=== PATIENT | female | born 1940 | race Caucasian/White ===

== ENCOUNTER 2020-06-09 12:46 | Inpatient (IN) | payer MEDICARE ==
--- NOTE | 2020-06-09 13:35 | XR ---
EXAMINATION TYPE: XR chest 2V DATE OF EXAM: 06/09/2020 COMPARISON: NONE HISTORY: Difficulty breathing, Covid positive TECHNIQUE: Frontal and lateral views of the chest are obtained. FINDINGS: Patchy densities present bilaterally. The heart is enlarged. There is a central venous cat heter on the right coursing via the internal jugular approach, distal tip is overlying the superior v kendall cava, there is a port in the left pectoral region, catheter courses via the subclavian approach w ith distal tip overlying superior vena cava. There is no pneumothorax or pleural effusion. Prominent lung volumes may be indicative of underlying COPD. Metallic density is present over the left heart re gion. IMPRESSION: Correlate for pneumonia, edema. Additional findings above.
[2020-06-09 13:53] LABS: Anisocytosis Slight; Basophils % (A) 0 %; Eosinophils % (A) 0 %; HCT 32.6 % (34.0-46.0); HGB 10.5 gm/dL (11.4-16.0); Hypochromasia Slight; Lymphocytes # (A) 0.7 k/uL (1.0-4.8); Lymphocytes % (A) 9 %; MCH 27.9 pg (25.0-35.0); MCHC 32.4 g/dL (31.0-37.0); MCV 86.1 fL (80.0-100.0); Mean Platelet Volume 8.3; Microcytosis Slight; Monocytes # (A) 0.2 k/uL (0-1.0); Monocytes % (A) 3 %; Neutrophils # (A) 6.2 k/uL (1.3-7.7); Neutrophils % (A) 87 %; Platelet Count 359 k/uL (150-450); RBC 3.78 m/uL (3.80-5.40); RDW 19.5 % (11.5-15.5); WBC 7.2 k/uL (3.8-10.6)
[2020-06-09 14:14] LABS: INR 0.9 (<1.2); Partial Thromboplastin Time 26.1 sec (22.0-30.0); Prothrombin Time 9.6 sec (9.0-12.0)
[2020-06-09] MEDS ORDERED: ALBUTEROL HFA INHALER INHALATION STA (14:23)
[2020-06-09 14:28] LABS: ALT 64 U/L (4-34); AST 135 U/L (14-36); African American GFR (CKD) 62 (>60 ml/min/1.73 sqM); Albumin 2.5 g/dL (3.5-5.0); Alkaline Phosphatase 405 U/L (38-126); Anion Gap 4 mmol/L; Blood Urea Nitrogen 49 mg/dL (7-17); Calcium 8.4 mg/dL (8.4-10.2); Carbon Dioxide 31 mmol/L (22-30); Chloride 99 mmol/L (98-107); Creatine Kinase <20 U/L (30-135); Glucose 211 mg/dL (74-99); Non-African American GFR(CKD) 54 (>60 ml/min/1.73 sqM); Potassium 4.4 mmol/L (3.5-5.1); Sodium 134 mmol/L (137-145); Total Bilirubin 0.5 mg/dL (0.2-1.3); Total Protein 5.4 g/dL (6.3-8.2)
[2020-06-09 14:32] LABS: D-Dimer 0.76 mg/L FEU (<0.60)
[2020-06-09] MEDS ORDERED: FUROSEMIDE 10 MG/ML 4 ML VIAL IV STA (14:54)
--- NOTE | 2020-06-09 14:57 | ED ---
SOB HPI - General Chief Complaint: Shortness of Breath Stated Complaint: CORAZON/COVID+ Time Seen by Provider: 06/09/20 12:46 Source: patient, RN/MD, EMS, RN notes reviewed Mode of arrival: EMS Limitations: no limitations - History of Present Illness Initial Comments: Is a 79-year-old female was brought in by EMS with complaints of shortness of breath hypoxemia. She apparently was diagnosed with Covid 19 recently. She's had progressively worsening shortness breath or cough. No overt fevers chills or sweats reported the source of breath is been going on for last several days. She also complains of weakness. She was sent in by her family doctor MD Complaint: shortness of breath - Related Data Home Medications Medication Instructions Recorded Confirmed Acetaminophen Tab [Tylenol] 650 mg PO Q4H PRN 06/09/20 06/09/20 Cholecalciferol [Vitamin D3 (25 2,000 unit PO DAILY@0900 06/09/20 06/09/20 Mcg = 1000 Iu)] Dimethic/Zinc Ox/Vits A,D/Aloe 1 applic TOPICAL Q12H 06/09/20 06/09/20 [A+D Zinc Oxide Cream] FLUoxetine HCL [PROzac] 10 mg PO DAILY@0900 06/09/20 06/09/20 Ferrous Sulfate [Iron] 325 mg PO DAILY@0900 06/09/20 06/09/20 Furosemide [Lasix] 40 mg PO BID@0600,1400 06/09/20 06/09/20 HYDROcodone/APAP 5-325MG [[place] 1 tab PO Q4HR PRN 06/09/20 06/09/20 5-325] Isosorbide Mononitrate ER [Imdur] 60 mg PO DAILY@0900 06/09/20 06/09/20 Kaopectate 262mg/15ml 524 mg PO BID@0900,2100 06/09/20 06/09/20 Kaopectate 262mg/15ml 524 mg PO TID PRN 06/09/20 06/09/20 Levothyroxine Sodium 137 mcg PO HS@209906/09/20 06/09/20 Mag Hydrox/Al Hydrox/Simeth 30 ml PO Q4H PRN 06/09/20 06/09/20 [Maalox] Metoprolol Tartrate [Lopressor] 12.5 mg PO BID@0900,2100 06/09/20 06/09/20 Piperacillin-Tazobactam [Zosyn] 3.375 gm IVPB Q8H 06/09/20 06/09/20 Potassium Chloride ER [K-Dur 10] 20 meq PO DAILY@0900 06/09/20 06/09/20 Prostat Awc 30 ml PO BID@0900,1700 06/09/20 06/09/20 Simethicone 80 mg PO Q4H PRN 06/09/20 06/09/20 Sodium Bicarbonate Tab 650 mg PO BID@0900,2100 06/09/20 06/09/20 Allergies Allergy/AdvReac Type Severity Reaction Status Date / Time No Known Allergies Allergy Unverified 06/09/20 12:55 Review of Systems ROS Statement: Those systems with pertinent positive or pertinent negative responses have been documented in the HPI. ROS Other: All systems not noted in ROS Statement are negative. Past Medical History Past Medical History: Cancer, Diabetes Mellitus Additional Past Medical History / Comment(s): Colon/cervical CA History of Any Multi-Drug Resistant Organisms: None Reported Past Surgical History: No Surgical Hx Reported Past Psychological History: No Psychological Hx Reported Smoking Status: Never smoker Past Alcohol Use History: None Reported Past Drug Use History: None Reported General Exam - General Exam Comments Initial Comments: Is a well-developed well-nourished awake alert oriented 3 female Limitations: no limitations General appearance: alert, anxious, in distress Head exam: Present: atraumatic, normocephalic, normal inspection Eye exam: Present: normal appearance, PERRL, EOMI. Absent: scleral icterus, conjunctival injection, periorbital swelling ENT exam: Present: normal exam, mucous membranes moist Neck exam: Present: normal inspection, full ROM, other. Absent: tenderness, meningismus, lymphadenopathy Respiratory exam: Present: decreased breath sounds (No stridor JVD or bruits). Absent: respiratory distress, wheezes, rales, rhonchi, stridor Cardiovascular Exam: Present: regular rate, normal rhythm, normal heart sounds. Absent: systolic murmur, diastolic murmur, rubs, gallop, clicks GI/Abdominal exam: Present: soft, normal bowel sounds. Absent: distended, tenderness, guarding, rebound, rigid Extremities exam: Present: normal inspection, full ROM, normal capillary refill. Absent: tenderness, pedal edema, joint swelling, calf tenderness Back exam: Present: normal inspection Neurological exam: Present: alert, oriented X3, CN II-XII intact Psychiatric exam: Present: normal affect, normal mood Skin exam: Present: warm, dry, intact, normal color. Absent: rash Course Vital Signs 06/09/20 06/09/20 06/09/20 12:50 12:57 13:45 Temperature 97.5 F L Pulse Rate 66 67 Respiratory 18 30 H 24 Rate Blood Pressure 121/73 131/81 O2 Sat by Pulse 100 99 Oximetry Medical Decision Making - Medical Decision Making I had discussed the findings with the patient as well as with Dr. López previously. Patient be admitted with consultation by Dr. Pabon as well as Dr. Rangel - Lab Data Result diagrams: 06/09/20 13:41 06/09/20 13:41 Lab Results 06/09/20 06/09/20 06/09/20 Range/Units 13:41 13:41 13:41 WBC 7.2 (3.8-10.6) k/uL RBC 3.78 L (3.80-5.40) m/uL Hgb 10.5 L (11.4-16.0) gm/dL Hct 32.6 L (34.0-46.0) % MCV 86.1 (80.0-100.0) fL MCH 27.9 (25.0-35.0) pg MCHC 32.4 (31.0-37.0) g/dL RDW 19.5 H (11.5-15.5) % Plt Count 359 (150-450) k/uL MPV 8.3 Neutrophils % 87 % Lymphocytes % 9 % Monocytes % 3 % Eosinophils % 0 % Basophils % 0 % Neutrophils # 6.2 (1.3-7.7) k/uL Lymphocytes # 0.7 L (1.0-4.8) k/uL Monocytes # 0.2 (0-1.0) k/uL Eosinophils # 0.0 (0-0.7) k/uL Basophils # 0.0 (0-0.2) k/uL Hypochromasia Slight Anisocytosis Slight Microcytosis Slight PT 9.6 (9.0-12.0) sec INR 0.9 (<1.2) APTT 26.1 (22.0-30.0) sec D-Dimer 0.76 H (<0.60) mg/L FEU Sodium 134 L (137-145) mmol/L Potassium 4.4 (3.5-5.1) mmol/L Chloride 99 (98-107) mmol/L Carbon Dioxide 31 H (22-30) mmol/L Anion Gap 4 mmol/L BUN 49 H (7-17) mg/dL Creatinine 0.99 (0.52-1.04) mg/dL Est GFR (CKD-EPI)AfAm 62 (>60 ml/min/1.73 sqM) Est GFR (CKD-EPI)NonAf 54 (>60 ml/min/1.73 sqM) Glucose 211 H (74-99) mg/dL Plasma Lactic Acid [place] (0.7-2.0) mmol/L Calcium 8.4 (8.4-10.2) mg/dL Magnesium 2.0 (1.6-2.3) mg/dL Total Bilirubin 0.5 (0.2-1.3) mg/dL AST 135 H (14-36) U/L ALT 64 H (4-34) U/L Alkaline Phosphatase 405 H (38-126) U/L Creatine Kinase <20 L (30-135) U/L Troponin I (0.000-0.034) ng/mL NT-Pro-B Natriuret Pep pg/mL Total Protein 5.4 L (6.3-8.2) g/dL Albumin 2.5 L (3.5-5.0) g/dL 06/09/20 06/09/20 06/09/20 Range/Units 13:41 13:41 13:41 WBC (3.8-10.6) k/uL RBC (3.80-5.40) m/uL Hgb (11.4-16.0) gm/dL Hct (34.0-46.0) % MCV (80.0-100.0) fL MCH (25.0-35.0) pg MCHC (31.0-37.0) g/dL RDW (11.5-15.5) % Plt Count (150-450) k/uL MPV Neutrophils % % Lymphocytes % % Monocytes % % Eosinophils % % Basophils % % Neutrophils # (1.3-7.7) k/uL Lymphocytes # (1.0-4.8) k/uL Monocytes # (0-1.0) k/uL Eosinophils # (0-0.7) k/uL Basophils # (0-0.2) k/uL Hypochromasia Anisocytosis Microcytosis PT (9.0-12.0) sec INR (<1.2) APTT (22.0-30.0) sec D-Dimer (<0.60) mg/L FEU Sodium (137-145) mmol/L Potassium (3.5-5.1) mmol/L Chloride (98-107) mmol/L Carbon Dioxide (22-30) mmol/L Anion Gap mmol/L BUN (7-17) mg/dL Creatinine (0.52-1.04) mg/dL Est GFR (CKD-EPI)AfAm (>60 ml/min/1.73 sqM) Est GFR (CKD-EPI)NonAf (>60 ml/min/1.73 sqM) Glucose (74-99) mg/dL Plasma Lactic Acid [place] 1.5 (0.7-2.0) mmol/L Calcium (8.4-10.2) mg/dL Magnesium (1.6-2.3) mg/dL Total Bilirubin (0.2-1.3) mg/dL AST (14-36) U/L ALT (4-34) U/L Alkaline Phosphatase (38-126) U/L Creatine Kinase (30-135) U/L Troponin I 0.028 (0.000-0.034) ng/mL NT-Pro-B Natriuret Pep 65767 pg/mL Total Protein (6.3-8.2) g/dL Albumin (3.5-5.0) g/dL - EKG Data -: EKG Interpreted by Me EKG shows normal: sinus rhythm EKG Comments: EKG shows sinus rhythm a 63. Interval 196 QRS duration 166 QT since QTC 486/497) bundle-branch block with anterior fascicular block and minimal voltage criteria for LVH - Radiology Data Radiology results: report reviewed (Evidence of heart failure. Complete report), image reviewed Critical Care Time Critical Care Time: Yes Total Critical Care Time: 35 Critical Care Time: This includes initial presentation with history physical labs x-rays discussed with the paramedics brought the patient review of old charting multiple evaluations patient discussed with patient physician admission orders and documentation of the above Disposition Clinical Impression: Congestive heart failure, COVID-19, Failure to thrive Disposition: ADMITTED IP TO THIS [facility] Condition: Fair Referrals: Cristi López MD [Primary Care Provider] - 1-2 days
[2020-06-09] MEDS ORDERED: MAG HYDROX/AL HYDROX/SIMETH 30 ML CUP PO PRN (15:04)
[2020-06-09] MEDS ORDERED: BISMUTH SUBSALICYLATE PO PRN (15:04)
[2020-06-09] MEDS ORDERED: SIMETHICONE 80 MG CHEWABLE PO PRN (15:04)
[2020-06-09] MEDS ORDERED: ACETAMINOPHEN TAB 325 MG TAB PO PRN (15:04)
--- NOTE | 2020-06-09 15:06 | ED ---
Medical Decision Making - Lab Data Result diagrams: 06/09/20 13:41 06/09/20 13:41 Lab Results 06/09/20 06/09/20 06/09/20 Range/Units 13:41 13:41 13:41 WBC 7.2 (3.8-10.6) k/uL RBC 3.78 L (3.80-5.40) m/uL Hgb 10.5 L (11.4-16.0) gm/dL Hct 32.6 L (34.0-46.0) % MCV 86.1 (80.0-100.0) fL MCH 27.9 (25.0-35.0) pg MCHC 32.4 (31.0-37.0) g/dL RDW 19.5 H (11.5-15.5) % Plt Count 359 (150-450) k/uL MPV 8.3 Neutrophils % 87 % Lymphocytes % 9 % Monocytes % 3 % Eosinophils % 0 % Basophils % 0 % Neutrophils # 6.2 (1.3-7.7) k/uL Lymphocytes # 0.7 L (1.0-4.8) k/uL Monocytes # 0.2 (0-1.0) k/uL Eosinophils # 0.0 (0-0.7) k/uL Basophils # 0.0 (0-0.2) k/uL Hypochromasia Slight Anisocytosis Slight Microcytosis Slight PT 9.6 (9.0-12.0) sec INR 0.9 (<1.2) APTT 26.1 (22.0-30.0) sec D-Dimer 0.76 H (<0.60) mg/L FEU Sodium 134 L (137-145) mmol/L Potassium 4.4 (3.5-5.1) mmol/L Chloride 99 (98-107) mmol/L Carbon Dioxide 31 H (22-30) mmol/L Anion Gap 4 mmol/L BUN 49 H (7-17) mg/dL Creatinine 0.99 (0.52-1.04) mg/dL Est GFR (CKD-EPI)AfAm 62 (>60 ml/min/1.73 sqM) Est GFR (CKD-EPI)NonAf 54 (>60 ml/min/1.73 sqM) Glucose 211 H (74-99) mg/dL Plasma Lactic Acid [place] (0.7-2.0) mmol/L Calcium 8.4 (8.4-10.2) mg/dL Magnesium 2.0 (1.6-2.3) mg/dL Total Bilirubin 0.5 (0.2-1.3) mg/dL AST 135 H (14-36) U/L ALT 64 H (4-34) U/L Alkaline Phosphatase 405 H (38-126) U/L Creatine Kinase <20 L (30-135) U/L Troponin I (0.000-0.034) ng/mL NT-Pro-B Natriuret Pep pg/mL Total Protein 5.4 L (6.3-8.2) g/dL Albumin 2.5 L (3.5-5.0) g/dL 06/09/20 06/09/20 06/09/20 Range/Units 13:41 13:41 13:41 WBC (3.8-10.6) k/uL RBC (3.80-5.40) m/uL Hgb (11.4-16.0) gm/dL Hct (34.0-46.0) % MCV (80.0-100.0) fL MCH (25.0-35.0) pg MCHC (31.0-37.0) g/dL RDW (11.5-15.5) % Plt Count (150-450) k/uL MPV Neutrophils % % Lymphocytes % % Monocytes % % Eosinophils % % Basophils % % Neutrophils # (1.3-7.7) k/uL Lymphocytes # (1.0-4.8) k/uL Monocytes # (0-1.0) k/uL Eosinophils # (0-0.7) k/uL Basophils # (0-0.2) k/uL Hypochromasia Anisocytosis Microcytosis PT (9.0-12.0) sec INR (<1.2) APTT (22.0-30.0) sec D-Dimer (<0.60) mg/L FEU Sodium (137-145) mmol/L Potassium (3.5-5.1) mmol/L Chloride (98-107) mmol/L Carbon Dioxide (22-30) mmol/L Anion Gap mmol/L BUN (7-17) mg/dL Creatinine (0.52-1.04) mg/dL Est GFR (CKD-EPI)AfAm (>60 ml/min/1.73 sqM) Est GFR (CKD-EPI)NonAf (>60 ml/min/1.73 sqM) Glucose (74-99) mg/dL Plasma Lactic Acid [place] 1.5 (0.7-2.0) mmol/L Calcium (8.4-10.2) mg/dL Magnesium (1.6-2.3) mg/dL Total Bilirubin (0.2-1.3) mg/dL AST (14-36) U/L ALT (4-34) U/L Alkaline Phosphatase (38-126) U/L Creatine Kinase (30-135) U/L Troponin I 0.028 (0.000-0.034) ng/mL NT-Pro-B Natriuret Pep 61764 pg/mL Total Protein (6.3-8.2) g/dL Albumin (3.5-5.0) g/dL Disposition Clinical Impression: Congestive heart failure, COVID-19, Failure to thrive Disposition: ADMITTED IP TO THIS HOSP Condition: Fair Referrals: Cristi López MD [Primary Care Provider] - 1-2 days
[2020-06-09] MEDS ORDERED: HYDROcodone/APAP 5-325MG 1 EACH TAB PO STA (15:13)
[2020-06-09] MEDS ORDERED: FUROSEMIDE 10 MG/ML 4 ML VIAL IV SCH (15:15)
[2020-06-09] MEDS: ALBUTEROL HFA INHALER INHALATION SCH ×2 (16:36→20:23)
[2020-06-09] MEDS: ZINC SULFATE 220 MG CAP PO SCH (16:40)
[2020-06-09] MEDS: PIPERACILLIN-TAZOBACTAM 3.375 GM VIAL IVPB SCH (16:40)
[2020-06-09] MEDS ORDERED: NON FORMULARY DRUG (Prostat Awc 30 ML) PO SCH (17:00)
[2020-06-09] MEDS: METOPROLOL TARTRATE 12.5 MG TAB PO SCH (20:39)
[2020-06-09] MEDS: SODIUM BICARBONATE TAB 650 MG TAB PO SCH ×2 (20:45→20:49)
[2020-06-09] MEDS: HEPARIN SODIUM,PORCINE 5,000 UNIT/ML 1 ML VIAL SQ SCH (20:50)
[2020-06-09] MEDS: DEXAMETHASONE SOD PHOSPHATE 10 MG/ML 1 ML VIAL IV SCH (20:52)
[2020-06-09] MEDS: FUROSEMIDE 10 MG/ML 4 ML VIAL IV SCH (20:54)
[2020-06-09] MEDS: LEVOTHYROXINE 137 MCG TAB PO SCH (20:56)
[2020-06-09] MEDS: ZINC OXIDE 20% OINT 28.4 GM TUBE TOPICAL SCH (20:58)
[2020-06-10] MEDS: ALBUTEROL HFA INHALER INHALATION SCH ×5 (00:27→21:59)
[2020-06-10] MEDS: PIPERACILLIN-TAZOBACTAM 3.375 GM VIAL IVPB SCH ×4 (01:34→23:39)
[2020-06-10 04:26] LABS: C Reactive Protein 13.2 mg/dL (0.0-0.8)
[2020-06-10 06:03] LABS: Glucose,Whole Blood 302 mg/dL (75-99)
[2020-06-10] MEDS: INSULIN ASPART (NovoLOG) 100 UNIT/ML VIAL SQ SCH ×4 (06:28→20:36)
[2020-06-10] MEDS: FERROUS SULFATE 325 MG TAB PO SCH (09:05)
[2020-06-10] MEDS: ZINC SULFATE 220 MG CAP PO SCH (09:05)
[2020-06-10] MEDS: CHOLECALCIFEROL 1,000 UNIT TAB PO SCH (09:05)
[2020-06-10] MEDS: FUROSEMIDE 10 MG/ML 4 ML VIAL IV SCH ×2 (09:06→20:35)
[2020-06-10] MEDS: HEPARIN SODIUM,PORCINE 5,000 UNIT/ML 1 ML VIAL SQ SCH ×2 (09:06→20:35)
[2020-06-10] MEDS: FLUoxetine HCL 10 MG CAP PO SCH (09:06)
[2020-06-10] MEDS: DEXAMETHASONE SOD PHOSPHATE 10 MG/ML 1 ML VIAL IV SCH ×2 (09:06→20:35)
[2020-06-10] MEDS: POTASSIUM CHLORIDE ER 10 MEQ TAB.ER.PRT PO SCH (09:06)
[2020-06-10] MEDS: ZINC OXIDE 20% OINT 28.4 GM TUBE TOPICAL SCH ×2 (09:07→20:37)
[2020-06-10] MEDS: METOPROLOL TARTRATE 12.5 MG TAB PO SCH ×2 (09:14→20:36)
[2020-06-10] MEDS: ISOSORBIDE MONONITRATE ER 60 MG TAB.ER.24H PO SCH (09:14)
--- NOTE | 2020-06-10 11:22 | P.CNPUL ---
History of Present Illness Consult date: 06/10/20 Reason for consult: dyspnea, cough, hypoxemia, pneumonia Chief complaint: Covid 19 pneumonia History of present illness: Patient is a 79-year-old female came into the hospital with increasing cough shortness of breath she was noted to be hypoxic with x-ray showing bilateral interstitial infiltrate, patient was recently found to have covid 19 pneumonia, her past history is significant for diabetes mellitus, colon and cervical cancer, currently she is being treated with supplemental oxygen along with bronchodilators Decadron 6 mg IV every 12 hourly continuation of home medicine as well as IV furosemide and IV Zosyn, her oxygen saturation is 95-97% on 4 L, her BNP is 7-6600,*slightly elevated, AST and ALT are 135 and 64 alk phos 405, BUN/creatinine is 49 and 0.99 LDH is the 339, C-reactive protein is 13.2, Review of Systems All systems: negative Past Medical History Past Medical History: Cancer, Diabetes Mellitus Additional Past Medical History / Comment(s): Colon/cervical CA History of Any Multi-Drug Resistant Organisms: None Reported Past Surgical History: Bowel Resection Additional Past Surgical History / Comment(s): colostomy Past Psychological History: No Psychological Hx Reported Smoking Status: Never smoker Past Alcohol Use History: None Reported Past Drug Use History: None Reported Medications and Allergies Home Medications Medication Instructions Recorded Confirmed Type Acetaminophen Tab [Tylenol] 650 mg PO Q4H PRN 06/09/20 06/09/20 History Cholecalciferol [Vitamin D3 (25 2,000 unit PO DAILY@0900 06/09/20 06/09/20 History Mcg = 1000 Iu)] Dimethic/Zinc Ox/Vits A,D/Aloe 1 applic TOPICAL Q12H 06/09/20 06/09/20 History [A+D Zinc Oxide Cream] FLUoxetine HCL [PROzac] 10 mg PO DAILY@0900 06/09/20 06/09/20 History Ferrous Sulfate [Iron] 325 mg PO DAILY@0900 06/09/20 06/09/20 History Furosemide [Lasix] 40 mg PO BID@0600,1400 06/09/20 06/09/20 History HYDROcodone/APAP 5-325MG [[place] 1 tab PO Q4HR PRN 06/09/20 06/09/20 History 5-325] Isosorbide Mononitrate ER [Imdur] 60 mg PO DAILY@0900 06/09/20 06/09/20 History Kaopectate 262mg/15ml 524 mg PO BID@0900,209906/09/20 06/09/20 History Kaopectate 262mg/15ml 524 mg PO TID PRN 06/09/20 06/09/20 History Levothyroxine Sodium 137 mcg PO HS@209906/09/20 06/09/20 History Mag Hydrox/Al Hydrox/Simeth 30 ml PO Q4H PRN 06/09/20 06/09/20 History [Maalox] Metoprolol Tartrate [Lopressor] 12.5 mg PO BID@0900,209906/09/20 06/09/20 History Piperacillin-Tazobactam [Zosyn] 3.375 gm IVPB Q8H 06/09/20 06/09/20 History Potassium Chloride ER [K-Dur 10] 20 meq PO DAILY@0900 06/09/20 06/09/20 History Prostat Awc 30 ml PO BID@0900,1700 06/09/20 06/09/20 History Simethicone 80 mg PO Q4H PRN 06/09/20 06/09/20 History Sodium Bicarbonate Tab 650 mg PO BID@0900,209906/09/20 06/09/20 History Allergies Allergy/AdvReac Type Severity Reaction Status Date / Time No Known Allergies Allergy Unverified 06/09/20 12:55 Physical Exam Vitals: Vital Signs Temp Pulse Pulse Resp BP BP Pulse Ox 06/10/20 04:00 71 18 151/79 97 06/10/20 02:47 64 20 06/09/20 22:15 97.5 F L 64 20 134/60 98 06/09/20 20:39 52 L 16 122/49 98 06/09/20 20:30 64 20 06/09/20 17:50 97.6 F 62 18 132/69 98 06/09/20 16:52 60 18 127/62 98 06/09/20 15:29 97.6 F 56 L 25 H 118/58 98 06/09/20 15:19 60 18 135/78 98 06/09/20 13:45 67 24 131/81 99 06/09/20 12:57 30 H 06/09/20 12:50 97.5 F L 66 18 121/73 100 Intake and Output 06/09/20 06/10/20 06/10/20 22:59 06:59 14:59 Output Total 700 Balance -700 Output: Urine 700 Other: Voiding Method Indwelling Catheter Weight 77.111 kg 78 kg - Constitutional General appearance: average body habitus, cooperative, disheveled - EENT Eyes: PERRLA Ears: bilateral: normal - Neck Carotids: bilateral: upstroke normal Thyroid: bilateral: normal size - Respiratory Respiratory: bilateral: CTA - Cardiovascular Rhythm: regular Heart sounds: normal: S1, S2 - Gastrointestinal General gastrointestinal: normal bowel sounds - Neurologic Neurologic: CNII-XII intact - Musculoskeletal Musculoskeletal: gait normal, generalized weakness, strength equal bilaterally - Psychiatric Psychiatric: A&O x's 3, appropriate affect, intact judgment & insight Results - Laboratory Findings CBC and BMP: 06/09/20 13:41 06/09/20 13:41 PT/INR, D-dimer PT 9.6 sec (9.0-12.0) 06/09/20 13:41 INR 0.9 (<1.2) 06/09/20 13:41 D-Dimer 0.76 mg/L FEU (<0.60) H 06/09/20 13:41 Abnormal lab findings: Abnormal Labs 06/09/20 06/09/20 06/09/20 13:41 13:41 13:41 RBC 3.78 L Hgb 10.5 L Hct 32.6 L RDW 19.5 H Lymphocytes # 0.7 L D-Dimer 0.76 H Sodium 134 L Carbon Dioxide 31 H BUN 49 H Glucose 211 H POC Glucose (mg/dL) AST 135 H ALT 64 H Alkaline Phosphatase 405 H Lactate Dehydrogenase Creatine Kinase <20 L C-Reactive Protein Total Protein 5.4 L Albumin 2.5 L 06/09/20 06/10/20 16:33 06:01 RBC Hgb Hct RDW Lymphocytes # D-Dimer Sodium Carbon Dioxide BUN Glucose POC Glucose (mg/dL) 302 H AST ALT Alkaline Phosphatase Lactate Dehydrogenase 339 H Creatine Kinase C-Reactive Protein 13.2 H Total Protein Albumin - Diagnostic Findings Chest x-ray: report reviewed, image reviewed (Chest x-ray finding as reported above) Assessment and Plan Assessment: Acute hypoxic respiratory failure Acute on chronic diastolic heart failure Covert 19 pneumonia Elevated troponins Plan: Continue diuresis as planned Check d-dimer Continue dexamethasone Patient is not a candidate for REMdesivir due to elevated liver enzyme also acute decompensation appears to be related to heart failure Echocardiogram Time with Patient: Greater than 30
[2020-06-10 11:54] LABS: Glucose,Whole Blood 261 mg/dL (75-99)
--- NOTE | 2020-06-10 12:15 | P.CONS ---
History of Present Illness - Reason for Consult Consult date: 06/10/20 wound care - History of Present Illness this is an 79-year-old patient who sees Dr. Pabon at [facility] wound care center. Upon examination patient was unable to say what dressings utilize for her ulcerations. Patient states that the ulcerations have been there for many months. She lives in [place] alone and has home care coming in for dressing changes. upon examination it was found that the patient was utilizing a negative pressure wound VAC for the coccyx ulceration. Patient has a large coccyx ulceration with undermining from 11:00 until 3:00, patient has bone exposed with fascia. She has minimal slough with granulation seen throughout the wound bed. No eschar noted to the site. the ulceration to the left heel is healed. Review of Systems Review Of Systems: Constitutional: No fever, no chills, no night sweats. No weight change. No weakness, fatigue or lethargy. No daytime sleepiness. Integumentary:reports wounds, no lesions. No rash or pruritus. No unusual bruising. No change in hair or nails. Past Medical History Past Medical History: Cancer, Diabetes Mellitus Additional Past Medical History / Comment(s): Colon/cervical CA History of Any Multi-Drug Resistant Organisms: None Reported Past Surgical History: Bowel Resection Additional Past Surgical History / Comment(s): colostomy Past Psychological History: No Psychological Hx Reported Smoking Status: Never smoker Past Alcohol Use History: None Reported Past Drug Use History: None Reported Medications and Allergies Home Medications Medication Instructions Recorded Confirmed Type Acetaminophen Tab [Tylenol] 650 mg PO Q4H PRN 06/09/20 06/09/20 History Cholecalciferol [Vitamin D3 (25 2,000 unit PO DAILY@89906/09/20 06/09/20 History Mcg = 1000 Iu)] Dimethic/Zinc Ox/Vits A,D/Aloe 1 applic TOPICAL Q12H 06/09/20 06/09/20 History [A+D Zinc Oxide Cream] FLUoxetine HCL [PROzac] 10 mg PO DAILY@0900 06/09/20 06/09/20 History Ferrous Sulfate [Iron] 325 mg PO DAILY@0900 06/09/20 06/09/20 History Furosemide [Lasix] 40 mg PO BID@0600,1400 06/09/20 06/09/20 History HYDROcodone/APAP 5-325MG [[place] 1 tab PO Q4HR PRN 06/09/20 06/09/20 History 5-325] Isosorbide Mononitrate ER [Imdur] 60 mg PO DAILY@0900 06/09/20 06/09/20 History Kaopectate 262mg/15ml 524 mg PO BID@0900,2100 06/09/20 06/09/20 History Kaopectate 262mg/15ml 524 mg PO TID PRN 06/09/20 06/09/20 History Levothyroxine Sodium 137 mcg PO HS@209906/09/20 06/09/20 History Mag Hydrox/Al Hydrox/Simeth 30 ml PO Q4H PRN 06/09/20 06/09/20 History [Maalox] Metoprolol Tartrate [Lopressor] 12.5 mg PO BID@0900,2100 06/09/20 06/09/20 History Piperacillin-Tazobactam [Zosyn] 3.375 gm IVPB Q8H 06/09/20 06/09/20 History Potassium Chloride ER [K-Dur 10] 20 meq PO DAILY@0900 06/09/20 06/09/20 History Prostat Awc 30 ml PO BID@0900,1700 06/09/20 06/09/20 History Simethicone 80 mg PO Q4H PRN 06/09/20 06/09/20 History Sodium Bicarbonate Tab 650 mg PO BID@0900,2100 06/09/20 06/09/20 History Allergies Allergy/AdvReac Type Severity Reaction Status Date / Time No Known Allergies Allergy Unverified 06/09/20 12:55 Physical Exam Vitals: Vital Signs Temp Pulse Pulse Resp BP BP Pulse Ox 06/10/20 04:00 71 18 151/79 97 06/10/20 02:47 64 20 06/09/20 22:15 97.5 F L 64 20 134/60 98 06/09/20 20:39 52 L 16 122/49 98 06/09/20 20:30 64 20 06/09/20 17:50 97.6 F 62 18 132/69 98 06/09/20 16:52 60 18 127/62 98 06/09/20 15:29 97.6 F 56 L 25 H 118/58 98 06/09/20 15:19 60 18 135/78 98 06/09/20 13:45 67 24 131/81 99 06/09/20 12:57 30 H 06/09/20 12:50 97.5 F L 66 18 121/73 100 Intake and Output 06/09/20 06/10/20 06/10/20 22:59 06:59 14:59 Output Total 700 650 Balance -700 -650 Output: Urine 700 650 Other: Voiding Method Indwelling Catheter # Bowel Movements 1 Weight 77.111 kg 78 kg Physical exam: General Appearance: Alert, cooperative, no distress, appears stated age. Skin: See HPI all other Skin color, texture, tugor normal, no rashes or lesions. Neurologic: Alert oriented x3 Results CBC & Chem 7: 06/09/20 13:41 06/09/20 13:41 Labs: Abnormal Lab Results - Last 24 Hours (Table) 06/09/20 06/09/20 06/09/20 Range/Units 13:41 13:41 13:41 RBC 3.78 L (3.80-5.40) m/uL Hgb 10.5 L (11.4-16.0) gm/dL Hct 32.6 L (34.0-46.0) % RDW 19.5 H (11.5-15.5) % Lymphocytes # 0.7 L (1.0-4.8) k/uL D-Dimer 0.76 H (<0.60) mg/L FEU Sodium 134 L (137-145) mmol/L Carbon Dioxide 31 H (22-30) mmol/L BUN 49 H (7-17) mg/dL Glucose 211 H (74-99) mg/dL POC Glucose (mg/dL) (75-99) mg/dL AST 135 H (14-36) U/L ALT 64 H (4-34) U/L Alkaline Phosphatase 405 H (38-126) U/L Lactate Dehydrogenase (120-246) U/L Creatine Kinase <20 L (30-135) U/L C-Reactive Protein (0.0-0.8) mg/dL Total Protein 5.4 L (6.3-8.2) g/dL Albumin 2.5 L (3.5-5.0) g/dL 06/09/20 06/10/20 Range/Units 16:33 06:01 RBC (3.80-5.40) m/uL Hgb (11.4-16.0) gm/dL Hct (34.0-46.0) % RDW (11.5-15.5) % Lymphocytes # (1.0-4.8) k/uL D-Dimer (<0.60) mg/L FEU Sodium (137-145) mmol/L Carbon Dioxide (22-30) mmol/L BUN (7-17) mg/dL Glucose (74-99) mg/dL POC Glucose (mg/dL) 302 H (75-99) mg/dL AST (14-36) U/L ALT (4-34) U/L Alkaline Phosphatase (38-126) U/L Lactate Dehydrogenase 339 H (120-246) U/L Creatine Kinase (30-135) U/L C-Reactive Protein 13.2 H (0.0-0.8) mg/dL Total Protein (6.3-8.2) g/dL Albumin (3.5-5.0) g/dL Assessment and Plan (1) Pressure ulcer of sacral region, stage 4 Current Visit: Yes Status: Acute Code(s): L89.154 - PRESSURE ULCER OF SACRAL REGION, STAGE 4 SNOMED Code(s): 290331777 (2) Diabetes mellitus with skin ulcer Current Visit: Yes Status: Acute Code(s): E11.622 - TYPE 2 DIABETES MELLITUS WITH OTHER SKIN ULCER; L98.499 - NON-PRESSURE CHRONIC ULCER OF SKIN OF SITES W UNSP SEVERITY SNOMED Code(s): 68796501 Plan: utilize foam heel protector to the left heel. Apply negative pressure wound VAC to the coccyx ulceration utilizing a white foam to the undermining and black foam to the ulceration. Use a Vaseline impregnated gauze to cover the exposed bone prior to the black foam. Negative pressure wound VAC at 150 mmHg continuous suction. Change Sunday. Patient should continue with the wound VAC upon discharge. If patient is unable to tolerate lying flat to apply the wound VAC please call the wound care center for additional orders Thank you for the consultation any questions please contact the wound center DNP note has been reviewed and discussed with Dr. Cardenas and the impression and plan of care has been directed as dictated. Time with Patient: Greater than 30
[2020-06-10 14:43] LABS: Hemoglobin A1C 7.5 % (4.0-6.0)
[2020-06-10 17:00] LABS: Glucose,Whole Blood 314 mg/dL (75-99)
[2020-06-10 20:17] LABS: Glucose,Whole Blood 316 mg/dL (75-99)
[2020-06-10] MEDS: HYDROcodone/APAP 5-325MG 1 EACH TAB PO PRN (20:34)
[2020-06-10] MEDS: SODIUM BICARBONATE TAB 650 MG TAB PO SCH (20:36)
[2020-06-10] MEDS: LEVOTHYROXINE 137 MCG TAB PO SCH (20:36)
--- NOTE | 2020-06-10 22:07 | P.CONS ---
History of Present Illness - Reason for Consult Consult date: 06/10/20 Covid and sacral osteomyelitis Requesting physician: Cristi López - Chief Complaint shortness of breath x few days - History of Present Illness Patient is 79-year-old female who apparently was recently diagnosed with a COVID-19 however is not sure exactly when she was diagnosed patient has been sent to the ER at [facility] yesterday afternoon for evaluation of increasing shortness of breath and hypoxemia, patient denies having any chest pain very minimal cough no nausea no vomiting no abdominal pain or any diarrhea on arrival to the ER patient was afebrile patient was satting 100% as documented on 4 L nasal cannula patient did have a normal white count with lymphopenia D-dimer was mildly elevated LDH CRP elevated creatinine 0.99 patient also have a infected sacral pressure ulcer for the patient is currently getting Zosyn in the outpatient setting and local wound care has been a wound VAC, patient was also noticed to have elevated NT proBNP patient has been admitted to the hospital patient was started on dexamethasone Heparin subcu zinc sulfate continue Zosyn infectious was consulted for further management need for her remdesivir therapy. Review of Systems Positive point has been mentioned in HPI rest of the systems are negative Past Medical History Past Medical History: Cancer, Diabetes Mellitus Additional Past Medical History / Comment(s): Colon/cervical CA History of Any Multi-Drug Resistant Organisms: None Reported Past Surgical History: Bowel Resection Additional Past Surgical History / Comment(s): colostomy Past Psychological History: No Psychological Hx Reported Smoking Status: Never smoker Past Alcohol Use History: None Reported Past Drug Use History: None Reported Medications and Allergies Home Medications Medication Instructions Recorded Confirmed Type Acetaminophen Tab [Tylenol] 650 mg PO Q4H PRN 06/09/20 06/09/20 History Cholecalciferol [Vitamin D3 (25 2,000 unit PO DAILY@89906/09/20 06/09/20 History Mcg = 1000 Iu)] Dimethic/Zinc Ox/Vits A,D/Aloe 1 applic TOPICAL Q12H 06/09/20 06/09/20 History [A+D Zinc Oxide Cream] FLUoxetine HCL [PROzac] 10 mg PO DAILY@89906/09/20 06/09/20 History Ferrous Sulfate [Iron] 325 mg PO DAILY@89906/09/20 06/09/20 History Furosemide [Lasix] 40 mg PO BID@00,1400 06/09/20 06/09/20 History HYDROcodone/APAP 5-325MG [[place] 1 tab PO Q4HR PRN 06/09/20 06/09/20 History 5-325] Isosorbide Mononitrate ER [Imdur] 60 mg PO DAILY@0900 06/09/20 06/09/20 History Kaopectate 262mg/15ml 524 mg PO BID@0900,2100 06/09/20 06/09/20 History Kaopectate 262mg/15ml 524 mg PO TID PRN 06/09/20 06/09/20 History Levothyroxine Sodium 137 mcg PO HS@209906/09/20 06/09/20 History Mag Hydrox/Al Hydrox/Simeth 30 ml PO Q4H PRN 06/09/20 06/09/20 History [Maalox] Metoprolol Tartrate [Lopressor] 12.5 mg PO BID@0900,2100 06/09/20 06/09/20 History Piperacillin-Tazobactam [Zosyn] 3.375 gm IVPB Q8H 06/09/20 06/09/20 History Potassium Chloride ER [K-Dur 10] 20 meq PO DAILY@0900 06/09/20 06/09/20 History Prostat Awc 30 ml PO BID@0900,1700 06/09/20 06/09/20 History Simethicone 80 mg PO Q4H PRN 06/09/20 06/09/20 History Sodium Bicarbonate Tab 650 mg PO BID@0900,2100 06/09/20 06/09/20 History Allergies Allergy/AdvReac Type Severity Reaction Status Date / Time No Known Allergies Allergy Unverified 06/09/20 12:55 Physical Exam Vitals: Vital Signs Temp Pulse Pulse Resp BP BP Pulse Ox 06/10/20 08:00 97.8 F 60 24 135/55 98 06/10/20 04:00 71 18 151/79 97 06/10/20 02:47 64 20 06/09/20 22:15 97.5 F L 64 20 134/60 98 06/09/20 20:39 52 L 16 122/49 98 06/09/20 20:30 64 20 06/09/20 17:50 97.6 F 62 18 132/69 98 06/09/20 16:52 60 18 127/62 98 06/09/20 15:29 97.6 F 56 L 25 H 118/58 98 06/09/20 15:19 60 18 135/78 98 06/09/20 13:45 67 24 131/81 99 06/09/20 12:57 30 H 06/09/20 12:50 97.5 F L 66 18 121/73 100 Intake and Output 06/09/20 06/10/20 06/10/20 22:59 06:59 14:59 Output Total 700 650 Balance -700 -650 Output: Urine 700 650 Other: Voiding Method Indwelling Catheter Indwelling Catheter # Bowel Movements 1 Weight 77.111 kg 78 kg GENERAL DESCRIPTION: Elderly female lying in bed, no distress. No tachypnea or accessory muscle of respiration use. HEENT: Shows Pallor , no scleral icterus. Oral mucous membrane is dry. NECK: Trachea central, no thyromegaly. LUNGS: Unlabored breathing. Decreased breath sound at the base. No wheeze or crackle. HEART: S1, S2, regular rate and rhythm. ABDOMEN: Soft, no tenderness , guarding or rigidity EXTREMITIES: No edema of feet. SKIN: No rash, no masses palpable. Sacral wound with no slough tissue no surrounding redness or drainage NEUROLOGICAL: The patient is awake, alert, oriented x3, mood and affect normal Results CBC & Chem 7: 06/09/20 13:41 06/09/20 13:41 Labs: Abnormal Lab Results - Last 24 Hours (Table) 06/09/20 06/09/20 06/09/20 Range/Units 13:41 13:41 13:41 RBC 3.78 L (3.80-5.40) m/uL Hgb 10.5 L (11.4-16.0) gm/dL Hct 32.6 L (34.0-46.0) % RDW 19.5 H (11.5-15.5) % Lymphocytes # 0.7 L (1.0-4.8) k/uL D-Dimer 0.76 H (<0.60) mg/L FEU Sodium 134 L (137-145) mmol/L Carbon Dioxide 31 H (22-30) mmol/L BUN 49 H (7-17) mg/dL Glucose 211 H (74-99) mg/dL POC Glucose (mg/dL) (75-99) mg/dL AST 135 H (14-36) U/L ALT 64 H (4-34) U/L Alkaline Phosphatase 405 H (38-126) U/L Lactate Dehydrogenase (120-246) U/L Creatine Kinase <20 L (30-135) U/L C-Reactive Protein (0.0-0.8) mg/dL Total Protein 5.4 L (6.3-8.2) g/dL Albumin 2.5 L (3.5-5.0) g/dL 06/09/20 06/10/20 06/10/20 Range/Units 16:33 06:01 11:53 RBC (3.80-5.40) m/uL Hgb (11.4-16.0) gm/dL Hct (34.0-46.0) % RDW (11.5-15.5) % Lymphocytes # (1.0-4.8) k/uL D-Dimer (<0.60) mg/L FEU Sodium (137-145) mmol/L Carbon Dioxide (22-30) mmol/L BUN (7-17) mg/dL Glucose (74-99) mg/dL POC Glucose (mg/dL) 302 H 261 H (75-99) mg/dL AST (14-36) U/L ALT (4-34) U/L Alkaline Phosphatase (38-126) U/L Lactate Dehydrogenase 339 H (120-246) U/L Creatine Kinase (30-135) U/L C-Reactive Protein 13.2 H (0.0-0.8) mg/dL Total Protein (6.3-8.2) g/dL Albumin (3.5-5.0) g/dL Assessment and Plan Assessment: 1-patient presented to hospital with increasing shortness of breath and apparently diagnosed outpatient with COVID-19 patient did not have any fever no hypoxemia documented as the patient has been satting 129% on 4 L nasal cannula chest x-ray is mostly suspicious for COPD did not mention any groundglass opacities commonly seen with a COVID-19 pneumonia 2-patient with stage IV sacral pressure ulcer infected for the patient is currently on Zosyn in the outpatient setting local wound care with wound VAC (1) COVID-19 Current Visit: Yes Status: Acute Code(s): U07.1 - COVID-19 SNOMED Code(s): 796719626 (2) Pressure ulcer of sacral region, stage 4 Current Visit: Yes Status: Acute Code(s): L89.154 - PRESSURE ULCER OF SACRAL REGION, STAGE 4 SNOMED Code(s): 160180214 Plan: 1-patient to continue with the dexamethasone Heparin zinc for underlying COVID- 19 infection, clinically doubt any benefit with remdesivir at this point as the patient already showed improvement in the last 24 hours 2-continue with Zosyn 3.375 g acute of underlying osteomyelitis of the sacrum area 3-local wound care with a wound VAC change Sunday We will follow on clinical condition and cultures to further adjust medication if needed Thank you for this consultation we will follow the patient along with you Time with Patient: Greater than 30
[2020-06-11] MEDS: HYDROcodone/APAP 5-325MG 1 EACH TAB PO PRN (02:27)
[2020-06-11] MEDS: ALBUTEROL HFA INHALER INHALATION SCH ×5 (03:20→23:58)
[2020-06-11 05:57] LABS: Glucose,Whole Blood 191 mg/dL (75-99)
[2020-06-11] MEDS: INSULIN ASPART (NovoLOG) 100 UNIT/ML VIAL SQ SCH ×4 (06:37→21:14)
--- NOTE | 2020-06-11 09:24 | PN ---
PROGRESS NOTE An 88-year-old white female with COVID positive pneumonia. She is Decadron or zinc, dexamethasone. She was sent in for hypoxemic respiratory failure. Her pulse is 50s to 60s. She is 93% on 6 L oxygen, temperature 98.5, pulse 60, respiratory 18-20. LUNGS: Scattered rhonchi. CARDIOVASCULAR: S1, S2. ASSESSMENT: COVID Positive pneumonia, CHF, coronary artery disease, hypothyroidism. Cardiology consult as well as Dr. Rangel for COVID pneumonia possibly Remdesivir will not be needed. She is severely bad with her breathing. DATE OF SERVICE: 06/10/2020 MMODL / IJN: [id number] /
[2020-06-11] MEDS: HEPARIN SODIUM,PORCINE 5,000 UNIT/ML 1 ML VIAL SQ SCH ×2 (10:01→21:13)
[2020-06-11] MEDS: FERROUS SULFATE 325 MG TAB PO SCH (10:01)
[2020-06-11] MEDS: ZINC SULFATE 220 MG CAP PO SCH (10:01)
[2020-06-11] MEDS: SODIUM BICARBONATE TAB 650 MG TAB PO SCH ×2 (10:02→21:12)
[2020-06-11] MEDS: POTASSIUM CHLORIDE ER 10 MEQ TAB.ER.PRT PO SCH (10:02)
[2020-06-11] MEDS: CHOLECALCIFEROL 1,000 UNIT TAB PO SCH (10:02)
[2020-06-11] MEDS: PIPERACILLIN-TAZOBACTAM 3.375 GM VIAL IVPB SCH ×2 (10:02→17:25)
[2020-06-11] MEDS: FLUoxetine HCL 10 MG CAP PO SCH (10:02)
[2020-06-11] MEDS: FUROSEMIDE 10 MG/ML 4 ML VIAL IV SCH ×2 (10:02→21:13)
[2020-06-11] MEDS: DEXAMETHASONE SOD PHOSPHATE 10 MG/ML 1 ML VIAL IV SCH ×2 (10:02→21:13)
[2020-06-11] MEDS: ZINC OXIDE 20% OINT 28.4 GM TUBE TOPICAL SCH ×2 (10:03→21:14)
[2020-06-11] MEDS: METOPROLOL TARTRATE 12.5 MG TAB PO SCH ×2 (10:04→21:12)
[2020-06-11] MEDS: ISOSORBIDE MONONITRATE ER 60 MG TAB.ER.24H PO SCH (10:04)
[2020-06-11 11:56] LABS: Glucose,Whole Blood 294 mg/dL (75-99)
[2020-06-11] MEDS: LOSARTAN 25 MG TAB PO SCH (12:34)
--- NOTE | 2020-06-11 13:28 | ECHOF ---
Referral Reason:pulmnary hypertension MEASUREMENTS -------- HEIGHT: 160.0 cm WEIGHT: 77.6 kg BP: 136/70 RVIDd: 2.3 cm (< 3.3) IVSd: 1.2 cm (0.6 - 1.1) LVIDd: 5.2 cm (3.9 - 5.3) LVPWd: 1.5 cm (0.6 - 1.1) IVSs: 1.6 cm LVIDs: 4.4 cm LVPWs: 1.8 cm LAESV Index (A-L): 41.86 ml/m Ao Diam: 2.6 cm (2.0 - 3.7) AV Cusp: 1.5 cm (1.5 - 2.6) LA Diam: 4.1 cm (2.7 - 3.8) MV EXCURSION: 16.659 mm (> 18.000) MV EF SLOPE: 67 mm/s (70 - 150) EPSS: 0.9 cm MV E Andrea: 1.06 m/s MV DecT: 162 ms MV A Andrea: 0.65 m/s MV E/A Ratio: 1.63 AV maxP.69 mmHg AV meanP.79 mmHg AR PHT: 373 ms RAP: 5.00 mmHg RVSP: 57.34 mmHg FINDINGS -------- This was a technically difficult study with suboptimal views. The left ventricular size is normal. There is borderline concentric left ventricular hypertrophy. Increased LAP Grade 2 Diastolic Dysfunction. Left ventricular funciton is moderately reduced with EF 40% with global hypokinesis. The right ventricle is normal in size. LA is severely dilated >40 ml/m2 The right atrial size is normal. Lumason used Aortic valve is trileaflet and is mildly thickened. There is mild aortic valve sclerosis. There i s moderate aortic regurgitation. Peak/mean gradient across the Aortic Valve is 9.69mmHg / 4.79mmHg. The mitral valve is normal. The mitral valve leaflets are mildly thickened. Yzlsbluu-ei-yzocua mi tral regurgitation is present. The tricuspid valve appears structurally normal. Moderate tricuspid regurgitation present. There is moderate pulmonary hypertension. The right ventricular systolic pressure, as measured by Doppler , is 57.34mmHg. Trace/mild (physiologic) pulmonic regurgitation. The aortic root size is normal. IVC Not well visulized. There is no pericardial effusion. CONCLUSIONS -------- 1. The left ventricular size is normal. 2. There is borderline concentric left ventricular hypertrophy. 3. Increased LAP Grade 2 Diastolic Dysfunction. 4. Left ventricular funciton is moderately reduced with EF 40% with global hypokinesis. 5. LA is severely dilated >40 ml/m2 6. Aortic valve is trileaflet and is mildly thickened. 7. There is mild aortic valve sclerosis. 8. Peak/mean gradient across the Aortic Valve is 9.69mmHg / 4.79mmHg. 9. The mitral valve leaflets are mildly thickened. 10. Moderate tricuspid regurgitation present. 11. There is moderate pulmonary hypertension. 12. The right ventricular systolic pressure, as measured by Doppler, is 57.34mmHg. 13. Trace/mild (physiologic) pulmonic regurgitation. 14. There is no pericardial effusion. CLOTH FOLDER MACHINE: Allison Devi RDCS
--- NOTE | 2020-06-11 15:36 | P.PN ---
Subjective Progress Note Date: 06/11/20 Principal diagnosis: Acute hypoxic respiratory failure Acute on chronic diastolic heart failure Covert 19 pneumonia Elevated troponins 06/11/2020, patient seen eval examined labs reviewed medications reviewed is still short of breath remains on oxygen, care plan discussed with infectious disease services will do a trial of REMdesivir reviewed liver enzymes as well will closely monitor observe, Patient is a 79-year-old female came into the hospital with increasing cough s hortness of breath she was noted to be hypoxic with x-ray showing bilateral interstitial infiltrate, patient was recently found to have covid 19 pneumonia, her past history is significant for diabetes mellitus, colon and cervical cancer, currently she is being treated with supplemental oxygen along with bronchodilators Decadron 6 mg IV every 12 hourly continuation of home medicine as well as IV furosemide and IV Zosyn, her oxygen saturation is 95-97% on 4 L, her BNP is 7-6600,*slightly elevated, AST and ALT are 135 and 64 alk phos 405, BUN/creatinine is 49 and 0.99 LDH is the 339, C-reactive protein is 13.2, Objective - Vital Signs Vital signs: Vital Signs Temp 97.6 F 06/11/20 08:00 Pulse 60 06/11/20 08:00 Resp 20 06/11/20 08:00 BP 147/62 06/11/20 08:00 Pulse Ox 97 06/11/20 08:00 Intake & Output 06/10/20 06/11/20 06/11/20 18:59 06:59 18:59 Intake Total 340 180 Output Total 750 600 Balance -410 -600 180 Weight 78 kg 78 kg Intake: Oral 340 180 Output: Urine 750 600 Other: Voiding Method Indwelling Catheter Indwelling Catheter Indwelling Catheter # Bowel Movements 1 - Exam - Constitutional General appearance: average body habitus, cooperative, disheveled - EENT Eyes: PERRLA Ears: bilateral: normal - Neck Carotids: bilateral: upstroke normal Thyroid: bilateral: normal size - Respiratory Respiratory: bilateral: CTA - Cardiovascular Rhythm: regular Heart sounds: normal: S1, S2 - Gastrointestinal General gastrointestinal: normal bowel sounds - Neurologic Neurologic: CNII-XII intact - Musculoskeletal Musculoskeletal: gait normal, generalized weakness, strength equal bilaterally - Psychiatric Psychiatric: A&O x's 3, appropriate affect, intact judgment & insigh - Labs CBC & Chem 7: 06/09/20 13:41 12/09/20 13:41 Labs: Abnormal Lab Results - Last 24 Hours (Table) 06/10/20 06/10/20 06/11/20 Range/Units 16:57 20:15 05:55 POC Glucose (mg/dL) 314 H 316 H 191 H (75-99) mg/dL 06/11/20 Range/Units 11:50 POC Glucose (mg/dL) 294 H (75-99) mg/dL Microbiology - Last 24 Hours (Table) 06/09/20 16:33 Blood Culture - Preliminary Blood No Growth after 24 hours Assessment and Plan Assessment: Acute hypoxic respiratory failure Acute on chronic diastolic heart failure Covert 19 pneumonia Elevated troponins Plan: Continue diuresis as planned Check d-dimer Continue dexamethasone As per discussion with infectious disease services will initiate a trial of REMdesivir Echocardiogram Time with Patient: Greater than 30
[2020-06-11] MEDS ORDERED: REMDESIVIR 200 MG in SODIUM CHLORIDE 0.9% 250 ML IVPB ONE (16:00)
--- NOTE | 2020-06-11 16:15 | CONS ---
CONSULTATION Mrs. Olga Babin is an 79-year-old lady, a patient of Dr. Cristi López, who apparently had a positive COVID antigen test on May 28, and she has now been hospitalized with what seems to be a COVID pneumonia based on the chest x-ray from 48 hours ago. She came in to the hospital with increasing shortness of breath and has been hospitalized with supplemental oxygen and also some Decadron. I was asked to see her for her congestive heart failure. This lady was not actually seen by me. I evaluated the chart and I am recommending an echocardiogram and also to continue IV Lasix, and based on clinical course we will make further recommendations. She came into the hospital with increasing shortness of breath, hypoxemia, and at home she takes Prozac, Lasix, Imdur, metoprolol tartrate 12.5 mg b.i.d., and also takes Synthroid 137 mcg daily. She also seems to have elevated blood sugars here, which could be related to the steroid administration. On reviewing the chart, she is not on any anti-diabetic medications. I am recommending an echocardiogram and also to continue the current medical regimen that has already been outlined by Dr. Rangel and Dr. López. I am suggesting losartan 25 mg daily to continue, and also metoprolol tartrate 12.5 mg b.i.d. will be continued. Based on the findings on the echo and clinical course, I will make further recommendations. I will see the patient only if it is absolutely necessary, given the fact we do not want a lot of people exposed to a COVID-positive patient. The patient has already been seen by Dr. Rangel and Dr. López. I will review the echo and make further recommendations. MMODL / IJN: [id number] /
[2020-06-11 16:59] LABS: Glucose,Whole Blood 311 mg/dL (75-99)
[2020-06-11 20:30] LABS: Glucose,Whole Blood 312 mg/dL (75-99)
[2020-06-11] MEDS: LEVOTHYROXINE 137 MCG TAB PO SCH (21:12)
[2020-06-11] MEDS: INSULIN DETEMIR (LEVEMIR) 100 UNIT/ML SYR SQ SCH (21:13)
--- NOTE | 2020-06-11 23:11 | PN ---
PROGRESS NOTE DATE OF SERVICE: 06/11/2020 REASON FOR FOLLOWUP: COVID-19 infection. INTERVAL HISTORY: The patient is currently afebrile. She seems slightly sleepy and lethargic today and was unable to provide any history. No vomiting or diarrhea reported by the nursing staff. Requiring about 4 L nasal cannula. PHYSICAL EXAMINATION: Blood pressure is 142/59, pulse of 57, temperature 98.1. She is 98% on 4 L nasal cannula. General description is an elderly female lying in bed in no distress. RESPIRATORY SYSTEM: Unlabored breathing with decreased intensity of breath sounds. No wheeze. HEART: S1, S2. Regular rate and rhythm. ABDOMEN: Soft. No tenderness. LABS: No new labs have been obtained today. Blood culture has been negative. DIAGNOSTIC IMPRESSION AND PLAN: Patient admitted to hospital with shortness of breath which is multifactorial in this patient with possible fluid overload. Clinically not behaving as infection. Positive COVID test. Remdesivir has been added. She is also on antibiotic. Will check her and tomorrow. Continue with supportive care. MMODL / IJN: [id number] /
[2020-06-12] MEDS: PIPERACILLIN-TAZOBACTAM 3.375 GM VIAL IVPB SCH ×4 (00:35→23:20)
[2020-06-12 06:31] LABS: Glucose,Whole Blood 146 mg/dL (75-99)
[2020-06-12] MEDS: INSULIN ASPART (NovoLOG) 100 UNIT/ML VIAL SQ SCH ×4 (06:36→20:51)
[2020-06-12] MEDS: FUROSEMIDE 10 MG/ML 4 ML VIAL IV SCH ×2 (08:41→20:52)
[2020-06-12] MEDS: DEXAMETHASONE SOD PHOSPHATE 10 MG/ML 1 ML VIAL IV SCH ×2 (08:42→20:52)
[2020-06-12] MEDS: METOPROLOL TARTRATE 12.5 MG TAB PO SCH ×2 (08:42→20:52)
[2020-06-12] MEDS: POTASSIUM CHLORIDE ER 10 MEQ TAB.ER.PRT PO SCH (08:42)
[2020-06-12] MEDS: ISOSORBIDE MONONITRATE ER 60 MG TAB.ER.24H PO SCH (08:42)
[2020-06-12] MEDS: HEPARIN SODIUM,PORCINE 5,000 UNIT/ML 1 ML VIAL SQ SCH ×2 (08:43→20:52)
[2020-06-12] MEDS: FERROUS SULFATE 325 MG TAB PO SCH (08:43)
[2020-06-12] MEDS: SODIUM BICARBONATE TAB 650 MG TAB PO SCH ×2 (08:43→20:52)
[2020-06-12] MEDS: LOSARTAN 25 MG TAB PO SCH (08:43)
[2020-06-12] MEDS: ZINC SULFATE 220 MG CAP PO SCH (08:43)
--- NOTE | 2020-06-12 08:44 | XR ---
EXAMINATION TYPE: XR chest 1V portable DATE OF EXAM: 06/12/2020 COMPARISON: 06/09/2020 INDICATION: Pneumonia TECHNIQUE: Single frontal view of the chest is obtained. FINDINGS: The heart size is enlarged. The pulmonary vasculature is normal. There is mild scattered increased infiltrates present bilaterally. Findings appear to be worsening fr om comparison. Port is present on the right with the tip in the superior vena cava region. IMPRESSION: 1. Worsening bilateral lung infiltrates. Correlate for atypical pneumonia. 2. Cardiomegaly.
[2020-06-12] MEDS: FLUoxetine HCL 10 MG CAP PO SCH (08:45)
[2020-06-12] MEDS: ZINC OXIDE 20% OINT 28.4 GM TUBE TOPICAL SCH ×2 (08:48→20:51)
[2020-06-12] MEDS: ALBUTEROL HFA INHALER INHALATION SCH ×3 (09:20→19:39)
--- NOTE | 2020-06-12 11:00 | P.PN ---
Subjective Progress Note Date: 06/12/20 Principal diagnosis: Acute hypoxic respiratory failure Acute on chronic diastolic heart failure Covert 19 pneumonia Elevated troponins 06/12/2020, patient seen eval examined during the rounds labs reviewed medications reviewed care plan discussed, denies any chest pain, respiratory status remains stable, heart rate is a 51 saturation is 98% on 4 L, chest x-ray showed worsening bilateral infiltrate along with cardiomegaly, patient remains on Decadron Zosyn and IV REMDESIVIr, sugars stable 146 06/11/2020, patient seen eval examined labs reviewed medications reviewed is st ill short of breath remains on oxygen, care plan discussed with infectious disease services will do a trial of REMdesivir reviewed liver enzymes as well will closely monitor observe, Patient is a 79-year-old female came into the hospital with increasing cough shortness of breath she was noted to be hypoxic with x-ray showing bilateral interstitial infiltrate, patient was recently found to have covid 19 pneumonia, her past history is significant for diabetes mellitus, colon and cervical cancer, currently she is being treated with supplemental oxygen along with bronchodilators Decadron 6 mg IV every 12 hourly continuation of home medicine as well as IV furosemide and IV Zosyn, her oxygen saturation is 95-97% on 4 L, her BNP is 7-6600,*slightly elevated, AST and ALT are 135 and 64 alk phos 405, BUN/creatinine is 49 and 0.99 LDH is the 339, C-reactive protein is 13.2, Objective - Vital Signs Vital signs: Vital Signs Temp 98.2 F 06/12/20 04:00 Pulse 51 L 06/12/20 04:00 Resp 20 06/12/20 04:00 BP 118/67 06/12/20 04:00 Pulse Ox 98 06/12/20 04:00 Intake & Output 06/11/20 06/12/20 06/12/20 18:59 06:59 18:59 Intake Total 540 120 Output Total 700 700 Balance -160 -700 120 Weight 79.5 kg Intake: Oral 540 120 Output: Urine 700 700 Uretheral (Leslie) 600 Other: Voiding Method Indwelling Catheter Indwelling Catheter - Exam - Constitutional General appearance: average body habitus, cooperative, disheveled - EENT Eyes: PERRLA Ears: bilateral: normal - Neck Carotids: bilateral: upstroke normal Thyroid: bilateral: normal size - Respiratory Respiratory: bilateral: CTA - Cardiovascular Rhythm: regular Heart sounds: normal: S1, S2 - Gastrointestinal General gastrointestinal: normal bowel sounds - Neurologic Neurologic: CNII-XII intact - Musculoskeletal Musculoskeletal: gait normal, generalized weakness, strength equal bilaterally - Psychiatric Psychiatric: A&O x's 3, appropriate affect, intact judgment & insigh - Labs CBC & Chem 7: 06/09/20 13:41 06/09/20 13:41 Labs: Abnormal Lab Results - Last 24 Hours (Table) 06/11/20 06/11/20 06/11/20 Range/Units 11:50 16:57 20:28 POC Glucose (mg/dL) 294 H 311 H 312 H (75-99) mg/dL 06/12/20 Range/Units 06:26 POC Glucose (mg/dL) 146 H (75-99) mg/dL Microbiology - Last 24 Hours (Table) 06/09/20 16:33 Blood Culture - Preliminary Blood No Growth after 48 hours Assessment and Plan Assessment: Acute hypoxic respiratory failure Acute on chronic systolic and diastolic heart failure ejection fraction is 40% with global hypokinesia and dilated LV Covert 19 pneumonia Moderate pulmonary hypertension Elevated troponins Plan: Continue diuresis as planned Continue anticoagulation, continue IV REMdesivir for 5 days, labs pending from today Continue dexamethasone As per discussion with infectious disease services will initiate a trial of REMdesivir Echocardiogram findings reviewed Time with Patient: Greater than 30
[2020-06-12 11:30] LABS: Anisocytosis Slight; Basophils % (A) 0 %; Eosinophils % (A) 0 %; HGB 10.2 gm/dL (11.4-16.0); Hypochromasia Marked; Lymphocytes # (A) 0.6 k/uL (1.0-4.8); Lymphocytes % (A) 6 %; MCH 28.6 pg (25.0-35.0); MCHC 31.9 g/dL (31.0-37.0); MCV 89.8 fL (80.0-100.0); Mean Platelet Volume 7.8; Monocytes # (A) 0.3 k/uL (0-1.0); Monocytes % (A) 3 %; Neutrophils # (A) 8.3 k/uL (1.3-7.7); Neutrophils % (A) 90 %; Platelet Count 356 k/uL (150-450); RBC 3.56 m/uL (3.80-5.40); RDW 19.3 % (11.5-15.5); WBC 9.2 k/uL (3.8-10.6)
[2020-06-12 11:41] LABS: Albumin 2.6 g/dL (3.5-5.0); C Reactive Protein 50.1 mg/L (<10.0); Calcium 8.6 mg/dL (8.4-10.2); Potassium 5.1 mmol/L (3.5-5.1); Total Bilirubin 0.5 mg/dL (0.2-1.3); Total Protein 5.6 g/dL (6.3-8.2)
[2020-06-12 11:48] LABS: Glucose,Whole Blood 221 mg/dL (75-99)
[2020-06-12] MEDS: REMDESIVIR 100 MG in SODIUM CHLORIDE 0.9% 250 ML IVPB SCH (15:13)
--- NOTE | 2020-06-12 16:26 | PN ---
PROGRESS NOTE SUBJECTIVE: 79-year-old white female. Discussed the case with Dr. Hinton. We will start her on Remdesivir. She is saturating low 90s on 5 to 6 L of oxygen. She has acute Covid 19 pneumonia, acute hypoxemic respiratory failure, acute on chronic diastolic heart failure, sacral osteomyelitis with diverting ileostomy. As mentioned above, she is on IV Remdesivir, Decadron, Zosyn. Sugars are in the 100s went up to 400s last night. I put her on a higher scale for insulin. Heart rate 51. Right now 98 on 4 L. She remains on IV Lasix for congestive heart failure. Extreme weeping in her legs and arms. Temp 98.2 as mentioned, O2 98 on 4 L. Blood pressure 118/60s, respiratory 18-20, pulse is 50s to 55. Constitutional: Cooperative, disheveled. Pupils equal, round, reactive. Neck is supple. No mass. Respiratory: Scattered rhonchi and wheeze. Heart: S1, S2. GI: Normal bowel sounds. NEUROLOGIC: Cranial nerves are intact. MUSCULOSKELETAL: Gait normal. Generalized weakness. Strength equal bilaterally. PSYCH: Alert and oriented x3. LABS: White count 7.2, hemoglobin is 10.5, platelets 359. Sodium 134, potassium 4.4, BUN is 49, creatinine 0.99. ASSESSMENT: 1. Covid 19 pneumonia. 2. Acute hypoxemic respiratory failure. 3. Acute on chronic systolic diastolic heart failure with global hypokinesia 40%. 4. Moderate pulmonary hypertension. 5. Elevated troponin secondary to Covid 19. Continue dexamethasone, IV Remdesivir, day two today. Anticoagulation. IV diuresis. Echo was reviewed. Cardiology and Pulmonary consult reviewed. Infectious Disease. Prognosis guarded. MMODL / IJN: [id number] /
[2020-06-12 16:49] LABS: Glucose,Whole Blood 265 mg/dL (75-99)
[2020-06-12 20:44] LABS: Glucose,Whole Blood 245 mg/dL (75-99)
[2020-06-12] MEDS: INSULIN DETEMIR (LEVEMIR) 100 UNIT/ML SYR SQ SCH (20:51)
[2020-06-12] MEDS: LEVOTHYROXINE 137 MCG TAB PO SCH (20:52)
--- NOTE | 2020-06-12 23:00 | PN ---
PROGRESS NOTE DATE OF SERVICE: 06/12/2020 REASON FOR FOLLOWUP: 1. Acute COVID-19 pneumonia. 2. Sacral osteomyelitis. INTERVAL HISTORY: Patient is currently afebrile. The patient is breathing comfortably. She is more awake, alert. Denies having any chest pain or shortness of breath. Minimal cough. No nausea or vomiting. No abdominal pain, no diarrhea. PHYSICAL EXAMINATION: Blood pressure 132/65, pulse of 58, temperature 96.8. She is 98% on 4 L nasal cannula. General description is an elderly female lying in bed in no distress. Respiratory system: Unlabored breathing, decreased breath sounds, no wheeze. Heart S1, S2. Regular rate and rhythm. Abdomen soft, no tenderness. LABS: Hemoglobin is 10.8, white count 9.2, BUN of 54, creatinine 1.04, and LDH is 996, ( ) 0.33. DIAGNOSTIC IMPRESSION AND PLAN: 1. Patient admitted to the hospital with hypoxemia with concern for acute COVID-19 pneumonia. The patient is currently covered with dexamethasone, ( ) and Remdesivir to continue along with respiratory support. 2. Patient with sacral osteomyelitis, covered with Zosyn. Local wound care as ordered. Continue supportive care. MMODL / IJN: [id number] /
[2020-06-12] MEDS: HYDROcodone/APAP 5-325MG 1 EACH TAB PO PRN (23:39)
[2020-06-13] MEDS: ALBUTEROL HFA INHALER INHALATION SCH ×4 (00:39→19:39)
[2020-06-13] MEDS: INSULIN ASPART (NovoLOG) 100 UNIT/ML VIAL SQ SCH ×4 (06:34→22:10)
[2020-06-13 06:53] LABS: Glucose,Whole Blood 106 mg/dL (75-99)
[2020-06-13 08:29] LABS: Albumin 2.7 g/dL (3.5-5.0); Calcium 8.8 mg/dL (8.4-10.2); Potassium 4.4 mmol/L (3.5-5.1); Total Bilirubin 0.5 mg/dL (0.2-1.3); Total Protein 5.6 g/dL (6.3-8.2)
[2020-06-13 08:54] LABS: Anisocytosis Slight; Basophils % (A) 0 %; Eosinophils % (A) 0 %; HCT 32.7 % (34.0-46.0); HGB 10.2 gm/dL (11.4-16.0); Hypochromasia Slight; Lymphocytes # (A) 0.6 k/uL (1.0-4.8); Lymphocytes % (A) 7 %; MCH 27.3 pg (25.0-35.0); MCHC 31.2 g/dL (31.0-37.0); MCV 87.6 fL (80.0-100.0); Mean Platelet Volume 8.3; Monocytes # (A) 0.3 k/uL (0-1.0); Monocytes % (A) 3 %; Neutrophils # (A) 7.2 k/uL (1.3-7.7); Neutrophils % (A) 89 %; Platelet Count 325 k/uL (150-450); RBC 3.73 m/uL (3.80-5.40); RDW 19.8 % (11.5-15.5); WBC 8.2 k/uL (3.8-10.6)
[2020-06-13] MEDS: FUROSEMIDE 10 MG/ML 4 ML VIAL IV SCH ×2 (09:14→22:09)
[2020-06-13] MEDS: DEXAMETHASONE SOD PHOSPHATE 10 MG/ML 1 ML VIAL IV SCH ×2 (09:14→22:09)
[2020-06-13] MEDS: METOPROLOL TARTRATE 12.5 MG TAB PO SCH (09:15)
[2020-06-13] MEDS: CHOLECALCIFEROL 1,000 UNIT TAB PO SCH (09:15)
[2020-06-13] MEDS: ISOSORBIDE MONONITRATE ER 60 MG TAB.ER.24H PO SCH (09:15)
[2020-06-13] MEDS: SODIUM BICARBONATE TAB 650 MG TAB PO SCH ×2 (09:15→22:12)
[2020-06-13] MEDS: ZINC SULFATE 220 MG CAP PO SCH (09:15)
[2020-06-13] MEDS: FERROUS SULFATE 325 MG TAB PO SCH (09:15)
[2020-06-13] MEDS: PIPERACILLIN-TAZOBACTAM 3.375 GM VIAL IVPB SCH ×3 (09:15→23:25)
[2020-06-13] MEDS: HEPARIN SODIUM,PORCINE 5,000 UNIT/ML 1 ML VIAL SQ SCH ×2 (09:15→22:10)
[2020-06-13] MEDS: POTASSIUM CHLORIDE ER 10 MEQ TAB.ER.PRT PO SCH (09:15)
[2020-06-13] MEDS: LOSARTAN 25 MG TAB PO SCH (09:16)
[2020-06-13] MEDS: ZINC OXIDE 20% OINT 28.4 GM TUBE TOPICAL SCH ×2 (09:16→23:26)
[2020-06-13] MEDS: FLUoxetine HCL 10 MG CAP PO SCH (09:23)
--- NOTE | 2020-06-13 11:27 | P.PN ---
Subjective Progress Note Date: 06/13/20 Principal diagnosis: Acute hypoxic respiratory failure Acute on chronic diastolic heart failure Covert 19 pneumonia Elevated troponins 06/13/2020, patient seen eval examined during the rounds labs reviewed medications reviewed patient remains on 4 L oxygen, breathing comfortably denies any chest pain, saturation is 95-96%, hemodynamic status stable remained afebrile, LFTs high and but remains stable, asymptomatic in that relation 06/12/2020, patient seen eval examined during the rounds labs reviewed medications reviewed care plan discussed, denies any chest pain, respiratory status remains stable, heart rate is a 51 saturation is 98% on 4 L, chest x-ray showed worsening bilateral infiltrate along with cardiomegaly, patient remains on Decadron Zosyn and IV REMDESIVIr, sugars stable 146 06/11/2020, patient seen eval examined labs reviewed medications reviewed is st ill short of breath remains on oxygen, care plan discussed with infectious disease services will do a trial of REMdesivir reviewed liver enzymes as well will closely monitor observe, Patient is a 79-year-old female came into the hospital with increasing cough shortness of breath she was noted to be hypoxic with x-ray showing bilateral interstitial infiltrate, patient was recently found to have covid 19 pneumonia, her past history is significant for diabetes mellitus, colon and cervical cancer, currently she is being treated with supplemental oxygen along with bronchodilators Decadron 6 mg IV every 12 hourly continuation of home medicine as well as IV furosemide and IV Zosyn, her oxygen saturation is 95-97% on 4 L, her BNP is 7-6600,*slightly elevated, AST and ALT are 135 and 64 alk phos 405, BUN/creatinine is 49 and 0.99 LDH is the 339, C-reactive protein is 13.2, Objective - Vital Signs Vital signs: Vital Signs Temp 97.6 F 06/13/20 09:10 Pulse 60 06/13/20 09:10 Resp 18 06/13/20 09:10 BP 142/64 06/13/20 09:10 Pulse Ox 100 06/13/20 09:10 Intake & Output 06/12/20 06/13/20 06/13/20 18:59 06:59 18:59 Intake Total 366 250 Output Total 800 800 Balance -434 -800 250 Weight 79.5 kg Intake: IV 10 Invasive Line 1 10 Oral 366 240 Output: Urine 800 800 Uretheral (Leslie) 600 400 Other: Voiding Method Indwelling Catheter Indwelling Catheter Indwelling Catheter # Bowel Movements 1 - Exam - Constitutional General appearance: average body habitus, cooperative, disheveled - EENT Eyes: PERRLA Ears: bilateral: normal - Neck Carotids: bilateral: upstroke normal Thyroid: bilateral: normal size - Respiratory Respiratory: bilateral: CTA - Cardiovascular Rhythm: regular Heart sounds: normal: S1, S2 - Gastrointestinal General gastrointestinal: normal bowel sounds - Neurologic Neurologic: CNII-XII intact - Musculoskeletal Musculoskeletal: gait normal, generalized weakness, strength equal bilaterally - Psychiatric Psychiatric: A&O x's 3, appropriate affect, intact judgment & insigh - Labs CBC & Chem 7: 06/13/20 07:53 06/13/20 07:53 Labs: Abnormal Lab Results - Last 24 Hours (Table) 06/12/20 06/12/20 06/12/20 Range/Units 10:42 10:42 10:42 RBC 3.56 L (3.80-5.40) m/uL Hgb 10.2 L (11.4-16.0) gm/dL Hct 32.0 L (34.0-46.0) % RDW 19.3 H (11.5-15.5) % Neutrophils # 8.3 H (1.3-7.7) k/uL Lymphocytes # 0.6 L (1.0-4.8) k/uL D-Dimer (<0.60) mg/L FEU Sodium 133 L (137-145) mmol/L Chloride 97 L (98-107) mmol/L Carbon Dioxide (22-30) mmol/L BUN 54 H (7-17) mg/dL Creatinine (0.52-1.04) mg/dL Glucose 189 H (74-99) mg/dL POC Glucose (mg/dL) (75-99) mg/dL AST 61 H (14-36) U/L ALT 48 H (4-34) U/L Alkaline Phosphatase 321 H (38-126) U/L Lactate Dehydrogenase 1096 H (313-618) U/L C-Reactive Protein 50.1 H (<10.0) mg/L Total Protein 5.6 L (6.3-8.2) g/dL Albumin 2.6 L (3.5-5.0) g/dL Procalcitonin 0.33 H (0.02-0.09) ng/mL 06/12/20 06/12/20 06/12/20 Range/Units 10:42 11:47 16:48 RBC (3.80-5.40) m/uL Hgb (11.4-16.0) gm/dL Hct (34.0-46.0) % RDW (11.5-15.5) % Neutrophils # (1.3-7.7) k/uL Lymphocytes # (1.0-4.8) k/uL D-Dimer 0.71 H (<0.60) mg/L FEU Sodium (137-145) mmol/L Chloride (98-107) mmol/L Carbon Dioxide (22-30) mmol/L BUN (7-17) mg/dL Creatinine (0.52-1.04) mg/dL Glucose (74-99) mg/dL POC Glucose (mg/dL) 221 H 265 H (75-99) mg/dL AST (14-36) U/L ALT (4-34) U/L Alkaline Phosphatase (38-126) U/L Lactate Dehydrogenase (313-618) U/L C-Reactive Protein (<10.0) mg/L Total Protein (6.3-8.2) g/dL Albumin (3.5-5.0) g/dL Procalcitonin (0.02-0.09) ng/mL 06/12/20 06/13/20 06/13/20 Range/Units 20:43 06:34 07:53 RBC 3.73 L (3.80-5.40) m/uL Hgb 10.2 L (11.4-16.0) gm/dL Hct 32.7 L (34.0-46.0) % RDW 19.8 H (11.5-15.5) % Neutrophils # (1.3-7.7) k/uL Lymphocytes # 0.6 L (1.0-4.8) k/uL D-Dimer (<0.60) mg/L FEU Sodium (137-145) mmol/L Chloride (98-107) mmol/L Carbon Dioxide (22-30) mmol/L BUN (7-17) mg/dL Creatinine (0.52-1.04) mg/dL Glucose (74-99) mg/dL POC Glucose (mg/dL) 245 H 106 H (75-99) mg/dL AST (14-36) U/L ALT (4-34) U/L Alkaline Phosphatase (38-126) U/L Lactate Dehydrogenase (313-618) U/L C-Reactive Protein (<10.0) mg/L Total Protein (6.3-8.2) g/dL Albumin (3.5-5.0) g/dL Procalcitonin (0.02-0.09) ng/mL 06/13/20 Range/Units 07:53 RBC (3.80-5.40) m/uL Hgb (11.4-16.0) gm/dL Hct (34.0-46.0) % RDW (11.5-15.5) % Neutrophils # (1.3-7.7) k/uL Lymphocytes # (1.0-4.8) k/uL D-Dimer (<0.60) mg/L FEU Sodium 136 L (137-145) mmol/L Chloride 97 L (98-107) mmol/L Carbon Dioxide 34 H (22-30) mmol/L BUN 53 H (7-17) mg/dL Creatinine 1.06 H (0.52-1.04) mg/dL Glucose 136 H (74-99) mg/dL POC Glucose (mg/dL) (75-99) mg/dL AST 56 H (14-36) U/L ALT 50 H (4-34) U/L Alkaline Phosphatase 336 H (38-126) U/L Lactate Dehydrogenase (313-618) U/L C-Reactive Protein (<10.0) mg/L Total Protein 5.6 L (6.3-8.2) g/dL Albumin 2.7 L (3.5-5.0) g/dL Procalcitonin (0.02-0.09) ng/mL Microbiology - Last 24 Hours (Table) 06/09/20 16:33 Blood Culture - Preliminary Blood No Growth after 72 hours Assessment and Plan Assessment: Acute hypoxic respiratory failure Acute on chronic systolic and diastolic heart failure ejection fraction is 40% with global hypokinesia and dilated LV Covert 19 pneumonia Moderate pulmonary hypertension Elevated troponins Plan: Continue diuresis as planned Continue anticoagulation, continue IV REMdesivir for 5 days, labs pending from today Continue dexamethasone As per discussion with infectious disease services will continue trial of REMdesivir for 5 days and monitor liver functions closely Echocardiogram findings reviewed Time with Patient: Greater than 30
--- NOTE | 2020-06-13 11:50 | PN ---
PROGRESS NOTE 79-year-old white female on day two Remdesivir for Covid-Pneumonia, sacral osteomyelitis. She is breathing comfortably. She is getting better daily. Her cough is limiting. Blood pressure 130s over 60s. Pulse is 50s to 60s. Temp 96. She is 98% on 4 L oxygen. Heart S1, S2. Abdomen is soft, nontender. Labs show hemoglobin 10.8, white count 9.2, BUN is 54, creatinine 1.04, LDH 996. ASSESSMENT: 1. Covid-19 pneumonia. IV Remdesivir is continuing. 2. Sacroiliitis on Zosyn. 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 3. Chronic obstructive pulmonary disease. 4. Congestive heart failure is being managed with Lasix. 5. Acute on chronic anemia. Hemoglobin is 10.2, sodium 136, potassium 4.4, BUN is 53, creatinine 1.06 today. Sugars are in the mid 200s to 100s for diabetes mellitus. Continue current treatment. Follow up in the next 24 to 48 hours. Today she is saturating 96% on 4 L. MMODL / IJN: [id number] /
[2020-06-13 11:53] LABS: Glucose,Whole Blood 180 mg/dL (75-99)
[2020-06-13] MEDS ORDERED: METOPROLOL TARTRATE 12.5 MG TAB PO STA (12:32)
[2020-06-13] MEDS: REMDESIVIR 100 MG in SODIUM CHLORIDE 0.9% 250 ML IVPB SCH (14:54)
[2020-06-13 16:30] LABS: Glucose,Whole Blood 248 mg/dL (75-99)
[2020-06-13 21:40] LABS: Glucose,Whole Blood 354 mg/dL (75-99)
[2020-06-13] MEDS: INSULIN DETEMIR (LEVEMIR) 100 UNIT/ML SYR SQ SCH (22:10)
[2020-06-13] MEDS: METOPROLOL TARTRATE 25 MG TAB PO SCH (22:11)
[2020-06-13] MEDS: LEVOTHYROXINE 137 MCG TAB PO SCH (23:25)
[2020-06-14] MEDS: ALBUTEROL HFA INHALER INHALATION SCH ×4 (00:39→20:06)
--- NOTE | 2020-06-14 02:30 | PN ---
PROGRESS NOTE DATE OF SERVICE: 06/13/2020 REASON FOR FOLLOWUP: 1. COVID-19 infection. 2. Infected sacral wound. INTERVAL HISTORY: The patient is currently afebrile. The patient is breathing comfortably. Patient denies having any chest pain or shortness of breath. Minimal cough. No vomiting. No abdominal pain or diarrhea. PHYSICAL EXAMINATION: Blood pressure 135/68 with a pulse of 54, temperature 97.2. She is 98% on 4 L nasal cannula. General description is an elderly female lying in bed in no distress. RESPIRATORY SYSTEM: Unlabored breathing with decreased breath sounds at the bases, no wheeze. HEART: S1, S2. Regular rate and rhythm. ABDOMEN: Soft. No tenderness. LABS: Hemoglobin is 10.2, white count of 8.2, BUN of 53, creatinine 1.06. DIAGNOSTIC IMPRESSION AND PLAN: 1. Patient admitted to hospital with acute COVID-19 pneumonia. The patient is currently on remdesivir, dexamethasone, , zinc to continue. 2. Patient with sacral infected wound covered with Zosyn. Continue local wound care as ordered. Continue with supportive care. MMODL / IJN: [id number] /
[2020-06-14 06:42] LABS: Glucose,Whole Blood 123 mg/dL (75-99)
[2020-06-14] MEDS: INSULIN ASPART (NovoLOG) 100 UNIT/ML VIAL SQ SCH ×4 (07:30→21:49)
[2020-06-14 07:31] LABS: Albumin 2.7 g/dL (3.5-5.0); Calcium 8.6 mg/dL (8.4-10.2); Potassium 4.1 mmol/L (3.5-5.1); Total Bilirubin 0.5 mg/dL (0.2-1.3); Total Protein 5.6 g/dL (6.3-8.2)
[2020-06-14] MEDS: METOPROLOL TARTRATE 25 MG TAB PO SCH ×2 (08:09→21:49)
[2020-06-14] MEDS: CHOLECALCIFEROL 1,000 UNIT TAB PO SCH (08:09)
[2020-06-14] MEDS: FLUoxetine HCL 10 MG CAP PO SCH (08:09)
[2020-06-14] MEDS: SODIUM BICARBONATE TAB 650 MG TAB PO SCH ×2 (08:09→21:49)
[2020-06-14] MEDS: ISOSORBIDE MONONITRATE ER 60 MG TAB.ER.24H PO SCH (08:09)
[2020-06-14] MEDS: POTASSIUM CHLORIDE ER 10 MEQ TAB.ER.PRT PO SCH (08:09)
[2020-06-14] MEDS: PIPERACILLIN-TAZOBACTAM 3.375 GM VIAL IVPB SCH ×3 (08:09→23:36)
[2020-06-14] MEDS: FERROUS SULFATE 325 MG TAB PO SCH (08:09)
[2020-06-14] MEDS: HEPARIN SODIUM,PORCINE 5,000 UNIT/ML 1 ML VIAL SQ SCH ×2 (08:10→21:49)
[2020-06-14] MEDS: LOSARTAN 25 MG TAB PO SCH (08:10)
[2020-06-14] MEDS: FUROSEMIDE 10 MG/ML 4 ML VIAL IV SCH ×2 (08:10→21:47)
[2020-06-14] MEDS: DEXAMETHASONE SOD PHOSPHATE 10 MG/ML 1 ML VIAL IV SCH ×2 (08:10→21:48)
[2020-06-14] MEDS: ZINC SULFATE 220 MG CAP PO SCH (08:10)
[2020-06-14] MEDS: ZINC OXIDE 20% OINT 28.4 GM TUBE TOPICAL SCH ×2 (08:24→23:38)
[2020-06-14 11:38] LABS: Glucose,Whole Blood 255 mg/dL (75-99)
[2020-06-14 14:06] VITALS: BMI 30.8
[2020-06-14] MEDS: REMDESIVIR 100 MG in SODIUM CHLORIDE 0.9% 250 ML IVPB SCH (14:35)
[2020-06-14 16:43] LABS: Glucose,Whole Blood 229 mg/dL (75-99)
--- NOTE | 2020-06-14 16:59 | PN ---
PROGRESS NOTE This patient is a white female with positive COVID pneumonia, day 3 of remdesivir. She also has an infected sacral iliac wound. Blood pressure is 130s over 60s, pulse 50s, temperature 97, oxygenation 98% on 4 L. Lungs show unlabored breathing breath sounds. HEART: S1, S2. Abdomen soft. GI: Has a colostomy. White count is 8.2, BUN 53, creatinine 1.06. COVID-19 pneumonia. Remdesivir, dexamethasone, zinc. Continue Zosyn for sacral iliac wound. After 5 days of remdesivir will possibly discharge her back to the rehab center. Labs today show sodium 136, potassium 4.1, BUN 50, creatinine 1.12. Liver enzymes are still high at 48 and 51, alkaline phosphatase 318, total protein 2.7 for moderate protein-calorie malnutrition. Try to increase protein in her diet. MMODL / IJN: [id number] /
[2020-06-14 20:07] LABS: Glucose,Whole Blood 204 mg/dL (75-99)
[2020-06-14] MEDS: INSULIN DETEMIR (LEVEMIR) 100 UNIT/ML SYR SQ SCH (21:48)
[2020-06-14] MEDS: LEVOTHYROXINE 137 MCG TAB PO SCH (23:36)
--- NOTE | 2020-06-15 00:11 | PN ---
PROGRESS NOTE DATE OF SERVICE: 06/14/2020 REASON FOR FOLLOWUP: 1. COVID-19 infection. 2. Sacral osteomyelitis. INTERVAL HISTORY: The patient is currently afebrile. The patient is breathing comfortably, requiring supplemental oxygen. Denies having any chest pain. Minimal cough. No nausea, no vomiting. No abdominal pain or diarrhea. PHYSICAL EXAMINATION: Blood pressure 139/62 with a pulse of 63, temperature 97.2. She is 99% on 4 L nasal cannula. General description is an elderly female lying in bed in no distress. RESPIRATORY SYSTEM: Unlabored breathing with decreased intensity of breath sounds. No wheeze. HEART: S1, S2. Regular rate and rhythm. ABDOMEN: Soft, no tenderness. LABS: BUN of 50, creatinine 1.12. Blood culture negative. DIAGNOSTIC IMPRESSION AND PLAN: 1. Patient with acute COVID-19 infection currently on remdesivir, dexamethasone, zinc sulfate to continue along with respiratory support. 2. Patient with sacral osteomyelitis with stage IV sacral pressure ulcer. Continue with Zosyn. Local wound care with dressing as wound VAC could not be placed. Continue supportive care. MMODL / IJN: [id number] /
[2020-06-15] MEDS: ALBUTEROL HFA INHALER INHALATION SCH ×4 (01:00→19:06)
[2020-06-15 06:09] LABS: Glucose,Whole Blood 139 mg/dL (75-99)
[2020-06-15] MEDS: INSULIN ASPART (NovoLOG) 100 UNIT/ML VIAL SQ SCH ×4 (06:33→20:30)
[2020-06-15] MEDS: CHOLECALCIFEROL 1,000 UNIT TAB PO SCH (08:45)
[2020-06-15] MEDS: PIPERACILLIN-TAZOBACTAM 3.375 GM VIAL IVPB SCH ×3 (08:45→22:59)
[2020-06-15] MEDS: ISOSORBIDE MONONITRATE ER 60 MG TAB.ER.24H PO SCH (08:46)
[2020-06-15] MEDS: LOSARTAN 25 MG TAB PO SCH (08:46)
[2020-06-15] MEDS: HEPARIN SODIUM,PORCINE 5,000 UNIT/ML 1 ML VIAL SQ SCH ×2 (08:46→20:29)
[2020-06-15] MEDS: FUROSEMIDE 10 MG/ML 4 ML VIAL IV SCH ×2 (08:46→20:29)
[2020-06-15] MEDS: FLUoxetine HCL 10 MG CAP PO SCH (08:46)
[2020-06-15] MEDS: DEXAMETHASONE SOD PHOSPHATE 10 MG/ML 1 ML VIAL IV SCH ×2 (08:46→20:29)
[2020-06-15] MEDS: FERROUS SULFATE 325 MG TAB PO SCH (08:46)
[2020-06-15] MEDS: METOPROLOL TARTRATE 25 MG TAB PO SCH ×2 (08:47→20:30)
[2020-06-15] MEDS: ZINC SULFATE 220 MG CAP PO SCH (08:47)
[2020-06-15] MEDS: POTASSIUM CHLORIDE ER 10 MEQ TAB.ER.PRT PO SCH (08:47)
[2020-06-15] MEDS: SODIUM BICARBONATE TAB 650 MG TAB PO SCH ×2 (08:47→20:30)
[2020-06-15] MEDS: ZINC OXIDE 20% OINT 28.4 GM TUBE TOPICAL SCH ×2 (08:48→21:32)
[2020-06-15 11:52] LABS: Glucose,Whole Blood 173 mg/dL (75-99)
[2020-06-15 12:05] LABS: Albumin 2.8 g/dL (3.5-5.0); Calcium 8.8 mg/dL (8.4-10.2); Potassium 4.5 mmol/L (3.5-5.1); Total Bilirubin 0.6 mg/dL (0.2-1.3); Total Protein 5.7 g/dL (6.3-8.2)
--- NOTE | 2020-06-15 12:29 | P.PN ---
Subjective Progress Note Date: 06/14/20 Principal diagnosis: Acute hypoxic respiratory failure Acute on chronic diastolic heart failure Covert 19 pneumonia Elevated troponins 06/14/2020, patient seen eval examined during the rounds labs reviewed medications reviewed care plan discussed, respiratory status remains stable, oxygen requirement continue to go down, saturation is mid 90s, oxygen has been lowered to 2 L, saturation 96%, her cough congestion shortness of breath stable, patient uses oxygen at home as well, today's four-day of IV therapy 06/13/2020, patient seen eval examined during the rounds labs reviewed medications reviewed patient remains on 4 L oxygen, breathing comfortably denies any chest pain, saturation is 95-96%, hemodynamic status stable remained afebrile, LFTs high and but remains stable, asymptomatic in that relation 06/12/2020, patient seen eval examined during the rounds labs reviewed medications reviewed care plan discussed, denies any chest pain, respiratory status remains stable, heart rate is a 51 saturation is 98% on 4 L, chest x-ray showed worsening bilateral infiltrate along with cardiomegaly, patient remains on Decadron Zosyn and IV REMDESIVIr, sugars stable 146 06/11/2020, patient seen eval examined labs reviewed medications reviewed is still short of breath remains on oxygen, care plan discussed with infectious disease services will do a trial of REMdesivir reviewed liver enzymes as well will closely monitor observe, Patient is a 79-year-old female came into the hospital with increasing cough shortness of breath she was noted to be hypoxic with x-ray showing bilateral interstitial infiltrate, patient was recently found to have covid 19 pneumonia, her past history is significant for diabetes mellitus, colon and cervical cancer, currently she is being treated with supplemental oxygen along with bronchodilators Decadron 6 mg IV every 12 hourly continuation of home medicine as well as IV furosemide and IV Zosyn, her oxygen saturation is 95-97% on 4 L, her BNP is 7-6600,*slightly elevated, AST and ALT are 135 and 64 alk phos 405, BUN/creatinine is 49 and 0.99 LDH is the 339, C-reactive protein is 13.2, Objective - Vital Signs Vital signs: Vital Signs Temp 97.2 F L 06/14/20 15:36 Pulse 63 06/14/20 15:36 Resp 18 06/14/20 15:36 BP 139/62 06/14/20 15:36 Pulse Ox 99 06/14/20 15:36 Intake & Output 06/13/20 06/14/20 06/14/20 18:59 06:59 18:59 Intake Total 510 20 620 Output Total 1450 2100 800 Balance -940 -0 -180 Weight 79 kg 79 kg Intake: IV 270 20 280 Invasive Line 1 20 20 30 Remdesivir 100 mg In 250 250 Sodium Chloride 0.9% 250 ml @ 250 mls/hr IVPB DAILY@1600 [facility] Rx#: [id number] Oral 240 340 Output: Urine 1250 1500 700 Uretheral (Leslie) 400 700 Stool 200 600 100 Other: Voiding Method Indwelling Catheter Indwelling Catheter Indwelling Catheter - Exam - Constitutional General appearance: average body habitus, cooperative, disheveled - EENT Eyes: PERRLA Ears: bilateral: normal - Neck Carotids: bilateral: upstroke normal Thyroid: bilateral: normal size - Respiratory Respiratory: bilateral: CTA - Cardiovascular Rhythm: regular Heart sounds: normal: S1, S2 - Gastrointestinal General gastrointestinal: normal bowel sounds - Neurologic Neurologic: CNII-XII intact - Musculoskeletal Musculoskeletal: gait normal, generalized weakness, strength equal bilaterally - Psychiatric Psychiatric: A&O x's 3, appropriate affect, intact judgment & insigh - Labs CBC & Chem 7: 06/13/20 07:53 06/15/20 10:50 Labs: Abnormal Lab Results - Last 24 Hours (Table) 06/13/20 06/14/20 06/14/20 Range/Units 21:19 06:22 07:03 Sodium 136 L (137-145) mmol/L Chloride 97 L (98-107) mmol/L Carbon Dioxide 35 H (22-30) mmol/L BUN 50 H (7-17) mg/dL Creatinine 1.12 H (0.52-1.04) mg/dL Glucose 114 H (74-99) mg/dL POC Glucose (mg/dL) 354 H 123 H (75-99) mg/dL AST 48 H (14-36) U/L ALT 51 H (4-34) U/L Alkaline Phosphatase 318 H (38-126) U/L Total Protein 5.6 L (6.3-8.2) g/dL Albumin 2.7 L (3.5-5.0) g/dL 12/14/20 Range/Units 11:37 Sodium (137-145) mmol/L Chloride (98-107) mmol/L Carbon Dioxide (22-30) mmol/L BUN (7-17) mg/dL Creatinine (0.52-1.04) mg/dL Glucose (74-99) mg/dL POC Glucose (mg/dL) 255 H (75-99) mg/dL AST (14-36) U/L ALT (4-34) U/L Alkaline Phosphatase (38-126) U/L Total Protein (6.3-8.2) g/dL Albumin (3.5-5.0) g/dL Microbiology - Last 24 Hours (Table) 06/09/20 16:33 Blood Culture - Preliminary Blood No Growth after 96 hours Assessment and Plan Assessment: Acute on chronic hypoxic respiratory failure Acute on chronic systolic and diastolic heart failure ejection fraction is 40% with global hypokinesia and dilated LV Covert 19 pneumonia Moderate pulmonary hypertension Elevated troponins Plan: Continue diuresis as planned Continue anticoagulation, continue IV REMdesivir for 5 days, today is day #4 Continue dexamethasone As per discussion with infectious disease services will continue trial of REMdesivir for 5 days and monitor liver functions closely Echocardiogram findings reviewed Time with Patient: Greater than 30
--- NOTE | 2020-06-15 12:30 | P.PN ---
Subjective Progress Note Date: 06/15/20 Principal diagnosis: Acute hypoxic respiratory failure Acute on chronic diastolic heart failure Covert 19 pneumonia Elevated troponins 06/15/2020, patient seen eval examined during the rounds labs reviewed medications reviewed care plan discussed, remains on 2 L oxygen saturation is mid 90s today is the last day of IV therapy, if remains stable consider discharge planning for tomorrow on oral Decadron to complete 10 day therapy 06/14/2020, patient seen eval examined during the rounds labs reviewed medications reviewed care plan discussed, respiratory status remains stable, oxygen requirement continue to go down, saturation is mid 90s, oxygen has been lowered to 2 L, saturation 96%, her cough congestion shortness of breath stable, patient uses oxygen at home as well, today's four-day of IV therapy 06/13/2020, patient seen eval examined during the rounds labs reviewed medications reviewed patient remains on 4 L oxygen, breathing comfortably denies any chest pain, saturation is 95-96%, hemodynamic status stable remained afebrile, LFTs high and but remains stable, asymptomatic in that relation 06/12/2020, patient seen eval examined during the rounds labs reviewed medications reviewed care plan discussed, denies any chest pain, respiratory status remains stable, heart rate is a 51 saturation is 98% on 4 L, chest x-ray showed worsening bilateral infiltrate along with cardiomegaly, patient remains on Decadron Zosyn and IV REMDESIVIr, sugars stable 146 06/11/2020, patient seen eval examined labs reviewed medications reviewed is still short of breath remains on oxygen, care plan discussed with infectious disease services will do a trial of REMdesivir reviewed liver enzymes as well will closely monitor observe, Patient is a 79-year-old female came into the hospital with increasing cough shortness of breath she was noted to be hypoxic with x-ray showing bilateral interstitial infiltrate, patient was recently found to have covid 19 pneumonia, her past history is significant for diabetes mellitus, colon and cervical cancer, currently she is being treated with supplemental oxygen along with bronchodilators Decadron 6 mg IV every 12 hourly continuation of home medicine as well as IV furosemide and IV Zosyn, her oxygen saturation is 95-97% on 4 L, her BNP is 7-6600,*slightly elevated, AST and ALT are 135 and 64 alk phos 405, BUN/creatinine is 49 and 0.99 LDH is the 339, C-reactive protein is 13.2, Objective - Vital Signs Vital signs: Vital Signs Temp 97.9 F 06/15/20 11:39 Pulse 57 L 06/15/20 11:39 Resp 18 06/15/20 11:39 BP 135/87 06/15/20 11:39 Pulse Ox 94 L 06/15/20 11:39 Intake & Output 06/14/20 06/15/20 06/15/20 18:59 06:59 18:59 Intake Total 860 20 130 Output Total 800 2100 Balance 60 -2080 130 Weight 79 kg 78.2 kg Intake: IV 280 20 10 Invasive Line 1 30 20 10 Remdesivir 100 mg In 250 Sodium Chloride 0.9% 250 ml @ 250 mls/hr IVPB DAILY@1600 [facility] Rx#: [id number] Oral 580 120 Output: Urine 700 1900 Uretheral (Leslie) 700 Stool 100 200 Other: Voiding Method Indwelling Catheter Indwelling Catheter Indwelling Catheter - Exam - Constitutional General appearance: average body habitus, cooperative, disheveled - EENT Eyes: PERRLA Ears: bilateral: normal - Neck Carotids: bilateral: upstroke normal Thyroid: bilateral: normal size - Respiratory Respiratory: bilateral: CTA - Cardiovascular Rhythm: regular Heart sounds: normal: S1, S2 - Gastrointestinal General gastrointestinal: normal bowel sounds - Neurologic Neurologic: CNII-XII intact - Musculoskeletal Musculoskeletal: gait normal, generalized weakness, strength equal bilaterally - Psychiatric Psychiatric: A&O x's 3, appropriate affect, intact judgment & insigh - Labs CBC & Chem 7: 06/13/20 07:53 06/15/20 10:50 Labs: Abnormal Lab Results - Last 24 Hours (Table) 06/14/20 06/14/20 06/15/20 Range/Units 16:41 20:05 06:07 Sodium (137-145) mmol/L Chloride (98-107) mmol/L Carbon Dioxide (22-30) mmol/L BUN (7-17) mg/dL Creatinine (0.52-1.04) mg/dL Glucose (74-99) mg/dL POC Glucose (mg/dL) 229 H 204 H 139 H (75-99) mg/dL AST (14-36) U/L ALT (4-34) U/L Alkaline Phosphatase (38-126) U/L Total Protein (6.3-8.2) g/dL Albumin (3.5-5.0) g/dL 06/15/20 06/15/20 Range/Units 10:50 11:43 Sodium 135 L (137-145) mmol/L Chloride 94 L (98-107) mmol/L Carbon Dioxide 35 H (22-30) mmol/L BUN 51 H (7-17) mg/dL Creatinine 1.16 H (0.52-1.04) mg/dL Glucose 170 H (74-99) mg/dL POC Glucose (mg/dL) 173 H (75-99) mg/dL AST 52 H (14-36) U/L ALT 56 H (4-34) U/L Alkaline Phosphatase 373 H (38-126) U/L Total Protein 5.7 L (6.3-8.2) g/dL Albumin 2.8 L (3.5-5.0) g/dL Microbiology - Last 24 Hours (Table) 06/09/20 16:33 Blood Culture - Preliminary Blood No Growth after 120 hours Assessment and Plan Assessment: Acute on chronic hypoxic respiratory failure Acute on chronic systolic and diastolic heart failure ejection fraction is 40% with global hypokinesia and dilated LV Covert 19 pneumonia Moderate pulmonary hypertension Elevated troponins Plan: Continue diuresis as planned Continue anticoagulation, continue IV REMdesivir for 5 days, today is day #4 Continue dexamethasone As per discussion with infectious disease services will continue trial of REMdesivir for 5 days and monitor liver functions closely Echocardiogram findings reviewed Time with Patient: Greater than 30
[2020-06-15 12:40] LABS: Anisocytosis Slight; Basophils % (A) 0 %; Eosinophils % (A) 0 %; HCT 34.3 % (34.0-46.0); HGB 10.7 gm/dL (11.4-16.0); Hypochromasia Slight; Lymphocytes # (A) 0.7 k/uL (1.0-4.8); Lymphocytes % (A) 7 %; MCH 27.2 pg (25.0-35.0); MCHC 31.1 g/dL (31.0-37.0); MCV 87.4 fL (80.0-100.0); Mean Platelet Volume 9.6; Monocytes # (A) 0.3 k/uL (0-1.0); Monocytes % (A) 3 %; Neutrophils # (A) 9.5 k/uL (1.3-7.7); Neutrophils % (A) 90 %; Platelet Count 373 k/uL (150-450); RBC 3.92 m/uL (3.80-5.40); RDW 19.7 % (11.5-15.5); WBC 10.6 k/uL (3.8-10.6)
[2020-06-15] MEDS: REMDESIVIR 100 MG in SODIUM CHLORIDE 0.9% 250 ML IVPB SCH (15:35)
[2020-06-15 16:34] LABS: Glucose,Whole Blood 197 mg/dL (75-99)
--- NOTE | 2020-06-15 17:59 | PN ---
PROGRESS NOTE This is an 79-year-old white female, admitted with COVID pneumonia. She remains on 2 L oxygen. She has a midline. Mid 90s on oxygen. She is on her last day of remdesivir. Possible discharge home on Decadron to continue 10 days of therapy. Temperature 97.9, pulse 57, respiratory rate 16 to 18, blood pressure 130s over 80s, oxygenation 94%. LDH 399. C-reactive protein 13.2. AST and ALT of 135 and 64. BNP . Lungs are clear. CARDIOVASCULAR: S1, S2. HEMATOLOGY: Negative Homans. PSYCH: Fair mood and affect. ASSESSMENT: 1. Acute on chronic anemia. 2. Prerenal renal insufficiency. 3. Hyponatremia. 4. Dehydration. 5. COVID pneumonia. 6. Moderate pulmonary hypertension. 7. Elevated troponins. 8. Acute on chronic systolic and diastolic heart failure, 40% ejection fraction. Continue diuresis. Continue anticoagulation. IV remdesivir for 5 days. Today is day 4. Continue dexamethasone. Possible discharge home later in the week or back to the rehab center. Adjust cardiac medicines per Cardiology and Infectious Disease. MMODL / IJN: [id number] /
[2020-06-15 20:17] LABS: Glucose,Whole Blood 302 mg/dL (75-99)
[2020-06-15] MEDS: LEVOTHYROXINE 137 MCG TAB PO SCH (21:31)
[2020-06-15] MEDS: INSULIN DETEMIR (LEVEMIR) 100 UNIT/ML SYR SQ SCH (21:32)
--- NOTE | 2020-06-15 22:40 | PN ---
PROGRESS NOTE DATE OF SERVICE: 06/15/2020 REASON FOR FOLLOW UP: 1. COVID-19 pneumonia. 2. Sacral pressure ulcer. INTERVAL HISTORY: The patient is currently afebrile. The patient is breathing comfortably. The patient denies having any chest pain or shortness of breath. Minimal cough. No abdominal pain. No pain to the sacral wound area. PHYSICAL EXAMINATION: Blood pressure 141/56, pulse of 60, temperature 97.5. She is 93% on 2 L nasal cannula. General description is an elderly female lying in bed in no distress. RESPIRATORY SYSTEM: Unlabored breathing with decreased breath sounds at the base. No wheeze. HEART: S1, S2. Regular rate and rhythm. ABDOMEN: Soft. No tenderness. LABS: Hemoglobin is 10.7, white count 10.6, BUN of 51, creatinine 1.16. DIAGNOSTIC IMPRESSION AND PLAN: 1. Patient with acute COVID-19 infection. This patient completed her 5-day course of Remdesivir, currently on dexamethasone and zinc; to continue along with respiratory support. 2. Patient with infected sacral pressure ulcer, covered with Zosyn. Wound V.A.C. should be applied for local wound care. Continue supportive care. MMODL / IJN: [id number] /
[2020-06-15 23:21] LABS: Calcium 8.5 mg/dL (8.4-10.2); Magnesium 1.9 mg/dL (1.6-2.3); Potassium 3.9 mmol/L (3.5-5.1)
[2020-06-16] MEDS: ALBUTEROL HFA INHALER INHALATION SCH ×4 (01:47→17:15)
[2020-06-16 06:04] LABS: Glucose,Whole Blood 115 mg/dL (75-99)
[2020-06-16] MEDS: INSULIN ASPART (NovoLOG) 100 UNIT/ML VIAL SQ SCH ×4 (06:07→21:11)
[2020-06-16] MEDS: FLUoxetine HCL 10 MG CAP PO SCH (08:57)
[2020-06-16] MEDS: SODIUM BICARBONATE TAB 650 MG TAB PO SCH ×2 (08:57→21:10)
[2020-06-16] MEDS: POTASSIUM CHLORIDE ER 10 MEQ TAB.ER.PRT PO SCH (08:57)
[2020-06-16] MEDS: ISOSORBIDE MONONITRATE ER 60 MG TAB.ER.24H PO SCH (08:57)
[2020-06-16] MEDS: METOPROLOL TARTRATE 25 MG TAB PO SCH ×2 (08:57→21:10)
[2020-06-16] MEDS: LOSARTAN 25 MG TAB PO SCH (08:57)
[2020-06-16] MEDS: FERROUS SULFATE 325 MG TAB PO SCH (08:57)
[2020-06-16] MEDS: CHOLECALCIFEROL 1,000 UNIT TAB PO SCH (08:57)
[2020-06-16] MEDS: ZINC SULFATE 220 MG CAP PO SCH (08:57)
[2020-06-16] MEDS: FUROSEMIDE 10 MG/ML 4 ML VIAL IV SCH ×2 (08:58→21:10)
[2020-06-16] MEDS: PIPERACILLIN-TAZOBACTAM 3.375 GM VIAL IVPB SCH (08:58)
[2020-06-16] MEDS: HEPARIN SODIUM,PORCINE 5,000 UNIT/ML 1 ML VIAL SQ SCH ×2 (08:58→21:10)
[2020-06-16] MEDS: DEXAMETHASONE SOD PHOSPHATE 10 MG/ML 1 ML VIAL IV SCH ×2 (08:58→21:09)
[2020-06-16] MEDS: ZINC OXIDE 20% OINT 28.4 GM TUBE TOPICAL SCH (08:59)
--- NOTE | 2020-06-16 09:01 | P.PN ---
Subjective Progress Note Date: 06/16/20 Principal diagnosis: Acute hypoxic respiratory failure Acute on chronic diastolic heart failure Covert 19 pneumonia Elevated troponins 06/16/2020, patient seen eval examined during the rounds labs reviewed medications reviewed care plan discussed, respiratory status remains stable on 2 L oxygen cough shortness of breath improved now, patient uses home oxygen 2 L as well, status post REMdesivir therapy, agree with discharge planning at home 06/15/2020, patient seen eval examined during the rounds labs reviewed medications reviewed care plan discussed, remains on 2 L oxygen saturation is mid 90s today is the last day of IV therapy, if remains stable consider discharge planning for tomorrow on oral Decadron to complete 10 day therapy 06/14/2020, patient seen eval examined during the rounds labs reviewed medications reviewed care plan discussed, respiratory status remains stable, oxygen requirement continue to go down, saturation is mid 90s, oxygen has been lowered to 2 L, saturation 96%, her cough congestion shortness of breath stable, patient uses oxygen at home as well, today's four-day of IV therapy 06/13/2020, patient seen eval examined during the rounds labs reviewed medications reviewed patient remains on 4 L oxygen, breathing comfortably denies any chest pain, saturation is 95-96%, hemodynamic status stable remained afebrile, LFTs high and but remains stable, asymptomatic in that relation 06/12/2020, patient seen eval examined during the rounds labs reviewed medications reviewed care plan discussed, denies any chest pain, respiratory status remains stable, heart rate is a 51 saturation is 98% on 4 L, chest x-ray showed worsening bilateral infiltrate along with cardiomegaly, patient remains on Decadron Zosyn and IV REMDESIVIr, sugars stable 146 06/11/2020, patient seen eval examined labs reviewed medications reviewed is still short of breath remains on oxygen, care plan discussed with infectious disease services will do a trial of REMdesivir reviewed liver enzymes as well will closely monitor observe, Patient is a 79-year-old female came into the hospital with increasing cough shortness of breath she was noted to be hypoxic with x-ray showing bilateral interstitial infiltrate, patient was recently found to have covid 19 pneumonia, her past history is significant for diabetes mellitus, colon and cervical cancer, currently she is being treated with supplemental oxygen along with bronchodilators Decadron 6 mg IV every 12 hourly continuation of home medicine as well as IV furosemide and IV Zosyn, her oxygen saturation is 95-97% on 4 L, her BNP is 7-6600,*slightly elevated, AST and ALT are 135 and 64 alk phos 405, BUN/creatinine is 49 and 0.99 LDH is the 339, C-reactive protein is 13.2, Objective - Vital Signs Vital signs: Vital Signs Temp 97.6 F 06/16/20 03:40 Pulse 58 L 06/16/20 03:40 Resp 17 06/16/20 03:40 BP 159/75 06/16/20 03:40 Pulse Ox 99 06/16/20 03:40 Intake & Output 06/15/20 06/16/20 06/16/20 18:59 06:59 18:59 Intake Total 667 Output Total 1425 850 Balance -758 -850 Weight 78 kg Intake: IV 10 Invasive Line 1 10 Oral 657 Output: Urine 1425 850 Other: Voiding Method Indwelling Catheter Indwelling Catheter # Bowel Movements 1 - Exam - Constitutional General appearance: average body habitus, cooperative, disheveled - EENT Eyes: PERRLA Ears: bilateral: normal - Neck Carotids: bilateral: upstroke normal Thyroid: bilateral: normal size - Respiratory Respiratory: bilateral: CTA - Cardiovascular Rhythm: regular Heart sounds: normal: S1, S2 - Gastrointestinal General gastrointestinal: normal bowel sounds - Neurologic Neurologic: CNII-XII intact - Musculoskeletal Musculoskeletal: gait normal, generalized weakness, strength equal bilaterally - Psychiatric Psychiatric: A&O x's 3, appropriate affect, intact judgment & insigh - Labs CBC & Chem 7: 06/15/20 10:50 06/15/20 22:43 Labs: Abnormal Lab Results - Last 24 Hours (Table) 06/15/20 06/15/20 06/15/20 Range/Units 10:50 10:50 11:43 Hgb 10.7 L (11.4-16.0) gm/dL RDW 19.7 H (11.5-15.5) % Neutrophils # 9.5 H (1.3-7.7) k/uL Lymphocytes # 0.7 L (1.0-4.8) k/uL Sodium 135 L (137-145) mmol/L Chloride 94 L (98-107) mmol/L Carbon Dioxide 35 H (22-30) mmol/L BUN 51 H (7-17) mg/dL Creatinine 1.16 H (0.52-1.04) mg/dL Glucose 170 H (74-99) mg/dL POC Glucose (mg/dL) 173 H (75-99) mg/dL AST 52 H (14-36) U/L ALT 56 H (4-34) U/L Alkaline Phosphatase 373 H (38-126) U/L Total Protein 5.7 L (6.3-8.2) g/dL Albumin 2.8 L (3.5-5.0) g/dL 06/15/20 06/15/20 06/15/20 Range/Units 16:32 20:11 22:43 Hgb (11.4-16.0) gm/dL RDW (11.5-15.5) % Neutrophils # (1.3-7.7) k/uL Lymphocytes # (1.0-4.8) k/uL Sodium 133 L (137-145) mmol/L Chloride (98-107) mmol/L Carbon Dioxide (22-30) mmol/L BUN 56 H (7-17) mg/dL Creatinine 1.10 H (0.52-1.04) mg/dL Glucose 285 H (74-99) mg/dL POC Glucose (mg/dL) 197 H 302 H (75-99) mg/dL AST (14-36) U/L ALT (4-34) U/L Alkaline Phosphatase (38-126) U/L Total Protein (6.3-8.2) g/dL Albumin (3.5-5.0) g/dL 06/16/20 Range/Units 06:00 Hgb (11.4-16.0) gm/dL RDW (11.5-15.5) % Neutrophils # (1.3-7.7) k/uL Lymphocytes # (1.0-4.8) k/uL Sodium (137-145) mmol/L Chloride (98-107) mmol/L Carbon Dioxide (22-30) mmol/L BUN (7-17) mg/dL Creatinine (0.52-1.04) mg/dL Glucose (74-99) mg/dL POC Glucose (mg/dL) 115 H (75-99) mg/dL AST (14-36) U/L ALT (4-34) U/L Alkaline Phosphatase (38-126) U/L Total Protein (6.3-8.2) g/dL Albumin (3.5-5.0) g/dL Microbiology - Last 24 Hours (Table) 06/09/20 16:33 Blood Culture - Final Blood No Growth after 144 hours Assessment and Plan Assessment: Acute on chronic hypoxic respiratory failure Acute on chronic systolic and diastolic heart failure ejection fraction is 40% with global hypokinesia and dilated LV Covert 19 pneumonia Moderate pulmonary hypertension Elevated troponins Plan: Continue diuresis as planned Continue anticoagulation, status post IV REMdesivir for 5 days, Continue dexamethasone for total of 10 days Echocardiogram findings reviewed Time with Patient: Greater than 30
[2020-06-16 11:39] LABS: Glucose,Whole Blood 106 mg/dL (75-99)
[2020-06-16] MEDS: NYSTATIN 100,000 UNIT/ML SUSP 500,000 UNIT/5 ML CUP PO SCH ×2 (11:40→17:53)
--- NOTE | 2020-06-16 15:57 | PN ---
PROGRESS NOTE DATE OF SERVICE: 06/16/2020 REASON FOR FOLLOWUP: 1. COVID-19 infection. 2. Sacral pressure ulcer . INTERVAL HISTORY: The patient is currently afebrile. The patient is feeling better, breathing comfortably. Denies having any chest pain or shortness of breath. Minimal cough. No abdominal pain or any pain to the sacral wound area. PHYSICAL EXAMINATION: Blood pressure 137/66, pulse of 41, temperature 98.1. She is 97% on 2 L nasal cannula. General description is an elderly female lying in bed in no distress. RESPIRATORY SYSTEM: Unlabored breathing with decreased intensity of breath sounds. No wheeze. HEART: S1, S2. Regular rate and rhythm. ABDOMEN: Soft. No tenderness. LABS: BUN of 56, creatinine 1.10. DIAGNOSTIC IMPRESSION AND PLAN: 1. Patient with acute COVID-19 infection. Patient has completed her remdesivir therapy. Currently on dexamethasone and zinc. 2. Patient with sacral pressure ulcer, currently covered with Zosyn. Will benefit from the wound V.A.C. Continue supportive care. MMODL / IJN: [id number] /
[2020-06-16 17:33] LABS: Glucose,Whole Blood 160 mg/dL (75-99)
[2020-06-16 20:13] LABS: Glucose,Whole Blood 244 mg/dL (75-99)
[2020-06-16] MEDS: LEVOTHYROXINE 137 MCG TAB PO SCH (21:10)
[2020-06-16] MEDS: INSULIN DETEMIR (LEVEMIR) 100 UNIT/ML SYR SQ SCH (21:11)
[2020-06-17] MEDS: ZINC OXIDE 20% OINT 28.4 GM TUBE TOPICAL SCH ×2 (01:57→09:03)
[2020-06-17] MEDS: NYSTATIN 100,000 UNIT/ML SUSP 500,000 UNIT/5 ML CUP PO SCH ×5 (01:57→20:42)
[2020-06-17 05:57] LABS: Glucose,Whole Blood 150 mg/dL (75-99)
[2020-06-17] MEDS: INSULIN ASPART (NovoLOG) 100 UNIT/ML VIAL SQ SCH ×4 (06:21→20:42)
[2020-06-17] MEDS: CHOLECALCIFEROL 1,000 UNIT TAB PO SCH (08:55)
[2020-06-17] MEDS: SODIUM BICARBONATE TAB 650 MG TAB PO SCH ×2 (08:55→20:42)
[2020-06-17] MEDS: ZINC SULFATE 220 MG CAP PO SCH (08:56)
[2020-06-17] MEDS: DEXAMETHASONE SOD PHOSPHATE 10 MG/ML 1 ML VIAL IV SCH (08:56)
[2020-06-17] MEDS: POTASSIUM CHLORIDE ER 10 MEQ TAB.ER.PRT PO SCH (08:56)
[2020-06-17] MEDS: METOPROLOL TARTRATE 25 MG TAB PO SCH ×2 (08:56→20:42)
[2020-06-17] MEDS: FLUoxetine HCL 10 MG CAP PO SCH (08:56)
[2020-06-17] MEDS: HEPARIN SODIUM,PORCINE 5,000 UNIT/ML 1 ML VIAL SQ SCH ×2 (08:56→20:42)
[2020-06-17] MEDS: FERROUS SULFATE 325 MG TAB PO SCH (08:56)
[2020-06-17] MEDS: ISOSORBIDE MONONITRATE ER 60 MG TAB.ER.24H PO SCH (08:56)
[2020-06-17] MEDS: LOSARTAN 25 MG TAB PO SCH (08:56)
[2020-06-17] MEDS: FUROSEMIDE 10 MG/ML 4 ML VIAL IV SCH ×2 (08:58→20:41)
[2020-06-17] MEDS: ALBUTEROL HFA INHALER INHALATION SCH ×4 (09:33→19:26)
[2020-06-17 11:30] LABS: Glucose,Whole Blood 137 mg/dL (75-99)
--- NOTE | 2020-06-17 12:14 | P.PN ---
Subjective Progress Note Date: 06/17/20 Principal diagnosis: Acute hypoxic respiratory failure Acute on chronic diastolic heart failure Covert 19 pneumonia Elevated troponins 06/17/2020, patient seen eval examined during the rounds labs reviewed medications reviewed, generalized weakness has been noted, patient is being evaluated for port placement in rehab, eater oxygen saturation is mid 90s, hemodynamic status stable, 97% on 2 L, remains afebrile, Decadron can be lowered to 6 mg daily oral 06/16/2020, patient seen eval examined during the rounds labs reviewed medications reviewed care plan discussed, respiratory status remains stable on 2 L oxygen cough shortness of breath improved now, patient uses home oxygen 2 L as well, status post REMdesivir therapy, agree with discharge planning at home 06/15/2020, patient seen eval examined during the rounds labs reviewed medications reviewed care plan discussed, remains on 2 L oxygen saturation is mid 90s today is the last day of IV therapy, if remains stable consider discharge planning for tomorrow on oral Decadron to complete 10 day therapy 06/14/2020, patient seen eval examined during the rounds labs reviewed medications reviewed care plan discussed, respiratory status remains stable, oxygen requirement continue to go down, saturation is mid 90s, oxygen has been lowered to 2 L, saturation 96%, her cough congestion shortness of breath stable, patient uses oxygen at home as well, today's four-day of IV therapy 06/13/2020, patient seen eval examined during the rounds labs reviewed medications reviewed patient remains on 4 L oxygen, breathing comfortably denies any chest pain, saturation is 95-96%, hemodynamic status stable remained afebrile, LFTs high and but remains stable, asymptomatic in that relation 06/12/2020, patient seen eval examined during the rounds labs reviewed medications reviewed care plan discussed, denies any chest pain, respiratory status remains stable, heart rate is a 51 saturation is 98% on 4 L, chest x-ray showed worsening bilateral infiltrate along with cardiomegaly, patient remains on Decadron Zosyn and IV REMDESIVIr, sugars stable 146 06/11/2020, patient seen eval examined labs reviewed medications reviewed is still short of breath remains on oxygen, care plan discussed with infectious disease services will do a trial of REMdesivir reviewed liver enzymes as well will closely monitor observe, Patient is a 79-year-old female came into the hospital with increasing cough shortness of breath she was noted to be hypoxic with x-ray showing bilateral interstitial infiltrate, patient was recently found to have covid 19 pneumonia, her past history is significant for diabetes mellitus, colon and cervical cancer, currently she is being treated with supplemental oxygen along with bronchodilators Decadron 6 mg IV every 12 hourly continuation of home medicine as well as IV furosemide and IV Zosyn, her oxygen saturation is 95-97% on 4 L, her BNP is 7-6600,*slightly elevated, AST and ALT are 135 and 64 alk phos 405, BUN/creatinine is 49 and 0.99 LDH is the 339, C-reactive protein is 13.2, Objective - Vital Signs Vital signs: Vital Signs Temp 97.7 F 06/17/20 08:00 Pulse 57 L 06/17/20 08:00 Resp 19 06/17/20 08:00 BP 110/46 06/17/20 08:00 Pulse Ox 97 06/17/20 08:00 Intake & Output 06/16/20 06/17/20 06/17/20 18:59 06:59 18:59 Intake Total 867 360 Output Total 500 1600 Balance 367 -1600 360 Weight 74.5 kg Intake: Oral 867 360 Output: Urine 500 1600 Other: Voiding Method Indwelling Catheter Indwelling Catheter Indwelling Catheter # Bowel Movements 1 - Exam - Constitutional General appearance: average body habitus, cooperative, disheveled - EENT Eyes: PERRLA Ears: bilateral: normal - Neck Carotids: bilateral: upstroke normal Thyroid: bilateral: normal size - Respiratory Respiratory: bilateral: CTA - Cardiovascular Rhythm: regular Heart sounds: normal: S1, S2 - Gastrointestinal General gastrointestinal: normal bowel sounds - Neurologic Neurologic: CNII-XII intact - Musculoskeletal Musculoskeletal: gait normal, generalized weakness, strength equal bilaterally - Psychiatric Psychiatric: A&O x's 3, appropriate affect, intact judgment & insigh - Labs CBC & Chem 7: 06/15/20 10:50 06/15/20 22:43 Labs: Abnormal Lab Results - Last 24 Hours (Table) 06/16/20 06/16/20 06/17/20 Range/Units 17:31 20:12 05:56 ESR (0-20) mm/hr POC Glucose (mg/dL) 160 H 244 H 150 H (75-99) mg/dL C-Reactive Protein (<10.0) mg/L 06/17/20 06/17/20 06/17/20 Range/Units 08:07 08:07 11:28 ESR 33 H (0-20) mm/hr POC Glucose (mg/dL) 137 H (75-99) mg/dL C-Reactive Protein 26.2 H (<10.0) mg/L Assessment and Plan Assessment: Acute on chronic hypoxic respiratory failure Acute on chronic systolic and diastolic heart failure ejection fraction is 40% with global hypokinesia and dilated LV Covert 19 pneumonia Moderate pulmonary hypertension Elevated troponins Plan: Continue diuresis as planned Continue anticoagulation, status post IV REMdesivir for 5 days, Continue dexamethasone for total of 10 days, will change it to oral once daily Echocardiogram findings reviewed Time with Patient: Greater than 30
--- NOTE | 2020-06-17 14:07 | PN ---
PROGRESS NOTE DATE OF SERVICE: 06/16/2020 White female with positive COVID. She is finishing her fifth day of Remdesivir. She is going to need IV Zosyn after discussion with Dr. Pabon for 2 more weeks for osteomyelitis of the sacral pressure ulcer in her sacrum. She has had a diverting ostomy. She is 97% on 2 L. Pulse is 40-60, temperature 98, blood pressure 137/66. In general, she is alert, looks little bit better today. Respiratory is unlabored breathing. Heart S1, S2. Abdomen is soft. Ileostomy. ASSESSMENT: COVID-19 infection, sacral osteomyelitis. Continue with Zosyn for 2 more weeks. Wound VAC in her lower back: COVID treatments continue with zinc, dexamethasone antibiotics. She appears to be improving on current doses. She will possibly be discharged either home or to the skilled nursing for 2 more weeks of IV antibiotics. Awaiting on discharge planning. Date of this visit was 06/16/2020. MMODL / IJN: [id number] /
[2020-06-17 16:11] LABS: Glucose,Whole Blood 226 mg/dL (75-99)
[2020-06-17 20:32] LABS: Glucose,Whole Blood 276 mg/dL (75-99)
[2020-06-17] MEDS: INSULIN DETEMIR (LEVEMIR) 100 UNIT/ML SYR SQ SCH (20:42)
[2020-06-17] MEDS: LEVOTHYROXINE 137 MCG TAB PO SCH (21:34)
[2020-06-17 22:50] VITALS: RESP 16
--- NOTE | 2020-06-17 23:08 | PN ---
PROGRESS NOTE DATE OF SERVICE: 06/17/2020 REASON FOR FOLLOWUP: 1. Acute COVID-19 pneumonia. 2. Sacral pressure ulcer. INTERVAL HISTORY: The patient is currently afebrile. The patient is breathing comfortably. Denies having any chest pain or shortness of breath or cough. No nausea, vomiting, abdominal pain or pain to the sacral wound area. PHYSICAL EXAMINATION: Blood pressure 133/45, pulse of 57, temperature 97.8. She is 97% on 2 L nasal cannula. General description is an elderly female lying in bed in no distress. RESPIRATORY SYSTEM: Unlabored breathing. Clear to auscultation anteriorly. HEART: S1, S2. Regular rate and rhythm. ABDOMEN: Soft. No tenderness. LABS: Sedimentation rate of 33 with CRP of 26.2. DIAGNOSTIC IMPRESSION AND PLAN: 1. Patient admitted to hospital with shortness of breath in this patient diagnosed with acute COVID-19 pneumonia. Patient has completed remdesivir therapy, currently on dexamethasone, zinc and Lovenox. 2. Patient with sacral pressure ulcer with underlying osteomyelitis. Patient to continue with the Zosyn. Local care preferably with a wound V.A.C. Continue supportive care. MMODL / IJN: [id number] /
[2020-06-18] MEDS: PIPERACILLIN-TAZOBACTAM 3.375 GM in SODIUM CHLORIDE 0.9% 100 ML IVPB SCH ×3 (00:41→16:58)
[2020-06-18] MEDS: ZINC OXIDE 20% OINT 28.4 GM TUBE TOPICAL SCH ×2 (02:42→09:02)
[2020-06-18] MEDS: HYDROcodone/APAP 5-325MG 1 EACH TAB PO PRN (03:09)
[2020-06-18 07:27] LABS: Glucose,Whole Blood 93 mg/dL (75-99)
[2020-06-18] MEDS: ALBUTEROL HFA INHALER INHALATION SCH ×4 (08:30→20:10)
[2020-06-18] MEDS: INSULIN ASPART (NovoLOG) 100 UNIT/ML VIAL SQ SCH ×3 (08:57→17:38)
[2020-06-18] MEDS: CHOLECALCIFEROL 1,000 UNIT TAB PO SCH (09:00)
[2020-06-18] MEDS ORDERED: dexAMETHasone 2 MG TAB PO SCH (09:00)
[2020-06-18] MEDS: FUROSEMIDE 10 MG/ML 4 ML VIAL IV SCH (09:00)
[2020-06-18] MEDS: SODIUM BICARBONATE TAB 650 MG TAB PO SCH (09:01)
[2020-06-18] MEDS: LOSARTAN 25 MG TAB PO SCH (09:01)
[2020-06-18] MEDS: ISOSORBIDE MONONITRATE ER 60 MG TAB.ER.24H PO SCH (09:01)
[2020-06-18] MEDS: METOPROLOL TARTRATE 25 MG TAB PO SCH (09:01)
[2020-06-18] MEDS: HEPARIN SODIUM,PORCINE 5,000 UNIT/ML 1 ML VIAL SQ SCH (09:01)
[2020-06-18] MEDS: ZINC SULFATE 220 MG CAP PO SCH (09:01)
[2020-06-18] MEDS: FERROUS SULFATE 325 MG TAB PO SCH (09:01)
[2020-06-18] MEDS: POTASSIUM CHLORIDE ER 10 MEQ TAB.ER.PRT PO SCH (09:01)
[2020-06-18] MEDS: NYSTATIN 100,000 UNIT/ML SUSP 500,000 UNIT/5 ML CUP PO SCH ×3 (09:02→16:59)
[2020-06-18] MEDS: FLUoxetine HCL 10 MG CAP PO SCH (09:34)
--- NOTE | 2020-06-18 10:19 | P.PN ---
Subjective Progress Note Date: 06/18/20 Principal diagnosis: Acute hypoxic respiratory failure Acute on chronic diastolic heart failure Covert 19 pneumonia Elevated troponins 06/18/2020, patient seen eval examined during the rounds labs reviewed medications reviewed care plan discussed with the staff at length, remains very weak denies any cough or chest pain remains on 2 L oxygen, oxygen saturation is 94% hemodynamic status stable patient remains afebrile, awaiting placement to ECF, undergoing physical therapy and rehabilitation as well, 06/17/2020, patient seen eval examined during the rounds labs reviewed medications reviewed, generalized weakness has been noted, patient is being evaluated for port placement in rehab, eater oxygen saturation is mid 90s, hemodynamic status stable, 97% on 2 L, remains afebrile, Decadron can be lowered to 6 mg daily oral 06/16/2020, patient seen eval examined during the rounds labs reviewed medications reviewed care plan discussed, respiratory status remains stable on 2 L oxygen cough shortness of breath improved now, patient uses home oxygen 2 L as well, status post REMdesivir therapy, agree with discharge planning at home 06/15/2020, patient seen eval examined during the rounds labs reviewed medications reviewed care plan discussed, remains on 2 L oxygen saturation is mid 90s today is the last day of IV therapy, if remains stable consider discharge planning for tomorrow on oral Decadron to complete 10 day therapy 06/14/2020, patient seen eval examined during the rounds labs reviewed medications reviewed care plan discussed, respiratory status remains stable, oxygen requirement continue to go down, saturation is mid 90s, oxygen has been lowered to 2 L, saturation 96%, her cough congestion shortness of breath stable, patient uses oxygen at home as well, today's four-day of IV therapy 06/13/2020, patient seen eval examined during the rounds labs reviewed medications reviewed patient remains on 4 L oxygen, breathing comfortably denies any chest pain, saturation is 95-96%, hemodynamic status stable remained afebrile, LFTs high and but remains stable, asymptomatic in that relation 06/12/2020, patient seen eval examined during the rounds labs reviewed medications reviewed care plan discussed, denies any chest pain, respiratory status remains stable, heart rate is a 51 saturation is 98% on 4 L, chest x-ray showed worsening bilateral infiltrate along with cardiomegaly, patient remains on Decadron Zosyn and IV REMDESIVIr, sugars stable 146 06/11/2020, patient seen eval examined labs reviewed medications reviewed is still short of breath remains on oxygen, care plan discussed with infectious disease services will do a trial of REMdesivir reviewed liver enzymes as well will closely monitor observe, Patient is a 79-year-old female came into the hospital with increasing cough shortness of breath she was noted to be hypoxic with x-ray showing bilateral interstitial infiltrate, patient was recently found to have covid 19 pneumonia, her past history is significant for diabetes mellitus, colon and cervical cancer, currently she is being treated with supplemental oxygen along with bronchodilators Decadron 6 mg IV every 12 hourly continuation of home medicine as well as IV furosemide and IV Zosyn, her oxygen saturation is 95-97% on 4 L, her BNP is 7-6600,*slightly elevated, AST and ALT are 135 and 64 alk phos 405, BUN/creatinine is 49 and 0.99 LDH is the 339, C-reactive protein is 13.2, Objective - Vital Signs Vital signs: Vital Signs Temp 97.6 F 06/18/20 05:35 Pulse 76 06/18/20 09:05 Resp 16 06/18/20 05:35 BP 136/74 06/18/20 09:05 Pulse Ox 99 06/18/20 05:35 Intake & Output 06/17/20 06/18/20 06/18/20 18:59 06:59 18:59 Intake Total 600 375 Output Total 100 250 200 Balance 500 125 -200 Weight 73.5 kg Intake: Oral 600 375 Output: Urine 100 250 Stool 200 Other: Voiding Method Indwelling Catheter Indwelling Catheter - Exam - Constitutional General appearance: average body habitus, cooperative, disheveled - EENT Eyes: PERRLA Ears: bilateral: normal - Neck Carotids: bilateral: upstroke normal Thyroid: bilateral: normal size - Respiratory Respiratory: bilateral: CTA - Cardiovascular Rhythm: regular Heart sounds: normal: S1, S2 - Gastrointestinal General gastrointestinal: normal bowel sounds - Neurologic Neurologic: CNII-XII intact - Musculoskeletal Musculoskeletal: gait normal, generalized weakness, strength equal bilaterally - Psychiatric Psychiatric: A&O x's 3, appropriate affect, intact judgment & insigh - Labs CBC & Chem 7: 06/15/20 10:50 06/15/20 22:43 Labs: Abnormal Lab Results - Last 24 Hours (Table) 06/17/20 06/17/20 06/17/20 Range/Units 08:07 11:28 16:10 ESR 33 H (0-20) mm/hr POC Glucose (mg/dL) 137 H 226 H (75-99) mg/dL 06/17/20 Range/Units 20:31 ESR (0-20) mm/hr POC Glucose (mg/dL) 276 H (75-99) mg/dL Assessment and Plan Assessment: Acute on chronic hypoxic respiratory failure Acute on chronic systolic and diastolic heart failure ejection fraction is 40% with global hypokinesia and dilated LV Covert 19 pneumonia Moderate pulmonary hypertension Elevated troponins Plan: Continue diuresis as planned Continue anticoagulation, status post IV REMdesivir for 5 days, Continue dexamethasone for total of 10 days, will change it to oral once daily On broad-spectrum antibiotics as well for aspiration pneumonia ID service is following Echocardiogram findings reviewed Time with Patient: Greater than 30
[2020-06-18 11:26] LABS: Glucose,Whole Blood 166 mg/dL (75-99)
[2020-06-18 16:44] VITALS: BP 107/67; PULSE 54; TEMP 97.8
[2020-06-18] MEDS ORDERED: ENOXAPARIN 40 MG/0.4 ML SYRINGE SQ SCH (17:00)
[2020-06-18 17:25] LABS: Glucose,Whole Blood 262 mg/dL (75-99)
--- NOTE | 2020-06-18 19:20 | DS ---
DISCHARGE SUMMARY Admitted with Covid 19 pneumonia, congestive heart failure, diastolic, failure to thrive, diabetes mellitus, generalized weakness, hypoxemic respiratory failure, diabetes mellitus. NEW MEDICINES: Cozaar 25 mg daily, Hexadrol 6 mg daily for 2 weeks, Levemir 10 units subcu q.h.s., nystatin suspension 5 mL p.o. q.i.d., NovoLog a.c. q.h.s., oral zinc 220 mg daily, Ventolin HFA inhaler 2 puffs q.i.d., Lovenox 40 mg subcu daily for 2 weeks, simethicone 80 mg q.4 hours for bloating, Maalox 30 mL q.4 hours for indigestion, Kaopectate 262 mg 15 mL p.o. t.i.d. p.r.n. for diarrhea, [place] 5/325 every 4 hours p.r.n. for pain, acetaminophen 650 q.4 hours p.r.n. for fever, sodium bicarb 650 p.o. b.i.d., Zosyn 3.375 g IV piggyback q.8 hours for 14 days, ProStat 30 mL p.o. b.i.d., metoprolol tartrate 12.5 b.i.d., Lasix 40 b.i.d., potassium chloride 20 mEq daily, vitamin D3 2000 international units daily, levothyroxine 137 mcg p.o. daily q.a.m. and Imdur 60 mg daily, ferrous sulfate 325 daily, Prozac 10 mg p.o. daily, A&D diaper rash cream topically q.12 hours. PROGNOSIS: Guarded. ACTIVITY: Ambulate as tolerated. HOSPITAL COURSE OF EVENTS: White female came with Covid pneumonia, generalized weakness, dehydration, diastolic heart failure. The patient received Lasix through the IV, which took her weeping and third-spacing down. She is treated for Covid pneumonia with zinc, antibiotics, anticoagulation. The patient was stabilized over the next few days at which time patient was stable to go home back to the rehab center after having 5 days of Remdesivir. She is sating on 3 L 97%. Blood pressure 107/67, temp 97.8, pulse 54, respiratory 16 to 18. Please see further orders. Follow up with Dr. López in the [facility]. MMODL / IJN: [id number] /
[2020-06-18 20:24] LABS: Glucose,Whole Blood 276 mg/dL (75-99)
--- NOTE | 2020-06-19 00:42 | PN ---
PROGRESS NOTE DATE OF SERVICE: 06/18/2020 REASON FOR FOLLOWUP: 1. COVID-19 infection. 2. Sacral pressure ulcer and osteomyelitis. INTERVAL HISTORY: Patient is currently afebrile. The patient is breathing comfortably. Denies having any chest pain. No shortness of breath. Minimal cough. No abdominal pain. No diarrhea. PHYSICAL EXAMINATION: Blood pressure 107/67, pulse of 54. Temperature is 97.8. She is 97% on 3 L nasal cannula. General description is an elderly female lying in bed in no distress. Respiratory system: Unlabored breathing. Clear to auscultation anteriorly. Heart S1, S2. Regular rate and rhythm. Abdomen soft, no tenderness. LABS: No new labs have been obtained today. DIAGNOSTIC IMPRESSION AND PLAN: 1. Patient with acute COVID-19 pneumonia in this patient who has completed Remdesivir therapy. She is currently on dexamethasone and Lovenox and a short course of oral on discharge. 2. Sacral pressure ulcer with underlying osteomyelitis. Continue with Zosyn for 2 weeks. Local wound care with wound VAC and close outpatient followup. MMODL / IJN: [id number] /
== END 2020-06-18 20:15 | DRG 177 ==
LOC: EC 12:46 → 6NMEDSUR 15:10 → 3SCARD 19:42 → 6NMEDSUR 06-17 20:58
PROVIDERS: ADMIT Family Medicine; ATTEND Family Medicine
PROC: XW033E5 Introduction of Remdesivir Anti-infective into Peripheral Vein, Percutaneous Approach, New Technology Group 5 (ICD-10-PCS; principal; 2020-06-12)
DX: U07.1 COVID-19 (principal); L89.154 Pressure ulcer of sacral region, stage 4; J96.21 Acute and chronic respiratory failure with hypoxia; I50.43 Acute on chronic combined systolic (congestive) and diastolic (congestive) heart failure; J12.89 Other viral pneumonia; E44.0 Moderate protein-calorie malnutrition; E87.1 Hypo-osmolality and hyponatremia; J44.0 Chronic obstructive pulmonary disease with (acute) lower respiratory infection; M46.28 Osteomyelitis of vertebra, sacral and sacrococcygeal region; D64.9 Anemia, unspecified; E03.9 Hypothyroidism, unspecified; E11.622 Type 2 diabetes mellitus with other skin ulcer; E11.65 Type 2 diabetes mellitus with hyperglycemia; T38.0X5A Adverse effect of glucocorticoids and synthetic analogues, initial encounter; E86.0 Dehydration; I25.10 Atherosclerotic heart disease of native coronary artery without angina pectoris; I27.20 Pulmonary hypertension, unspecified; R79.89 Other specified abnormal findings of blood chemistry; M46.1 Sacroiliitis, not elsewhere classified; N28.9 Disorder of kidney and ureter, unspecified; R62.7 Adult failure to thrive; L98.499 Non-pressure chronic ulcer of skin of other sites with unspecified severity; Z79.890 Hormone replacement therapy; Z79.899 Other long term (current) drug therapy; Z85.41 Personal history of malignant neoplasm of cervix uteri; Z93.3 Colostomy status; Z85.038 Personal history of other malignant neoplasm of large intestine; Z90.49 Acquired absence of other specified parts of digestive tract; Z60.2 Problems related to living alone; Z68.28 Body mass index [BMI] 28.0-28.9, adult
CPT/HCPCS: 36415; 71045; 71046; 80048; 80053; 82550; 83036; 83605; 83615; 83735; 83880; 84145; 84484; 85025; 85379; 85610; 85652; 85730; 86140; 87040; 93005; 93306; 94640; 94760; 96365; 96366; 96372; 96375; 96376; 99291

== ENCOUNTER 2020-07-03 13:42 | Inpatient (IN) | payer MEDICARE ==
--- NOTE | 2020-07-03 14:22 | ED ---
General Adult HPI - General Chief complaint: Shortness of Breath Stated complaint: tachycardia Time Seen by Provider: 07/03/20 13:52 Source: patient, EMS Mode of arrival: EMS Limitations: no limitations - History of Present Illness Initial comments: Dictation was produced using [email or web address] dictation software. please excuse any grammatical, word or spelling errors. This patient was cared for during a federal and state declared state of emergency secondary to Covid 19 Chief Complaint: 79-year-old female presents from [facility] for shortness breath, hypoxia and feeling dry. History of Present Illness: Is an 79-year-old female she has past medical history of diabetes,: Cervical cancer. She presents today via EMS from [facility] on the legs for hypoxia, shortness of breath and feeling dry. Patient states her symptoms began today. She had coronavirus recently. She was admitted to the hospital middle of last month for covid pneumonia. Patient denies any pain complaints. She has no sore throat right nose. She denies any chest pain. She states she does feel short of breath. Patient wears 3 L of oxygen. Patient has a constitutional symptoms. No cough. Patient allegedly has a history of congestive heart failure. echo cardiogram performed on June 11 of last year showing 40% EF with global hypokinesis. The ROS documented in this emergency department record has been reviewed and confirmed by me. Those systems with pertinent positive or negative responses have been documented in the HPI. All other systems are other negative and/or noncontributory. PHYSICAL EXAM: General Impression: Alert and oriented x3, mildly dyspneic HEENT: Normocephalic atraumatic, extra-ocular movements intact, pupils equal and reactive to light bilaterally, dry mucous membranes Cardiovascular: Heart regular rate and rhythm Chest: Able to complete full sentences, no retractions, no tachypnea, diffuse lung crackles with auscultation Abdomen: abdomen soft, non-tender, non-distended, no organomegaly Musculoskeletal: Pulses present and equal in all extremities, 1+ pitting edema Motor: no focal deficits noted Neurological: CN II-XII grossly intact, no focal motor or sensory deficits noted Skin: Dry scaly skin to the bilateral lower extremities Psych: Normal affect and mood ED course: 79-year-old female presents emergency department for hypoxia and shortness of breath. Vital signs upon arrival shows 93% oxygen on 6 L nasal cannula. Rest of vital signs were acceptable limits. Laboratory evaluation obtained. CBC unremarkable. Coag panel is negative. Metabolic panel shows findings within acceptable limits. Except that she has a mild hyponatremia 1:30. LDH and CRP are elevated. Coronavirus is positive. Chest x-ray shows bilateral pulmonary infiltrates increase compared to old exam. Chart review was performed. Patient was admitted for coronavirus early last month. It is unclear if this is patient's second recurrence of Covid 19 or if his continuation from last month. Nonetheless patient is treated with Decadron. There is concern that perhaps her symptoms could also be from superimposed giuseppe terial infection. Patient covered with antibiotics. Case is discussed Dr. López who requests the patient be admitted with consultation to Infectious disease and pulmonology. EKG interpretation: Ventricular rate 93, sinus rhythm with sinus arrhythmia. No MD prolongation, no QTC prolongation, no ST or T-wave changes noted. EKG compared to 06/09/2020 showing no changes. Overall, this EKG is unremarkable - Related Data Home Medications Medication Instructions Recorded Confirmed Acetaminophen Tab [Tylenol] 650 mg PO Q4H PRN 06/09/20 07/03/20 Cholecalciferol [Vitamin D3 (25 2,000 unit PO DAILY@89906/09/20 07/03/20 Mcg = 1000 Iu)] Dimethic/Zinc Ox/Vits A,D/Aloe [A 1 applic TOPICAL Q12H 06/09/20 07/03/20 and D Diaper Rash Cream] FLUoxetine HCL [PROzac] 10 mg PO DAILY@0900 06/09/20 07/03/20 Ferrous Sulfate [Iron] 325 mg PO DAILY@0906/09/20 07/03/20 Furosemide [Lasix] 40 mg PO BID@0600,1400 06/09/20 07/03/20 HYDROcodone/APAP 5-325MG [[place] 1 tab PO BID@0900,2100 06/09/20 07/03/20 5-325] Isosorbide Mononitrate ER [Imdur] 60 mg PO DAILY@0900 06/09/20 07/03/20 Kaopectate 262mg/15ml 524 mg PO BID@0900,2100 06/09/20 07/03/20 Levothyroxine Sodium 137 mcg PO HS@209906/09/20 07/03/20 Mag Hydrox/Al Hydrox/Simeth 30 ml PO Q4H PRN 06/09/20 07/03/20 [Maalox] Metoprolol Tartrate [Lopressor] 12.5 mg PO BID@0900,2100 06/09/20 07/03/20 Piperacillin-Tazobactam [Zosyn] 3.375 gm IVPB TID@0600,1400,2200 06/09/20 07/03/20 Potassium Chloride ER [K-Dur 10] 20 meq PO DAILY@0900 06/09/20 07/03/20 Prostat Awc 30 ml PO BID@0900,1700 06/09/20 07/03/20 Simethicone 80 mg PO Q4H PRN 06/09/20 07/03/20 Sodium Bicarbonate Tab 650 mg PO BID@0900,2100 06/09/20 07/03/20 Collagenase [Santyl] 1 applic TOPICAL HS 07/03/20 07/03/20 Glucerna Shake 1 can PO BID@0900,1700 07/03/20 07/03/20 HYDROcodone/APAP 5-325MG [[place] 1 tab PO Q4H PRN 07/03/20 07/03/20 5-325] Hydrocortisone Cream 1 applic TOPICAL BID 07/03/20 07/03/20 [Hydrocortisone 2.5% Cream] Ipratropium-Albuterol Nebulize 3 ml INHALATION RT-Q4H PRN 07/03/20 07/03/20 [Duoneb 0.5 mg-3 mg/3 ml Soln] Kaopectate Suspension 262mg/15ml 524 mg PO TID PRN 07/03/20 07/03/20 Allergies Allergy/AdvReac Type Severity Reaction Status Date / Time No Known Allergies Allergy Verified 07/03/20 15:22 Review of Systems ROS Statement: Those systems with pertinent positive or pertinent negative responses have been documented in the HPI. ROS Other: All systems not noted in ROS Statement are negative. Past Medical History Past Medical History: Cancer, Diabetes Mellitus Additional Past Medical History / Comment(s): Colon/cervical CA History of Any Multi-Drug Resistant Organisms: None Reported Past Surgical History: Bowel Resection Additional Past Surgical History / Comment(s): colostomy Past Psychological History: No Psychological Hx Reported Smoking Status: Never smoker Past Alcohol Use History: None Reported Past Drug Use History: None Reported General Exam Limitations: no limitations Course Vital Signs 07/03/20 07/03/20 07/03/20 13:46 14:43 15:45 Temperature 98.6 F 98.5 F 98.6 F Pulse Rate 90 88 89 Respiratory 22 20 20 Rate Blood Pressure 104/68 145/55 129/72 O2 Sat by Pulse 93 L 93 L 94 L Oximetry Medical Decision Making - Lab Data Result diagrams: 07/03/20 14:10 07/03/20 14:10 Lab Results 07/03/20 07/03/20 07/03/20 Range/Units 14:10 14:10 14:10 WBC 9.7 (3.8-10.6) k/uL RBC 3.87 (3.80-5.40) m/uL Hgb 10.9 L (11.4-16.0) gm/dL Hct 33.8 L (34.0-46.0) % MCV 87.5 (80.0-100.0) fL MCH 28.3 (25.0-35.0) pg MCHC 32.3 (31.0-37.0) g/dL RDW 18.6 H (11.5-15.5) % Plt Count 321 (150-450) k/uL MPV 8.3 Neutrophils % 93 % Lymphocytes % 3 % Monocytes % 3 % Eosinophils % 0 % Basophils % 0 % Neutrophils # 8.9 H (1.3-7.7) k/uL Lymphocytes # 0.3 L (1.0-4.8) k/uL Monocytes # 0.3 (0-1.0) k/uL Eosinophils # 0.0 (0-0.7) k/uL Basophils # 0.0 (0-0.2) k/uL Hypochromasia Slight Anisocytosis Slight PT 9.5 (9.0-12.0) sec INR 0.9 (<1.2) APTT 23.6 (22.0-30.0) sec Sodium 130 L (137-145) mmol/L Potassium 4.3 (3.5-5.1) mmol/L Chloride 91 L (98-107) mmol/L Carbon Dioxide 34 H (22-30) mmol/L Anion Gap 5 mmol/L BUN 64 H (7-17) mg/dL Creatinine 1.15 H (0.52-1.04) mg/dL Est GFR (CKD-EPI)AfAm 52 (>60 ml/min/1.73 sqM) Est GFR (CKD-EPI)NonAf 45 (>60 ml/min/1.73 sqM) Glucose 264 H (74-99) mg/dL Plasma Lactic Acid [place] (0.7-2.0) mmol/L Calcium 8.6 (8.4-10.2) mg/dL Magnesium 2.0 (1.6-2.3) mg/dL Total Bilirubin 0.8 (0.2-1.3) mg/dL AST 29 (14-36) U/L ALT 24 (4-34) U/L Alkaline Phosphatase 507 H (38-126) U/L Lactate Dehydrogenase 656 H (313-618) U/L C-Reactive Protein 225.3 H (<10.0) mg/L Total Protein 5.2 L (6.3-8.2) g/dL Albumin 2.5 L (3.5-5.0) g/dL Coronavirus (PCR) (Not Detectd) 07/03/20 07/03/20 Range/Units 14:10 14:10 WBC (3.8-10.6) k/uL RBC (3.80-5.40) m/uL Hgb (11.4-16.0) gm/dL Hct (34.0-46.0) % MCV (80.0-100.0) fL MCH (25.0-35.0) pg MCHC (31.0-37.0) g/dL RDW (11.5-15.5) % Plt Count (150-450) k/uL MPV Neutrophils % % Lymphocytes % % Monocytes % % Eosinophils % % Basophils % % Neutrophils # (1.3-7.7) k/uL Lymphocytes # (1.0-4.8) k/uL Monocytes # (0-1.0) k/uL Eosinophils # (0-0.7) k/uL Basophils # (0-0.2) k/uL Hypochromasia Anisocytosis PT (9.0-12.0) sec INR (<1.2) APTT (22.0-30.0) sec Sodium (137-145) mmol/L Potassium (3.5-5.1) mmol/L Chloride (98-107) mmol/L Carbon Dioxide (22-30) mmol/L Anion Gap mmol/L BUN (7-17) mg/dL Creatinine (0.52-1.04) mg/dL Est GFR (CKD-EPI)AfAm (>60 ml/min/1.73 sqM) Est GFR (CKD-EPI)NonAf (>60 ml/min/1.73 sqM) Glucose (74-99) mg/dL Plasma Lactic Acid [place] 1.8 (0.7-2.0) mmol/L Calcium (8.4-10.2) mg/dL Magnesium (1.6-2.3) mg/dL Total Bilirubin (0.2-1.3) mg/dL AST (14-36) U/L ALT (4-34) U/L Alkaline Phosphatase (38-126) U/L Lactate Dehydrogenase (313-618) U/L C-Reactive Protein (<10.0) mg/L Total Protein (6.3-8.2) g/dL Albumin (3.5-5.0) g/dL Coronavirus (PCR) Detected A (Not Detectd) Disposition Clinical Impression: Acute respiratory failure with hypoxia, COVID-19 Disposition: ADMITTED IP TO THIS [facility] Condition: Fair Referrals: Cristi López MD [Primary Care Provider] - 1-2 days Decision Time: 16:21
[2020-07-03 14:35] LABS: Anisocytosis Slight; Basophils % (A) 0 %; Eosinophils % (A) 0 %; HCT 33.8 % (34.0-46.0); HGB 10.9 gm/dL (11.4-16.0); Hypochromasia Slight; Lymphocytes # (A) 0.3 k/uL (1.0-4.8); Lymphocytes % (A) 3 %; MCH 28.3 pg (25.0-35.0); MCHC 32.3 g/dL (31.0-37.0); MCV 87.5 fL (80.0-100.0); Mean Platelet Volume 8.3; Monocytes # (A) 0.3 k/uL (0-1.0); Monocytes % (A) 3 %; Neutrophils # (A) 8.9 k/uL (1.3-7.7); Neutrophils % (A) 93 %; Platelet Count 321 k/uL (150-450); RBC 3.87 m/uL (3.80-5.40); RDW 18.6 % (11.5-15.5); WBC 9.7 k/uL (3.8-10.6)
[2020-07-03 14:45] LABS: INR 0.9 (<1.2); Partial Thromboplastin Time 23.6 sec (22.0-30.0); Prothrombin Time 9.5 sec (9.0-12.0)
--- NOTE | 2020-07-03 14:48 | XR ---
EXAMINATION TYPE: XR chest 1V portable DATE OF EXAM: 07/03/2020 COMPARISON: 06/12/2020 HISTORY: Short of breath. Cough. TECHNIQUE: FINDINGS: Heart is moderately enlarged. There is patchy bilateral pulmonary interstitial and airspace infiltrates. Pulmonary vascularity is difficult to evaluate. There is no significant pleural fluid. There is left side central venous catheter with tip in the superior vena cava. There is right jugular catheter with tip in the superior vena cava. IMPRESSION: Bilateral pulmonary infiltrates slightly increased compared to old exam. 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 Moderate cardiomegaly. No significant pleural fluid seen to sugges t heart failure.
[2020-07-03 14:51] LABS: Potassium 4.3 mmol/L (3.5-5.1)
[2020-07-03 14:54] LABS: Albumin 2.5 g/dL (3.5-5.0); Calcium 8.6 mg/dL (8.4-10.2); Total Bilirubin 0.8 mg/dL (0.2-1.3); Total Protein 5.2 g/dL (6.3-8.2)
[2020-07-03 15:11] LABS: C Reactive Protein 225.3 mg/L (<10.0)
[2020-07-03] MEDS ORDERED: AZITHROMYCIN 500 MG in SODIUM CHLORIDE 0.9% 250 ML IVPB STA (16:08)
[2020-07-03] MEDS ORDERED: DEXAMETHASONE SOD PHOSPHATE 10 MG/ML 1 ML VIAL IV STA (16:08)
[2020-07-03] MEDS ORDERED: cefTRIAXone IN SWFI 1,000 MG/10 ML SYRINGE IVP STA (16:08)
[2020-07-03] MEDS ORDERED: NALOXONE 0.4 MG/ML 1 ML VIAL IV PRN (16:22)
[2020-07-03] MEDS ORDERED: IPRATROPIUM-ALBUTEROL 3 ML NEB INHALATION PRN (19:20)
[2020-07-03] MEDS ORDERED: MAG HYDROX/AL HYDROX/SIMETH 30 ML CUP PO PRN (19:20)
[2020-07-03] MEDS ORDERED: ACETAMINOPHEN TAB 325 MG TAB PO PRN (19:20)
[2020-07-03] MEDS ORDERED: BISMUTH SUBSALICYLATE 4,192 MG/240 ML BOTTLE PO PRN (19:20)
[2020-07-03] MEDS ORDERED: SIMETHICONE 80 MG CHEWABLE PO PRN (19:32)
[2020-07-03] MEDS: ZINC OXIDE 20% OINT 28.4 GM TUBE TOPICAL SCH (21:22)
[2020-07-03] MEDS: SODIUM BICARBONATE TAB 650 MG TAB PO SCH (21:22)
[2020-07-03] MEDS: LEVOTHYROXINE 137 MCG TAB PO SCH (21:22)
[2020-07-03] MEDS: METOPROLOL TARTRATE 12.5 MG TAB PO SCH (21:22)
[2020-07-03] MEDS: COLLAGENASE 250 UNIT/GM OINTMENT 30 GM TUBE TOPICAL SCH (21:22)
[2020-07-03] MEDS: TRIAMCINOLONE 0.1% CREAM 80 GM TUBE TOPICAL SCH (21:23)
[2020-07-03] MEDS: BISMUTH SUBSALICYLATE 4,192 MG/240 ML BOTTLE PO SCH (21:26)
[2020-07-03] MEDS: HYDROcodone/APAP 5-325MG 1 EACH TAB PO SCH (21:26)
[2020-07-03] MEDS ORDERED: PIPERACILLIN-TAZOBACTAM 3.375 GM VIAL IVPB SCH (22:00)
[2020-07-03] MEDS: PIPERACILLIN-TAZOBACTAM 3.375 GM in SODIUM CHLORIDE 0.9% 100 ML IVPB SCH (22:46)
[2020-07-03 23:12] LABS: Ferritin 815.9 ng/mL (10.0-291.0)
--- NOTE | 2020-07-03 23:50 | CONS ---
CONSULTATION DATE OF SERVICE: 07/03/2020 REASON FOR CONSULTATION: 1. COVID-19 pneumonia. 2. Patient with sacral pressure ulcer. 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 The patient is a resident of [facility] and unfortunately has not been followed up in the Wound Care Center as advised. The patient was also admitted to the hospital middle of June. This patient diagnosed with COVID- 19 pneumonia and was treated with Remdesivir and completed her treatment. Subsequently stabilized and was discharged back to the retirement. The patient has now been brought back to the hospital with concern for increasing shortness of breath. Apparently her symptoms have become worse in the last day or two and is mostly shortness of breath. The patient denies significant cough or sputum production. Denies any URI symptoms. No nausea, no vomiting. No abdominal pain. No diarrhea or any worsening pain to the sacral wound area. On presentation to the hospital, the patient has been afebrile. The patient was noticed to be hypoxic, 93% on room air. Subsequently currently 97% on 6 L cannula. The patient did have a normal white count with mild lymphopenia. Creatinine was 1.15. Liver enzymes are normal. The patient did have elevated LDH, CRP. Babcock PCR came back positive. She also had elevated proBNP. Chest x-ray was done with bilateral pulmonary infiltrates slightly increased compared to old exam. Moderate cardiomegaly. Patient has been admitted to the hospital. Infectious disease was consulted with concern with Covid test and the sacral wound. This patient was on Zosyn at the retirement. Not sure if the patient has completed her treatment or not. As mentioned previously, she has not followed up in the wound care center REVIEW OF SYSTEMS: Positive points have been mentioned in HPI. Rest of systems are negative. PAST MEDICAL HISTORY: Past medical history of diabetes mellitus and congestive heart failure and Covid 19 pneumonia. PAST SURGICAL HISTORY: Past surgical history with debridement of the sacral wound and abdominal resection as well as diverting colostomy. SOCIAL HISTORY: No history of smoking, drinking or drug use. FAMILY HISTORY: No pertinent findings noticed. ALLERGIES: No known drug allergies. MEDICATIONS: The patient is currently on Zosyn, Tylenol, [place], Maalox, Ventolin, vitamin D3, Santyl, iron sulfate, Prozac, Lasix, Imdur, Synthroid, Lopressor, zinc, Narcan. PHYSICAL EXAMINATION: Blood pressure 149/77, pulse of 88, temperature 98.1. She is 98% on 6 L nasal cannula. General description is an elderly female lying in bed in no distress. No tachypnea or accessory muscles of respiration use. HEENT: Shows pallor. No scleral icterus. Oral mucous membranes dry. No pharyngeal erythema or thrush. NECK: Trachea central. No thyromegaly. Lungs unlabored breathing. Crackles bilaterally. No wheeze. Heart S1, S2. Regular rate and rhythm. ABDOMEN: Soft, no tenderness. No guarding. No rigidity. Extremities: Some trace edema of the feet. Skin examination: No rash or mass palpable. Examination of sacral area did show stage IV pressure ulcer of significance slough tissue wound. No surrounding redness or any drainage. Neurological: Patient is awake, alert, oriented x2. Mood and affect normal. LAB: Hemoglobin is 10.8, white count 10.7, BUN of 61, creatinine 1.15. Electrolytes have been normal. Elevated NT proBNP as well as CRP. DIAGNOSTIC IMPRESSION AND PLAN: 1. Patient admitted to the hospital with increasing shortness of breath and upper extremity source likely fluid overload and congestive heart failure in this patient [place] [address] and did have low EF of 40%. Clinically not behaving as nosocomial pneumonia. The patient did have a positive Covid test, however, she was recently treated for Covid and is more left over from her last episode of Covid rather than reinfection. 2. Patient with stage IV sacral pressure with underlying osteomyelitis and wound for significant slough tissue and will benefit from further surgical debridement. PLAN: 1. We will consult Dr. Edouard who did her previous debridement who did the patient diverting colostomy for debridement of her wound. 2. Local wound care to continue with Santyl followed by moist dressing to keep the area off the pressure. 3. Continue with Zosyn 3.375 q.8 hours. 4. No specific treatment for the Covid, it is more likely representing left lower antigen from recent COVID-19 infection. 5. We will follow on clinical condition to further adjust medication if needed. Thank you for this consultation. Will follow this patient along with you. MMODL / IJN: [id number] / MAITE
[2020-07-04] MEDS: FUROSEMIDE 40 MG TAB PO SCH ×2 (05:37→15:23)
[2020-07-04] MEDS: PIPERACILLIN-TAZOBACTAM 3.375 GM in SODIUM CHLORIDE 0.9% 100 ML IVPB SCH ×3 (05:37→22:42)
[2020-07-04] MEDS: HYDROcodone/APAP 5-325MG 1 EACH TAB PO PRN ×3 (05:46→15:26)
[2020-07-04] MEDS: ALBUTEROL HFA INHALER INHALATION PRN ×2 (08:20→15:53)
[2020-07-04] MEDS: FLUoxetine HCL 10 MG CAP PO SCH (08:54)
[2020-07-04] MEDS: CHOLECALCIFEROL 1,000 UNIT TAB PO SCH (08:54)
[2020-07-04] MEDS: METOPROLOL TARTRATE 12.5 MG TAB PO SCH ×2 (08:54→21:07)
[2020-07-04] MEDS: ISOSORBIDE MONONITRATE ER 60 MG TAB.ER.24H PO SCH (08:54)
[2020-07-04] MEDS: FERROUS SULFATE 325 MG TAB PO SCH (08:54)
[2020-07-04] MEDS: POTASSIUM CHLORIDE ER 20 MEQ TAB.ER PO SCH (08:54)
[2020-07-04] MEDS: SODIUM BICARBONATE TAB 650 MG TAB PO SCH ×2 (08:54→21:07)
[2020-07-04] MEDS: HYDROcodone/APAP 5-325MG 1 EACH TAB PO SCH ×2 (08:55→21:07)
[2020-07-04] MEDS: BISMUTH SUBSALICYLATE 4,192 MG/240 ML BOTTLE PO SCH ×2 (08:55→21:10)
[2020-07-04] MEDS: ZINC OXIDE 20% OINT 28.4 GM TUBE TOPICAL SCH ×2 (08:56→21:08)
[2020-07-04] MEDS: TRIAMCINOLONE 0.1% CREAM 80 GM TUBE TOPICAL SCH ×2 (08:56→21:07)
[2020-07-04] MEDS ORDERED: NON FORMULARY DRUG (Glucerna Shake 1 CAN Liquid) PO SCH (09:00)
[2020-07-04] MEDS ORDERED: NON FORMULARY DRUG (Prostat Awc 30 ML) PO SCH (09:00)
--- NOTE | 2020-07-04 10:33 | P.GSCN ---
History of Present Illness Consult date: 07/04/20 History of present illness: The patient is a 79-year-old female well-known to me. She has had a chronic sacral decubitus ulcer which was debrided last hospitalization. She also finally agreed to colostomy formation to divert stool away from the wound. She is currently admitted with COVID-19 pneumonia Past Medical History Past Medical History: Blood Disorder, Cancer, Heart Failure, Diabetes Mellitus, Hyperlipidemia, Thyroid Disorder Additional Past Medical History / Comment(s): Colon/cervical CA, anemia, CKD stg 3, osteomyelitis, stage 4 pressure ulcer, UTI History of Any Multi-Drug Resistant Organisms: None Reported Past Surgical History: Bowel Resection Additional Past Surgical History / Comment(s): colostomy Past Anesthesia/Blood Transfusion Reactions: No Reported Reaction Past Psychological History: Anxiety Smoking Status: Former smoker Past Alcohol Use History: None Reported Past Drug Use History: None Reported - Past Family History Father Family Medical History: Unable to Obtain Medications and Allergies Home Medications Medication Instructions Recorded Confirmed Type Acetaminophen Tab [Tylenol] 650 mg PO Q4H PRN 06/09/20 07/03/20 History Cholecalciferol [Vitamin D3 (25 2,000 unit PO DAILY@89906/09/20 07/03/20 History Mcg = 1000 Iu)] Dimethic/Zinc Ox/Vits A,D/Aloe [A 1 applic TOPICAL Q12H 06/09/20 07/03/20 History and D Diaper Rash Cream] FLUoxetine HCL [PROzac] 10 mg PO DAILY@0900 06/09/20 07/03/20 History Ferrous Sulfate [Iron] 325 mg PO DAILY@89906/09/20 07/03/20 History Furosemide [Lasix] 40 mg PO BID@0600,1400 06/09/20 07/03/20 History HYDROcodone/APAP 5-325MG [[place] 1 tab PO BID@0900,2100 06/09/20 07/03/20 History 5-325] Isosorbide Mononitrate ER [Imdur] 60 mg PO DAILY@0900 06/09/20 07/03/20 History Kaopectate 262mg/15ml 524 mg PO BID@0900,2100 06/09/20 07/03/20 History Levothyroxine Sodium 137 mcg PO HS@209906/09/20 07/03/20 History Mag Hydrox/Al Hydrox/Simeth 30 ml PO Q4H PRN 06/09/20 07/03/20 History [Maalox] Metoprolol Tartrate [Lopressor] 12.5 mg PO BID@0900,2100 06/09/20 07/03/20 History Piperacillin-Tazobactam [Zosyn] 3.375 gm IVPB TID@0600,1400,2200 06/09/20 07/03/20 History Potassium Chloride ER [K-Dur 10] 20 meq PO DAILY@0900 06/09/20 07/03/20 History Prostat Awc 30 ml PO BID@0900,1700 06/09/20 07/03/20 History Simethicone 80 mg PO Q4H PRN 06/09/20 07/03/20 History Sodium Bicarbonate Tab 650 mg PO BID@0900,2100 06/09/20 07/03/20 History Collagenase [Santyl] 1 applic TOPICAL HS 07/03/20 07/03/20 History Glucerna Shake 1 can PO BID@0900,1700 07/03/20 07/03/20 History HYDROcodone/APAP 5-325MG [[place] 1 tab PO Q4H PRN 07/03/20 07/03/20 History 5-325] Hydrocortisone Cream 1 applic TOPICAL BID 07/03/20 07/03/20 History [Hydrocortisone 2.5% Cream] Ipratropium-Albuterol Nebulize 3 ml INHALATION RT-Q4H PRN 07/03/20 07/03/20 History [Duoneb 0.5 mg-3 mg/3 ml Soln] Kaopectate Suspension 262mg/15ml 524 mg PO TID PRN 07/03/20 07/03/20 History Allergies Allergy/AdvReac Type Severity Reaction Status Date / Time No Known Allergies Allergy Verified 07/03/20 15:22 Surgical - Exam Osteopathic Statement: *. No significant issues noted on an osteopathic structural exam other than those noted in the History and Physical/Consult. Vital Signs Temp Pulse Resp BP Pulse Ox 98.6 F 90 22 104/68 93 L 07/03/20 13:46 07/03/20 13:46 07/03/20 13:46 07/03/20 13:46 07/03/20 13:46 I spoke with the patient's nurse via phone. Patient was not examined today Results - Labs 07/03/20 14:10 07/03/20 14:10 Abnormal Lab Results - Last 24 Hours (Table) 07/03/20 07/03/20 07/03/20 Range/Units 14:10 14:10 14:10 Hgb 10.9 L (11.4-16.0) gm/dL Hct 33.8 L (34.0-46.0) % RDW 18.6 H (11.5-15.5) % Neutrophils # 8.9 H (1.3-7.7) k/uL Lymphocytes # 0.3 L (1.0-4.8) k/uL Sodium 130 L (137-145) mmol/L Chloride 91 L (98-107) mmol/L Carbon Dioxide 34 H (22-30) mmol/L BUN 64 H (7-17) mg/dL Creatinine 1.15 H (0.52-1.04) mg/dL Glucose 264 H (74-99) mg/dL Ferritin 815.9 H (10.0-291.0) ng/mL Alkaline Phosphatase 507 H (38-126) U/L Lactate Dehydrogenase 656 H (313-618) U/L C-Reactive Protein 225.3 H (<10.0) mg/L Total Protein 5.2 L (6.3-8.2) g/dL Albumin 2.5 L (3.5-5.0) g/dL Procalcitonin 1.66 H (0.02-0.09) ng/mL Coronavirus (PCR) (Not Detectd) 07/03/20 Range/Units 14:10 Hgb (11.4-16.0) gm/dL Hct (34.0-46.0) % RDW (11.5-15.5) % Neutrophils # (1.3-7.7) k/uL Lymphocytes # (1.0-4.8) k/uL Sodium (137-145) mmol/L Chloride (98-107) mmol/L Carbon Dioxide (22-30) mmol/L BUN (7-17) mg/dL Creatinine (0.52-1.04) mg/dL Glucose (74-99) mg/dL Ferritin (10.0-291.0) ng/mL Alkaline Phosphatase (38-126) U/L Lactate Dehydrogenase (313-618) U/L C-Reactive Protein (<10.0) mg/L Total Protein (6.3-8.2) g/dL Albumin (3.5-5.0) g/dL Procalcitonin (0.02-0.09) ng/mL Coronavirus (PCR) Detected A (Not Detectd) Diabetes panel 07/03/20 Range/Units 14:10 Sodium 130 L (137-145) mmol/L Potassium 4.3 (3.5-5.1) mmol/L Chloride 91 L (98-107) mmol/L Carbon Dioxide 34 H (22-30) mmol/L BUN 64 H (7-17) mg/dL Creatinine 1.15 H (0.52-1.04) mg/dL Glucose 264 H (74-99) mg/dL Calcium 8.6 (8.4-10.2) mg/dL AST 29 (14-36) U/L ALT 24 (4-34) U/L Alkaline Phosphatase 507 H (38-126) U/L Total Protein 5.2 L (6.3-8.2) g/dL Albumin 2.5 L (3.5-5.0) g/dL Calcium panel 07/03/20 Range/Units 14:10 Calcium 8.6 (8.4-10.2) mg/dL Albumin 2.5 L (3.5-5.0) g/dL Pituitary panel 07/03/20 Range/Units 14:10 Sodium 130 L (137-145) mmol/L Potassium 4.3 (3.5-5.1) mmol/L Chloride 91 L (98-107) mmol/L Carbon Dioxide 34 H (22-30) mmol/L BUN 64 H (7-17) mg/dL Creatinine 1.15 H (0.52-1.04) mg/dL Glucose 264 H (74-99) mg/dL Calcium 8.6 (8.4-10.2) mg/dL Adrenal panel 07/03/20 Range/Units 14:10 Sodium 130 L (137-145) mmol/L Potassium 4.3 (3.5-5.1) mmol/L Chloride 91 L (98-107) mmol/L Carbon Dioxide 34 H (22-30) mmol/L BUN 64 H (7-17) mg/dL Creatinine 1.15 H (0.52-1.04) mg/dL Glucose 264 H (74-99) mg/dL Calcium 8.6 (8.4-10.2) mg/dL Total Bilirubin 0.8 (0.2-1.3) mg/dL AST 29 (14-36) U/L ALT 24 (4-34) U/L Alkaline Phosphatase 507 H (38-126) U/L Total Protein 5.2 L (6.3-8.2) g/dL Albumin 2.5 L (3.5-5.0) g/dL Assessment and Plan (1) Acute respiratory failure with hypoxia Current Visit: Yes Status: Acute Code(s): J96.01 - ACUTE RESPIRATORY FAILURE WITH HYPOXIA SNOMED Code(s): 69245083 (2) COVID-19 Current Visit: Yes Status: Acute Code(s): U07.1 - COVID-19 SNOMED Code(s): 847915062 (3) Pressure ulcer of sacral region, stage 4 Current Visit: No Status: Acute Code(s): L89.154 - PRESSURE ULCER OF SACRAL REGION, STAGE 4 SNOMED Code(s): 395981147 Plan: Wound VAC orders are placed. No plans for wound debridement until the ends respiratory status verbalizes. Currently she would not be a good candidate for any sort of anesthesia. I will check on her Sunday or Sunday and keep in touch with her nurse.
--- NOTE | 2020-07-04 12:23 | HP ---
HISTORY AND PHYSICAL 79-year-old white female admitted with weakness and sacral pressure ulcer. Covid 19 pneumonia. She has chronic nonhealing wound to the sacral area. Underlying osteomyelitis was gram-negative with diverting colostomy to sacral wound. She came to the hospital due to low oxygen levels into the 70s and 80s. This is new down from 90. She is treated for Covid about a month ago. She is still positive for Covid though. She became worse in the last couple days with shortness of breath, cough, sputum production. No nausea, vomiting. No diarrhea. She is hypoxemic. Apparently she was 97 on 6 L. low 90s to 70s to 80s at the correction. She has mild lymphopenia. Creatinine 1.1. Liver enzymes are normal. Babcock PCR positive. Elevated BNP. Chest x-ray, bilateral infiltrates, cardiomegaly. 14-point review of systems otherwise as mentioned above is negative. PAST MEDICAL HISTORY: Diabetes mellitus, congestive heart failure, Covid 19 pneumonia, diverting ileostomy, sacral osteomyelitis. ALLERGIES: No known drug allergies. MEDICATIONS: Started on Zosyn. She is on [place], Tylenol, Maalox, Ventolin, vitamin D3, Santyl, iron sulfate, Prozac, Lasix, Imdur, Synthroid, Lopressor, zinc, Narcan. Blood pressure 140s over 70s, pulse is 80s, temp 98, O2 98 on 6 L. HEENT normocephalic, atraumatic. Pupils equal, round, reactive. Abdomen is soft, nontender. She has a stage IV pressure ulcer. Significant soft tissue. Neurologic: Cranial nerves are intact. Lungs show scattered rhonchi with rales at the bases. Cardiovascular irregular regular rhythm. ASSESSMENT: 1. Congestive heart failure fluid overload. BNP . Ejection fraction 40. 2. Positive for Covid. 3. Stage IV pressure ulcer. 4. Osteomyelitis. 5. Diabetes mellitus. 6. Hypertension. 7. Chronic obstructive pulmonary disease. A surgical consult is being done for previous debridement and diverting colostomy, debridement of her wounds. Continue with Santyl, Zosyn. Get cardiology for CHF due to large edema in her arms and legs with redness and swelling and weeping wounds in her arm. Please see further orders. MMODL / IJN: [id number] /
[2020-07-04 12:44] VITALS: BMI 24.7
--- NOTE | 2020-07-04 15:58 | P.CNPUL ---
History of Present Illness Consult date: 07/04/20 Reason for consult: dyspnea Chief complaint: Shortness of breath History of present illness: This is a 79-year-old female who was seen evaluated examined, patient is a resident of [facility] care facility, patient came into the hospital with progressive increased shortness of breath hypoxia, her significant history is fo r cervical cancer, diabetes, patient has recent coronavirus infection, symptoms however started 1 day prior to coming into the hospital, it appears that, the ago patient was admitted for cold with pneumonia, patient has significant cardiomyopathy with ejection fraction of 40% based on last echo performed June 2020, patient is on 3 L oxygen, chest x-ray continue show bilateral infiltrate, she'll also have chronic sacral decubitus ulcer status post the [place] in the past, patient is being considered for divergent colostomy and general surgery has been consulted, and he she is being treated with IV Zosyn along with continuation are more medications Review of Systems All systems: negative Past Medical History Past Medical History: Blood Disorder, Cancer, Heart Failure, Diabetes Mellitus, Hyperlipidemia, Thyroid Disorder Additional Past Medical History / Comment(s): Colon/cervical CA, anemia, CKD stg 3, osteomyelitis, stage 4 pressure ulcer, UTI History of Any Multi-Drug Resistant Organisms: None Reported Past Surgical History: Bowel Resection Additional Past Surgical History / Comment(s): colostomy Past Anesthesia/Blood Transfusion Reactions: No Reported Reaction Past Psychological History: Anxiety Smoking Status: Former smoker Past Alcohol Use History: None Reported Past Drug Use History: None Reported - Past Family History Father Family Medical History: Unable to Obtain Medications and Allergies Home Medications Medication Instructions Recorded Confirmed Type Acetaminophen Tab [Tylenol] 650 mg PO Q4H PRN 06/09/20 07/03/20 History Cholecalciferol [Vitamin D3 (25 2,000 unit PO DAILY@0906/09/20 07/03/20 History Mcg = 1000 Iu)] Dimethic/Zinc Ox/Vits A,D/Aloe [A 1 applic TOPICAL Q12H 06/09/20 07/03/20 History and D Diaper Rash Cream] FLUoxetine HCL [PROzac] 10 mg PO DAILY@0900 06/09/20 07/03/20 History Ferrous Sulfate [Iron] 325 mg PO DAILY@0900 06/09/20 07/03/20 History Furosemide [Lasix] 40 mg PO BID@0600,1400 06/09/20 07/03/20 History HYDROcodone/APAP 5-325MG [[place] 1 tab PO BID@0900,2100 06/09/20 07/03/20 History 5-325] Isosorbide Mononitrate ER [Imdur] 60 mg PO DAILY@0900 06/09/20 07/03/20 History Kaopectate 262mg/15ml 524 mg PO BID@0900,2100 06/09/20 07/03/20 History Levothyroxine Sodium 137 mcg PO HS@209906/09/20 07/03/20 History Mag Hydrox/Al Hydrox/Simeth 30 ml PO Q4H PRN 06/09/20 07/03/20 History [Maalox] Metoprolol Tartrate [Lopressor] 12.5 mg PO BID@0900,209906/09/20 07/03/20 History Piperacillin-Tazobactam [Zosyn] 3.375 gm IVPB TID@0600,1400,2200 06/09/20 07/03/20 History Potassium Chloride ER [K-Dur 10] 20 meq PO DAILY@0900 06/09/20 07/03/20 History Prostat Awc 30 ml PO BID@0900,1700 06/09/20 07/03/20 History Simethicone 80 mg PO Q4H PRN 06/09/20 07/03/20 History Sodium Bicarbonate Tab 650 mg PO BID@0900,2100 06/09/20 07/03/20 History Collagenase [Santyl] 1 applic TOPICAL HS 07/03/20 07/03/20 History Glucerna Shake 1 can PO BID@0900,1700 07/03/20 07/03/20 History HYDROcodone/APAP 5-325MG [[place] 1 tab PO Q4H PRN 07/03/20 07/03/20 History 5-325] Hydrocortisone Cream 1 applic TOPICAL BID 07/03/20 07/03/20 History [Hydrocortisone 2.5% Cream] Ipratropium-Albuterol Nebulize 3 ml INHALATION RT-Q4H PRN 07/03/20 07/03/20 History [Duoneb 0.5 mg-3 mg/3 ml Soln] Kaopectate Suspension 262mg/15ml 524 mg PO TID PRN 07/03/20 07/03/20 History Allergies Allergy/AdvReac Type Severity Reaction Status Date / Time No Known Allergies Allergy Verified 07/03/20 15:22 Physical Exam Vitals: Vital Signs Temp Pulse Pulse Resp BP BP Pulse Ox 07/04/20 10:05 97.4 F L 58 L 20 115/65 93 L 07/04/20 05:00 97.8 F 59 L 20 140/60 96 07/04/20 00:49 22 07/03/20 20:00 98.1 F 88 40 H 149/77 98 07/03/20 19:10 98.6 F 86 20 117/77 97 07/03/20 18:52 98.6 F 86 80 H 117/77 97 07/03/20 17:12 98.6 F 92 20 104/72 94 L 07/03/20 16:34 98.1 F 83 20 126/86 95 Intake and Output 07/04/20 07/04/20 07/04/20 06:59 14:59 22:59 Intake Total 100 Output Total 500 700 Balance -400 -700 Intake: Intake, IV Titration 100 Amount Piperacillin-Tazobactam 3 100 .375 gm In Sodium Chloride 0.9% 100 ml @ 25 mls/hr IVPB 0600,1400, 2200 [facility] Rx#:[id number] Output: Urine 300 500 Stool 200 200 Other: Weight 63.5 kg - Constitutional General appearance: average body habitus, disheveled - EENT Eyes: PERRLA Ears: bilateral: normal - Neck Carotids: bilateral: upstroke normal Thyroid: bilateral: normal size - Respiratory Respiratory: bilateral: diminished - Cardiovascular Rhythm: regular Heart sounds: normal: S1, S2 - Integumentary Integumentary: normal turgor - Neurologic Neurologic: CNII-XII intact - Musculoskeletal Musculoskeletal: gait normal, generalized weakness, strength equal bilaterally - Psychiatric Psychiatric: A&O x's 3, appropriate affect, intact judgment & insight Results - Laboratory Findings CBC and BMP: 07/03/20 14:10 07/03/20 14:10 PT/INR, D-dimer PT 9.5 sec (9.0-12.0) 07/03/20 14:10 INR 0.9 (<1.2) 07/03/20 14:10 Abnormal lab findings: Abnormal Labs 07/03/20 07/03/20 07/03/20 14:10 14:10 14:10 Hgb 10.9 L Hct 33.8 L RDW 18.6 H Neutrophils # 8.9 H Lymphocytes # 0.3 L Sodium 130 L Chloride 91 L Carbon Dioxide 34 H BUN 64 H Creatinine 1.15 H Glucose 264 H Ferritin 815.9 H Alkaline Phosphatase 507 H Lactate Dehydrogenase 656 H C-Reactive Protein 225.3 H Total Protein 5.2 L Albumin 2.5 L Procalcitonin 1.66 H Coronavirus (PCR) 07/03/20 14:10 Hgb Hct RDW Neutrophils # Lymphocytes # Sodium Chloride Carbon Dioxide BUN Creatinine Glucose Ferritin Alkaline Phosphatase Lactate Dehydrogenase C-Reactive Protein Total Protein Albumin Procalcitonin Coronavirus (PCR) Detected A - Diagnostic Findings Chest x-ray: report reviewed, image reviewed Assessment and Plan Assessment: Interstitial pneumonia due to cord 19 pneumonia however additional healthcare associated pneumonia cannot be excluded Acute on chronic hypoxic respiratory failure Cardiomyopathy with ejection fraction of 40% Large multiple sacral decubitus ulcer Plan: Continue supplemental oxygen Deep breathing exercise incentive spirometry Oral Decadron 6 mg daily DVT prophylaxis with Lovenox Continue zinc, vitamin C, vitamin D Time with Patient: Greater than 30
[2020-07-04] MEDS: LEVOTHYROXINE 137 MCG TAB PO SCH (21:07)
[2020-07-04] MEDS: COLLAGENASE 250 UNIT/GM OINTMENT 30 GM TUBE TOPICAL SCH (21:08)
--- NOTE | 2020-07-04 21:44 | PN ---
PROGRESS NOTE DATE OF SERVICE: 07/31/2020 REASON FOR FOLLOWUP: 1. Stage IV sacral pressure ulcer. 2. Question of pneumonia. INTERVAL HISTORY: Patient is currently afebrile. The patient is breathing more comfortably compared to yesterday. The patient denies having any chest pain. Occasional cough. No nausea. No vomiting. No abdominal pain. Pain to the sacral wound area. PHYSICAL EXAMINATION: Blood pressure 121/68 with a pulse of 71. Temperature is 97.6. She is 95% on 6 L nasal cannula. General description is an elderly female lying in bed in no distress. Respiratory system: Unlabored breathing, decreased breath sounds in the bases. No wheeze. Heart S1, S2. Regular rate and rhythm. Abdomen soft. No tenderness. LABS: Hemoglobin 7.1, white count 9.7. Procalcitonin 1.66. DIAGNOSTIC IMPRESSION AND PLAN: 1. Patient admitted in the hospital with increased shortness of breath, more likely related to congestive heart failure exacerbation. Clinically doubt pneumonia though not entirely excluded. Patient is covered with Zosyn and this is not a negative Covid 19 infection. Positive test is more likely related to recent COVID- 19 pneumonia. 2. Stage IV sacral pressure ulcer. Local care to continue with Santyl, possible surgical debridement once her respiratory status improves. Surgery is on the case. MMODL / IJN: [id number] /
[2020-07-05] MEDS: PIPERACILLIN-TAZOBACTAM 3.375 GM in SODIUM CHLORIDE 0.9% 100 ML IVPB SCH ×3 (05:36→23:44)
[2020-07-05] MEDS: FUROSEMIDE 40 MG TAB PO SCH (05:36)
[2020-07-05 06:00] LABS: Anisocytosis Slight; Basophils % (A) 0 %; Eosinophils # (A) 0.2 k/uL (0-0.7); Eosinophils % (A) 4 %; HCT 31.6 % (34.0-46.0); Hypochromasia Moderate; Lymphocytes # (A) 0.4 k/uL (1.0-4.8); Lymphocytes % (A) 7 %; MCH 28.4 pg (25.0-35.0); MCHC 31.5 g/dL (31.0-37.0); MCV 90.2 fL (80.0-100.0); Mean Platelet Volume 8.4; Monocytes # (A) 0.2 k/uL (0-1.0); Monocytes % (A) 3 %; Neutrophils # (A) 5.5 k/uL (1.3-7.7); Neutrophils % (A) 86 %; Platelet Count 343 k/uL (150-450); RBC 3.51 m/uL (3.80-5.40); RDW 18.3 % (11.5-15.5); WBC 6.4 k/uL (3.8-10.6)
[2020-07-05] MEDS: ALBUTEROL HFA INHALER INHALATION PRN ×3 (08:05→15:23)
[2020-07-05] MEDS: METOPROLOL TARTRATE 12.5 MG TAB PO SCH ×2 (08:11→21:15)
[2020-07-05] MEDS: FERROUS SULFATE 325 MG TAB PO SCH (08:11)
[2020-07-05] MEDS: dexAMETHasone 2 MG TAB PO SCH (08:11)
[2020-07-05] MEDS: SODIUM BICARBONATE TAB 650 MG TAB PO SCH ×2 (08:11→21:20)
[2020-07-05] MEDS: CHOLECALCIFEROL 1,000 UNIT TAB PO SCH (08:12)
[2020-07-05] MEDS: HYDROcodone/APAP 5-325MG 1 EACH TAB PO SCH ×2 (08:12→21:15)
[2020-07-05] MEDS: FLUoxetine HCL 10 MG CAP PO SCH (08:12)
[2020-07-05] MEDS: BISMUTH SUBSALICYLATE 4,192 MG/240 ML BOTTLE PO SCH ×2 (08:12→21:16)
[2020-07-05] MEDS: ISOSORBIDE MONONITRATE ER 60 MG TAB.ER.24H PO SCH (08:12)
[2020-07-05] MEDS: ENOXAPARIN 30 MG/0.3 ML SYRINGE SQ SCH (08:12)
[2020-07-05] MEDS: POTASSIUM CHLORIDE ER 20 MEQ TAB.ER PO SCH (08:12)
[2020-07-05] MEDS: TRIAMCINOLONE 0.1% CREAM 80 GM TUBE TOPICAL SCH ×2 (08:13→21:16)
[2020-07-05] MEDS: ZINC OXIDE 20% OINT 28.4 GM TUBE TOPICAL SCH ×2 (08:14→21:16)
[2020-07-05] MEDS ORDERED: FUROSEMIDE 10 MG/ML 4 ML VIAL IV STA (08:58)
[2020-07-05 10:07] LABS: African American GFR (CKD) 37.7 (60.0-200.0); Albumin 2.7 g/dL (3.80-4.90); Albumin/Globulin Ratio 1.35 (1.60-3.17); Anion Gap 7.7 mmol/L (4.00-12.00); BUN/Creat Ratio 48.67 Ratio (12.00-20.00); Calcium 8.6 mg/dL (8.7-10.3); Carbon Dioxide 34.3 mmol/L (21.6-31.8); Non-African American GFR(CKD) 32.6 (60.0-200.0); Potassium 4.2 mmol/L (3.5-5.5); Total Bilirubin 0.3 mg/dL (0.2-1.2); Total Protein 4.7 g/dL (6.2-8.2)
--- NOTE | 2020-07-05 10:08 | P.CRDCN ---
History of Present Illness Consult date: 07/05/20 History of present illness: CHIEF COMPLAINT: CHF HISTORY OF PRESENT ILLNESS: This is a 79-year-old female with a past medical history significant for diabetes mellitus, hyperlipidemia, hypothyroidism, chronic kidney disease, and colon cancer.We have been asked to see the patient in consultation for congestive heart failure. Patient is admitted to the hospital secondary to Covid 19 pneumonia. Spoke with nursing who states the patient is short of breath this morning along with crackles in her lungs. She is on 6L with oxygen saturations greater than 92%. Blood pressure 127/75. Heart rate in the 60s. Echocardiogram completed in June 2020 revealed ejection fraction of 40% with global hypokinesis, moderate tricuspid regurgitation, and moderate pulmonary hypertension. DIAGNOSTICS: EKG reveals sinus rhythm with right bundle branch block Chest xray bilateral pulmonary infiltrates. Underlying pulmonary fibrosis. Moderate cardiomegaly Laboratory data: WBC 6.4. Hemoglobin 10.0. Platelet count 343. Sodium 130. Potassium 4.3. BUN 64. Creatinine 1.15. BNP 84,900. Current home cardiac medications include Imdur 60 mg daily, metoprolol 12.5 mg twice a day, Lasix 40 mg BID REVIEW OF SYSTEMS: Thorough review of systems not completed secondary to limited evaluation/ examination and due to Covid19 PHYSICAL EXAM: Thorough physical exam not completed secondary to limited evaluation/examination and due to Covid19 ASSESSMENT: Covid 19 pneumonia Acute hypoxic respiratory failure Acute exacerbation of chronic systolic heart failure, EF 40% Cardiomyopathy, type unknown, EF 40%, BNP 61853 Hyperlipidemia Chronic kidney disease Hypothyroidism PLAN: Continue metoprolol and Imdur. Will hold off on beginning VERNON due to CKD Obtain chest xray this morning Begin IV lasix 40mg Q8 hours Daily weights Accurate I&O Monitor kidney function Further recommendations pending patient course Nurse practitioner note has been reviewed by physician. Signing provider agrees with the documented findings, assessment, and plan of care. Past Medical History Past Medical History: Blood Disorder, Cancer, Heart Failure, Diabetes Mellitus, Hyperlipidemia, Thyroid Disorder Additional Past Medical History / Comment(s): Colon/cervical CA, anemia, CKD stg 3, osteomyelitis, stage 4 pressure ulcer, UTI History of Any Multi-Drug Resistant Organisms: None Reported Past Surgical History: Bowel Resection Additional Past Surgical History / Comment(s): colostomy Past Anesthesia/Blood Transfusion Reactions: No Reported Reaction Past Psychological History: Anxiety Smoking Status: Former smoker Past Alcohol Use History: None Reported Past Drug Use History: None Reported - Past Family History Father Family Medical History: Unable to Obtain Medications and Allergies Home Medications Medication Instructions Recorded Confirmed Type Acetaminophen Tab [Tylenol] 650 mg PO Q4H PRN 06/09/20 07/03/20 History Cholecalciferol [Vitamin D3 (25 2,000 unit PO DAILY@0900 06/09/20 07/03/20 History Mcg = 1000 Iu)] Dimethic/Zinc Ox/Vits A,D/Aloe [A 1 applic TOPICAL Q12H 06/09/20 07/03/20 History and D Diaper Rash Cream] FLUoxetine HCL [PROzac] 10 mg PO DAILY@89906/09/20 07/03/20 History Ferrous Sulfate [Iron] 325 mg PO DAILY@0900 06/09/20 07/03/20 History Furosemide [Lasix] 40 mg PO BID@0600,1400 06/09/20 07/03/20 History HYDROcodone/APAP 5-325MG [[place] 1 tab PO BID@0900,209906/09/20 07/03/20 History 5-325] Isosorbide Mononitrate ER [Imdur] 60 mg PO DAILY@0906/09/20 07/03/20 History Kaopectate 262mg/15ml 524 mg PO BID@0900,2100 06/09/20 07/03/20 History Levothyroxine Sodium 137 mcg PO HS@209906/09/20 07/03/20 History Mag Hydrox/Al Hydrox/Simeth 30 ml PO Q4H PRN 06/09/20 07/03/20 History [Maalox] Metoprolol Tartrate [Lopressor] 12.5 mg PO BID@0900,2100 06/09/20 07/03/20 History Piperacillin-Tazobactam [Zosyn] 3.375 gm IVPB TID@0600,1400,2200 06/09/20 07/03/20 History Potassium Chloride ER [K-Dur 10] 20 meq PO DAILY@0900 06/09/20 07/03/20 History Prostat Awc 30 ml PO BID@0900,1700 06/09/20 07/03/20 History Simethicone 80 mg PO Q4H PRN 06/09/20 07/03/20 History Sodium Bicarbonate Tab 650 mg PO BID@0900,2100 06/09/20 07/03/20 History Collagenase [Santyl] 1 applic TOPICAL HS 07/03/20 07/03/20 History Glucerna Shake 1 can PO BID@0900,1700 07/03/20 07/03/20 History HYDROcodone/APAP 5-325MG [[place] 1 tab PO Q4H PRN 07/03/20 07/03/20 History 5-325] Hydrocortisone Cream 1 applic TOPICAL BID 07/03/20 07/03/20 History [Hydrocortisone 2.5% Cream] Ipratropium-Albuterol Nebulize 3 ml INHALATION RT-Q4H PRN 07/03/20 07/03/20 History [Duoneb 0.5 mg-3 mg/3 ml Soln] Kaopectate Suspension 262mg/15ml 524 mg PO TID PRN 07/03/20 07/03/20 History Allergies Allergy/AdvReac Type Severity Reaction Status Date / Time No Known Allergies Allergy Verified 07/03/20 15:22 Physical Exam Vitals: Vital Signs Temp Pulse Pulse Resp BP Pulse Ox 07/05/20 04:54 97.1 F L 63 24 127/75 99 07/04/20 22:23 97.6 F 66 20 126/65 96 07/04/20 16:04 97.6 F 71 18 121/68 95 07/04/20 10:05 97.4 F L 58 L 20 115/65 93 L Intake and Output 07/04/20 07/05/20 07/05/20 22:59 06:59 14:59 Intake Total 225 Output Total 550 Balance 225 -550 Intake: Intake, IV Titration 225 Amount Piperacillin-Tazobactam 3 225 .375 gm In Sodium Chloride 0.9% 100 ml @ 25 mls/hr IVPB 0600,1400, 2200 [facility]S [facility]CLUDE 234 BEDS AT THE [facility] Rx#:[id number] Output: Urine 550 Other: Voiding Method Indwelling Catheter Results 07/05/20 05:15 07/03/20 14:10 CBC 07/05/20 Range/Units 05:15 WBC 6.4 (3.8-10.6) k/uL RBC 3.51 L (3.80-5.40) m/uL Hgb 10.0 L (11.4-16.0) gm/dL Hct 31.6 L (34.0-46.0) % Plt Count 343 (150-450) k/uL Current Medications Generic Name Dose Route Start Last Admin Trade Name Freq PRN Reason Stop Dose Admin Acetaminophen 650 mg 07/03/20 19:20 Acetaminophen Tab 325 Mg Tab PO Q4H PRN Fever and/ or Mild Pain Hydrocodone Bitart/Acetaminophen 1 each 07/03/20 21:00 07/05/20 08:12 Hydrocodone/Apap 5-325mg 1 Each Tab PO 1 each BID@0900,2100 [facility] Administration Hydrocodone Bitart/Acetaminophen 1 each 07/03/20 19:20 07/04/20 15:26 Hydrocodone/Apap 5-325mg 1 Each Tab PO 1 each Q4H PRN Administration Pain Al Hydroxide/Mg Hydroxide 30 ml 07/03/20 19:20 Mag Hydrox/Al Hydrox/Simeth 30 Ml Cup PO Q4H PRN Indigestion Albuterol Sulfate 2 puff 07/03/20 21:13 07/05/20 08:05 Albuterol Hfa Inhaler INHALATION 2 puff RT-Q4H PRN Administration Shortness Of Breath Bismuth Subsalicylate 524 mg 07/03/20 21:00 07/05/20 08:12 Bismuth Subsalicylate 4,192 Mg/240 Ml Bottle PO 524 mg BID@0900,2100 [facility] Administration Bismuth Subsalicylate 524 mg 07/03/20 19:20 Bismuth Subsalicylate 4,192 Mg/240 Ml Bottle PO TID PRN Diarrhea Cholecalciferol 2,000 unit 07/04/20 09:00 07/05/20 08:12 Cholecalciferol 1,000 Unit Tab PO 2,000 unit DAILY@0900 [facility] Administration Collagenase 1 applic 07/03/20 21:00 07/04/20 21:08 Collagenase 250 Unit/Gm Ointment 30 Gm Tube TOPICAL 1 applic HS [facility] Administration Dexamethasone 6 mg 07/05/20 09:00 07/05/20 08:11 Dexamethasone 2 Mg Tab PO 6 mg DAILY [facility] Administration Enoxaparin Sodium 30 mg 07/05/20 09:00 07/05/20 08:12 Enoxaparin 30 Mg/0.3 Ml Syringe SQ 30 mg DAILY [facility] Administration Ferrous Sulfate 325 mg 07/04/20 09:00 07/05/20 08:11 Ferrous Sulfate 325 Mg Tab PO 325 mg DAILY@0900 COUNTS INCLUDE 234 BEDS AT THE [facility] Administration Fluoxetine HCl 10 mg 07/04/20 09:00 07/05/20 08:12 Fluoxetine Hcl 10 Mg Cap PO 10 mg DAILY@0900 [facility] Administration Furosemide 40 mg 07/05/20 16:00 Furosemide 10 Mg/Ml 4 Ml Vial IV Q8HR TAMICA Piperacillin Sod/Tazobactam 100 mls @ 25 mls/hr 07/03/20 22:00 07/05/20 05:36 Sod 3.375 gm/ Sodium Chloride IVPB 25 mls/hr 0600,1400,2200 COUNTS INCLUDE 234 BEDS AT THE [facility] Administration Isosorbide Mononitrate 60 mg 07/04/20 09:00 07/05/20 08:12 Isosorbide Mononitrate Er 60 Mg Tab.Er.24h PO 60 mg DAILY@0900 COUNTS INCLUDE 234 BEDS AT THE [facility] Administration Levothyroxine Sodium 137 mcg 07/03/20 21:00 07/04/20 21:07 Levothyroxine 137 Mcg Tab PO 137 mcg HS@2100 COUNTS INCLUDE 234 BEDS AT THE [facility] Administration Metoprolol Tartrate 12.5 mg 07/03/20 21:00 07/05/20 08:11 Metoprolol Tartrate 12.5 Mg Tab PO 12.5 mg BID@0900,2099 COUNTS INCLUDE 234 BEDS AT THE [facility] Administration Multi-Ingredient Ointment 1 applic 07/03/20 19:30 07/05/20 08:14 Zinc Oxide 20% Oint 28.4 Gm Tube TOPICAL 1 applic Q12H COUNTS INCLUDE 234 BEDS AT THE [facility] Administration Naloxone HCl 0.2 mg 07/03/20 16:22 Naloxone 0.4 Mg/Ml 1 Ml Vial IV Q2M PRN Opioid Reversal Potassium Chloride 20 meq 07/04/20 09:00 07/05/20 08:12 Potassium Chloride Er 20 Meq Tab.Er PO 20 meq DAILY@0900 COUNTS INCLUDE 234 BEDS AT THE [facility] Administration Simethicone 80 mg 07/03/20 19:32 Simethicone 80 Mg Chewable PO Q4H PRN GAS/BLOATING Sodium Bicarbonate 650 mg 07/03/20 21:00 07/05/20 08:11 Sodium Bicarbonate Tab 650 Mg Tab PO 650 mg BID@0900,2100 COUNTS INCLUDE 234 BEDS AT THE [facility] Administration Triamcinolone Acetonide 1 applic 07/03/20 21:00 07/05/20 08:13 Triamcinolone 0.1% Cream 80 Gm Tube TOPICAL 07/06/20 23:00 1 applic BID TAMICA Administration Intake and Output 07/04/20 07/05/20 07/05/20 22:59 06:59 14:59 Intake Total 225 Output Total 550 Balance 225 -550 Intake: Intake, IV Titration 225 Amount Piperacillin-Tazobactam 3 225 .375 gm In Sodium Chloride 0.9% 100 ml @ 25 mls/hr IVPB 0600,1400, 2200 COUNTS INCLUDE 234 BEDS AT THE [facility] Rx#:[id number] Output: Urine 550 Other: Voiding Method Indwelling Catheter 07/05/20 05:15 07/03/20 14:10
--- NOTE | 2020-07-05 13:18 | XR ---
EXAMINATION TYPE: XR chest 1V DATE OF EXAM: 07/05/2020 COMPARISON: 07/03/2020 HISTORY: 79-year-old female CHF, shortness of breath TECHNIQUE: Single frontal view of the chest is obtained. FINDINGS: Right-sided CVC tip probably at the lower right brachiocephalic vein. Left anterior chest wall inject ion port with subclavian access and tip probably in the upper SVC. Heart is enlarged. Diffuse interst itial and patchy bilateral airspace opacities. There is pleural effusions. IMPRESSION: Cardiomegaly and diffuse bilateral interstitial and airspace disease. Trace pleural effusions. Correl ate for pulmonary edema.
--- NOTE | 2020-07-05 15:19 | P.PN ---
Subjective Progress Note Date: 07/05/20 Principal diagnosis: Interstitial pneumonia due to cord 19 pneumonia however additional healthcare associated pneumonia cannot be excluded Acute on chronic hypoxic respiratory failure Acute on chronic systolic heart failure with fluid overload Cardiomyopathy with ejection fraction of 40% Large multiple sacral decubitus ulcer 07/05/2020, patient seen eval examined shortness of breath stable on 6 L oxygen, chest x-ray performed today revealed cardiomegaly diffuse interstitial and airspace disease, pulmonary edema and fluid overload, patient has been evaluated by surgical services no plans for wound debridement however wound VAC orders have been placed, due to covid and requirement for 6 L oxygen patient is not considered a candidate for anesthesia, and continue usual therapy for core 19 pneumonia and gentle diuresis This is a 79-year-old female who was seen evaluated examined, patient is a resident of [facility], patient came into the hospital with progressive increased shortness of breath hypoxia, her significant history is for cervical cancer, diabetes, patient has recent coronavirus infection, symptoms however started 1 day prior to coming into the hospital, it appears that, the ago patient was admitted for cold with pneumonia, patient has significant cardiomyopathy with ejection fraction of 40% based on last echo performed June 2020, patient is on 3 L oxygen, chest x-ray continue show bilateral infiltrate, she'll also have chronic sacral decubitus ulcer status post the [place] in the past, patient is being considered for divergent colostomy and general surgery has been consulted, and he she is being treated with IV Zosyn along with continuation are more medications Objective - Vital Signs Vital signs: Vital Signs Temp 97.7 F 07/05/20 11:00 Pulse 67 07/05/20 11:00 Resp 18 07/05/20 11:00 BP 117/65 07/05/20 11:00 Pulse Ox 97 07/05/20 11:00 Intake & Output 07/04/20 07/05/20 07/05/20 18:59 06:59 18:59 Intake Total 225 Output Total 700 550 Balance -475 -550 Weight 63.5 kg Intake: Intake, IV Titration 225 Amount Piperacillin-Tazobactam 3 225 .375 gm In Sodium Chloride 0.9% 100 ml @ 25 mls/hr IVPB 0600,1400, 2200 [facility] Rx#:[id number] Output: Urine 500 550 Stool 200 Other: Voiding Method Indwelling Catheter Indwelling Catheter - Exam - Constitutional General appearance: average body habitus, disheveled - EENT Eyes: PERRLA Ears: bilateral: normal - Neck Carotids: bilateral: upstroke normal Thyroid: bilateral: normal size - Respiratory Respiratory: bilateral: diminished - Cardiovascular Rhythm: regular Heart sounds: normal: S1, S2 - Integumentary Integumentary: normal turgor - Neurologic Neurologic: CNII-XII intact - Musculoskeletal Musculoskeletal: gait normal, generalized weakness, strength equal bilaterally - Psychiatric Psychiatric: A&O x's 3, appropriate affect, intact judgment & insight - Labs CBC & Chem 7: 07/05/20 05:15 07/05/20 05:15 Labs: Abnormal Lab Results - Last 24 Hours (Table) 07/05/20 07/05/20 Range/Units 05:15 05:15 RBC 3.51 L (3.80-5.40) m/uL Hgb 10.0 L (11.4-16.0) gm/dL Hct 31.6 L (34.0-46.0) % RDW 18.3 H (11.5-15.5) % Lymphocytes # 0.4 L (1.0-4.8) k/uL Chloride 95 L (96-109) mmol/L Carbon Dioxide 34.3 H (21.6-31.8) mmol/L BUN 73.0 H (9.0-27.0) mg/dL Est GFR (CKD-EPI)AfAm 37.7 L (60.0-200.0) Est GFR (CKD-EPI)NonAf 32.6 L (60.0-200.0) BUN/Creatinine Ratio 48.67 H (12.00-20.00) Ratio Glucose 325 H (70-110) mg/dL Calcium 8.6 L (8.7-10.3) mg/dL Alkaline Phosphatase 486 H (41-126) U/L Total Protein 4.7 L (6.2-8.2) g/dL Albumin 2.70 L (3.80-4.90) g/dL Albumin/Globulin Ratio 1.35 L (1.60-3.17) g/dL Microbiology - Last 24 Hours (Table) 07/03/20 14:40 Blood Culture - Preliminary Blood No Growth after 24 hours 07/03/20 14:25 Blood Culture - Preliminary Blood No Growth after 24 hours Assessment and Plan Assessment: Acute on chronic systolic heart failure with fluid overload Interstitial pneumonia due to cord 19 pneumonia Acute on chronic hypoxic respiratory failure Cardiomyopathy with ejection fraction of 40% Large multiple sacral decubitus ulcer Plan: Continue gentle diuresis Titrate oxygen down as tolerated Continue supplemental oxygen Deep breathing exercise incentive spirometry Oral Decadron 6 mg daily DVT prophylaxis with Lovenox Continue zinc, vitamin C, vitamin D Time with Patient: Greater than 30
[2020-07-05] MEDS: HYDROcodone/APAP 5-325MG 1 EACH TAB PO PRN (15:39)
[2020-07-05] MEDS: FUROSEMIDE 10 MG/ML 4 ML VIAL IV SCH ×2 (17:50→23:46)
[2020-07-05] MEDS: COLLAGENASE 250 UNIT/GM OINTMENT 30 GM TUBE TOPICAL SCH (20:21)
[2020-07-05] MEDS: LEVOTHYROXINE 137 MCG TAB PO SCH (21:16)
--- NOTE | 2020-07-05 22:19 | PN ---
PROGRESS NOTE 79-year-old white female, with interstitial pneumonia due to Covid 19 pneumonia, she had chronic respiratory failure, acute on chronic systolic heart failure, fluid overload, ejection fraction 40%. Multiple sacral decubitus ulcers for which a wound VAC has been placed. Cardiology has her on IV Lasix 40 q.8 hours. CARDIOVASCULAR: S1, S2. Lungs are diminished bilaterally. Integument normal skin turgor. Neurologic: Cranial nerves intact. Psych: Alert and oriented x3. White count 6.4, hemoglobin 10, BUN 73, creatinine 1.5, GFR is 37. ASSESSMENT: 1. Acute on chronic systolic heart failure/interstitial pneumonia secondary to Covid 19 pneumonia. 2. Acute on chronic hypoxemic respiratory failure. 3. Cardiomyopathy, ejection fraction 40%. 4. Large sacral decubitus ulcer. Titrate oxygen down. Diuresis per Cardiology. DVT prophylaxis of Lovenox. Continue zinc and vitamin C. Vitamin D. Oral Decadron. Prognosis extremely guarded. Wait for surgery. Wound VAC and Dr. Pabon's recommendations for antibiotics for reception interviewer. MMODL / IJN: [id number] /
--- NOTE | 2020-07-05 23:34 | PN ---
PROGRESS NOTE DATE OF SERVICE: 07/05/2020 REASON FOR FOLLOWUP: 1. Sacral pressure ulcer. 2. Question of pneumonia. INTERVAL HISTORY: Patient is currently afebrile. The patient is breathing more comfortably. Denies having any chest pain or shortness of breath. Occasional cough. No abdominal pain or any pain to the sacral wound area. PHYSICAL EXAMINATION: Blood pressure 134/78 with a pulse of 74, temperature 97.5. She is 92% on 6 L nasal cannula. General description is an elderly female lying in bed in no distress. Respiratory system: Unlabored breathing, decreased breath sounds at the base. No wheeze. HEART: S1, S2. Regular rate and rhythm. ABDOMEN: Soft, no tenderness. On examination of the sacral wound, base looks clean with no slough tissue. Some excoriation. No drainage. LABS: Hemoglobin is 10.3, white count 6.4. BUN of 73, creatinine is 1.5. DIAGNOSTIC IMPRESSION AND PLAN: 1. 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 2. Shortness of breath, more likely related to fluid overload. Clinically doubt pneumonia. 3. Continue supportive care. MMODL / IJN: [id number] / MAITE
[2020-07-06] MEDS: PIPERACILLIN-TAZOBACTAM 3.375 GM in SODIUM CHLORIDE 0.9% 100 ML IVPB SCH ×3 (05:29→23:34)
[2020-07-06] MEDS: HYDROcodone/APAP 5-325MG 1 EACH TAB PO SCH ×2 (07:52→19:56)
[2020-07-06] MEDS: FERROUS SULFATE 325 MG TAB PO SCH (07:52)
[2020-07-06] MEDS: POTASSIUM CHLORIDE ER 20 MEQ TAB.ER PO SCH (07:53)
[2020-07-06] MEDS: CHOLECALCIFEROL 1,000 UNIT TAB PO SCH (07:54)
[2020-07-06] MEDS: SODIUM BICARBONATE TAB 650 MG TAB PO SCH ×2 (07:54→19:45)
[2020-07-06] MEDS: METOPROLOL TARTRATE 12.5 MG TAB PO SCH ×2 (07:54→19:45)
[2020-07-06] MEDS: dexAMETHasone 2 MG TAB PO SCH (07:55)
[2020-07-06] MEDS: FLUoxetine HCL 10 MG CAP PO SCH (07:55)
[2020-07-06] MEDS: ISOSORBIDE MONONITRATE ER 60 MG TAB.ER.24H PO SCH (07:55)
[2020-07-06] MEDS: FUROSEMIDE 10 MG/ML 4 ML VIAL IV SCH (07:56)
[2020-07-06] MEDS: ENOXAPARIN 30 MG/0.3 ML SYRINGE SQ SCH (07:56)
[2020-07-06] MEDS: BISMUTH SUBSALICYLATE 4,192 MG/240 ML BOTTLE PO SCH ×2 (07:57→19:48)
[2020-07-06] MEDS: ZINC OXIDE 20% OINT 28.4 GM TUBE TOPICAL SCH ×2 (07:57→19:49)
[2020-07-06] MEDS: TRIAMCINOLONE 0.1% CREAM 80 GM TUBE TOPICAL SCH ×2 (07:58→19:48)
[2020-07-06] MEDS: ALBUTEROL HFA INHALER INHALATION PRN ×4 (08:05→19:39)
--- NOTE | 2020-07-06 12:14 | P.PN ---
Subjective Progress Note Date: 07/06/20 Principal diagnosis: Interstitial pneumonia due to cord 19 pneumonia however additional healthcare associated pneumonia cannot be excluded Acute on chronic hypoxic respiratory failure Acute on chronic systolic heart failure with fluid overload Cardiomyopathy with ejection fraction of 40% Large multiple sacral decubitus ulcer 07/06/2020, patient seen eval examined during the rounds labs reviewed medications reviewed care plan discussed, respiratory status remains stable, on 5 L oxygen denies any chest pain, oxygen is being tapered down gradually, patient now has a wound VAC considered not to be a candidate for wound debridement 07/05/2020, patient seen eval examined shortness of breath stable on 6 L oxygen, chest x-ray performed today revealed cardiomegaly diffuse interstitial and airspace disease, pulmonary edema and fluid overload, patient has been evaluated by surgical services no plans for wound debridement however wound VAC orders have been placed, due to covid and requirement for 6 L oxygen patient is not considered a candidate for anesthesia, and continue usual therapy for core 19 pneumonia and gentle diuresis This is a 79-year-old female who was seen evaluated examined, patient is a resident of [facility], patient came into the hospital with progressive increased shortness of breath hypoxia, her significant history is for cervical cancer, diabetes, patient has recent coronavirus infection, symptoms however started 1 day prior to coming into the hospital, it appears that, the ago patient was admitted for cold with pneumonia, patient has significant cardiomyopathy with ejection fraction of 40% based on last echo performed June 2020, patient is on 3 L oxygen, chest x-ray continue show bilateral infiltrate, she'll also have chronic sacral decubitus ulcer status post the [facility] in the past, patient is being considered for divergent colostomy and general surgery has been consulted, and he she is being treated with IV Zosyn along with continuation are more medications Objective - Vital Signs Vital signs: Vital Signs Temp 97.5 F L 07/06/20 05:00 Pulse 75 07/06/20 05:00 Resp 18 07/06/20 05:00 BP 140/62 07/06/20 05:00 Pulse Ox 95 07/06/20 05:00 Intake & Output 07/05/20 07/06/20 07/06/20 18:59 06:59 18:59 Output Total 700 Balance -700 Weight 63.5 kg Output: Urine 700 Uretheral (Leslie) 700 Other: Voiding Method Indwelling Catheter Indwelling Catheter - Exam - Constitutional General appearance: average body habitus, disheveled - EENT Eyes: PERRLA Ears: bilateral: normal - Neck Carotids: bilateral: upstroke normal Thyroid: bilateral: normal size - Respiratory Respiratory: bilateral: diminished - Cardiovascular Rhythm: regular Heart sounds: normal: S1, S2 - Integumentary Integumentary: normal turgor - Neurologic Neurologic: CNII-XII intact - Musculoskeletal Musculoskeletal: gait normal, generalized weakness, strength equal bilaterally - Psychiatric Psychiatric: A&O x's 3, appropriate affect, intact judgment & insight - Labs CBC & Chem 7: 07/05/20 05:15 07/05/20 05:15 Labs: Microbiology - Last 24 Hours (Table) 07/03/20 14:40 Blood Culture - Preliminary Blood No Growth after 48 hours 07/03/20 14:25 Blood Culture - Preliminary Blood No Growth after 48 hours Assessment and Plan Assessment: Acute on chronic systolic heart failure with fluid overload Interstitial pneumonia due to cord 19 pneumonia Acute on chronic hypoxic respiratory failure Cardiomyopathy with ejection fraction of 40% Large multiple sacral decubitus ulcer Plan: Continue gentle diuresis Titrate oxygen down as tolerated Continue supplemental oxygen Deep breathing exercise incentive spirometry Oral Decadron 6 mg daily DVT prophylaxis with Lovenox Continue zinc, vitamin C, vitamin D Time with Patient: Greater than 30
[2020-07-06 12:45] LABS: African American GFR (CKD) 44 (>60 ml/min/1.73 sqM); Anion Gap 5 mmol/L; Blood Urea Nitrogen 67 mg/dL (7-17); Carbon Dioxide 36 mmol/L (22-30); Chloride 92 mmol/L (98-107); Glucose 363 mg/dL (74-99); Non-African American GFR(CKD) 38 (>60 ml/min/1.73 sqM); Sodium 133 mmol/L (137-145)
--- NOTE | 2020-07-06 13:49 | P.PN ---
Progress Note - Text Progress Note Date: 07/06/20 The chart is reviewed. The patient is still on high flow nasal O2. Possible debridement later in hospitalization if she has significant improvement of her respiratory status
--- NOTE | 2020-07-06 13:59 | P.PN ---
Subjective Progress Note Date: 07/06/20 CHIEF COMPLAINT: CHF HISTORY OF PRESENT ILLNESS: 07/05/2020 This is a 79-year-old female with a past medical history significant for diabetes mellitus, hyperlipidemia, hypothyroidism, chronic kidney disease, and colon cancer.We have been asked to see the patient in consultation for congestive heart failure. Patient is admitted to the hospital secondary to Covid 19 pneumonia. Spoke with nursing who states the patient is short of breath this morning along with crackles in her lungs. She is on 6L with oxygen saturations greater than 92%. Blood pressure 127/75. Heart rate in the 60s. Echocardiogram completed in June 2020 revealed ejection fraction of 40% with global hypokinesis, moderate tricuspid regurgitation, and moderate pulmonary hypertension. 07/06/2020 Chest x-ray completed yesterday reveals cardiomegaly and diffuse bilateral interstitial and airspace disease. Trace pleural effusions. Correlate for pulmonary edema. Patient receiving IV lasix 40mg Q8 hours. Creatinine 1.32. BUN 67. She is on 5 L nasal cannula with oxygen saturations greater than 92% PHYSICAL EXAM: Thorough physical exam not completed secondary to limited evaluation/examination and due to Covid19 ASSESSMENT: Covid 19 pneumonia Acute hypoxic respiratory failure Acute exacerbation of chronic systolic heart failure, EF 40% Cardiomyopathy, type unknown, EF 40%, BNP 16385 Hyperlipidemia Chronic kidney disease Hypothyroidism PLAN: Continue metoprolol and Imdur. Will hold off on beginning VERNON due to CKD Dr. Duran reviewed chest xray and labs. Will hold lasix today and re-assess tomorrow. Monitor kidney function Further recommendations pending patient course Nurse practitioner note has been reviewed by physician. Signing provider agrees with the documented findings, assessment, and plan of care. Objective - Vital Signs Vital signs: Vital Signs Temp 97.4 F L 07/06/20 11:00 Pulse 66 07/06/20 11:00 Resp 18 07/06/20 11:00 BP 131/70 07/06/20 11:00 Pulse Ox 97 07/06/20 11:00 Intake & Output 07/05/20 07/06/20 07/06/20 18:59 06:59 18:59 Output Total 700 700 Balance -700 -700 Weight 63.5 kg Output: Urine 700 700 Uretheral (Leslie) 700 700 Other: Voiding Method Indwelling Catheter Indwelling Catheter Indwelling Catheter - Labs CBC & Chem 7: 07/05/20 05:15 07/06/20 12:13 Labs: Abnormal Lab Results - Last 24 Hours (Table) 07/06/20 Range/Units 12:13 Sodium 133 L (137-145) mmol/L Chloride 92 L (98-107) mmol/L Carbon Dioxide 36 H (22-30) mmol/L BUN 67 H (7-17) mg/dL Creatinine 1.32 H (0.52-1.04) mg/dL Glucose 363 H (74-99) mg/dL Microbiology - Last 24 Hours (Table) 07/03/20 14:40 Blood Culture - Preliminary Blood No Growth after 48 hours 07/03/20 14:25 Blood Culture - Preliminary Blood No Growth after 48 hours
--- NOTE | 2020-07-06 15:14 | P.PN ---
Subjective Progress Note Date: 07/06/20 HISTORY OF PRESENT ILLNESS This is an 79-year-old female admitted to the hospital and followed for sacral decubitus ulcer stage IV with wound VAC. Covid 19 testing was positive and she was are treated in mid June. Patient currently denies having any cough, no chest pain. No abdominal pain. PHYSICAL EXAMINATION Gen: This is an 79-year-old female. She continues to have significant weakness. HEENT: Head is atraumatic, normocephalic. Pupils equal, round. Sclerae is anicteric. NECK: Supple. No JVD. No lymphadenopathy. LUNGS: Clear to auscultation. No wheezes or rhonchi. No intercostal retractions. HEART: Regular rate and rhythm. No murmur. ABDOMEN: Soft. Bowel sounds are present. No masses. No tenderness. Left-sided colostomy. Leslie catheter in place. Wound VAC in place to sacral ulcer. EXTREMITIES: No pedal edema. No calf tenderness. NEUROLOGICAL: Patient is awake, alert and oriented x3. ASSESSMENT Stage IV sacral decubitus ulcer Possible pneumonia is doubtful and shortness of breath most likely due to fluid overload PLAN Continue IV Zosyn General surgery following for possible debridement Continue supportive care The above dictated assessment and findings were discussed with Dr. Pabon. The impression and plan of care have been directed as dictated. Felicita Valentine nurse practitioner acting as scribe for Dr. Pabon. Objective - Vital Signs Vital signs: Vital Signs Temp 97.4 F L 07/06/20 11:00 Pulse 66 07/06/20 11:00 Resp 18 07/06/20 11:00 BP 131/70 07/06/20 11:00 Pulse Ox 97 07/06/20 11:00 Intake & Output 07/05/20 07/06/20 07/06/20 18:59 06:59 18:59 Output Total 700 700 Balance -700 -700 Weight 63.5 kg Output: Urine 700 700 Uretheral (Leslie) 700 700 Other: Voiding Method Indwelling Catheter Indwelling Catheter Indwelling Catheter - Labs CBC & Chem 7: 07/05/20 05:15 07/06/20 12:13 Labs: Abnormal Lab Results - Last 24 Hours (Table) 07/06/20 Range/Units 12:13 Sodium 133 L (137-145) mmol/L Chloride 92 L (98-107) mmol/L Carbon Dioxide 36 H (22-30) mmol/L BUN 67 H (7-17) mg/dL Creatinine 1.32 H (0.52-1.04) mg/dL Glucose 363 H (74-99) mg/dL Microbiology - Last 24 Hours (Table) 07/03/20 14:40 Blood Culture - Preliminary Blood No Growth after 48 hours 07/03/20 14:25 Blood Culture - Preliminary Blood No Growth after 48 hours
[2020-07-06] MEDS: LEVOTHYROXINE 137 MCG TAB PO SCH (19:46)
--- NOTE | 2020-07-06 19:46 | PN ---
PROGRESS NOTE Surgery saw her, Dr. Edouard. She has a wound V.A.C. on her. High-flow nasal cannula. Debridement later if she has improvement of her respiratory status. To continue to treat for COVID pneumonia. Has stage IV sacral decubitus ulcer, possible pneumonia. Doubtful she has fluid overload. Congestive heart failure and COVID-19 pneumonia. Continue with IV Zosyn. Wait for Dr. Pabon's recommendations as well as Surgery. She remains on IV Lasix per Cardiology. She has a BUN of 67, creatinine 1.32. Five-liter nasal cannula. Saturations greater than 92%. ASSESSMENT: 1. Systolic heart failure. 2. Global hypokinesis. 3. Moderate tricuspid regurgitation. 4. COVID-19 pneumonia. 5. Acute hypoxemic respiratory failure. Monitor renal function. She remains on IV Lasix, which appears to be improving the patient. BNP is 84,900, ejection fraction 40%. Continue current treatment. Prognosis guarded. MMODL / IJN: [id number] /
[2020-07-06] MEDS: COLLAGENASE 250 UNIT/GM OINTMENT 30 GM TUBE TOPICAL SCH (19:49)
[2020-07-07] MEDS: HYDROcodone/APAP 5-325MG 1 EACH TAB PO PRN (01:36)
[2020-07-07] MEDS: PIPERACILLIN-TAZOBACTAM 3.375 GM in SODIUM CHLORIDE 0.9% 100 ML IVPB SCH ×3 (05:55→20:52)
[2020-07-07 06:50] LABS: Anisocytosis Slight; Basophils % (A) 0 %; Eosinophils # (A) 0.2 k/uL (0-0.7); Eosinophils % (A) 3 %; HCT 31.7 % (34.0-46.0); HGB 9.7 gm/dL (11.4-16.0); Hypochromasia Moderate; Lymphocytes # (A) 0.5 k/uL (1.0-4.8); Lymphocytes % (A) 8 %; MCH 27.4 pg (25.0-35.0); MCHC 30.5 g/dL (31.0-37.0); MCV 89.9 fL (80.0-100.0); Mean Platelet Volume 8.9; Monocytes # (A) 0.3 k/uL (0-1.0); Monocytes % (A) 4 %; Neutrophils # (A) 5.4 k/uL (1.3-7.7); Neutrophils % (A) 84 %; Platelet Count 407 k/uL (150-450); RBC 3.53 m/uL (3.80-5.40); RDW 18.4 % (11.5-15.5); WBC 6.5 k/uL (3.8-10.6)
[2020-07-07 07:03] LABS: Glucose,Whole Blood 415 mg/dL (75-99)
[2020-07-07] MEDS: ZINC OXIDE 20% OINT 28.4 GM TUBE TOPICAL SCH ×2 (08:13→21:06)
[2020-07-07] MEDS: dexAMETHasone 2 MG TAB PO SCH (08:14)
[2020-07-07] MEDS: BISMUTH SUBSALICYLATE 4,192 MG/240 ML BOTTLE PO SCH ×2 (08:14→21:06)
[2020-07-07] MEDS: CHOLECALCIFEROL 1,000 UNIT TAB PO SCH (08:14)
[2020-07-07] MEDS: FERROUS SULFATE 325 MG TAB PO SCH (08:15)
[2020-07-07] MEDS: ENOXAPARIN 30 MG/0.3 ML SYRINGE SQ SCH (08:15)
[2020-07-07] MEDS: ISOSORBIDE MONONITRATE ER 60 MG TAB.ER.24H PO SCH (08:16)
[2020-07-07] MEDS: FLUoxetine HCL 10 MG CAP PO SCH (08:16)
[2020-07-07] MEDS: METOPROLOL TARTRATE 12.5 MG TAB PO SCH ×2 (08:17→20:51)
[2020-07-07] MEDS: HYDROcodone/APAP 5-325MG 1 EACH TAB PO SCH ×4 (08:17→20:55)
[2020-07-07] MEDS: SODIUM BICARBONATE TAB 650 MG TAB PO SCH ×2 (08:17→20:50)
[2020-07-07] MEDS: POTASSIUM CHLORIDE ER 20 MEQ TAB.ER PO SCH (08:17)
[2020-07-07] MEDS: ALBUTEROL HFA INHALER INHALATION PRN ×3 (09:00→16:30)
[2020-07-07] MEDS: INSULIN ASPART (NovoLOG) 100 UNIT/ML VIAL SQ SCH ×5 (09:47→20:50)
--- NOTE | 2020-07-07 10:36 | P.PN ---
Subjective Progress Note Date: 07/07/20 Principal diagnosis: Interstitial pneumonia due to cord 19 pneumonia however additional healthcare associated pneumonia cannot be excluded Acute on chronic hypoxic respiratory failure Acute on chronic systolic heart failure with fluid overload Cardiomyopathy with ejection fraction of 40% Large multiple sacral decubitus ulcer 07/07/2020, patient seen eval examined during the rounds labs reviewed medications reviewed care plan discussed, remains on 5 L breathing comfortably sitting upright on the bed, no obvious distress present, would continue titrated oxygen down as tolerated 07/06/2020, patient seen eval examined during the rounds labs reviewed medications reviewed care plan discussed, respiratory status remains stable, on 5 L oxygen denies any chest pain, oxygen is being tapered down gradually, patient now has a wound VAC considered not to be a candidate for wound debridement 07/05/2020, patient seen eval examined shortness of breath stable on 6 L oxygen, chest x-ray performed today revealed cardiomegaly diffuse interstitial and airspace disease, pulmonary edema and fluid overload, patient has been evaluated by surgical services no plans for wound debridement however wound VAC orders have been placed, due to covid and requirement for 6 L oxygen patient is not considered a candidate for anesthesia, and continue usual therapy for core 19 pneumonia and gentle diuresis This is a 79-year-old female who was seen evaluated examined, patient is a re [facility]ident of [facility], patient came into the hospital with progressive increased shortness of breath hypoxia, her significant history is for cervical cancer, diabetes, patient has recent coronavirus infection, symptoms however started 1 day prior to coming into the hospital, it appears th at, the ago patient was admitted for cold with pneumonia, patient has significant cardiomyopathy with ejection fraction of 40% based on last echo performed June 2020, patient is on 3 L oxygen, chest x-ray continue show bilateral infiltrate, she'll also have chronic sacral decubitus ulcer status post the [facility] in the past, patient is being considered for divergent colostomy and general surgery has been consulted, and he she is being treated with IV Zosyn along with continuation are more medications Objective - Vital Signs Vital signs: Vital Signs Temp 97.4 F L 07/07/20 04:52 Pulse 70 07/07/20 04:52 Resp 20 07/07/20 04:52 BP 138/61 07/07/20 04:52 Pulse Ox 94 L 07/07/20 04:52 Intake & Output 07/06/20 07/07/20 07/07/20 18:59 06:59 18:59 Output Total 1600 300 Balance -1600 -300 Weight 63.5 kg Output: Urine 1600 300 Uretheral (Leslie) 700 300 Other: Voiding Method Indwelling Catheter Indwelling Catheter - Exam - Constitutional General appearance: average body habitus, disheveled - EENT Eyes: PERRLA Ears: bilateral: normal - Neck Carotids: bilateral: upstroke normal Thyroid: bilateral: normal size - Respiratory Respiratory: bilateral: diminished - Cardiovascular Rhythm: regular Heart sounds: normal: S1, S2 - Integumentary Integumentary: normal turgor - Neurologic Neurologic: CNII-XII intact - Musculoskeletal Musculoskeletal: gait normal, generalized weakness, strength equal bilaterally - Psychiatric Psychiatric: A&O x's 3, appropriate affect, intact judgment & insight - Labs CBC & Chem 7: 07/07/20 05:37 07/06/20 12:13 Labs: Abnormal Lab Results - Last 24 Hours (Table) 07/06/20 07/07/20 07/07/20 Range/Units 12:13 05:37 07:01 RBC 3.53 L (3.80-5.40) m/uL Hgb 9.7 L (11.4-16.0) gm/dL Hct 31.7 L (34.0-46.0) % MCHC 30.5 L (31.0-37.0) g/dL RDW 18.4 H (11.5-15.5) % Lymphocytes # 0.5 L (1.0-4.8) k/uL Sodium 133 L (137-145) mmol/L Chloride 92 L (98-107) mmol/L Carbon Dioxide 36 H (22-30) mmol/L BUN 67 H (7-17) mg/dL Creatinine 1.32 H (0.52-1.04) mg/dL Glucose 363 H (74-99) mg/dL POC Glucose (mg/dL) 415 H (75-99) mg/dL Microbiology - Last 24 Hours (Table) 07/03/20 14:40 Blood Culture - Preliminary Blood No Growth after 72 hours 07/03/20 14:25 Blood Culture - Preliminary Blood No Growth after 72 hours Assessment and Plan Assessment: Acute on chronic systolic heart failure with fluid overload Interstitial pneumonia due to cord 19 pneumonia Acute on chronic hypoxic respiratory failure Cardiomyopathy with ejection fraction of 40% Large multiple sacral decubitus ulcer Plan: Continue gentle diuresis Titrate oxygen down as tolerated Continue supplemental oxygen Deep breathing exercise incentive spirometry Oral Decadron 6 mg daily DVT prophylaxis with Lovenox Continue zinc, vitamin C, vitamin D Time with Patient: Greater than 30
[2020-07-07 11:10] LABS: Albumin 2.8 g/dL (3.80-4.90); Albumin/Globulin Ratio 1.4 (1.60-3.17); Anion Gap 8.5 mmol/L (4.00-12.00); Calcium 8.8 mg/dL (8.7-10.3); Carbon Dioxide 34.5 mmol/L (21.6-31.8); Potassium 4.5 mmol/L (3.5-5.5); Total Bilirubin 0.3 mg/dL (0.2-1.2); Total Protein 4.8 g/dL (6.2-8.2)
[2020-07-07 11:29] LABS: BUN/Creat Ratio 43.57 Ratio (12.00-20.00); Non-African American GFR(CKD) 35.4 (60.0-200.0)
[2020-07-07 11:31] LABS: Glucose,Whole Blood 375 mg/dL (75-99)
--- NOTE | 2020-07-07 12:09 | P.PN ---
Subjective Progress Note Date: 07/07/20 CHIEF COMPLAINT: CHF HISTORY OF PRESENT ILLNESS: This is a 79-year-old female with a past medical history significant for diabetes mellitus, hyperlipidemia, hypothyroidism, chronic kidney disease, and colon cancer.We have been asked to see the patient in consultation for congestive heart failure. Patient is admitted to the hospital secondary to Covid 19 pneumonia. Echocardiogram completed in June 2020 revealed ejection fraction of 40% with global hypokinesis, moderate tricuspid regurgitation, and moderate pulmonary hypertension. She remains on 5 L nasal cannula with oxygen saturations greater than 92%. Blood pressure 105/51. She is afebrile. BUN 61. Creatinine 1.4. PHYSICAL EXAM: Thorough physical exam not completed secondary to limited evaluation/examination and due to Covid19 ASSESSMENT: Covid 19 pneumonia Acute hypoxic respiratory failure Acute exacerbation of chronic systolic heart failure, EF 40% Cardiomyopathy, type unknown, EF 40%, BNP 00171 Hyperlipidemia Chronic kidney disease Hypothyroidism PLAN: Continue metoprolol and Imdur. Will hold off on beginning VERNON due to CKD Continue to hold Lasix Monitor kidney function Obtain chest x-ray Further recommendations pending patient course Nurse practitioner note has been reviewed by physician. Signing provider agrees with the documented findings, assessment, and plan of care. Objective - Vital Signs Vital signs: Vital Signs Temp 97.4 F L 07/07/20 11:00 Pulse 53 L 07/07/20 11:00 Resp 17 07/07/20 11:00 BP 105/51 07/07/20 11:00 Pulse Ox 97 07/07/20 11:00 Intake & Output 07/06/20 07/07/20 07/07/20 18:59 06:59 18:59 Output Total 1600 300 300 Balance -1600 -300 -300 Weight 63.5 kg Output: Urine 1600 300 300 Uretheral (Leslie) 700 300 300 Other: Voiding Method Indwelling Catheter Indwelling Catheter - Labs CBC & Chem 7: 07/07/20 05:37 07/07/20 05:37 Labs: Abnormal Lab Results - Last 24 Hours (Table) 07/06/20 07/07/20 07/07/20 Range/Units 12:13 05:37 05:37 RBC 3.53 L (3.80-5.40) m/uL Hgb 9.7 L (11.4-16.0) gm/dL Hct 31.7 L (34.0-46.0) % MCHC 30.5 L (31.0-37.0) g/dL RDW 18.4 H (11.5-15.5) % Lymphocytes # 0.5 L (1.0-4.8) k/uL Sodium 133 L (137-145) mmol/L Chloride 92 L 93 L (98-107) mmol/L Carbon Dioxide 36 H 34.5 H (22-30) mmol/L BUN 67 H 61.0 H (7-17) mg/dL Creatinine 1.32 H (0.52-1.04) mg/dL Est GFR (CKD-EPI)AfAm 41.0 L (60.0-200.0) Est GFR (CKD-EPI)NonAf 35.4 L (60.0-200.0) BUN/Creatinine Ratio 43.57 H (12.00-20.00) Ratio Glucose 363 H 394 H (74-99) mg/dL POC Glucose (mg/dL) (75-99) mg/dL ALT 46 H (8-44) U/L Alkaline Phosphatase 422 H (41-126) U/L Total Protein 4.8 L (6.2-8.2) g/dL Albumin 2.80 L (3.80-4.90) g/dL Albumin/Globulin Ratio 1.40 L (1.60-3.17) g/dL 07/07/20 07/07/20 Range/Units 07:01 11:28 RBC (3.80-5.40) m/uL Hgb (11.4-16.0) gm/dL Hct (34.0-46.0) % MCHC (31.0-37.0) g/dL RDW (11.5-15.5) % Lymphocytes # (1.0-4.8) k/uL Sodium (137-145) mmol/L Chloride (98-107) mmol/L Carbon Dioxide (22-30) mmol/L BUN (7-17) mg/dL Creatinine (0.52-1.04) mg/dL Est GFR (CKD-EPI)AfAm (60.0-200.0) Est GFR (CKD-EPI)NonAf (60.0-200.0) BUN/Creatinine Ratio (12.00-20.00) Ratio Glucose (74-99) mg/dL POC Glucose (mg/dL) 415 H 375 H (75-99) mg/dL ALT (8-44) U/L Alkaline Phosphatase (41-126) U/L Total Protein (6.2-8.2) g/dL Albumin (3.80-4.90) g/dL Albumin/Globulin Ratio (1.60-3.17) g/dL Microbiology - Last 24 Hours (Table) 07/03/20 14:40 Blood Culture - Preliminary Blood No Growth after 72 hours 07/03/20 14:25 Blood Culture - Preliminary Blood No Growth after 72 hours
--- NOTE | 2020-07-07 12:10 | XR ---
EXAMINATION TYPE: XR chest 1V portable DATE OF EXAM: 07/07/2020 CLINICAL HISTORY: Difficulty breathing and CHF progress study. TECHNIQUE: Single AP portable upright view of the chest is obtained. COMPARISON: Chest x-ray from 2 days earlier and older studies. FINDINGS: Stable right internal jugular central venous catheter and left subclavian Mediport cathete r. Persisting cardiomegaly with atherosclerotic thoracic aorta. Persistent chronic parenchymal change s with increased multifocal opacities bilaterally. Osseous structures remain demineralized. IMPRESSION: Cardiomegaly with bilateral multifocal acute infiltrates and/or edema remain present. No significant change from most recent x-ray.
[2020-07-07 16:59] LABS: Glucose,Whole Blood 230 mg/dL (75-99)
--- NOTE | 2020-07-07 17:56 | P.PN ---
Progress Note - Text Progress Note Date: 07/07/20 The patient still on high flow nasal cannula oxygen. Chest x-ray has not improved. No plans for immediate surgery. Continue local wound care with wound VAC
[2020-07-07 20:06] LABS: Glucose,Whole Blood 305 mg/dL (75-99)
--- NOTE | 2020-07-07 20:24 | PN ---
PROGRESS NOTE This is an 79-year-old white female with COVID-19 pneumonia, systolic CHF, decubitus wound with ulceration. She is on IV Zosyn for sacroiliitis. We await for Dr. Pabon's recommendations for long-term home antibiotics. Possible discharge either back to the rehab or home. PT/OT is involved. CARDIOVASCULAR: S1, S2. LUNGS: Clear. GI: Soft. HEMATOLOGY: Negative Homans. EXTREMITIES: Two plus edema. ASSESSMENT: 1. Systolic congestive heart failure. 2. COVID-19 pneumonia. 3. Ileostomy. 4. Wound V.A.C. on the sacral ulcer. Prognosis extremely guarded. PT/OT. Monitor for home antibiotics before we discharge her home or back to the rehab center. MMODL / IJN: [id number] /
[2020-07-07] MEDS: INSULIN DETEMIR (LEVEMIR) 100 UNIT/ML SYR SQ SCH (20:42)
[2020-07-07] MEDS: COLLAGENASE 250 UNIT/GM OINTMENT 30 GM TUBE TOPICAL SCH (20:57)
[2020-07-07] MEDS: LEVOTHYROXINE 137 MCG TAB PO SCH (21:12)
--- NOTE | 2020-07-07 23:11 | PN ---
PROGRESS NOTE DATE OF SERVICE: 07/07/2020 REASON FOR FOLLOWUP: 1. Stage IV sacral pressure ulcer with concern for worsening cellulitis. 2. Question of pneumonia. INTERVAL HISTORY: The patient is currently afebrile. The patient is breathing more comfortably. The patient denies having any chest pain or shortness of breath. Minimal cough. No abdominal pain. Denies pain to the sacral wound area. Currently with a wound V.A.C. PHYSICAL EXAMINATION: Her blood pressure is 127/63 with a pulse of 64, temperature 97.9. She is 99% on 5 L nasal cannula. General description is an elderly female lying in bed in no distress. RESPIRATORY SYSTEM: Unlabored breathing with decreased breath sounds at the base. No wheeze. HEART: S1, S2. Regular rate and rhythm. ABDOMEN: Soft. No tenderness. LABS: Hemoglobin is 9.7, white count 6.5. BUN of 61, creatinine 1.4. DIAGNOSTIC IMPRESSION AND PLAN: 1. Patient admitted to hospital with shortness of breath which is likely multifactorial and likely due to fluid overload. Clinically not behaving as COVID- 19 pneumonia. 2. Patient with stage IV sacral pressure ulcer. Local care to continue with wound V.A.C. and IV Zosyn. Repeat the inflammatory markers tomorrow to determine need for further antibiotic therapy. Continue with supportive care. MMODL / IJN: [id number] /
[2020-07-08] MEDS: PIPERACILLIN-TAZOBACTAM 3.375 GM in SODIUM CHLORIDE 0.9% 100 ML IVPB SCH ×3 (05:53→23:03)
[2020-07-08] MEDS: INSULIN ASPART (NovoLOG) 100 UNIT/ML VIAL SQ SCH ×7 (07:21→20:29)
[2020-07-08 07:24] LABS: Glucose,Whole Blood 60 mg/dL (75-99)
[2020-07-08] MEDS: ALBUTEROL HFA INHALER INHALATION PRN ×4 (07:51→20:42)
[2020-07-08 07:58] LABS: Glucose,Whole Blood 74 mg/dL (75-99)
[2020-07-08] MEDS: ZINC OXIDE 20% OINT 28.4 GM TUBE TOPICAL SCH ×2 (07:58→20:17)
[2020-07-08] MEDS: BISMUTH SUBSALICYLATE 4,192 MG/240 ML BOTTLE PO SCH ×2 (07:58→20:17)
[2020-07-08] MEDS: POTASSIUM CHLORIDE ER 20 MEQ TAB.ER PO SCH (08:02)
[2020-07-08] MEDS: FERROUS SULFATE 325 MG TAB PO SCH (08:02)
[2020-07-08] MEDS: FLUoxetine HCL 10 MG CAP PO SCH (08:02)
[2020-07-08] MEDS: HYDROcodone/APAP 5-325MG 1 EACH TAB PO SCH ×2 (08:02→23:01)
[2020-07-08] MEDS: dexAMETHasone 2 MG TAB PO SCH (08:02)
[2020-07-08] MEDS: ISOSORBIDE MONONITRATE ER 60 MG TAB.ER.24H PO SCH (08:02)
[2020-07-08] MEDS: CHOLECALCIFEROL 1,000 UNIT TAB PO SCH (08:02)
[2020-07-08] MEDS: SODIUM BICARBONATE TAB 650 MG TAB PO SCH ×2 (08:08→20:14)
[2020-07-08] MEDS: ENOXAPARIN 30 MG/0.3 ML SYRINGE SQ SCH (08:08)
--- NOTE | 2020-07-08 08:31 | XR ---
EXAMINATION TYPE: XR chest 1V confirm line [facility] DATE OF EXAM: 07/08/2020 COMPARISON: 07/07/2020 INDICATION: Broke off Midline TECHNIQUE: Single frontal view of the chest is obtained. FINDINGS: The heart size is enlarged. The pulmonary vasculature is prominent. Diffuse increased lung markings are present bilaterally. Left port is present with the tip in the region superior vena cava. Previous right central venous cat heter is absent. No radiopaque foreign bodies are identified. IMPRESSION: 1. Scattered bilateral lung infiltrates. Atypical pneumonia and pulmonary edema should be considered. 2. Cardiomegaly with prominent pulmonary vascular markings.
[2020-07-08] MEDS: METOPROLOL TARTRATE 12.5 MG TAB PO SCH ×2 (10:17→20:14)
[2020-07-08 11:14] LABS: Glucose,Whole Blood 125 mg/dL (75-99)
[2020-07-08 12:06] LABS: African American GFR (CKD) 71 (>60 ml/min/1.73 sqM); Anion Gap 5 mmol/L; Blood Urea Nitrogen 51 mg/dL (7-17); Calcium 9.1 mg/dL (8.4-10.2); Carbon Dioxide 32 mmol/L (22-30); Chloride 96 mmol/L (98-107); Glucose 104 mg/dL (74-99); Non-African American GFR(CKD) 61 (>60 ml/min/1.73 sqM); Potassium 5.3 mmol/L (3.5-5.1); Sodium 133 mmol/L (137-145)
--- NOTE | 2020-07-08 12:55 | P.PN ---
Subjective Progress Note Date: 07/08/20 HISTORY OF PRESENT ILLNESS This is an 79-year-old female admitted to the hospital and followed for sacral decubitus ulcer stage IV with wound VAC. Covid 19 testing was positive and she was already treated in mid June. Patient currently denies having any cough, no chest pain. No abdominal pain. Midline was placed today. Patient's Leslie catheter in place. Repeat chest x-ray reveals scattered bilateral lung infiltrates. Atypical pneumonia and pulmonary edema could be considered. Cardiomegaly with prominent pulmonary vascular markings. Patient has been afebrile, heart rate 69, blood pressure 145/73, pulse ox 100% on 5 L and high flow nasal cannula. Repeat blood work reveals sodium 133, potassium 5.3, chloride 96, CO2 32, BUN 51 and creatinine 0.89. PHYSICAL EXAMINATION Gen: This is an 79-year-old female. She continues to have significant weakness. HEENT: Head is atraumatic, normocephalic. Pupils equal, round. Sclerae is anicteric. NECK: Supple. No JVD. No lymphadenopathy. LUNGS: Clear to auscultation. No wheezes or rhonchi. No intercostal retractions. HEART: Regular rate and rhythm. No murmur. ABDOMEN: Soft. Bowel sounds are present. No masses. No tenderness. Left-sided colostomy. Leslie catheter in place. Wound VAC in place to sacral ulcer. EXTREMITIES: No pedal edema. No calf tenderness. NEUROLOGICAL: Patient is awake, alert and oriented x3. ASSESSMENT Stage IV sacral decubitus ulcer Possible pneumonia most likely due to fluid overload Clinically not behaving as Covid 19 pneumonia PLAN Continue IV Zosyn patient will be scheduled for 2 weeks of IV antibiotics at discharge Continue wound VAC Continue supportive care The above dictated assessment and findings were discussed with Dr. Pabon. The impression and plan of care have been directed as dictated. Felicita Valentine nurse practitioner acting as scribe for Dr. Pabon. Objective - Vital Signs Vital signs: Vital Signs Temp 98.6 F 07/08/20 05:00 Pulse 69 07/08/20 05:00 Resp 16 07/07/20 22:56 BP 132/74 07/08/20 05:00 Pulse Ox 100 07/08/20 05:00 Intake & Output 07/07/20 07/08/20 07/08/20 18:59 06:59 18:59 Output Total 900 650 300 Balance -900 -650 -300 Output: Urine 900 650 Uretheral (Leslie) 300 650 Stool 300 Other: Voiding Method Indwelling Catheter Indwelling Catheter - Labs CBC & Chem 7: 07/07/20 05:37 07/08/20 11:29 Labs: Abnormal Lab Results - Last 24 Hours (Table) 07/07/20 07/07/20 07/07/20 Range/Units 05:37 11:28 16:57 Chloride 93 L (96-109) mmol/L Carbon Dioxide 34.5 H (21.6-31.8) mmol/L BUN 61.0 H (9.0-27.0) mg/dL Est GFR (CKD-EPI)AfAm 41.0 L (60.0-200.0) Est GFR (CKD-EPI)NonAf 35.4 L (60.0-200.0) BUN/Creatinine Ratio 43.57 H (12.00-20.00) Ratio Glucose 394 H (70-110) mg/dL POC Glucose (mg/dL) 375 H 230 H (75-99) mg/dL ALT 46 H (8-44) U/L Alkaline Phosphatase 422 H (41-126) U/L C-Reactive Protein (<10.0) mg/L Total Protein 4.8 L (6.2-8.2) g/dL Albumin 2.80 L (3.80-4.90) g/dL Albumin/Globulin Ratio 1.40 L (1.60-3.17) g/dL 07/07/20 07/08/20 07/08/20 Range/Units 20:04 06:54 07:13 Chloride (96-109) mmol/L Carbon Dioxide (21.6-31.8) mmol/L BUN (9.0-27.0) mg/dL Est GFR (CKD-EPI)AfAm (60.0-200.0) Est GFR (CKD-EPI)NonAf (60.0-200.0) BUN/Creatinine Ratio (12.00-20.00) Ratio Glucose (70-110) mg/dL POC Glucose (mg/dL) 305 H 60 L (75-99) mg/dL ALT (8-44) U/L Alkaline Phosphatase (41-126) U/L C-Reactive Protein 51.0 H (<10.0) mg/L Total Protein (6.2-8.2) g/dL Albumin (3.80-4.90) g/dL Albumin/Globulin Ratio (1.60-3.17) g/dL 07/08/20 Range/Units 07:56 Chloride (96-109) mmol/L Carbon Dioxide (21.6-31.8) mmol/L BUN (9.0-27.0) mg/dL Est GFR (CKD-EPI)AfAm (60.0-200.0) Est GFR (CKD-EPI)NonAf (60.0-200.0) BUN/Creatinine Ratio (12.00-20.00) Ratio Glucose (70-110) mg/dL POC Glucose (mg/dL) 74 L (75-99) mg/dL ALT (8-44) U/L Alkaline Phosphatase (41-126) U/L C-Reactive Protein (<10.0) mg/L Total Protein (6.2-8.2) g/dL Albumin (3.80-4.90) g/dL Albumin/Globulin Ratio (1.60-3.17) g/dL Microbiology - Last 24 Hours (Table) 07/03/20 14:40 Blood Culture - Preliminary Blood No Growth after 96 hours 07/03/20 14:25 Blood Culture - Preliminary Blood No Growth after 96 hours
--- NOTE | 2020-07-08 13:26 | P.PN ---
Subjective Progress Note Date: 07/08/20 CHIEF COMPLAINT: CHF HISTORY OF PRESENT ILLNESS: This is a 79-year-old female with a past medical history significant for diabetes mellitus, hyperlipidemia, hypothyroidism, chronic kidney disease, and colon cancer.We have been asked to see the patient in consultation for congestive heart failure. Patient is admitted to the hospital secondary to Covid 19 pneumonia. Echocardiogram completed in June 2020 revealed ejection fraction of 40% with global hypokinesis, moderate tricuspid regurgitation, and moderate pulmonary hypertension. Patient remains on 5 L nasal cannula with oxygen saturations greater than 92%. Blood pressure 145/73. Heart rate in the 60s. She is afebrile. Potassium 5.3. Magnesium 2.2. BUN 51. Creatinine 0.89. Patient having runs of nonsustained v- tach per telemetry monitoring. PHYSICAL EXAM: Thorough physical exam not completed secondary to limited evaluation/examination and due to Covid19 ASSESSMENT: Covid 19 pneumonia Acute hypoxic respiratory failure Acute exacerbation of chronic systolic heart failure, EF 40%, BNP 66413 Cardiomyopathy, type unknown, EF 40% Hyperlipidemia Hypothyroidism Hyperkalemia Nonsustained ventricular tachycardia PLAN: Continue Imdur Continue metoprolol at current dose Monitor electrolytes Continue telemetry monitoring Will hold off on beginning VERNON due to acute kidney injury and hyperkalemia Resume oral lasix at lower dose of 40mg daily Monitor kidney function Further recommendations pending patient course Nurse practitioner note has been reviewed by physician. Signing provider agrees with the documented findings, assessment, and plan of care. Objective - Vital Signs Vital signs: Vital Signs Temp 97.2 F L 07/08/20 10:30 Pulse 69 07/08/20 10:30 Resp 18 07/08/20 10:30 BP 145/73 07/08/20 10:30 Pulse Ox 100 07/08/20 10:30 Intake & Output 07/07/20 07/08/20 07/08/20 18:59 06:59 18:59 Output Total 900 650 300 Balance -900 -650 -300 Weight 63.5 kg Output: Urine 900 650 Uretheral (Leslie) 300 650 Stool 300 Other: Voiding Method Indwelling Catheter Indwelling Catheter - Labs CBC & Chem 7: 07/07/20 05:37 07/08/20 11:29 Labs: Abnormal Lab Results - Last 24 Hours (Table) 07/07/20 07/07/20 07/08/20 Range/Units 16:57 20:04 06:54 Sodium (137-145) mmol/L Potassium (3.5-5.1) mmol/L Chloride (98-107) mmol/L Carbon Dioxide (22-30) mmol/L BUN (7-17) mg/dL Glucose (74-99) mg/dL POC Glucose (mg/dL) 230 H 305 H (75-99) mg/dL C-Reactive Protein 51.0 H (<10.0) mg/L 07/08/20 07/08/20 07/08/20 Range/Units 07:13 07:56 11:09 Sodium (137-145) mmol/L Potassium (3.5-5.1) mmol/L Chloride (98-107) mmol/L Carbon Dioxide (22-30) mmol/L BUN (7-17) mg/dL Glucose (74-99) mg/dL POC Glucose (mg/dL) 60 L 74 L 125 H (75-99) mg/dL C-Reactive Protein (<10.0) mg/L 07/08/20 Range/Units 11:29 Sodium 133 L (137-145) mmol/L Potassium 5.3 H (3.5-5.1) mmol/L Chloride 96 L (98-107) mmol/L Carbon Dioxide 32 H (22-30) mmol/L BUN 51 H (7-17) mg/dL Glucose 104 H (74-99) mg/dL POC Glucose (mg/dL) (75-99) mg/dL C-Reactive Protein (<10.0) mg/L Microbiology - Last 24 Hours (Table) 07/03/20 14:40 Blood Culture - Preliminary Blood No Growth after 96 hours 07/03/20 14:25 Blood Culture - Preliminary Blood No Growth after 96 hours
[2020-07-08] MEDS: HYDROcodone/APAP 5-325MG 1 EACH TAB PO PRN (15:43)
--- NOTE | 2020-07-08 16:43 | P.PN ---
Subjective Progress Note Date: 07/08/20 Principal diagnosis: Interstitial pneumonia due to cord 19 pneumonia however additional healthcare associated pneumonia cannot be excluded Acute on chronic hypoxic respiratory failure Acute on chronic systolic heart failure with fluid overload Cardiomyopathy with ejection fraction of 40% Large multiple sacral decubitus ulcer July 08 2020, patient seen eval examined overall denies any chest pain breathing comfortably, remains on 5 L oxygen, blood cultures 2 have been n egative, patient has a wound VAC, creatinine improved to .89, 07/07/2020, patient seen eval examined during the rounds labs reviewed medications reviewed care plan discussed, remains on 5 L breathing comfortably sitting upright on the bed, no obvious distress present, would continue titrated oxygen down as tolerated 07/06/2020, patient seen eval examined during the rounds labs reviewed medicatio ns reviewed care plan discussed, respiratory status remains stable, on 5 L oxygen denies any chest pain, oxygen is being tapered down gradually, patient now has a wound VAC considered not to be a candidate for wound debridement 07/05/2020, patient seen eval examined shortness of breath stable on 6 L oxygen, chest x-ray performed today revealed cardiomegaly diffuse interstitial and airspace disease, pulmonary edema and fluid overload, patient has been evaluated by surgical services no plans for wound debridement however wound VAC orders have been placed, due to covid 19th and requirement for 6 L oxygen patient is not considered a candidate for anesthesia, and continue usual therapy for core 19 pneumonia and gentle diuresis This is a 79-year-old female who was seen evaluated examined, patient is a resident of [facility], patient came into the hospital with progressive increased shortness of breath hypoxia, her significant history is for cervical cancer, diabetes, patient has recent coronavirus infection, symptoms however started 1 day prior to coming into the hospital, it appears that, the ago patient was admitted for cold with pneumonia, patient has significant cardiomyopathy with ejection fraction of 40% based on last echo performed June 2020, patient is on 3 L oxygen, chest x-ray continue show bilateral infiltrate, she'll also have chronic sacral decubitus ulcer status post the [facility] in the past, patient is being considered for divergent colostomy and general surgery has been consulted, and he she is being treated with IV Zosyn along with continuation are more medications Objective - Vital Signs Vital signs: Vital Signs Temp 97.6 F 07/08/20 15:59 Pulse 73 07/08/20 15:59 Resp 18 07/08/20 15:59 BP 155/82 07/08/20 15:59 Pulse Ox 100 07/08/20 15:59 Intake & Output 07/07/20 07/08/20 07/08/20 18:59 06:59 18:59 Output Total 900 650 300 Balance -900 -650 -300 Weight 63.5 kg Output: Urine 900 650 Uretheral (Leslie) 300 650 Stool 300 Other: Voiding Method Indwelling Catheter Indwelling Catheter - Exam - Constitutional General appearance: average body habitus, disheveled - EENT Eyes: PERRLA Ears: bilateral: normal - Neck Carotids: bilateral: upstroke normal Thyroid: bilateral: normal size - Respiratory Respiratory: bilateral: diminished - Cardiovascular Rhythm: regular Heart sounds: normal: S1, S2 - Integumentary Integumentary: normal turgor - Neurologic Neurologic: CNII-XII intact - Musculoskeletal Musculoskeletal: gait normal, generalized weakness, strength equal bilaterally - Psychiatric Psychiatric: A&O x's 3, appropriate affect, intact judgment & insight - Labs CBC & Chem 7: 07/07/20 05:37 07/08/20 11:29 Labs: Abnormal Lab Results - Last 24 Hours (Table) 07/07/20 07/07/20 07/08/20 Range/Units 16:57 20:04 06:54 Sodium (137-145) mmol/L Potassium (3.5-5.1) mmol/L Chloride (98-107) mmol/L Carbon Dioxide (22-30) mmol/L BUN (7-17) mg/dL Glucose (74-99) mg/dL POC Glucose (mg/dL) 230 H 305 H (75-99) mg/dL C-Reactive Protein 51.0 H (<10.0) mg/L 07/08/20 07/08/20 07/08/20 Range/Units 07:13 07:56 11:09 Sodium (137-145) mmol/L Potassium (3.5-5.1) mmol/L Chloride (98-107) mmol/L Carbon Dioxide (22-30) mmol/L BUN (7-17) mg/dL Glucose (74-99) mg/dL POC Glucose (mg/dL) 60 L 74 L 125 H (75-99) mg/dL C-Reactive Protein (<10.0) mg/L 07/08/20 Range/Units 11:29 Sodium 133 L (137-145) mmol/L Potassium 5.3 H (3.5-5.1) mmol/L Chloride 96 L (98-107) mmol/L Carbon Dioxide 32 H (22-30) mmol/L BUN 51 H (7-17) mg/dL Glucose 104 H (74-99) mg/dL POC Glucose (mg/dL) (75-99) mg/dL C-Reactive Protein (<10.0) mg/L Microbiology - Last 24 Hours (Table) 07/03/20 14:40 Blood Culture - Preliminary Blood No Growth after 96 hours 07/03/20 14:25 Blood Culture - Preliminary Blood No Growth after 96 hours Assessment and Plan Assessment: Acute on chronic systolic heart failure with fluid overload Interstitial pneumonia due to cord 19 pneumonia Acute on chronic hypoxic respiratory failure Cardiomyopathy with ejection fraction of 40% Large multiple sacral decubitus ulcer Plan: Continue gentle diuresis Titrate oxygen down as tolerated Continue supplemental oxygen Deep breathing exercise incentive spirometry Oral Decadron 6 mg daily DVT prophylaxis with Lovenox Continue zinc, vitamin C, vitamin D Time with Patient: Greater than 30
[2020-07-08 17:23] LABS: Glucose,Whole Blood 228 mg/dL (75-99)
[2020-07-08] MEDS ORDERED: GABAPENTIN 100 MG CAP PO PRN (17:23)
--- NOTE | 2020-07-08 17:39 | PN ---
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 Remains on 5 L oxygen. Blood cultures x2 have been negative. Wound VAC. Creatinine improved. Cardiovascular: S1, S2. Lungs are clear. GI soft. Hematology: Negative Homans. Vital signs were reviewed. Sodium 133, potassium 5.3, BUN is 51, creatinine 0.89, hemoglobin is 9.7. ASSESSMENT: 1. Acute on chronic systolic heart failure. 2. Fluid overload. 3. Interstitial pneumonia due to Covid 19 pneumonia. 4. Acute on chronic hypoxemic respiratory failure. 5. Cardiomyopathy, ejection fraction 40%. 6. Large multiple sacral decubitus ulcers. Gentle diuresis. Titrate oxygen down. Deep breathing exercise. Oral Decadron. DVT prophylaxis. Zinc, vitamin C, vitamin D. Wait for Dr. Pabon's recommendations about oral antibiotics long-term. MMODL / IJN: [id number] /
[2020-07-08 17:56] LABS: Appearance,Urine Turbid (Clear); Bacteria,Urine Many /hpf; Bilirubin,Urine Negative (Negative); Blood,Urine Moderate (Negative); Budding Yeast,Urine Many /hpf; Color,Urine Yellow; Glucose,Urine (UA) Negative (Negative); Ketones,Urine Negative (Negative); Leukocyte Esterase,Urine Large (Negative); Mucus,Urine Occasional /hpf; Nitrite,Urine Negative (Negative); PH, Urine 6.5 (5.0-8.0); Protein,Urine 1+ (Negative); RBC,Urine >182 /hpf (0-5); Specific Gravity,Urine 1.021 (1.001-1.035); Squamous Epithelial Cell,Urine 3 /hpf (0-4); Urobilinogen,Urine <2.0 mg/dL (<2.0); WBC,Urine >182 /hpf (0-5)
[2020-07-08] MEDS: LEVOTHYROXINE 137 MCG TAB PO SCH (20:14)
[2020-07-08] MEDS: COLLAGENASE 250 UNIT/GM OINTMENT 30 GM TUBE TOPICAL SCH (20:16)
[2020-07-08 20:26] LABS: Glucose,Whole Blood 283 mg/dL (75-99)
[2020-07-08] MEDS: INSULIN DETEMIR (LEVEMIR) 100 UNIT/ML SYR SQ SCH (20:29)
[2020-07-09] MEDS: PIPERACILLIN-TAZOBACTAM 3.375 GM in SODIUM CHLORIDE 0.9% 100 ML IVPB SCH ×3 (05:54→21:06)
[2020-07-09 07:00] LABS: Anisocytosis Slight; Basophils % (A) 0 %; Eosinophils # (A) 0.1 k/uL (0-0.7); Eosinophils % (A) 1 %; HGB 11.3 gm/dL (11.4-16.0); Hypochromasia Moderate; Lymphocytes # (A) 0.6 k/uL (1.0-4.8); Lymphocytes % (A) 6 %; MCH 27.9 pg (25.0-35.0); MCHC 31.4 g/dL (31.0-37.0); MCV 88.9 fL (80.0-100.0); Mean Platelet Volume 7.7; Monocytes # (A) 0.3 k/uL (0-1.0); Monocytes % (A) 2 %; Neutrophils # (A) 9.8 k/uL (1.3-7.7); Neutrophils % (A) 90 %; Platelet Count 417 k/uL (150-450); RBC 4.05 m/uL (3.80-5.40); RDW 18.1 % (11.5-15.5); WBC 10.9 k/uL (3.8-10.6)
[2020-07-09 07:08] LABS: Glucose,Whole Blood 56 mg/dL (75-99)
[2020-07-09 07:08] LABS: Glucose,Whole Blood 73 mg/dL (75-99)
[2020-07-09] MEDS: ALBUTEROL HFA INHALER INHALATION PRN ×4 (07:43→20:39)
[2020-07-09] MEDS: INSULIN ASPART (NovoLOG) 100 UNIT/ML VIAL SQ SCH ×7 (08:45→21:34)
[2020-07-09] MEDS: dexAMETHasone 2 MG TAB PO SCH (08:46)
[2020-07-09] MEDS: FLUoxetine HCL 10 MG CAP PO SCH (08:47)
[2020-07-09] MEDS: CHOLECALCIFEROL 1,000 UNIT TAB PO SCH (08:47)
[2020-07-09] MEDS: FUROSEMIDE 40 MG TAB PO SCH (08:47)
[2020-07-09] MEDS: HYDROcodone/APAP 5-325MG 1 EACH TAB PO SCH ×2 (08:47→20:52)
[2020-07-09] MEDS: FERROUS SULFATE 325 MG TAB PO SCH (08:47)
[2020-07-09] MEDS: METOPROLOL TARTRATE 12.5 MG TAB PO SCH (08:49)
[2020-07-09] MEDS: ISOSORBIDE MONONITRATE ER 60 MG TAB.ER.24H PO SCH (08:49)
[2020-07-09] MEDS: POTASSIUM CHLORIDE ER 20 MEQ TAB.ER PO SCH (08:49)
[2020-07-09] MEDS: SODIUM BICARBONATE TAB 650 MG TAB PO SCH ×2 (08:49→20:52)
[2020-07-09] MEDS: ENOXAPARIN 30 MG/0.3 ML SYRINGE SQ SCH (08:49)
[2020-07-09] MEDS: BISMUTH SUBSALICYLATE 4,192 MG/240 ML BOTTLE PO SCH ×2 (08:56→20:02)
[2020-07-09] MEDS: ZINC OXIDE 20% OINT 28.4 GM TUBE TOPICAL SCH ×2 (08:56→20:01)
[2020-07-09 09:37] LABS: Glucose,Whole Blood 55 mg/dL (75-99)
[2020-07-09 09:52] LABS: Glucose,Whole Blood 58 mg/dL (75-99)
[2020-07-09 10:10] LABS: Glucose,Whole Blood 69 mg/dL (75-99)
[2020-07-09 10:55] LABS: Glucose,Whole Blood 107 mg/dL (75-99)
--- NOTE | 2020-07-09 11:01 | P.PN ---
Subjective Progress Note Date: 07/09/20 CHIEF COMPLAINT: CHF HISTORY OF PRESENT ILLNESS: This is a 79-year-old female with a past medical history significant for diabetes mellitus, hyperlipidemia, hypothyroidism, chronic kidney disease, and colon cancer.We have been asked to see the patient in consultation for congestive heart failure. Patient is admitted to the hospital secondary to Covid 19 pneumonia. Echocardiogram completed in June 2020 revealed ejection fraction of 40% with global hypokinesis, moderate tricuspid regurgitation, and moderate pulmonary hypertension. Patient remains on 5 L nasal cannula with oxygen saturations greater than 92%. Blood pressure 138/63. Heart rate in the 60s. She is afebrile. Patient had a 13 run beat of vtach this morning. Morning labs are pending. PHYSICAL EXAM: Thorough physical exam not completed secondary to limited evaluation/examination and due to Covid19 ASSESSMENT: Covid 19 pneumonia Acute hypoxic respiratory failure Acute exacerbation of chronic systolic heart failure, EF 40%, BNP 28380 Cardiomyopathy, type unknown, EF 40% Hyperlipidemia Hypothyroidism Hyperkalemia Nonsustained ventricular tachycardia PLAN: Continue Imdur Increase metoprolol to 25mg BID Monitor electrolytes Continue telemetry monitoring Will hold off on beginning VERNON due to acute kidney injury and hyperkalemia Continue oral lasix Await results of BMP this morning Further recommendations pending patient course Nurse practitioner note has been reviewed by physician. Signing provider agrees with the documented findings, assessment, and plan of care. Objective - Vital Signs Vital signs: Vital Signs Temp 97.6 F 07/09/20 04:20 Pulse 67 07/09/20 04:20 Resp 18 07/09/20 04:20 BP 138/63 07/09/20 04:20 Pulse Ox 95 07/09/20 07:43 Intake & Output 07/08/20 07/09/20 07/09/20 18:59 06:59 18:59 Output Total 1900 400 Balance -1900 -400 Weight 63.5 kg 67 kg Output: Urine 1200 Uretheral (Leslie) 600 Stool 700 400 Other: Voiding Method Indwelling Catheter - Labs CBC & Chem 7: 07/09/20 06:30 07/08/20 11:29 Labs: Abnormal Lab Results - Last 24 Hours (Table) 07/08/20 07/08/20 07/08/20 Range/Units 06:54 11:09 11:29 WBC (3.8-10.6) k/uL Hgb (11.4-16.0) gm/dL RDW (11.5-15.5) % Neutrophils # (1.3-7.7) k/uL Lymphocytes # (1.0-4.8) k/uL ESR 43 H (0-30) mm/Hr Sodium 133 L (137-145) mmol/L Potassium 5.3 H (3.5-5.1) mmol/L Chloride 96 L (98-107) mmol/L Carbon Dioxide 32 H (22-30) mmol/L BUN 51 H (7-17) mg/dL Glucose 104 H (74-99) mg/dL POC Glucose (mg/dL) 125 H (75-99) mg/dL Urine Appearance (Clear) Urine Protein (Negative) Urine Blood (Negative) Ur Leukocyte Esterase (Negative) Urine RBC (0-5) /hpf Urine WBC (0-5) /hpf Urine WBC Clumps (None) /hpf Urine Bacteria (None) /hpf Urine Mucus (None) /hpf Urine Yeast (Budding) (None) /hpf 07/08/20 07/08/20 07/08/20 Range/Units 17:14 17:30 20:15 WBC (3.8-10.6) k/uL Hgb (11.4-16.0) gm/dL RDW (11.5-15.5) % Neutrophils # (1.3-7.7) k/uL Lymphocytes # (1.0-4.8) k/uL ESR (0-30) mm/Hr Sodium (137-145) mmol/L Potassium (3.5-5.1) mmol/L Chloride (98-107) mmol/L Carbon Dioxide (22-30) mmol/L BUN (7-17) mg/dL Glucose (74-99) mg/dL POC Glucose (mg/dL) 228 H 283 H (75-99) mg/dL Urine Appearance Turbid H (Clear) Urine Protein 1+ H (Negative) Urine Blood Moderate H (Negative) Ur Leukocyte Esterase Large H (Negative) Urine RBC >182 H (0-5) /hpf Urine WBC >182 H (0-5) /hpf Urine WBC Clumps Many H (None) /hpf Urine Bacteria Many H (None) /hpf Urine Mucus Occasional H (None) /hpf Urine Yeast (Budding) Many H (None) /hpf 07/09/20 07/09/20 07/09/20 Range/Units 06:30 07:05 07:06 WBC 10.9 H (3.8-10.6) k/uL Hgb 11.3 L (11.4-16.0) gm/dL RDW 18.1 H (11.5-15.5) % Neutrophils # 9.8 H (1.3-7.7) k/uL Lymphocytes # 0.6 L (1.0-4.8) k/uL ESR (0-30) mm/Hr Sodium (137-145) mmol/L Potassium (3.5-5.1) mmol/L Chloride (98-107) mmol/L Carbon Dioxide (22-30) mmol/L BUN (7-17) mg/dL Glucose (74-99) mg/dL POC Glucose (mg/dL) 56 L 73 L (75-99) mg/dL Urine Appearance (Clear) Urine Protein (Negative) Urine Blood (Negative) Ur Leukocyte Esterase (Negative) Urine RBC (0-5) /hpf Urine WBC (0-5) /hpf Urine WBC Clumps (None) /hpf Urine Bacteria (None) /hpf Urine Mucus (None) /hpf Urine Yeast (Budding) (None) /hpf 07/09/20 07/09/20 07/09/20 Range/Units 09:36 09:50 10:08 WBC (3.8-10.6) k/uL Hgb (11.4-16.0) gm/dL RDW (11.5-15.5) % Neutrophils # (1.3-7.7) k/uL Lymphocytes # (1.0-4.8) k/uL ESR (0-30) mm/Hr Sodium (137-145) mmol/L Potassium (3.5-5.1) mmol/L Chloride (98-107) mmol/L Carbon Dioxide (22-30) mmol/L BUN (7-17) mg/dL Glucose (74-99) mg/dL POC Glucose (mg/dL) 55 L 58 L 69 L (75-99) mg/dL Urine Appearance (Clear) Urine Protein (Negative) Urine Blood (Negative) Ur Leukocyte Esterase (Negative) Urine RBC (0-5) /hpf Urine WBC (0-5) /hpf Urine WBC Clumps (None) /hpf Urine Bacteria (None) /hpf Urine Mucus (None) /hpf Urine Yeast (Budding) (None) /hpf Microbiology - Last 24 Hours (Table) 07/08/20 17:30 Urine Culture - Preliminary Urine,Catheterized 07/03/20 14:40 Blood Culture - Preliminary Blood No Growth after 120 hours 07/03/20 14:25 Blood Culture - Preliminary Blood No Growth after 120 hours
--- NOTE | 2020-07-09 11:06 | P.PN ---
Subjective Progress Note Date: 07/09/20 Principal diagnosis: Interstitial pneumonia due to cord 19 pneumonia however additional healthcare associated pneumonia cannot be excluded Acute on chronic hypoxic respiratory failure Acute on chronic systolic heart failure with fluid overload Cardiomyopathy with ejection fraction of 40% Large multiple sacral decubitus ulcer 07/09/2020, patient seen eval examined on FiO2 has been decreased to 2 L now and sats are in mid 90s, patient sugar was low slow in making up, has been given back first, denies any chest pain, patient continued to have warned back on July 08 2020, patient seen eval examined overall denies any chest pain breathing comfortably, remains on 5 L oxygen, blood cultures 2 have been negative, patient has a wound VAC, creatinine improved to .89, 07/07/2020, patient seen eval examined during the rounds labs reviewed medications reviewed care plan discussed, remains on 5 L breathing comfortably sitting upright on the bed, no obvious distress present, would continue titrated oxygen down as tolerated 07/06/2020, patient seen eval examined during the rounds labs reviewed medications reviewed care plan discussed, respiratory status remains stable, on 5 L oxygen denies any chest pain, oxygen is being tapered down gradually, patient now has a wound VAC considered not to be a candidate for wound debridement 07/05/2020, patient seen eval examined shortness of breath stable on 6 L oxygen, chest x-ray performed today revealed cardiomegaly diffuse interstitial and airspace disease, pulmonary edema and fluid overload, patient has been evaluated by surgical services no plans for wound debridement however wound VAC orders have been placed, due to covid 19th and requirement for 6 L oxygen patient is not considered a candidate for anesthesia, and continue usual therapy for core 19 pneumonia and gentle diuresis This is a 79-year-old female who was seen evaluated examined, patient is a resident of [facility], patient came into the hospital with progressive increased shortness of breath hypoxia, her significant history is for cervical cancer, diabetes, patient has recent coronavirus infection, symptoms however started 1 day prior to coming into the hospital, it appears that, the ago patient was admitted for cold with pneumonia, patient has significant cardiomyopathy with ejection fraction of 40% based on last echo performed June 2020, patient is on 3 L oxygen, chest x-ray continue show bilateral infiltrate, she'll also have chronic sacral decubitus ulcer status post the [facility] in the past, patient is being considered for divergent colostomy and general surgery has been consulted, and he she is being treated wi th IV Zosyn along with continuation are more medications Objective - Vital Signs Vital signs: Vital Signs Temp 97.6 F 07/09/20 04:20 Pulse 67 07/09/20 04:20 Resp 18 07/09/20 04:20 BP 138/63 07/09/20 04:20 Pulse Ox 95 07/09/20 07:43 Intake & Output 07/08/20 07/09/20 07/09/20 18:59 06:59 18:59 Output Total 1900 400 Balance -1900 -400 Weight 63.5 kg 67 kg Output: Urine 1200 Uretheral (Leslie) 600 Stool 700 400 Other: Voiding Method Indwelling Catheter - Exam - Constitutional General appearance: average body habitus, disheveled - EENT Eyes: PERRLA Ears: bilateral: normal - Neck Carotids: bilateral: upstroke normal Thyroid: bilateral: normal size - Respiratory Respiratory: bilateral: diminished - Cardiovascular Rhythm: regular Heart sounds: normal: S1, S2 - Integumentary Integumentary: normal turgor - Neurologic Neurologic: CNII-XII intact - Musculoskeletal Musculoskeletal: gait normal, generalized weakness, strength equal bilaterally - Psychiatric Psychiatric: A&O x's 3, appropriate affect, intact judgment & insight - Labs CBC & Chem 7: 07/09/20 06:30 07/08/20 11:29 Labs: Abnormal Lab Results - Last 24 Hours (Table) 07/08/20 07/08/20 07/08/20 Range/Units 06:54 11:09 11:29 WBC (3.8-10.6) k/uL Hgb (11.4-16.0) gm/dL RDW (11.5-15.5) % Neutrophils # (1.3-7.7) k/uL Lymphocytes # (1.0-4.8) k/uL ESR 43 H (0-30) mm/Hr Sodium 133 L (137-145) mmol/L Potassium 5.3 H (3.5-5.1) mmol/L Chloride 96 L (98-107) mmol/L Carbon Dioxide 32 H (22-30) mmol/L BUN 51 H (7-17) mg/dL Glucose 104 H (74-99) mg/dL POC Glucose (mg/dL) 125 H (75-99) mg/dL Urine Appearance (Clear) Urine Protein (Negative) Urine Blood (Negative) Ur Leukocyte Esterase (Negative) Urine RBC (0-5) /hpf Urine WBC (0-5) /hpf Urine WBC Clumps (None) /hpf Urine Bacteria (None) /hpf Urine Mucus (None) /hpf Urine Yeast (Budding) (None) /hpf 07/08/20 07/08/20 07/08/20 Range/Units 17:14 17:30 20:15 WBC (3.8-10.6) k/uL Hgb (11.4-16.0) gm/dL RDW (11.5-15.5) % Neutrophils # (1.3-7.7) k/uL Lymphocytes # (1.0-4.8) k/uL ESR (0-30) mm/Hr Sodium (137-145) mmol/L Potassium (3.5-5.1) mmol/L Chloride (98-107) mmol/L Carbon Dioxide (22-30) mmol/L BUN (7-17) mg/dL Glucose (74-99) mg/dL POC Glucose (mg/dL) 228 H 283 H (75-99) mg/dL Urine Appearance Turbid H (Clear) Urine Protein 1+ H (Negative) Urine Blood Moderate H (Negative) Ur Leukocyte Esterase Large H (Negative) Urine RBC >182 H (0-5) /hpf Urine WBC >182 H (0-5) /hpf Urine WBC Clumps Many H (None) /hpf Urine Bacteria Many H (None) /hpf Urine Mucus Occasional H (None) /hpf Urine Yeast (Budding) Many H (None) /hpf 07/09/20 07/09/20 07/09/20 Range/Units 06:30 07:05 07:06 WBC 10.9 H (3.8-10.6) k/uL Hgb 11.3 L (11.4-16.0) gm/dL RDW 18.1 H (11.5-15.5) % Neutrophils # 9.8 H (1.3-7.7) k/uL Lymphocytes # 0.6 L (1.0-4.8) k/uL ESR (0-30) mm/Hr Sodium (137-145) mmol/L Potassium (3.5-5.1) mmol/L Chloride (98-107) mmol/L Carbon Dioxide (22-30) mmol/L BUN (7-17) mg/dL Glucose (74-99) mg/dL POC Glucose (mg/dL) 56 L 73 L (75-99) mg/dL Urine Appearance (Clear) Urine Protein (Negative) Urine Blood (Negative) Ur Leukocyte Esterase (Negative) Urine RBC (0-5) /hpf Urine WBC (0-5) /hpf Urine WBC Clumps (None) /hpf Urine Bacteria (None) /hpf Urine Mucus (None) /hpf Urine Yeast (Budding) (None) /hpf 07/09/20 07/09/20 07/09/20 Range/Units 09:36 09:50 10:08 WBC (3.8-10.6) k/uL Hgb (11.4-16.0) gm/dL RDW (11.5-15.5) % Neutrophils # (1.3-7.7) k/uL Lymphocytes # (1.0-4.8) k/uL ESR (0-30) mm/Hr Sodium (137-145) mmol/L Potassium (3.5-5.1) mmol/L Chloride (98-107) mmol/L Carbon Dioxide (22-30) mmol/L BUN (7-17) mg/dL Glucose (74-99) mg/dL POC Glucose (mg/dL) 55 L 58 L 69 L (75-99) mg/dL Urine Appearance (Clear) Urine Protein (Negative) Urine Blood (Negative) Ur Leukocyte Esterase (Negative) Urine RBC (0-5) /hpf Urine WBC (0-5) /hpf Urine WBC Clumps (None) /hpf Urine Bacteria (None) /hpf Urine Mucus (None) /hpf Urine Yeast (Budding) (None) /hpf 07/09/20 Range/Units 10:54 WBC (3.8-10.6) k/uL Hgb (11.4-16.0) gm/dL RDW (11.5-15.5) % Neutrophils # (1.3-7.7) k/uL Lymphocytes # (1.0-4.8) k/uL ESR (0-30) mm/Hr Sodium (137-145) mmol/L Potassium (3.5-5.1) mmol/L Chloride (98-107) mmol/L Carbon Dioxide (22-30) mmol/L BUN (7-17) mg/dL Glucose (74-99) mg/dL POC Glucose (mg/dL) 107 H (75-99) mg/dL Urine Appearance (Clear) Urine Protein (Negative) Urine Blood (Negative) Ur Leukocyte Esterase (Negative) Urine RBC (0-5) /hpf Urine WBC (0-5) /hpf Urine WBC Clumps (None) /hpf Urine Bacteria (None) /hpf Urine Mucus (None) /hpf Urine Yeast (Budding) (None) /hpf Microbiology - Last 24 Hours (Table) 07/08/20 17:30 Urine Culture - Preliminary Urine,Catheterized 07/03/20 14:40 Blood Culture - Preliminary Blood No Growth after 120 hours 07/03/20 14:25 Blood Culture - Preliminary Blood No Growth after 120 hours Assessment and Plan Assessment: Acute on chronic systolic heart failure with fluid overload Interstitial pneumonia due to cord 19 pneumonia Acute on chronic hypoxic respiratory failure Cardiomyopathy with ejection fraction of 40% Large multiple sacral decubitus ulcer Plan: Continue gentle diuresis Titrate oxygen down as tolerated Continue supplemental oxygen Deep breathing exercise incentive spirometry Oral Decadron 6 mg daily DVT prophylaxis with Lovenox Continue zinc, vitamin C, vitamin D Time with Patient: Greater than 30
[2020-07-09 12:04] LABS: Albumin 3.2 g/dL (3.80-4.90); Albumin/Globulin Ratio 1.45 (1.60-3.17); BUN/Creat Ratio 44.44 Ratio (12.00-20.00); Calcium 8.8 mg/dL (8.7-10.3); Globulin 2.2 g/dL (1.6-3.3); Non-African American GFR(CKD) 60.4 (60.0-200.0); Potassium 4.8 mmol/L (3.5-5.5); Total Bilirubin 0.3 mg/dL (0.2-1.2); Total Protein 5.4 g/dL (6.2-8.2)
--- NOTE | 2020-07-09 15:03 | P.PN ---
Subjective Progress Note Date: 07/09/20 HISTORY OF PRESENT ILLNESS This is an 79-year-old female admitted to the hospital and followed for sacral decubitus ulcer stage IV with wound VAC. Covid 19 testing was positive and she was already treated in mid June. Patient currently denies having any cough, no chest pain. No abdominal pain. Midline has been inserted during this hospitalization. Patient has a Leslie catheter in place. Patient has been afebrile, heart rate 72, blood pressure 151/71, pulse ox 92% on 5 L and high flow nasal cannula. PHYSICAL EXAMINATION Gen: This is an 79-year-old female. She continues to have significant weakness. HEENT: Head is atraumatic, normocephalic. Pupils equal, round. Sclerae is anicteric. NECK: Supple. No JVD. No lymphadenopathy. LUNGS: Clear to auscultation. No wheezes or rhonchi. No intercostal retractions. HEART: Regular rate and rhythm. No murmur. ABDOMEN: Soft. Bowel sounds are present. No masses. No tenderness. Left-sided colostomy. Leslie catheter in place. Wound VAC in place to sacral ulcer. EXTREMITIES: No pedal edema. No calf tenderness. NEUROLOGICAL: Patient is awake, alert and oriented x3. ASSESSMENT Stage IV sacral decubitus ulcer Possible pneumonia most likely due to fluid overload Clinically not behaving as Covid 19 pneumonia PLAN Continue IV Zosyn patient will be scheduled for 2 weeks of IV antibiotics at discharge Continue wound VAC Continue supportive care The above dictated assessment and findings were discussed with Dr. Pabon. The impression and plan of care have been directed as dictated. Felicita Valentine nurse practitioner acting as scribe for Dr. Pabon. Objective - Vital Signs Vital signs: Vital Signs Temp 97.9 F 07/09/20 11:00 Pulse 71 07/09/20 11:00 Resp 22 07/09/20 11:00 BP 151/71 07/09/20 11:00 Pulse Ox 92 L 07/09/20 11:00 Intake & Output 07/08/20 07/09/20 07/09/20 18:59 06:59 18:59 Output Total 1900 400 Balance -1900 -400 Weight 63.5 kg 67 kg Output: Urine 1200 Uretheral (Leslie) 600 Stool 700 400 Other: Voiding Method Indwelling Catheter - Labs CBC & Chem 7: 07/09/20 06:30 07/09/20 06:30 Labs: Abnormal Lab Results - Last 24 Hours (Table) 07/08/20 07/08/20 07/08/20 Range/Units 06:54 17:14 17:30 WBC (3.8-10.6) k/uL Hgb (11.4-16.0) gm/dL RDW (11.5-15.5) % Neutrophils # (1.3-7.7) k/uL Lymphocytes # (1.0-4.8) k/uL ESR 43 H (0-30) mm/Hr BUN (9.0-27.0) mg/dL BUN/Creatinine Ratio (12.00-20.00) Ratio Glucose (70-110) mg/dL POC Glucose (mg/dL) 228 H (75-99) mg/dL AST (13-35) U/L ALT (8-44) U/L Alkaline Phosphatase (41-126) U/L Total Protein (6.2-8.2) g/dL Albumin (3.80-4.90) g/dL Albumin/Globulin Ratio (1.60-3.17) g/dL Urine Appearance Turbid H (Clear) Urine Protein 1+ H (Negative) Urine Blood Moderate H (Negative) Ur Leukocyte Esterase Large H (Negative) Urine RBC >182 H (0-5) /hpf Urine WBC >182 H (0-5) /hpf Urine WBC Clumps Many H (None) /hpf Urine Bacteria Many H (None) /hpf Urine Mucus Occasional H (None) /hpf Urine Yeast (Budding) Many H (None) /hpf 07/08/20 07/09/20 07/09/20 Range/Units 20:15 06:30 06:30 WBC 10.9 H (3.8-10.6) k/uL Hgb 11.3 L (11.4-16.0) gm/dL RDW 18.1 H (11.5-15.5) % Neutrophils # 9.8 H (1.3-7.7) k/uL Lymphocytes # 0.6 L (1.0-4.8) k/uL ESR (0-30) mm/Hr BUN 40.0 H (9.0-27.0) mg/dL BUN/Creatinine Ratio 44.44 H (12.00-20.00) Ratio Glucose 46 L* (70-110) mg/dL POC Glucose (mg/dL) 283 H (75-99) mg/dL AST 51 H (13-35) U/L ALT 66 H (8-44) U/L Alkaline Phosphatase 443 H (41-126) U/L Total Protein 5.4 L (6.2-8.2) g/dL Albumin 3.20 L (3.80-4.90) g/dL Albumin/Globulin Ratio 1.45 L (1.60-3.17) g/dL Urine Appearance (Clear) Urine Protein (Negative) Urine Blood (Negative) Ur Leukocyte Esterase (Negative) Urine RBC (0-5) /hpf Urine WBC (0-5) /hpf Urine WBC Clumps (None) /hpf Urine Bacteria (None) /hpf Urine Mucus (None) /hpf Urine Yeast (Budding) (None) /hpf 07/09/20 07/09/20 07/09/20 Range/Units 07:05 07:06 09:36 WBC (3.8-10.6) k/uL Hgb (11.4-16.0) gm/dL RDW (11.5-15.5) % Neutrophils # (1.3-7.7) k/uL Lymphocytes # (1.0-4.8) k/uL ESR (0-30) mm/Hr BUN (9.0-27.0) mg/dL BUN/Creatinine Ratio (12.00-20.00) Ratio Glucose (70-110) mg/dL POC Glucose (mg/dL) 56 L 73 L 55 L (75-99) mg/dL AST (13-35) U/L ALT (8-44) U/L Alkaline Phosphatase (41-126) U/L Total Protein (6.2-8.2) g/dL Albumin (3.80-4.90) g/dL Albumin/Globulin Ratio (1.60-3.17) g/dL Urine Appearance (Clear) Urine Protein (Negative) Urine Blood (Negative) Ur Leukocyte Esterase (Negative) Urine RBC (0-5) /hpf Urine WBC (0-5) /hpf Urine WBC Clumps (None) /hpf Urine Bacteria (None) /hpf Urine Mucus (None) /hpf Urine Yeast (Budding) (None) /hpf 07/09/20 07/09/20 07/09/20 Range/Units 09:50 10:08 10:54 WBC (3.8-10.6) k/uL Hgb (11.4-16.0) gm/dL RDW (11.5-15.5) % Neutrophils # (1.3-7.7) k/uL Lymphocytes # (1.0-4.8) k/uL ESR (0-30) mm/Hr BUN (9.0-27.0) mg/dL BUN/Creatinine Ratio (12.00-20.00) Ratio Glucose (70-110) mg/dL POC Glucose (mg/dL) 58 L 69 L 107 H (75-99) mg/dL AST (13-35) U/L ALT (8-44) U/L Alkaline Phosphatase (41-126) U/L Total Protein (6.2-8.2) g/dL Albumin (3.80-4.90) g/dL Albumin/Globulin Ratio (1.60-3.17) g/dL Urine Appearance (Clear) Urine Protein (Negative) Urine Blood (Negative) Ur Leukocyte Esterase (Negative) Urine RBC (0-5) /hpf Urine WBC (0-5) /hpf Urine WBC Clumps (None) /hpf Urine Bacteria (None) /hpf Urine Mucus (None) /hpf Urine Yeast (Budding) (None) /hpf Microbiology - Last 24 Hours (Table) 07/08/20 17:30 Urine Culture - Preliminary Urine,Catheterized 07/03/20 14:40 Blood Culture - Preliminary Blood No Growth after 120 hours 07/03/20 14:25 Blood Culture - Preliminary Blood No Growth after 120 hours
[2020-07-09 17:20] LABS: Glucose,Whole Blood 304 mg/dL (75-99)
[2020-07-09] MEDS: COLLAGENASE 250 UNIT/GM OINTMENT 30 GM TUBE TOPICAL SCH ×2 (20:01→21:45)
[2020-07-09] MEDS: LEVOTHYROXINE 137 MCG TAB PO SCH (20:52)
[2020-07-09 21:04] LABS: Glucose,Whole Blood 291 mg/dL (75-99)
[2020-07-09] MEDS: METOPROLOL TARTRATE 25 MG TAB PO SCH (21:06)
[2020-07-09] MEDS: INSULIN DETEMIR (LEVEMIR) 100 UNIT/ML SYR SQ SCH (21:34)
[2020-07-10] MEDS: PIPERACILLIN-TAZOBACTAM 3.375 GM in SODIUM CHLORIDE 0.9% 100 ML IVPB SCH ×3 (05:21→21:18)
[2020-07-10 05:49] LABS: Glucose,Whole Blood 92 mg/dL (75-99)
[2020-07-10 07:19] LABS: Glucose,Whole Blood 118 mg/dL (75-99)
[2020-07-10] MEDS: ALBUTEROL HFA INHALER INHALATION PRN ×2 (08:05→12:43)
[2020-07-10] MEDS: HYDROcodone/APAP 5-325MG 1 EACH TAB PO SCH ×2 (08:52→21:17)
[2020-07-10 09:01] LABS: African American GFR (CKD) 83 (>60 ml/min/1.73 sqM); Anion Gap 4 mmol/L; Blood Urea Nitrogen 37 mg/dL (7-17); Calcium 8.4 mg/dL (8.4-10.2); Carbon Dioxide 33 mmol/L (22-30); Chloride 96 mmol/L (98-107); Glucose 103 mg/dL (74-99); Non-African American GFR(CKD) 72 (>60 ml/min/1.73 sqM); Sodium 133 mmol/L (137-145)
[2020-07-10] MEDS: INSULIN ASPART (NovoLOG) 100 UNIT/ML VIAL SQ SCH ×7 (09:24→21:17)
[2020-07-10] MEDS: CHOLECALCIFEROL 1,000 UNIT TAB PO SCH (09:26)
[2020-07-10] MEDS: ENOXAPARIN 30 MG/0.3 ML SYRINGE SQ SCH (09:26)
[2020-07-10] MEDS: SODIUM BICARBONATE TAB 650 MG TAB PO SCH ×2 (09:27→21:32)
[2020-07-10] MEDS: POTASSIUM CHLORIDE ER 20 MEQ TAB.ER PO SCH (09:27)
[2020-07-10] MEDS: METOPROLOL TARTRATE 25 MG TAB PO SCH ×4 (09:27→22:53)
[2020-07-10] MEDS: FERROUS SULFATE 325 MG TAB PO SCH (09:27)
[2020-07-10] MEDS: dexAMETHasone 2 MG TAB PO SCH (09:27)
[2020-07-10] MEDS: FUROSEMIDE 40 MG TAB PO SCH (09:28)
[2020-07-10] MEDS: ISOSORBIDE MONONITRATE ER 60 MG TAB.ER.24H PO SCH (09:28)
[2020-07-10] MEDS: ZINC OXIDE 20% OINT 28.4 GM TUBE TOPICAL SCH ×2 (09:38→19:11)
[2020-07-10] MEDS: FLUoxetine HCL 10 MG CAP PO SCH (10:16)
[2020-07-10 11:45] LABS: Glucose,Whole Blood 155 mg/dL (75-99)
[2020-07-10] MEDS: BISMUTH SUBSALICYLATE 4,192 MG/240 ML BOTTLE PO SCH ×2 (12:28→21:21)
--- NOTE | 2020-07-10 12:28 | PN ---
PROGRESS NOTE DATE OF SERVICE: 07/09/2020 79-year-old white female admitted with sacral decubitus ulcer, stage IV with wound VAC She tested positive for COVID. She is still on 4 L oxygen, normally she takes only 2 L oxygen, only at night. She came in with weakness, extreme fatigue, cough, shortness of breath. Leslie catheter in place. Blood pressure 150s over 70s, heart rate 70s, O2 is 92 on 5 L high nasal airflow. 79- year-old white female, continuous significant weakness. Head normocephalic, atraumatic. Neck is supple, no mass. Lungs are scattered rhonchi, but mostly clear. Heart regular rate and rhythm. Abdomen is soft, nontender. No mass. Leslie catheter in place. Extremities 2+ edema. Neurologic alert and oriented x3. Weeping in the arms are much decreased. ASSESSMENT: 1. Stage IV sacral decubitus ulcer. 2. Possible pneumonia due to fluid overload. 3. COVID-19 pneumonia. 4. Possibly secondary to infection. IV Zosyn was scheduled for two weeks of antibiotics on discharge for wound VAC infection sacral ileitis and possible COVID pneumonia. Current treatment for COVID pneumonia will be continued. MMODL / IJN: [id number] /
[2020-07-10 17:04] LABS: Glucose,Whole Blood 222 mg/dL (75-99)
--- NOTE | 2020-07-10 18:37 | PN ---
PROGRESS NOTE DATE OF SERVICE: 07/10/2020 REASON FOR FOLLOWUP: 1. Stage IV sacral pressure ulcer. 2. Possible pneumonia. INTERVAL HISTORY: The patient is currently afebrile. The patient is breathing comfortably. Denies having any chest pain or shortness of breath. No cough. No abdominal pain or any worsening pain to the sacral wound area. PHYSICAL EXAMINATION: Blood pressure 121/61 with a pulse of 76, temperature 97.8. She is 98% on 4 L nasal cannula. General description is an elderly female lying in bed in no distress. RESPIRATORY SYSTEM: Unlabored breathing. Clear to auscultation anteriorly. HEART: S1, S2. Regular rate and rhythm. ABDOMEN: Soft. No tenderness. LABS: BUN of 37, creatinine 0.78. DIAGNOSTIC IMPRESSION AND PLAN: 1. Patient admitted to hospital with shortness of breath which is more likely related to congestive heart failure, fluid overload. Clinically not behaving as pneumonia. Being managed by Cardiology. 2. Patient with sacral pressure ulcer, infected. Currently covered with Zosyn. Local care to continue with wound V.A.C. and monitor clinical course closely. MMODL / IJN: [id number] /
[2020-07-10] MEDS: HYDROcodone/APAP 5-325MG 1 EACH TAB PO PRN (19:07)
[2020-07-10] MEDS: COLLAGENASE 250 UNIT/GM OINTMENT 30 GM TUBE TOPICAL SCH (20:14)
[2020-07-10 20:33] LABS: Glucose,Whole Blood 269 mg/dL (75-99)
[2020-07-10] MEDS: INSULIN DETEMIR (LEVEMIR) 100 UNIT/ML SYR SQ SCH (21:18)
[2020-07-10] MEDS: LEVOTHYROXINE 137 MCG TAB PO SCH (21:50)
--- NOTE | 2020-07-10 23:18 | PN ---
PROGRESS NOTE [id number] white female with COVID pneumonia, congestive heart failure. IV Zosyn for sacroiliitis. Wound V.A.C. placement. Possible discharge to senior care for the next 2 weeks of IV. Planning and waiting for discharge planning. CARDIOVASCULAR: S1, S2. LUNGS: Scattered rhonchi. HEMATOLOGY: Negative Jassi's. PSYCHIATRY: Fair mood and affect. ASSESSMENT: 1. Stage IV sacral pressure ulcer. 2. Possible pneumonia, COVID-19. 3. Congestive heart failure. 4. Fluid overload. Wait for a discharge plan to send her to the senior care. Continue wound V.A.C. Prognosis guarded. MMODL / IJN: [id number] /
[2020-07-11 04:36] LABS: Glucose,Whole Blood 51 mg/dL (75-99)
[2020-07-11 05:05] LABS: Glucose,Whole Blood 86 mg/dL (75-99)
[2020-07-11 05:55] LABS: Glucose,Whole Blood 97 mg/dL (75-99)
[2020-07-11] MEDS ORDERED: FUROSEMIDE 10 MG/ML 4 ML VIAL IV STA (06:05)
[2020-07-11 06:13] LABS: Anisocytosis Slight; Basophils % (A) 0 %; Eosinophils # (A) 0.1 k/uL (0-0.7); Eosinophils % (A) 1 %; HCT 33.6 % (34.0-46.0); HGB 10.7 gm/dL (11.4-16.0); Hypochromasia Slight; Lymphocytes # (A) 0.9 k/uL (1.0-4.8); Lymphocytes % (A) 9 %; MCH 28.1 pg (25.0-35.0); MCHC 31.8 g/dL (31.0-37.0); MCV 88.4 fL (80.0-100.0); Mean Platelet Volume 8.2; Monocytes # (A) 0.3 k/uL (0-1.0); Monocytes % (A) 3 %; Neutrophils # (A) 8.5 k/uL (1.3-7.7); Neutrophils % (A) 86 %; Platelet Count 363 k/uL (150-450); RBC 3.81 m/uL (3.80-5.40); RDW 18.5 % (11.5-15.5)
[2020-07-11] MEDS: ALBUTEROL HFA INHALER INHALATION PRN ×4 (07:20→20:29)
[2020-07-11 07:35] LABS: Glucose,Whole Blood 71 mg/dL (75-99)
[2020-07-11 08:04] LABS: Glucose,Whole Blood 93 mg/dL (75-99)
[2020-07-11] MEDS: INSULIN ASPART (NovoLOG) 100 UNIT/ML VIAL SQ SCH ×5 (08:29→21:03)
[2020-07-11] MEDS: HYDROcodone/APAP 5-325MG 1 EACH TAB PO SCH ×2 (08:30→21:02)
[2020-07-11] MEDS: dexAMETHasone 2 MG TAB PO SCH (08:47)
[2020-07-11] MEDS: CHOLECALCIFEROL 1,000 UNIT TAB PO SCH (08:47)
[2020-07-11] MEDS: ENOXAPARIN 40 MG/0.4 ML SYRINGE SQ SCH (08:47)
[2020-07-11] MEDS: POTASSIUM CHLORIDE ER 20 MEQ TAB.ER PO SCH (08:48)
[2020-07-11] MEDS: ISOSORBIDE MONONITRATE ER 60 MG TAB.ER.24H PO SCH (08:48)
[2020-07-11] MEDS: FLUoxetine HCL 10 MG CAP PO SCH (08:48)
[2020-07-11] MEDS: FERROUS SULFATE 325 MG TAB PO SCH (08:48)
[2020-07-11] MEDS: SODIUM BICARBONATE TAB 650 MG TAB PO SCH ×2 (08:48→21:02)
[2020-07-11] MEDS: FUROSEMIDE 40 MG TAB PO SCH (08:48)
[2020-07-11] MEDS: METOPROLOL TARTRATE 25 MG TAB PO SCH ×2 (08:48→21:02)
--- NOTE | 2020-07-11 09:05 | P.PN ---
Subjective Progress Note Date: 07/11/20 Principal diagnosis: Interstitial pneumonia due to cord 19 pneumonia however additional healthcare associated pneumonia cannot be excluded Acute on chronic hypoxic respiratory failure Acute on chronic systolic heart failure with fluid overload Cardiomyopathy with ejection fraction of 40% Large multiple sacral decubitus ulcer 07/11/2020, patient seen eval examined during the rounds labs reviewed medications reviewed, respiratory status remains stable, and is on 3 L nasal cannula breathing comfortably, denies any chest pain, patient is being treated with broad-spectrum IV antibiotics with sacral decubitus ulcer, along with wound VAC 07/09/2020, patient seen eval examined on FiO2 has been decreased to 2 L now and sats are in mid 90s, patient sugar was low slow in making up, has been given back first, denies any chest pain, patient continued to have warned back on July 08 2020, patient seen eval examined overall denies any chest pain breathing comfortably, remains on 5 L oxygen, blood cultures 2 have been negative, patient has a wound VAC, creatinine improved to .89, 07/07/2020, patient seen eval examined during the rounds labs reviewed medications reviewed care plan discussed, remains on 5 L breathing comfortably sitting upright on the bed, no obvious distress present, would continue titrated oxygen down as tolerated 07/06/2020, patient seen eval examined during the rounds labs reviewed medications reviewed care plan discussed, respiratory status remains stable, on 5 L oxygen denies any chest pain, oxygen is being tapered down gradually, patient now has a wound VAC considered not to be a candidate for wound debridement 07/05/2020, patient seen eval examined shortness of breath stable on 6 L oxygen, chest x-ray performed today revealed cardiomegaly diffuse interstitial and airspace disease, pulmonary edema and fluid overload, patient has been evaluated by surgical services no plans for wound debridement however wound VAC orders have been placed, due to covid 19th and requirement for 6 L oxygen patient is not considered a candidate for anesthesia, and continue usual therapy for core 19 pneumonia and gentle diuresis This is a 79-year-old female who was seen evaluated examined, patient is a resident of [facility], patient came into the hospital with progressive increased shortness of breath hypoxia, her significant history is for cervical cancer, diabetes, patient has recent coronavirus infection, symptoms however started 1 day prior to coming into the hospital, it appears that, the ago patient was admitted for cold with pneumonia, patient has significant cardiomyopathy with ejection fraction of 40% based on last echo performed June 2020, patient is on 3 L oxygen, chest x-ray continue show bilateral infiltrate, she'll also have chronic sacral decubitus ulcer status post the [facility] in the past, patient is being considered for divergent colostomy and general surgery has been consulted, and he she is being treated with IV Zosyn along with continuation are more medications Objective - Vital Signs Vital signs: Vital Signs Temp 97.3 F L 07/11/20 04:30 Pulse 67 07/11/20 04:30 Resp 22 07/11/20 04:30 BP 143/78 07/11/20 04:30 Pulse Ox 97 07/11/20 04:30 Intake & Output 07/10/20 07/11/20 07/11/20 18:59 06:59 18:59 Output Total 2600 600 600 Balance -2600 -600 -600 Weight 72.5 kg Output: Urine 2200 600 600 Uretheral (Leslie) 600 600 Stool 400 Other: Voiding Method Indwelling Catheter Indwelling Catheter - Exam - Constitutional General appearance: average body habitus, disheveled - EENT Eyes: PERRLA Ears: bilateral: normal - Neck Carotids: bilateral: upstroke normal Thyroid: bilateral: normal size - Respiratory Respiratory: bilateral: diminished - Cardiovascular Rhythm: regular Heart sounds: normal: S1, S2 - Integumentary Integumentary: normal turgor - Neurologic Neurologic: CNII-XII intact - Musculoskeletal Musculoskeletal: gait normal, generalized weakness, strength equal bilaterally - Psychiatric Psychiatric: A&O x's 3, appropriate affect, intact judgment & insight - Labs CBC & Chem 7: 07/11/20 04:48 07/10/20 06:54 Labs: Abnormal Lab Results - Last 24 Hours (Table) 07/10/20 07/10/20 07/10/20 Range/Units 11:44 17:03 20:30 Hgb (11.4-16.0) gm/dL Hct (34.0-46.0) % RDW (11.5-15.5) % Neutrophils # (1.3-7.7) k/uL Lymphocytes # (1.0-4.8) k/uL POC Glucose (mg/dL) 155 H 222 H 269 H (75-99) mg/dL 07/11/20 07/11/20 07/11/20 Range/Units 04:25 04:48 07:33 Hgb 10.7 L (11.4-16.0) gm/dL Hct 33.6 L (34.0-46.0) % RDW 18.5 H (11.5-15.5) % Neutrophils # 8.5 H (1.3-7.7) k/uL Lymphocytes # 0.9 L (1.0-4.8) k/uL POC Glucose (mg/dL) 51 L 71 L (75-99) mg/dL Assessment and Plan Assessment: Acute on chronic systolic heart failure with fluid overload Interstitial pneumonia due to covid 19 pneumonia Acute on chronic hypoxic respiratory failure Cardiomyopathy with ejection fraction of 40% Large multiple sacral decubitus ulcer Plan: Continue gentle diuresis Titrate oxygen down as tolerated Continue supplemental oxygen Deep breathing exercise incentive spirometry Oral Decadron 6 mg daily DVT prophylaxis with Lovenox Continue zinc, vitamin C, vitamin D Time with Patient: Greater than 30
[2020-07-11] MEDS: ZINC OXIDE 20% OINT 28.4 GM TUBE TOPICAL SCH ×2 (09:48→16:53)
[2020-07-11] MEDS: BISMUTH SUBSALICYLATE 4,192 MG/240 ML BOTTLE PO SCH ×2 (09:48→21:05)
[2020-07-11 10:42] LABS: African American GFR (CKD) 61.6 (60.0-200.0); Albumin/Globulin Ratio 1.43 (1.60-3.17); Anion Gap 8.8 mmol/L (4.00-12.00); Calcium 8.4 mg/dL (8.7-10.3); Carbon Dioxide 30.2 mmol/L (21.6-31.8); Globulin 2.1 g/dL (1.6-3.3); Non-African American GFR(CKD) 53.2 (60.0-200.0); Potassium 4.5 mmol/L (3.5-5.5); Total Bilirubin 0.3 mg/dL (0.2-1.2); Total Protein 5.1 g/dL (6.2-8.2)
--- NOTE | 2020-07-11 10:53 | XR ---
EXAMINATION TYPE: XR chest 1V portable DATE OF EXAM: 07/11/2020 COMPARISON: 07/08/2020 HISTORY: Shortness of breath TECHNIQUE: Single frontal view of the chest is obtained. FINDINGS: Mediport seen there is diffuse bilateral interstitial and mixed alveolar infiltrate with p leural effusion. Heart enlarged. Diffuse osteopenia. Arthropathy of the shoulders. IMPRESSION: 1. Diffuse pleural-parenchymal disease correlate for diffuse pneumonia versus pulmonary edema. Findin gs stable.
[2020-07-11 11:40] LABS: Glucose,Whole Blood 113 mg/dL (75-99)
--- NOTE | 2020-07-11 12:22 | PN ---
PROGRESS NOTE I was called this morning on this patient for increased somnolence and some shortness of breath. I suspect this is due to low blood sugars as she has had low blood sugar. She says this causes from this. She has had this before. She says her breathing is a bit better than yesterday actually. Temperature is 97, pulse is 60s to 50s, respiratory rate 18-22. She is sating 97 on 3 L, which is good for her. Blood pressure 120s to 140s over 70s. Cardiovascular S1-S2. Lungs: Scattered rhonchi and wheeze. Minimal. Hematology: 2+ edema. GI soft. ASSESSMENT: 1. Recent Covid 19. 2. Hypoglycemia. 3. Sacroiliitis. 4. Chronic ileostomy. We will cut back on her Levemir from 20 down to 10 and give her urgent Accu-Chek protocol at this point. MMODL / IJN: [id number] /
[2020-07-11] MEDS ORDERED: FUROSEMIDE 10 MG/ML 2 ML VIAL IV STA (16:19)
[2020-07-11 17:04] LABS: Glucose,Whole Blood 278 mg/dL (75-99)
[2020-07-11] MEDS: COLLAGENASE 250 UNIT/GM OINTMENT 30 GM TUBE TOPICAL SCH (20:16)
[2020-07-11 20:44] LABS: Glucose,Whole Blood 305 mg/dL (75-99)
[2020-07-11] MEDS: LEVOTHYROXINE 137 MCG TAB PO SCH (21:55)
[2020-07-11] MEDS: PIPERACILLIN-TAZOBACTAM 3.375 GM in SODIUM CHLORIDE 0.9% 100 ML IVPB SCH (22:22)
--- NOTE | 2020-07-11 22:25 | PN ---
PROGRESS NOTE DATE OF SERVICE: 07/11/2020 REASON FOR FOLLOWUP: 1. Sacral pressure ulcer. 2. Question of pneumonia. INTERVAL HISTORY: The patient is currently afebrile. The patient is breathing comfortably. The patient denies having any chest pain or cough. No abdominal pain or pain to the sacral wound area. PHYSICAL EXAMINATION: Blood pressure 130/70 with a pulse of 65, temperature 98.3. She is 97% on 3 L nasal cannula. General description is an elderly female lying in bed in no distress. RESPIRATORY SYSTEM: Unlabored breathing with decreased breath sounds at the base. No wheeze. HEART: S1, S2. Regular rate and rhythm. ABDOMEN: Soft. No tenderness. LABS: No new labs have been obtained today. DIAGNOSTIC IMPRESSION AND PLAN: 1. Patient with a stage IV sacral pressure ulcer with concern for secondary cellulitis. Patient to continue local wound care with wound V.A.C. and continue Zosyn. 2. Shortness of breath, more likely related to her fluid overload. Clinically not behaving as pneumonia. Being managed by Cardiology. Continue supportive care. MMODL / IJN: [id number] /
[2020-07-12] MEDS: PIPERACILLIN-TAZOBACTAM 3.375 GM in SODIUM CHLORIDE 0.9% 100 ML IVPB SCH ×3 (05:34→22:46)
[2020-07-12 07:33] LABS: Glucose,Whole Blood 172 mg/dL (75-99)
[2020-07-12] MEDS ORDERED: FUROSEMIDE 40 MG TAB PO SCH (09:00)
--- NOTE | 2020-07-12 09:10 | P.PN ---
Subjective Progress Note Date: 07/12/20 Principal diagnosis: Shortness of breath This is a very pleasant 7-year-old female patient with a past medical history significant for cardiomyopathy with EF of around 40% based on echocardiogram in June as well as chronic kidney disease as well as multiple comorbid conditio ns was admitted to the hospital initially with shortness of breath which was increasing and she was diagnosed with with COVID-19. Subsequently the patient was seen and we signed off on her. She requested to see the patient again for shortness of breath. The patient was seen this morning. She stated that she still short of breath but the shortness of breath has improved slightly. No symptoms of chest pain or chest discomfort. Hemodynamically she is stable. Currently she is on Lasix by mouth. I did review the chest x-ray which showed what it seems to be bilateral pneumonia with a component of heart failure. I am going to DC the Lasix by mouth and start the patient on Lasix IV. I am going to continue monitor the kidney function and electrolytes and continue following up with the patient. Objective - Vital Signs Vital signs: Vital Signs Temp 98.2 F 07/12/20 04:15 Pulse 63 07/12/20 04:15 Resp 14 07/12/20 04:15 BP 132/50 07/12/20 04:15 Pulse Ox 96 07/12/20 04:15 Intake & Output 07/11/20 07/12/20 07/12/20 18:59 06:59 18:59 Intake Total 240 200 Output Total 3700 900 Balance -3460 -700 Weight 69.5 kg Intake: Intake, IV Titration 200 Amount Piperacillin-Tazobactam 3 200 .375 gm In Sodium Chloride 0.9% 100 ml @ 25 mls/hr IVPB Q8H [facility] Rx#: [id number] Oral 240 Output: Urine 3300 900 Uretheral (Leslie) 600 Stool 400 Other: Voiding Method Indwelling Catheter Indwelling Catheter # Bowel Movements 0 - Constitutional General appearance: Present: no acute distress - Respiratory Respiratory: bilateral: rales - Cardiovascular Rhythm: regular Heart sounds: normal: S1, S2 Abnormal Heart Sounds: Present: systolic murmur - Labs CBC & Chem 7: 07/11/20 04:48 07/11/20 04:48 Labs: Abnormal Lab Results - Last 24 Hours (Table) 07/11/20 07/11/20 07/11/20 Range/Units 04:48 11:38 17:02 BUN 34.0 H (9.0-27.0) mg/dL Est GFR (CKD-EPI)NonAf 53.2 L (60.0-200.0) BUN/Creatinine Ratio 34.00 H (12.00-20.00) Ratio Glucose 62 L (70-110) mg/dL POC Glucose (mg/dL) 113 H 278 H (75-99) mg/dL Calcium 8.4 L (8.7-10.3) mg/dL AST 53 H (13-35) U/L ALT 80 H (8-44) U/L Alkaline Phosphatase 425 H (41-126) U/L Total Protein 5.1 L (6.2-8.2) g/dL Albumin 3.00 L (3.80-4.90) g/dL Albumin/Globulin Ratio 1.43 L (1.60-3.17) g/dL 07/11/20 07/12/20 Range/Units 20:38 07:29 BUN (9.0-27.0) mg/dL Est GFR (CKD-EPI)NonAf (60.0-200.0) BUN/Creatinine Ratio (12.00-20.00) Ratio Glucose (70-110) mg/dL POC Glucose (mg/dL) 305 H 172 H (75-99) mg/dL Calcium (8.7-10.3) mg/dL AST (13-35) U/L ALT (8-44) U/L Alkaline Phosphatase (41-126) U/L Total Protein (6.2-8.2) g/dL Albumin (3.80-4.90) g/dL Albumin/Globulin Ratio (1.60-3.17) g/dL Microbiology - Last 24 Hours (Table) 07/11/20 13:00 Urine Culture - Preliminary Urine,Catheterized Assessment and Plan Assessment: Assessment #1 bilateral pneumonia #2 heart failure exacerbation secondary to systolic dysfunction #3 cardiomyopathy with EF around 40% #4 chronic kidney disease Plan DC Lasix by mouth and start the patient on Lasix IV Continue monitor the kidney function and electrolytes Follow-up with the patient
[2020-07-12] MEDS: ENOXAPARIN 40 MG/0.4 ML SYRINGE SQ SCH (09:23)
[2020-07-12] MEDS: INSULIN ASPART (NovoLOG) 100 UNIT/ML VIAL SQ SCH ×4 (09:23→21:32)
[2020-07-12] MEDS: SODIUM BICARBONATE TAB 650 MG TAB PO SCH ×2 (09:24→21:30)
[2020-07-12] MEDS: dexAMETHasone 2 MG TAB PO SCH (09:24)
[2020-07-12] MEDS: POTASSIUM CHLORIDE ER 20 MEQ TAB.ER PO SCH (09:25)
[2020-07-12] MEDS: ISOSORBIDE MONONITRATE ER 60 MG TAB.ER.24H PO SCH (09:25)
[2020-07-12] MEDS: CHOLECALCIFEROL 1,000 UNIT TAB PO SCH (09:25)
[2020-07-12] MEDS: FERROUS SULFATE 325 MG TAB PO SCH (09:25)
[2020-07-12] MEDS: FLUoxetine HCL 10 MG CAP PO SCH (09:25)
[2020-07-12] MEDS: METOPROLOL TARTRATE 25 MG TAB PO SCH ×2 (09:25→21:30)
[2020-07-12] MEDS: HYDROcodone/APAP 5-325MG 1 EACH TAB PO SCH ×2 (09:27→21:31)
[2020-07-12] MEDS: BISMUTH SUBSALICYLATE 4,192 MG/240 ML BOTTLE PO SCH ×2 (09:34→21:33)
[2020-07-12] MEDS: ZINC OXIDE 20% OINT 28.4 GM TUBE TOPICAL SCH ×2 (09:35→21:34)
--- NOTE | 2020-07-12 11:31 | P.PN ---
Subjective Progress Note Date: 07/12/20 Principal diagnosis: Interstitial pneumonia due to cord 19 pneumonia however additional healthcare associated pneumonia cannot be excluded Acute on chronic hypoxic respiratory failure Acute on chronic systolic heart failure with fluid overload Cardiomyopathy with ejection fraction of 40% Large multiple sacral decubitus ulcer 07/12/2020, patient remains on 3 L oxygen, breathing comfortably, continue to have wound VAC on broad-spectrum antibiotics ID service following, agree with plans to transfer to [facility] cleared, 07/11/2020, patient seen eval examined during the rounds labs reviewed medications reviewed, respiratory status remains stable, and is on 3 L nasal can nula breathing comfortably, denies any chest pain, patient is being treated with broad-spectrum IV antibiotics with sacral decubitus ulcer, along with wound VAC 07/09/2020, patient seen eval examined on FiO2 has been decreased to 2 L now and sats are in mid 90s, patient sugar was low slow in making up, has been given back first, denies any chest pain, patient continued to have warned back on July 08 2020, patient seen eval examined overall denies any chest pain breathing comfortably, remains on 5 L oxygen, blood cultures 2 have been negative, patient has a wound VAC, creatinine improved to .89, 07/07/2020, patient seen eval examined during the rounds labs reviewed medications reviewed care plan discussed, remains on 5 L breathing comfortably sitting upright on the bed, no obvious distress present, would continue titrated oxygen down as tolerated 07/06/2020, patient seen eval examined during the rounds labs reviewed medications reviewed care plan discussed, respiratory status remains stable, on 5 L oxygen denies any chest pain, oxygen is being tapered down gradually, patient now has a wound VAC considered not to be a candidate for wound debridement 07/05/2020, patient seen eval examined shortness of breath stable on 6 L oxygen, chest x-ray performed today revealed cardiomegaly diffuse interstitial and airspace disease, pulmonary edema and fluid overload, patient has been evaluated by surgical services no plans for wound debridement however wound VAC orders have been placed, due to covid and requirement for 6 L oxygen patient is not considered a candidate for anesthesia, and continue usual therapy for core 19 pneumonia and gentle diuresis This is a 79-year-old female who was seen evaluated examined, patient is a resident of [email or web address] patient came into the hospital with progressive increased shortness of breath hypoxia, her significant history is for cervical cancer, diabetes, patient has recent coronavirus infection, symptoms however started 1 day prior to coming into the hospital, it appears that, the ago patient was admitted for cold with pneumonia, patient has significant cardiomyopathy with ejection fraction of 40% based on last echo performed June 2020, patient is on 3 L oxygen, chest x-ray continue show bilateral infiltrate, she'll also have chronic sacral decubitus ulcer status post the Brightman in the past, patient is being considered for divergent colostomy and general surgery has been consulted, and he she is being treated with IV Zosyn along with continuation are more medications Objective - Vital Signs Vital signs: Vital Signs Temp 98.2 F 07/12/20 04:15 Pulse 63 07/12/20 04:15 Resp 14 07/12/20 04:15 BP 132/50 07/12/20 04:15 Pulse Ox 96 07/12/20 04:15 Intake & Output 07/11/20 07/12/20 07/12/20 18:59 06:59 18:59 Intake Total 240 200 Output Total 3700 900 300 Balance -3460 -700 -300 Weight 69.5 kg Intake: Intake, IV Titration 200 Amount Piperacillin-Tazobactam 3 200 .375 gm In Sodium Chloride 0.9% 100 ml @ 25 mls/hr IVPB Q8H [facility] Rx#: [id number] Oral 240 Output: Urine 3300 900 Uretheral (Leslie) 600 Stool 400 300 Other: Voiding Method Indwelling Catheter Indwelling Catheter Indwelling Catheter # Bowel Movements 0 - Exam - Constitutional General appearance: average body habitus, disheveled - EENT Eyes: PERRLA Ears: bilateral: normal - Neck Carotids: bilateral: upstroke normal Thyroid: bilateral: normal size - Respiratory Respiratory: bilateral: diminished - Cardiovascular Rhythm: regular Heart sounds: normal: S1, S2 - Integumentary Integumentary: normal turgor - Neurologic Neurologic: CNII-XII intact - Musculoskeletal Musculoskeletal: gait normal, generalized weakness, strength equal bilaterally - Psychiatric Psychiatric: A&O x's 3, appropriate affect, intact judgment & insight - Labs CBC & Chem 7: 07/11/20 04:48 07/11/20 04:48 Labs: Abnormal Lab Results - Last 24 Hours (Table) 07/11/20 07/11/20 07/11/20 Range/Units 11:38 17:02 20:38 POC Glucose (mg/dL) 113 H 278 H 305 H (75-99) mg/dL 07/12/20 Range/Units 07:29 POC Glucose (mg/dL) 172 H (75-99) mg/dL Microbiology - Last 24 Hours (Table) 07/11/20 13:00 Urine Culture - Preliminary Urine,Catheterized Assessment and Plan Assessment: Acute on chronic systolic heart failure with fluid overload Interstitial pneumonia due to covid 19 pneumonia Acute on chronic hypoxic respiratory failure Cardiomyopathy with ejection fraction of 40% Large multiple sacral decubitus ulcer Plan: Continue gentle diuresis Titrate oxygen down as tolerated Continue supplemental oxygen Deep breathing exercise incentive spirometry Oral Decadron 6 mg daily for 10 days DVT prophylaxis with Lovenox Continue zinc, vitamin C, vitamin D
[2020-07-12 11:32] LABS: Glucose,Whole Blood 212 mg/dL (75-99)
[2020-07-12] MEDS: ALBUTEROL HFA INHALER INHALATION PRN ×3 (11:38→20:55)
--- NOTE | 2020-07-12 13:53 | P.PN ---
Subjective Progress Note Date: 07/12/20 HISTORY OF PRESENT ILLNESS This is an 79-year-old female admitted to the hospital and followed for sacral decubitus ulcer stage IV with wound VAC and also possible pneumonia. Covid 19 testing was positive and she was already treated in mid June. Patient currently denies having any cough, no chest pain. No abdominal pain. She denies sacral wound pain. Midline has been inserted during this hospit alization. Patient has a Leslie catheter in place. Patient has been afebrile, heart rate 63, blood pressure 132/50, pulse ox 96 % on 4 L and high flow nasal cannula. PHYSICAL EXAMINATION Gen: This is an 79-year-old female. She continues to have significant weakness. HEENT: Head is atraumatic, normocephalic. Pupils equal, round. Sclerae is anicteric. NECK: Supple. No JVD. No lymphadenopathy. LUNGS: Clear to auscultation. No wheezes or rhonchi. No intercostal retractions. HEART: Regular rate and rhythm. No murmur. ABDOMEN: Soft. Bowel sounds are present. No masses. No tenderness. Left-sided colostomy. Leslie catheter in place. Wound VAC in place to sacral ulcer. EXTREMITIES: No pedal edema. No calf tenderness. NEUROLOGICAL: Patient is awake, alert and oriented x3. ASSESSMENT Stage IV sacral decubitus ulcer Possible pneumonia most likely due to fluid overload Clinically not behaving as Covid 19 pneumonia PLAN Continue IV Zosyn patient will be scheduled for 2 weeks of IV antibiotics at discharge Continue wound VAC Continue supportive care The above dictated assessment and findings were discussed with Dr. Pabon. The impression and plan of care have been directed as dictated. Felicita Valentine nurse practitioner acting as scribe for Dr. Pabon. Objective - Vital Signs Vital signs: Vital Signs Temp 98.2 F 07/12/20 04:15 Pulse 63 07/12/20 04:15 Resp 14 07/12/20 04:15 BP 132/50 07/12/20 04:15 Pulse Ox 96 07/12/20 04:15 Intake & Output 07/11/20 07/12/20 07/12/20 18:59 06:59 18:59 Intake Total 240 200 Output Total 3700 900 300 Balance -3460 -700 -300 Weight 69.5 kg Intake: Intake, IV Titration 200 Amount Piperacillin-Tazobactam 3 200 .375 gm In Sodium Chloride 0.9% 100 ml @ 25 mls/hr IVPB Q8H [facility] Rx#: [id number] Oral 240 Output: Urine 3300 900 Uretheral (Leslie) 600 Stool 400 300 Other: Voiding Method Indwelling Catheter Indwelling Catheter Indwelling Catheter # Bowel Movements 0 - Labs CBC & Chem 7: 07/11/20 04:48 07/11/20 04:48 Labs: Abnormal Lab Results - Last 24 Hours (Table) 07/11/20 07/11/20 07/12/20 Range/Units 17:02 20:38 07:29 POC Glucose (mg/dL) 278 H 305 H 172 H (75-99) mg/dL 07/12/20 Range/Units 11:30 POC Glucose (mg/dL) 212 H (75-99) mg/dL Microbiology - Last 24 Hours (Table) 07/11/20 13:00 Urine Culture - Preliminary Urine,Catheterized
[2020-07-12 17:26] LABS: Glucose,Whole Blood 367 mg/dL (75-99)
[2020-07-12] MEDS: AZITHROMYCIN 500 MG in SODIUM CHLORIDE 0.9% 250 ML IVPB SCH (18:13)
--- NOTE | 2020-07-12 18:50 | PN ---
PROGRESS NOTE This 79-year-old white female had become progressively dyspneic with increased edema and weight gain over the past few days. She was started on metolazone 2.5 mg yesterday and increased Lasix to 80 b.i.d. She has chronic kidney disease, COVID-19. Chest x-ray showed bilateral pneumonia with a component heart failure. She is going to be restarted on IV Lasix per Cardiology. Temperature 98.2, pulse 63, respiratory rate 14 to 16, blood pressure 132/50, oxygen 96. CONSTITUTIONAL: No acute distress. PSYCH: Sleepy, lethargic. LUNGS: Bilateral rales. HEART: S1, S2. Extremities show 2 to 3+ edema, weeping of the arms and legs. BNP is 47,500. White count 10, hemoglobin 10.7. Albumin is low at 3. ASSESSMENT: 1. Bilateral pneumonia. 2. Heart failure exacerbation with systolic dysfunction. Ejection fraction about 40%. 3. Cardiomyopathy. 4. Chronic kidney disease. Started on IV Lasix. Monitor renal status. Continue with metolazone as needed. Prognosis guarded. Daily weights. MMODL / IJN: [id number] /
[2020-07-12] MEDS: COLLAGENASE 250 UNIT/GM OINTMENT 30 GM TUBE TOPICAL SCH (21:26)
[2020-07-12] MEDS: LEVOTHYROXINE 137 MCG TAB PO SCH (21:31)
[2020-07-12] MEDS: FUROSEMIDE 10 MG/ML 2 ML VIAL IV SCH (21:32)
[2020-07-12 21:36] LABS: Glucose,Whole Blood 418 mg/dL (75-99)
[2020-07-13] MEDS: HYDROcodone/APAP 5-325MG 1 EACH TAB PO PRN (04:06)
[2020-07-13 05:55] LABS: Anisocytosis Slight; Basophils % (A) 0 %; Eosinophils # (A) 0.2 k/uL (0-0.7); Eosinophils % (A) 3 %; HCT 32.2 % (34.0-46.0); HGB 10.3 gm/dL (11.4-16.0); Hypochromasia Moderate; Lymphocytes # (A) 0.4 k/uL (1.0-4.8); Lymphocytes % (A) 5 %; MCH 28.2 pg (25.0-35.0); MCV 88.2 fL (80.0-100.0); Monocytes # (A) 0.2 k/uL (0-1.0); Monocytes % (A) 3 %; Neutrophils # (A) 6.1 k/uL (1.3-7.7); Neutrophils % (A) 89 %; Platelet Count 329 k/uL (150-450); RBC 3.65 m/uL (3.80-5.40); RDW 18.6 % (11.5-15.5); WBC 6.9 k/uL (3.8-10.6)
[2020-07-13] MEDS: PIPERACILLIN-TAZOBACTAM 3.375 GM in SODIUM CHLORIDE 0.9% 100 ML IVPB SCH ×3 (06:01→21:43)
[2020-07-13 06:58] LABS: Glucose,Whole Blood 168 mg/dL (75-99)
[2020-07-13] MEDS: ALBUTEROL HFA INHALER INHALATION PRN ×3 (08:12→20:01)
[2020-07-13] MEDS: INSULIN ASPART (NovoLOG) 100 UNIT/ML VIAL SQ SCH ×4 (08:27→21:41)
[2020-07-13] MEDS: ENOXAPARIN 40 MG/0.4 ML SYRINGE SQ SCH (08:28)
[2020-07-13] MEDS: METOPROLOL TARTRATE 25 MG TAB PO SCH ×2 (08:28→21:41)
[2020-07-13] MEDS: POTASSIUM CHLORIDE ER 20 MEQ TAB.ER PO SCH (08:28)
[2020-07-13] MEDS: FERROUS SULFATE 325 MG TAB PO SCH (08:28)
[2020-07-13] MEDS: dexAMETHasone 2 MG TAB PO SCH (08:28)
[2020-07-13] MEDS: CHOLECALCIFEROL 1,000 UNIT TAB PO SCH (08:28)
[2020-07-13] MEDS: HYDROcodone/APAP 5-325MG 1 EACH TAB PO SCH ×2 (08:29→21:41)
[2020-07-13] MEDS: FUROSEMIDE 10 MG/ML 2 ML VIAL IV SCH ×2 (08:29→21:41)
[2020-07-13] MEDS: SODIUM BICARBONATE TAB 650 MG TAB PO SCH ×2 (08:29→21:41)
[2020-07-13] MEDS: ISOSORBIDE MONONITRATE ER 60 MG TAB.ER.24H PO SCH (08:29)
[2020-07-13] MEDS: FLUoxetine HCL 10 MG CAP PO SCH (08:29)
[2020-07-13] MEDS: BISMUTH SUBSALICYLATE 4,192 MG/240 ML BOTTLE PO SCH ×2 (08:34→21:42)
[2020-07-13] MEDS: ZINC OXIDE 20% OINT 28.4 GM TUBE TOPICAL SCH ×2 (08:35→21:42)
--- NOTE | 2020-07-13 09:54 | P.PN ---
Subjective This is a pleasant 79-year-old female past medical history significant for cardiomyopathy with ejection fraction 40%, chronic kidney disease, diabetes mellitus, dyslipidemia and history of colon cancer. She is currently being treated for Covid 19. She was initiated on IV diuresis yesterday and is having significant urine output. She is seen sitting up in bed in no acute distress. She feels as though her breathing is stable with no worsening however no significant improvement either. She denies chest pain, dizziness or palpitati ons. Blood pressure 122/65 heart rate 65 afebrile maintaining oxygen saturation on high flow nasal cannula. Laboratory data reviewed, WBC 6.9, hemoglobin 10.3 and platelets 329, BMP pending. GENERAL: Well-appearing, well-nourished and in no acute distress. Thorough physical exam not completed secondary to limited evaluation/examination due to Covid 19 ASSESSMENT Acute Covid 19 pneumonia Acute on chronic systolic heart failure Chronic kidney disease Hypertension Dyslipidemia Nonsustained ventricular tachycardia PLAN Continue IV diuresiss as previously ordered. Follow up on today's renal function. Repeat BMP in the morning. Nurse Practitioner note has been reviewed, I agree with a documented findings and plan of care. Patient was seen and examined. Objective - Vital Signs Vital signs: Vital Signs Temp 97.4 F L 07/13/20 05:00 Pulse 65 07/13/20 05:00 Resp 16 07/13/20 05:00 BP 122/65 07/13/20 05:00 Pulse Ox 95 07/13/20 08:13 Intake & Output 07/12/20 07/13/20 07/13/20 18:59 06:59 18:59 Output Total 300 Balance -300 Weight 65 kg Output: Stool 300 Other: Voiding Method Indwelling Catheter Indwelling Catheter - Labs CBC & Chem 7: 07/13/20 05:11 07/11/20 04:48 Labs: Abnormal Lab Results - Last 24 Hours (Table) 07/12/20 07/12/20 07/12/20 Range/Units 11:30 17:14 21:24 RBC (3.80-5.40) m/uL Hgb (11.4-16.0) gm/dL Hct (34.0-46.0) % RDW (11.5-15.5) % Lymphocytes # (1.0-4.8) k/uL POC Glucose (mg/dL) 212 H 367 H 418 H (75-99) mg/dL 07/13/20 07/13/20 Range/Units 05:11 06:44 RBC 3.65 L (3.80-5.40) m/uL Hgb 10.3 L (11.4-16.0) gm/dL Hct 32.2 L (34.0-46.0) % RDW 18.6 H (11.5-15.5) % Lymphocytes # 0.4 L (1.0-4.8) k/uL POC Glucose (mg/dL) 168 H (75-99) mg/dL Microbiology - Last 24 Hours (Table) 07/11/20 13:00 Urine Culture - Final Urine,Catheterized Jocelyn albicans
[2020-07-13 10:24] LABS: African American GFR (CKD) 61.6 (60.0-200.0); Albumin/Globulin Ratio 1.67 (1.60-3.17); Anion Gap 6.1 mmol/L (4.00-12.00); Calcium 8.6 mg/dL (8.7-10.3); Carbon Dioxide 31.9 mmol/L (21.6-31.8); Globulin 1.8 g/dL (1.6-3.3); Non-African American GFR(CKD) 53.2 (60.0-200.0); Potassium 4.8 mmol/L (3.5-5.5); Total Bilirubin 0.3 mg/dL (0.3-1.2); Total Protein 4.8 g/dL (6.2-8.2)
--- NOTE | 2020-07-13 10:53 | P.PN ---
Subjective Progress Note Date: 07/13/20 Principal diagnosis: Interstitial pneumonia due to cord 19 pneumonia however additional healthcare associated pneumonia cannot be excluded Acute on chronic hypoxic respiratory failure Acute on chronic systolic heart failure with fluid overload Cardiomyopathy with ejection fraction of 40% Large multiple sacral decubitus ulcer 07/13/2020, patient seen and evaluated examined, remains on 3 L chest pain or shortness of breath is better continued to have wound VAC remains on broad- spectrum antibiotics 07/12/2020, patient remains on 3 L oxygen, breathing comfortably, continue to have wound VAC on broad-spectrum antibiotics ID service following, agree with plans to transfer to [facility] cleared, 07/11/2020, patient seen eval examined during the rounds labs reviewed medic ations reviewed, respiratory status remains stable, and is on 3 L nasal cannula breathing comfortably, denies any chest pain, patient is being treated with broad-spectrum IV antibiotics with sacral decubitus ulcer, along with wound VAC 07/09/2020, patient seen eval examined on FiO2 has been decreased to 2 L now and sats are in mid 90s, patient sugar was low slow in making up, has been given back first, denies any chest pain, patient continued to have warned back on July 08 2020, patient seen eval examined overall denies any chest pain breathing comfortably, remains on 5 L oxygen, blood cultures 2 have been negative, patient has a wound VAC, creatinine improved to .89, 07/07/2020, patient seen eval examined during the rounds labs reviewed medications reviewed care plan discussed, remains on 5 L breathing comfortably sitting upright on the bed, no obvious distress present, would continue titrated oxygen down as tolerated 07/06/2020, patient seen eval examined during the rounds labs reviewed medications reviewed care plan discussed, respiratory status remains stable, on 5 L oxygen denies any chest pain, oxygen is being tapered down gradually, patient now has a wound VAC considered not to be a candidate for wound debridement 07/05/2020, patient seen eval examined shortness of breath stable on 6 L oxygen, chest x-ray performed today revealed cardiomegaly diffuse interstitial and airspace disease, pulmonary edema and fluid overload, patient has been evaluated by surgical services no plans for wound debridement however wound VAC orders have been placed, due to covid 19th and requirement for 6 L oxygen patient is not considered a candidate for anesthesia, and continue usual therapy for core 19 pneumonia and gentle diuresis This is a 79-year-old female who was seen evaluated examined, patient is a resident of [facility], patient came into the hospital with progressive increased shortness of breath hypoxia, her significant history is for cervical cancer, diabetes, patient has recent coronavirus infection, symptoms however started 1 day prior to coming into the hospital, it appears that, the ago patient was admitted for cold with pneumonia, patient has significant cardiomyopathy with ejection fraction of 40% based on last echo performed June 2020, patient is on 3 L oxygen, chest x-ray continue show bilateral infiltrate, she'll also have chronic sacral decubitus ulcer status post the Brightman in the past, patient is being considered for divergent colostomy and general surgery has been consulted, and he she is being treated with IV Zosyn along with continuation are more medications Objective - Vital Signs Vital signs: Vital Signs Temp 98.6 F 07/13/20 10:10 Pulse 73 07/13/20 10:10 Resp 16 07/13/20 10:10 BP 132/72 07/13/20 10:10 Pulse Ox 93 L 07/13/20 10:10 Intake & Output 07/12/20 07/13/20 07/13/20 18:59 06:59 18:59 Output Total 300 550 Balance -300 -550 Weight 65 kg Output: Urine 550 Stool 300 Other: Voiding Method Indwelling Catheter Indwelling Catheter Indwelling Catheter - Exam - Constitutional General appearance: average body habitus, disheveled - EENT Eyes: PERRLA Ears: bilateral: normal - Neck Carotids: bilateral: upstroke normal Thyroid: bilateral: normal size - Respiratory Respiratory: bilateral: diminished - Cardiovascular Rhythm: regular Heart sounds: normal: S1, S2 - Integumentary Integumentary: normal turgor - Neurologic Neurologic: CNII-XII intact - Musculoskeletal Musculoskeletal: gait normal, generalized weakness, strength equal bilaterally - Psychiatric Psychiatric: A&O x's 3, appropriate affect, intact judgment & insight - Labs CBC & Chem 7: 07/13/20 05:11 07/13/20 05:11 Labs: Abnormal Lab Results - Last 24 Hours (Table) 07/12/20 07/12/20 07/12/20 Range/Units 11:30 17:14 21:24 RBC (3.80-5.40) m/uL Hgb (11.4-16.0) gm/dL Hct (34.0-46.0) % RDW (11.5-15.5) % Lymphocytes # (1.0-4.8) k/uL Sodium (135-145) mmol/L Carbon Dioxide (21.6-31.8) mmol/L BUN (9.0-27.0) mg/dL Est GFR (CKD-EPI)NonAf (60.0-200.0) BUN/Creatinine Ratio (12.00-20.00) Ratio Glucose (70-110) mg/dL POC Glucose (mg/dL) 212 H 367 H 418 H (75-99) mg/dL Calcium (8.7-10.3) mg/dL AST (13-35) U/L ALT (8-44) U/L Alkaline Phosphatase (41-126) U/L Total Protein (6.2-8.2) g/dL Albumin (3.80-4.90) g/dL 07/13/20 07/13/20 07/13/20 Range/Units 05:11 05:11 06:44 RBC 3.65 L (3.80-5.40) m/uL Hgb 10.3 L (11.4-16.0) gm/dL Hct 32.2 L (34.0-46.0) % RDW 18.6 H (11.5-15.5) % Lymphocytes # 0.4 L (1.0-4.8) k/uL Sodium 134 L (135-145) mmol/L Carbon Dioxide 31.9 H (21.6-31.8) mmol/L BUN 34.0 H (9.0-27.0) mg/dL Est GFR (CKD-EPI)NonAf 53.2 L (60.0-200.0) BUN/Creatinine Ratio 34.00 H (12.00-20.00) Ratio Glucose 182 H (70-110) mg/dL POC Glucose (mg/dL) 168 H (75-99) mg/dL Calcium 8.6 L (8.7-10.3) mg/dL AST 44 H (13-35) U/L ALT 73 H (8-44) U/L Alkaline Phosphatase 385 H (41-126) U/L Total Protein 4.8 L (6.2-8.2) g/dL Albumin 3.00 L (3.80-4.90) g/dL Microbiology - Last 24 Hours (Table) 07/11/20 13:00 Urine Culture - Final Urine,Catheterized Jocelyn albicans Assessment and Plan Assessment: Acute on chronic systolic heart failure with fluid overload Interstitial pneumonia due to covid 19 pneumonia Acute on chronic hypoxic respiratory failure Cardiomyopathy with ejection fraction of 40% Large multiple sacral decubitus ulcer Plan: Continue gentle diuresis Titrate oxygen down as tolerated Continue supplemental oxygen Deep breathing exercise incentive spirometry Oral Decadron 6 mg daily for 10 days DVT prophylaxis with Lovenox Continue zinc, vitamin C, vitamin D Time with Patient: Greater than 30
[2020-07-13 11:23] LABS: Glucose,Whole Blood 255 mg/dL (75-99)
[2020-07-13 17:09] LABS: Glucose,Whole Blood 309 mg/dL (75-99)
[2020-07-13] MEDS: AZITHROMYCIN 500 MG in SODIUM CHLORIDE 0.9% 250 ML IVPB SCH (17:54)
--- NOTE | 2020-07-13 18:00 | PN ---
PROGRESS NOTE This is an 79-year-old white female who was admitted with COVID pneumonia, sacroiliitis, ileostomy, significant weakness, congestive heart failure, systolic CHF, worsening over the last 24-48 hours, for which IV Lasix has been given. She still continues to have elevated liver enzymes, possibly secondary to cardiorenal syndrome versus COVID. Sugars have been back high into the high 100s to 400s after she went off her insulin, long-acting Lantus, which will be restarted at half the dose of 10 units. She wants to get back to her home as soon as possible. Temperature 97.8, blood pressure 160s over 60s, oxygenation 93% on 4 L, respiratory rate 16 to 18, pulse 74. Lungs are clear. CARDIOVASCULAR: S1, S2. GI is soft. Extremities show 2 to 3+ edema. PSYCH: She is alert and with it today. ASSESSMENT: 1. Acute hypoxemic respiratory failure secondary to systolic congestive heart failure. 2. COVID-19 pneumonia. 3. Acute on chronic hypoxemic respiratory failure. 4. Acute on chronic systolic heart failure. 5. Cardiomyopathy, ejection fraction 40%. 6. Sacral decubitus ulcer. Fluid overload has been treated with IV Lasix for the last few days. Interstitial pneumonia continues with COVID. Titrate her oxygen down if possible. So far she is still on 4 L. She normally wears 2-3 L at home. Continue on Decadron, DVT prophylaxis with Lovenox, zinc, vitamin C, vitamin D. Prognosis guarded. Possibly get back to the rehab center when cleared by Cardiology as long as her weight continues to decline. She went from 69.5 kg on July 12 to 65 kg today. That is about a 10-pound weight loss since yesterday. Continue current treatments. MMODL / IJN: [id number] /
[2020-07-13] MEDS ORDERED: INSULIN DETEMIR (LEVEMIR) 100 UNIT/ML SYR SQ SCH (21:00)
[2020-07-13 21:10] LABS: Glucose,Whole Blood 283 mg/dL (75-99)
[2020-07-13] MEDS: COLLAGENASE 250 UNIT/GM OINTMENT 30 GM TUBE TOPICAL SCH (21:33)
[2020-07-13] MEDS: LEVOTHYROXINE 137 MCG TAB PO SCH (21:43)
--- NOTE | 2020-07-13 22:38 | PN ---
PROGRESS NOTE DATE OF SERVICE: 07/13/2020 REASON FOR FOLLOWUP: Sacral pressure ulcer. INTERVAL HISTORY: The patient is currently afebrile. The patient has been breathing comfortably. The patient denies having any chest pain or shortness of breath. No nausea, no vomiting, no abdominal pain or diarrhea. PHYSICAL EXAMINATION: Her blood pressure 176/64 with a pulse of 74, temperature 97.8. She is 93% on 4 L nasal cannula. General description is an elderly female lying in bed in no distress. RESPIRATORY SYSTEM: Unlabored breathing with decreased intensity of breath sounds. No wheeze. HEART: S1, S2. Regular rate and rhythm. ABDOMEN: Soft. No tenderness. LABS: White count 6.9. Creatinine is 1.0. DIAGNOSTIC IMPRESSION AND PLAN: 1. Patient with stage IV sacral pressure ulcer with evidence of secondary osteomyelitis in this patient currently covered with Zosyn. 2. Patient with a positive urine culture with samir; possible colonization. Leslie should be changed. Continue supportive care. MMODL / IJN: [id number] /
[2020-07-14] MEDS: PIPERACILLIN-TAZOBACTAM 3.375 GM in SODIUM CHLORIDE 0.9% 100 ML IVPB SCH ×2 (05:26→12:29)
[2020-07-14 06:53] LABS: Anisocytosis Slight; Basophils % (A) 0 %; Eosinophils # (A) 0.2 k/uL (0-0.7); Eosinophils % (A) 3 %; HCT 33.1 % (34.0-46.0); HGB 10.7 gm/dL (11.4-16.0); Hypochromasia Slight; Lymphocytes # (A) 0.9 k/uL (1.0-4.8); Lymphocytes % (A) 11 %; MCH 28.2 pg (25.0-35.0); MCHC 32.2 g/dL (31.0-37.0); MCV 87.6 fL (80.0-100.0); Mean Platelet Volume 7.8; Monocytes # (A) 0.3 k/uL (0-1.0); Monocytes % (A) 4 %; Neutrophils # (A) 6.6 k/uL (1.3-7.7); Neutrophils % (A) 82 %; Platelet Count 328 k/uL (150-450); RBC 3.78 m/uL (3.80-5.40); RDW 18.8 % (11.5-15.5)
[2020-07-14] MEDS ORDERED: INSULIN DETEMIR (LEVEMIR) 100 UNIT/ML SYR SQ SCH (07:00)
[2020-07-14 07:23] LABS: Glucose,Whole Blood 67 mg/dL (75-99)
[2020-07-14] MEDS: INSULIN ASPART (NovoLOG) 100 UNIT/ML VIAL SQ SCH ×2 (07:32→12:28)
[2020-07-14 07:47] LABS: Glucose,Whole Blood 98 mg/dL (75-99)
[2020-07-14] MEDS: ALBUTEROL HFA INHALER INHALATION PRN (07:57)
[2020-07-14] MEDS: POTASSIUM CHLORIDE ER 20 MEQ TAB.ER PO SCH (09:33)
[2020-07-14] MEDS: dexAMETHasone 2 MG TAB PO SCH (09:33)
[2020-07-14] MEDS: CHOLECALCIFEROL 1,000 UNIT TAB PO SCH (09:33)
[2020-07-14] MEDS: ISOSORBIDE MONONITRATE ER 60 MG TAB.ER.24H PO SCH (09:33)
[2020-07-14] MEDS: FUROSEMIDE 10 MG/ML 2 ML VIAL IV SCH (09:33)
[2020-07-14] MEDS: FERROUS SULFATE 325 MG TAB PO SCH (09:33)
[2020-07-14] MEDS: HYDROcodone/APAP 5-325MG 1 EACH TAB PO SCH (09:33)
[2020-07-14] MEDS: METOPROLOL TARTRATE 25 MG TAB PO SCH (09:33)
[2020-07-14] MEDS: SODIUM BICARBONATE TAB 650 MG TAB PO SCH (09:34)
[2020-07-14] MEDS: ENOXAPARIN 40 MG/0.4 ML SYRINGE SQ SCH (09:34)
[2020-07-14] MEDS: FLUoxetine HCL 10 MG CAP PO SCH (09:34)
[2020-07-14] MEDS: BISMUTH SUBSALICYLATE 4,192 MG/240 ML BOTTLE PO SCH (09:38)
[2020-07-14] MEDS: ZINC OXIDE 20% OINT 28.4 GM TUBE TOPICAL SCH (09:38)
[2020-07-14 10:22] LABS: Albumin/Globulin Ratio 1.58 (1.60-3.17); Anion Gap 7.9 mmol/L (4.00-12.00); Calcium 8.5 mg/dL (8.7-10.3); Carbon Dioxide 34.1 mmol/L (21.6-31.8); Globulin 1.9 g/dL (1.6-3.3); Non-African American GFR(CKD) 60.4 (60.0-200.0); Potassium 4.8 mmol/L (3.5-5.5); Total Bilirubin 0.4 mg/dL (0.3-1.2); Total Protein 4.9 g/dL (6.2-8.2)
--- NOTE | 2020-07-14 10:32 | P.PN ---
Subjective Progress Note Date: 07/14/20 Principal diagnosis: Interstitial pneumonia due to cord 19 pneumonia however additional healthcare associated pneumonia cannot be excluded Acute on chronic hypoxic respiratory failure Acute on chronic systolic heart failure with fluid overload Cardiomyopathy with ejection fraction of 40% Large multiple sacral decubitus ulcer 07/14/2020, patient remains on the antibiotics and supplemental oxygen, no significant complaint is present, had wound VAC, oxygen saturation remains intermittent 90s 07/13/2020, patient seen and evaluated examined, remains on 3 L chest pain or sh ortness of breath is better continued to have wound VAC remains on broad- spectrum antibiotics 07/12/2020, patient remains on 3 L oxygen, breathing comfortably, continue to have wound VAC on broad-spectrum antibiotics ID service following, agree with plans to transfer to [facility] cleared, 07/11/2020, patient seen eval examined during the rounds labs reviewed medications reviewed, respiratory status remains stable, and is on 3 L nasal cannula breathing comfortably, denies any chest pain, patient is being treated with broad-spectrum IV antibiotics with sacral decubitus ulcer, along with wound VAC 07/09/2020, patient seen eval examined on FiO2 has been decreased to 2 L now and sats are in mid 90s, patient sugar was low slow in making up, has been given back first, denies any chest pain, patient continued to have warned back on July 08 2020, patient seen eval examined overall denies any chest pain breathing comfortably, remains on 5 L oxygen, blood cultures 2 have been negative, patient has a wound VAC, creatinine improved to .89, 07/07/2020, patient seen eval examined during the rounds labs reviewed medications reviewed care plan discussed, remains on 5 L breathing comfortably sitting upright on the bed, no obvious distress present, would continue titrated oxygen down as tolerated 07/06/2020, patient seen eval examined during the rounds labs reviewed medications reviewed care plan discussed, respiratory status remains stable, on 5 L oxygen denies any chest pain, oxygen is being tapered down gradually, patient now has a wound VAC considered not to be a candidate for wound debridement 07/05/2020, patient seen eval examined shortness of breath stable on 6 L oxygen, chest x-ray performed today revealed cardiomegaly diffuse interstitial and airspace disease, pulmonary edema and fluid overload, patient has been evaluated by surgical services no plans for wound debridement however wound VAC orders have been placed, due to covid 19th and requirement for 6 L oxygen patient is not considered a candidate for anesthesia, and continue usual therapy for core 19 pneumonia and gentle diuresis This is a 79-year-old female who was seen evaluated examined, patient is a res ident of [facility], patient came into the hospital with progressive increased shortness of breath hypoxia, her significant history is for cervical cancer, diabetes, patient has recent coronavirus infection, symptoms however started 1 day prior to coming into the hospital, it appears that, the ago patient was admitted for cold with pneumonia, patient has significant cardiomyopathy with ejection fraction of 40% based on last echo performed June 2020, patient is on 3 L oxygen, chest x-ray continue show bilateral infiltrate, she'll also have chronic sacral decubitus ulcer status post the [place] in the past, patient is being considered for divergent colostomy and general surgery has been consulted, and he she is being treated with IV Zosyn along with continuation are more medications Objective - Vital Signs Vital signs: Vital Signs Temp 97.7 F 07/14/20 04:33 Pulse 60 07/14/20 04:33 Resp 20 07/14/20 04:33 BP 119/68 07/14/20 04:33 Pulse Ox 98 07/14/20 04:33 Intake & Output 07/13/20 07/14/20 07/14/20 18:59 06:59 18:59 Output Total 1650 1000 Balance -1650 -1000 Weight 65.3 kg Output: Urine 950 1000 Stool 700 Other: Voiding Method Indwelling Catheter Indwelling Catheter - Exam - Constitutional General appearance: average body habitus, disheveled - EENT Eyes: PERRLA Ears: bilateral: normal - Neck Carotids: bilateral: upstroke normal Thyroid: bilateral: normal size - Respiratory Respiratory: bilateral: diminished - Cardiovascular Rhythm: regular Heart sounds: normal: S1, S2 - Integumentary Integumentary: normal turgor - Neurologic Neurologic: CNII-XII intact - Musculoskeletal Musculoskeletal: gait normal, generalized weakness, strength equal bilaterally - Psychiatric Psychiatric: A&O x's 3, appropriate affect, intact judgment & insight - Labs CBC & Chem 7: 07/14/20 06:12 07/14/20 06:12 Labs: Abnormal Lab Results - Last 24 Hours (Table) 01/06/2107/13/20 07/13/20 Range/Units 11:03 16:57 21:09 RBC (3.80-5.40) m/uL Hgb (11.4-16.0) gm/dL Hct (34.0-46.0) % RDW (11.5-15.5) % Lymphocytes # (1.0-4.8) k/uL Carbon Dioxide (21.6-31.8) mmol/L BUN (9.0-27.0) mg/dL BUN/Creatinine Ratio (12.00-20.00) Ratio Glucose (70-110) mg/dL POC Glucose (mg/dL) 255 H 309 H 283 H (75-99) mg/dL Calcium (8.7-10.3) mg/dL AST (13-35) U/L ALT (8-44) U/L Alkaline Phosphatase (41-126) U/L Total Protein (6.2-8.2) g/dL Albumin (3.80-4.90) g/dL Albumin/Globulin Ratio (1.60-3.17) g/dL 07/14/20 07/14/20 07/14/20 Range/Units 06:12 06:12 07:22 RBC 3.78 L (3.80-5.40) m/uL Hgb 10.7 L (11.4-16.0) gm/dL Hct 33.1 L (34.0-46.0) % RDW 18.8 H (11.5-15.5) % Lymphocytes # 0.9 L (1.0-4.8) k/uL Carbon Dioxide 34.1 H (21.6-31.8) mmol/L BUN 36.0 H (9.0-27.0) mg/dL BUN/Creatinine Ratio 40.00 H (12.00-20.00) Ratio Glucose 57 L (70-110) mg/dL POC Glucose (mg/dL) 67 L (75-99) mg/dL Calcium 8.5 L (8.7-10.3) mg/dL AST 42 H (13-35) U/L ALT 74 H (8-44) U/L Alkaline Phosphatase 407 H (41-126) U/L Total Protein 4.9 L (6.2-8.2) g/dL Albumin 3.00 L (3.80-4.90) g/dL Albumin/Globulin Ratio 1.58 L (1.60-3.17) g/dL Microbiology - Last 24 Hours (Table) 07/11/20 13:00 Urine Culture - Final Urine,Catheterized Jocelyn albicans Assessment and Plan Assessment: Acute on chronic systolic heart failure with fluid overload Interstitial pneumonia due to covid 19 pneumonia Acute on chronic hypoxic respiratory failure Cardiomyopathy with ejection fraction of 40% Large multiple sacral decubitus ulcer Plan: Continue gentle diuresis Titrate oxygen down as tolerated Continue supplemental oxygen Deep breathing exercise incentive spirometry Oral Decadron 6 mg daily for 10 days DVT prophylaxis with Lovenox Continue zinc, vitamin C, vitamin D Time with Patient: Greater than 30
--- NOTE | 2020-07-14 10:38 | P.PN ---
Subjective Progress Note Date: 07/14/20 HISTORY OF PRESENT ILLNESS This is an 79-year-old female admitted to the hospital and followed for sacral decubitus ulcer stage IV with wound VAC and also possible pneumonia. Covid 19 testing was positive and she was already treated in mid June. Patient currently denies having any cough, no chest pain. No abdominal pain. She denies sacral wound pain. Midline has been inserted during this hospit alization. Patient has a Leslie catheter in place. Patient has been afebrile, heart rate 60, blood pressure 119/68, pulse ox 98 % on 4 L high flow nasal cannula. PHYSICAL EXAMINATION Gen: This is an 79-year-old female. She continues to have significant weakness. HEENT: Head is atraumatic, normocephalic. Pupils equal, round. Sclerae is anicteric. NECK: Supple. No JVD. No lymphadenopathy. LUNGS: Clear to auscultation. No wheezes or rhonchi. No intercostal retractions. HEART: Regular rate and rhythm. No murmur. ABDOMEN: Soft. Bowel sounds are present. No masses. No tenderness. Left-sided colostomy. Leslie catheter in place. Wound VAC in place to sacral ulcer. EXTREMITIES: No pedal edema. No calf tenderness. NEUROLOGICAL: Patient is awake, alert and oriented x3. ASSESSMENT Stage IV sacral decubitus ulcer Possible pneumonia most likely due to fluid overload Clinically not behaving as Covid 19 pneumonia PLAN Continue IV Zosyn patient will be scheduled for 2 weeks of IV antibiotics at discharge Continue wound VAC Continue supportive care The above dictated assessment and findings were discussed with Dr. Pabon. The impression and plan of care have been directed as dictated. Felicita Valentine nurse practitioner acting as scribe for Dr. Pabon. Objective - Vital Signs Vital signs: Vital Signs Temp 97.7 F 07/14/20 04:33 Pulse 60 07/14/20 04:33 Resp 20 07/14/20 04:33 BP 119/68 07/14/20 04:33 Pulse Ox 98 07/14/20 04:33 Intake & Output 07/13/20 07/14/20 07/14/20 18:59 06:59 18:59 Output Total 1650 1000 Balance -1650 -1000 Weight 65.3 kg Output: Urine 950 1000 Stool 700 Other: Voiding Method Indwelling Catheter Indwelling Catheter - Labs CBC & Chem 7: 07/14/20 06:12 07/14/20 06:12 Labs: Abnormal Lab Results - Last 24 Hours (Table) 07/13/20 07/13/20 07/13/20 Range/Units 05:11 11:03 16:57 RBC (3.80-5.40) m/uL Hgb (11.4-16.0) gm/dL Hct (34.0-46.0) % RDW (11.5-15.5) % Lymphocytes # (1.0-4.8) k/uL Sodium 134 L (135-145) mmol/L Carbon Dioxide 31.9 H (21.6-31.8) mmol/L BUN 34.0 H (9.0-27.0) mg/dL Est GFR (CKD-EPI)NonAf 53.2 L (60.0-200.0) BUN/Creatinine Ratio 34.00 H (12.00-20.00) Ratio Glucose 182 H (70-110) mg/dL POC Glucose (mg/dL) 255 H 309 H (75-99) mg/dL Calcium 8.6 L (8.7-10.3) mg/dL AST 44 H (13-35) U/L ALT 73 H (8-44) U/L Alkaline Phosphatase 385 H (41-126) U/L Total Protein 4.8 L (6.2-8.2) g/dL Albumin 3.00 L (3.80-4.90) g/dL 07/13/20 07/14/20 07/14/20 Range/Units 21:09 06:12 07:22 RBC 3.78 L (3.80-5.40) m/uL Hgb 10.7 L (11.4-16.0) gm/dL Hct 33.1 L (34.0-46.0) % RDW 18.8 H (11.5-15.5) % Lymphocytes # 0.9 L (1.0-4.8) k/uL Sodium (135-145) mmol/L Carbon Dioxide (21.6-31.8) mmol/L BUN (9.0-27.0) mg/dL Est GFR (CKD-EPI)NonAf (60.0-200.0) BUN/Creatinine Ratio (12.00-20.00) Ratio Glucose (70-110) mg/dL POC Glucose (mg/dL) 283 H 67 L (75-99) mg/dL Calcium (8.7-10.3) mg/dL AST (13-35) U/L ALT (8-44) U/L Alkaline Phosphatase (41-126) U/L Total Protein (6.2-8.2) g/dL Albumin (3.80-4.90) g/dL Microbiology - Last 24 Hours (Table) 07/11/20 13:00 Urine Culture - Final Urine,Catheterized Jocelyn albicans
[2020-07-14 11:37] LABS: Glucose,Whole Blood 171 mg/dL (75-99)
[2020-07-14 11:43] VITALS: BP 117/63; PULSE 63; RESP 17; TEMP 97.9
--- NOTE | 2020-07-14 15:16 | DS ---
DISCHARGE SUMMARY This 79-year-old white female with COVID pneumonia, acute hypoxemic respiratory failure, acute systolic and diastolic heart failure, diabetes mellitus with skin ulceration, decubitus ulcer was admitted to hospital in dehydration. She was found to have a systolic heart failure, diastolic heart failure, treated with Lasix multiple days. Treated for COVID pneumonia with secondary infection for multiple days. She greatly improved over the next few days and then had another episode congestive heart failure, which we had to put her back on IV Lasix and then start IV Lasix for few days and switch back to oral. Her renal function improved as she came with acute tubular necrosis acute renal failure. Also, the patient was stabilized and will be seen with Dr. Rene muñoz at the rehab center. Her decubitus ulcer wound VAC is being placed back on there and ileostomy was intact. She needs 2 more weeks of Zosyn for sure and appointment with Dr. Pabon in about 2 weeks for sacroiliitis and sacral ulcer. The patient will continue to do well and will follow up as an outpatient. MEDICATIONS: Medications include: 1. Zosyn 3.375 mg IV piggyback t.i.d. 2. DuoNeb q.i.d. 3. Kaopectate suspension p.r.n. diarrhea. 4. Santyl topically daily. 5. Hydrocortisone cream topically b.i.d. to the groins and abdominal wound folds. 6. Diaper rash cream also topically q.12 hours. 7. Prozac 10 mg daily. 8. Ferrous sulfate 325 daily. 9. Imdur 60 mg daily. 10.Levothyroxine 137 mcg daily. 11.Vitamin D 2000 units daily. 12.K-Dur 20 mEq daily. 13.Lopressor 12.5 b.i.d. 14.Potassium chloride 20 mEq daily. 15.Pro-Stat 30 mL p.o. b.i.d.. 16.Sodium bicarbonate 650 b.i.d. 17.Tylenol 650 q.6 hours p.r.n. 18.Simethicone q.4 hours p.r.n. 19.Maalox 30 mL p.r.n. CONDITION: Stable. Follow up as an outpatient. NovoLog a.c. and at bedtime. Lantus to cut down to 10 units a day from 20 or Lantus/Levemir either one 10 units subcutaneously daily. Accu-Chek protocol. Lasix was switched to 40 b.i.d. Hexadrol 6 mg p.o. b.i.d. for another 10 days. Zinc sulfate 220 mg p.o. for 10 days. Lovenox 40 mg subcu daily. Shots until discharge. Continue current treatment. Follow up as an outpatient. I will follow her up at [facility] on the [place]. Diet will be regular. Ambulate as tolerated with PT, OT. Condition stable. Prognosis guarded. MMODL / IJN: [id number] /
[2020-07-14] MEDS ORDERED: FUROSEMIDE 40 MG TAB PO SCH (16:00)
== END 2020-07-14 16:17 | DRG 291 ==
LOC: EC 13:42 → 6NMEDSUR 16:22
PROVIDERS: ADMIT Family Medicine; ATTEND Family Medicine
PROC: 5A0955A Assistance with Respiratory Ventilation, Greater than 96 Consecutive Hours, High Flow/Velocity Cannula (ICD-10-PCS; principal; 2020-07-04)
PROC: 05HC33Z Insertion of Infusion Device into Left Basilic Vein, Percutaneous Approach (ICD-10-PCS; 2020-07-09 13:15)
DX: I13.0 Hypertensive heart and chronic kidney disease with heart failure and stage 1 through stage 4 chronic kidney disease, or unspecified chronic kidney disease (principal); U07.1 COVID-19; J12.82 Pneumonia due to coronavirus disease 2019; J96.21 Acute and chronic respiratory failure with hypoxia; N17.0 Acute kidney failure with tubular necrosis; L89.154 Pressure ulcer of sacral region, stage 4; I50.43 Acute on chronic combined systolic (congestive) and diastolic (congestive) heart failure; I47.2 Ventricular tachycardia; M46.28 Osteomyelitis of vertebra, sacral and sacrococcygeal region; J44.0 Chronic obstructive pulmonary disease with (acute) lower respiratory infection; E87.1 Hypo-osmolality and hyponatremia; L03.319 Cellulitis of trunk, unspecified; E11.649 Type 2 diabetes mellitus with hypoglycemia without coma; I27.20 Pulmonary hypertension, unspecified; E86.0 Dehydration; Z43.3 Encounter for attention to colostomy; I42.9 Cardiomyopathy, unspecified; E11.22 Type 2 diabetes mellitus with diabetic chronic kidney disease; E11.69 Type 2 diabetes mellitus with other specified complication; J84.10 Pulmonary fibrosis, unspecified; M46.1 Sacroiliitis, not elsewhere classified; N18.30 Chronic kidney disease, stage 3 unspecified; E87.5 Hyperkalemia; D64.9 Anemia, unspecified; I45.10 Unspecified right bundle-branch block; I07.1 Rheumatic tricuspid insufficiency; D72.810 Lymphocytopenia; E78.5 Hyperlipidemia, unspecified; E03.9 Hypothyroidism, unspecified; F41.9 Anxiety disorder, unspecified; Z79.2 Long term (current) use of antibiotics; Z79.890 Hormone replacement therapy; Z79.891 Long term (current) use of opiate analgesic; Z79.899 Other long term (current) drug therapy; Z87.891 Personal history of nicotine dependence; Z87.440 Personal history of urinary (tract) infections; Z85.41 Personal history of malignant neoplasm of cervix uteri; Z85.038 Personal history of other malignant neoplasm of large intestine; Z90.49 Acquired absence of other specified parts of digestive tract
CPT/HCPCS: 36410; 36415; 71045; 76937; 80048; 80053; 81001; 82728; 83605; 83615; 83735; 83880; 84145; 85025; 85610; 85652; 85730; 86140; 87040; 87086; 87635; 93005; 94640; 94760; 96365; 96375; 99285

== ENCOUNTER 2020-07-29 07:07 | Inpatient (IN) | payer MEDICARE ==
--- NOTE | 2020-07-29 07:38 | ED ---
General Adult HPI - General Chief complaint: Shortness of Breath Stated complaint: CORAZON Time Seen by Provider: 07/29/20 07:10 Source: patient, EMS, RN notes reviewed, old records reviewed Mode of arrival: EMS Limitations: no limitations - History of Present Illness Initial comments: This is an 79-year-old female who presents emergency department from the skilled nursing for difficulty breathing. Patient herself denies having any difficulty breathing. She doesn't have any chest pain. Patient has absolutely no complaints at this time. She is oxygenating at 92% on 2 L. Patient states she hasn't had a cough. Patient denies any chest pain or abdominal pain. Patient denies any nausea vomiting diarrhea. Patient denies lightheadedness or dizziness. Patient denies any nausea vomiting diarrhea. - Related Data Home Medications Medication Instructions Recorded Confirmed Acetaminophen Tab [Tylenol] 650 mg PO Q4H PRN 06/09/20 07/03/20 Cholecalciferol [Vitamin D3 (25 2,000 unit PO DAILY@89906/09/20 07/03/20 Mcg = 1000 Iu)] Dimethic/Zinc Ox/Vits A,D/Aloe [A 1 applic TOPICAL Q12H 06/09/20 07/03/20 and D Diaper Rash Cream] FLUoxetine HCL [PROzac] 10 mg PO DAILY@89906/09/20 07/03/20 Ferrous Sulfate [Iron] 325 mg PO DAILY@89906/09/20 07/03/20 HYDROcodone/APAP 5-325MG [[place] 1 tab PO BID@899,209906/09/20 07/03/20 5-325] Isosorbide Mononitrate ER [Imdur] 60 mg PO DAILY@89906/09/20 07/03/20 Kaopectate 262mg/15ml 524 mg PO BID@899,209906/09/20 07/03/20 Levothyroxine Sodium 137 mcg PO HS@209906/09/20 07/03/20 Mag Hydrox/Al Hydrox/Simeth 30 ml PO Q4H PRN 06/09/20 07/03/20 [Maalox] Metoprolol Tartrate [Lopressor] 12.5 mg PO BID@09,209906/09/20 07/03/20 Potassium Chloride ER [K-Dur 10] 20 meq PO DAILY@0900 06/09/20 07/03/20 Prostat Awc 30 ml PO BID@0900,1700 06/09/20 07/03/20 Simethicone 80 mg PO Q4H PRN 06/09/20 07/03/20 Sodium Bicarbonate Tab 650 mg PO BID@0900,2100 06/09/20 07/03/20 Collagenase [Santyl] 1 applic TOPICAL HS 07/03/20 07/03/20 Hydrocortisone Cream 1 applic TOPICAL BID 07/03/20 07/03/20 [Hydrocortisone 2.5% Cream] Ipratropium-Albuterol Nebulize 3 ml INHALATION RT-Q4H PRN 07/03/20 07/03/20 [Duoneb 0.5 mg-3 mg/3 ml Soln] Kaopectate Suspension 262mg/15ml 524 mg PO TID PRN 07/03/20 07/03/20 Previous Rx's Medication Instructions Recorded Piperacillin-Tazobactam [Zosyn] 3.375 gm IVPB TID@0600,1400,2200 07/08/20 #42 vial Enoxaparin [Lovenox] 40 mg SQ DAILY syringe 07/14/20 Furosemide [Lasix] 40 mg PO BID@0900,1600 tab 07/14/20 Gabapentin [Neurontin] 100 mg PO TID PRN 7 Days #21 cap 07/14/20 INSULIN ASPART (NovoLOG) [NovoLOG 0 unit SQ ACHS vial 07/14/20 (formulary)] Insulin Detemir (Levemir) [Levemir] 10 unit SQ HS syr 07/14/20 dexAMETHasone [Hexadrol] 6 mg PO DAILY tab 07/14/20 Allergies Allergy/AdvReac Type Severity Reaction Status Date / Time No Known Allergies Allergy Verified 07/29/20 08:21 Review of Systems ROS Statement: Those systems with pertinent positive or pertinent negative responses have been documented in the HPI. ROS Other: All systems not noted in ROS Statement are negative. Past Medical History Past Medical History: Blood Disorder, Cancer, Heart Failure, Diabetes Mellitus, Hyperlipidemia, Thyroid Disorder Additional Past Medical History / Comment(s): Colon/cervical CA, anemia, CKD stg 3, osteomyelitis, stage 4 pressure ulcer, UTI History of Any Multi-Drug Resistant Organisms: None Reported Past Surgical History: Bowel Resection Additional Past Surgical History / Comment(s): colostomy Past Anesthesia/Blood Transfusion Reactions: No Reported Reaction Past Psychological History: Anxiety Smoking Status: Former smoker Past Alcohol Use History: None Reported Past Drug Use History: None Reported - Past Family History Father Family Medical History: Unable to Obtain General Exam - General Exam Comments Initial Comments: GENERAL: Patient is well-developed and well-nourished. Patient is nontoxic and well- hydrated and is in mild distress. ENT: Neck is soft and supple. No significant lymphadenopathy is noted. Oropharynx i s clear. Moist mucous membranes. Neck has full range of motion without eliciting any pain. EYES: The sclera were anicteric and conjunctiva were pink and moist. Extraocular movements were intact and pupils were equal round and reactive to light. Eyelids were unremarkable. PULMONARY: Unlabored respirations. Crackles bilaterally CARDIOVASCULAR: There is a regular rate and rhythm without any murmurs gallops or rubs. ABDOMEN: Soft and nontender with normal bowel sounds. SKIN: Skin is clear with no lesions or rashes and otherwise unremarkable. NEUROLOGIC: Patient is alert and oriented x3. Cranial nerves II through XII are grossly intact. Motor and sensory are also intact. Normal speech, volume and content. Symmetrical smile. MUSCULOSKELETAL: Normal extremities with adequate strength and full range of motion. LYMPHATICS: No significant lymphadenopathy is noted PSYCHIATRIC: Normal psychiatric evaluation. Limitations: no limitations Course Vital Signs 07/29/20 07:09 Temperature 97.6 F Pulse Rate 87 Respiratory 16 Rate Blood Pressure 108/91 O2 Sat by Pulse 94 L Oximetry Medical Decision Making - Medical Decision Making EKG shows atrial fibrillation with occasional PVC at 87 bpm QRS is 164 QT interval is 452 QTC is 543. Patient is right bundle branch block. When I compared to an old EKG there are no acute changes noted Chest x-ray shows acute pulmonary edema. I gave the patient Lasix. Patient had elevated troponins I started her on heparin. Patient's creatinine was also mildly elevated. I spoke with Dr. López he agreed to admit the patient admitted the patient I consult cardiology I placed the patient on telemetry and continued heparin on the floor. - Lab Data Result diagrams: 07/29/20 07:36 07/29/20 07:36 Lab Results 07/29/20 07/29/20 07/29/20 Range/Units 07:36 07:36 07:36 WBC 8.8 (3.8-10.6) k/uL RBC 3.49 L (3.80-5.40) m/uL Hgb 10.0 L (11.4-16.0) gm/dL Hct 30.2 L (34.0-46.0) % MCV 86.7 (80.0-100.0) fL MCH 28.6 (25.0-35.0) pg MCHC 33.0 (31.0-37.0) g/dL RDW 17.4 H (11.5-15.5) % Plt Count 347 (150-450) k/uL MPV 8.0 Neutrophils % 86 % Lymphocytes % 9 % Monocytes % 3 % Eosinophils % 1 % Basophils % 0 % Neutrophils # 7.6 (1.3-7.7) k/uL Lymphocytes # 0.8 L (1.0-4.8) k/uL Monocytes # 0.3 (0-1.0) k/uL Eosinophils # 0.1 (0-0.7) k/uL Basophils # 0.0 (0-0.2) k/uL Hypochromasia Slight Anisocytosis Slight PT 9.6 (9.0-12.0) sec INR 0.9 (<1.2) APTT 27.7 (22.0-30.0) sec Sodium 129 L (137-145) mmol/L Potassium 4.9 (3.5-5.1) mmol/L Chloride 93 L (98-107) mmol/L Carbon Dioxide 25 (22-30) mmol/L Anion Gap 11 mmol/L BUN 79 H (7-17) mg/dL Creatinine 1.57 H (0.52-1.04) mg/dL Est GFR (CKD-EPI)AfAm 36 (>60 ml/min/1.73 sqM) Est GFR (CKD-EPI)NonAf 31 (>60 ml/min/1.73 sqM) Glucose 58 L (74-99) mg/dL Plasma Lactic Acid [place] (0.7-2.0) mmol/L Calcium 7.9 L (8.4-10.2) mg/dL Magnesium 2.3 (1.6-2.3) mg/dL Total Bilirubin 0.8 (0.2-1.3) mg/dL AST 52 H (14-36) U/L ALT 40 H (4-34) U/L Alkaline Phosphatase 407 H (38-126) U/L Troponin I (0.000-0.034) ng/mL NT-Pro-B Natriuret Pep pg/mL Total Protein 5.8 L (6.3-8.2) g/dL Albumin 2.5 L (3.5-5.0) g/dL 07/29/20 07/29/20 07/29/20 Range/Units 07:36 07:36 07:36 WBC (3.8-10.6) k/uL RBC (3.80-5.40) m/uL Hgb (11.4-16.0) gm/dL Hct (34.0-46.0) % MCV (80.0-100.0) fL MCH (25.0-35.0) pg MCHC (31.0-37.0) g/dL RDW (11.5-15.5) % Plt Count (150-450) k/uL MPV Neutrophils % % Lymphocytes % % Monocytes % % Eosinophils % % Basophils % % Neutrophils # (1.3-7.7) k/uL Lymphocytes # (1.0-4.8) k/uL Monocytes # (0-1.0) k/uL Eosinophils # (0-0.7) k/uL Basophils # (0-0.2) k/uL Hypochromasia Anisocytosis PT (9.0-12.0) sec INR (<1.2) APTT (22.0-30.0) sec Sodium (137-145) mmol/L Potassium (3.5-5.1) mmol/L Chloride (98-107) mmol/L Carbon Dioxide (22-30) mmol/L Anion Gap mmol/L BUN (7-17) mg/dL Creatinine (0.52-1.04) mg/dL Est GFR (CKD-EPI)AfAm (>60 ml/min/1.73 sqM) Est GFR (CKD-EPI)NonAf (>60 ml/min/1.73 sqM) Glucose (74-99) mg/dL Plasma Lactic Acid [place] 1.0 (0.7-2.0) mmol/L Calcium (8.4-10.2) mg/dL Magnesium (1.6-2.3) mg/dL Total Bilirubin (0.2-1.3) mg/dL AST (14-36) U/L ALT (4-34) U/L Alkaline Phosphatase (38-126) U/L Troponin I 0.529 H* (0.000-0.034) ng/mL NT-Pro-B Natriuret Pep 88190 pg/mL Total Protein (6.3-8.2) g/dL Albumin (3.5-5.0) g/dL Critical Care Time Critical Care Time: Yes Total Critical Care Time: 35 Disposition Clinical Impression: Acute pulmonary edema, Troponin level elevated, Renal insufficiency Disposition: ADMITTED IP TO THIS HOSP Referrals: Cristi López MD [Primary Care Provider] - 1-2 days Time of Disposition: 08:39
[2020-07-29 07:48] LABS: Anisocytosis Slight; Basophils % (A) 0 %; Eosinophils # (A) 0.1 k/uL (0-0.7); Eosinophils % (A) 1 %; HCT 30.2 % (34.0-46.0); Hypochromasia Slight; Lymphocytes # (A) 0.8 k/uL (1.0-4.8); Lymphocytes % (A) 9 %; MCH 28.6 pg (25.0-35.0); MCV 86.7 fL (80.0-100.0); Monocytes # (A) 0.3 k/uL (0-1.0); Monocytes % (A) 3 %; Neutrophils # (A) 7.6 k/uL (1.3-7.7); Neutrophils % (A) 86 %; Platelet Count 347 k/uL (150-450); RBC 3.49 m/uL (3.80-5.40); RDW 17.4 % (11.5-15.5); WBC 8.8 k/uL (3.8-10.6)
[2020-07-29 08:00] LABS: INR 0.9 (<1.2); Partial Thromboplastin Time 27.7 sec (22.0-30.0); Prothrombin Time 9.6 sec (9.0-12.0)
[2020-07-29 08:06] LABS: Albumin 2.5 g/dL (3.5-5.0); Calcium 7.9 mg/dL (8.4-10.2); Magnesium 2.3 mg/dL (1.6-2.3); Potassium 4.9 mmol/L (3.5-5.1); Total Bilirubin 0.8 mg/dL (0.2-1.3); Total Protein 5.8 g/dL (6.3-8.2)
--- NOTE | 2020-07-29 08:36 | XR ---
EXAMINATION TYPE: XR chest 2V DATE OF EXAM: 07/29/2020 COMPARISON: 07/11/2020 HISTORY: 79 year-old female shortness of breath TECHNIQUE: AP and lateral views FINDINGS: Left anterior chest wall injection port with subclavian access and catheter tip at the upper SVC leve l. Heart moderately enlarged. Diffuse interstitial and patchy bilateral airspace opacities. There may be minimal improvement from prior. Possible trace effusion on the left. Loss of the subacromial spac e on the right suggesting full-thickness rotator cuff tear. We note a ring projecting at the abdomen on the lateral view. Clinically correlate. IMPRESSION: Cardiomegaly, diffuse interstitial opacity, and patchy bilateral airspace opacity. Changes are relati vely similar, possibly minimally improved from 07/11/2020. Correlate for CHF with patchy pulmonary rohan ma. Underlying pneumonia should be excluded on a clinical basis.
[2020-07-29] MEDS ORDERED: FUROSEMIDE 10 MG/ML 2 ML VIAL IV STA (08:37)
[2020-07-29] MEDS ORDERED: ASPIRIN 325 MG TAB PO STA (08:40)
[2020-07-29] MEDS ORDERED: HEPARIN SODIUM,PORCINE 5,000 UNIT/ML 1 ML VIAL IV ONE (08:44)
[2020-07-29] MEDS: HEPARIN SOD,PORK IN 0.45% NACL 25,000 UNIT in 0.45% NACL 1 250ML.BAG IV SCH (09:05)
[2020-07-29] MEDS: NITROGLYCERIN OINT 1 INCH/GM PACKET TOPICAL SCH ×4 (11:10→22:26)
[2020-07-29 12:12] LABS: Glucose,Whole Blood 42 mg/dL (75-99)
[2020-07-29 12:17] LABS: Glucose,Whole Blood 37 mg/dL (75-99)
[2020-07-29] MEDS: DEXTROSE 50% SYRINGE 50 ML IVP ONE (12:20)
[2020-07-29 12:26] LABS: Glucose,Whole Blood 212 mg/dL (75-99)
[2020-07-29 12:48] LABS: Glucose,Whole Blood 132 mg/dL (75-99)
[2020-07-29 13:07] LABS: Glucose,Whole Blood 132 mg/dL (75-99)
[2020-07-29] MEDS ORDERED: BISMUTH SUBSALICYLATE 4,192 MG/240 ML BOTTLE PO PRN (13:17)
[2020-07-29] MEDS ORDERED: IPRATROPIUM-ALBUTEROL 3 ML NEB INHALATION PRN (13:17)
[2020-07-29] MEDS ORDERED: ACETAMINOPHEN TAB 325 MG TAB PO PRN (13:17)
[2020-07-29] MEDS ORDERED: MAG HYDROX/AL HYDROX/SIMETH 30 ML CUP PO PRN (13:17)
[2020-07-29] MEDS ORDERED: SIMETHICONE 80 MG CHEWABLE PO PRN (13:17)
[2020-07-29] MEDS ORDERED: PIPERACILLIN-TAZOBACTAM 3.375 GM VIAL IVPB SCH (14:00)
[2020-07-29 14:11] LABS: D-Dimer 0.78 mg/L FEU (<0.60); Partial Thromboplastin Time 49.5 sec (22.0-30.0)
[2020-07-29] MEDS: PIPERACILLIN-TAZOBACTAM 3.375 GM in SODIUM CHLORIDE 0.9% 100 ML IVPB SCH ×2 (16:21→22:26)
[2020-07-29] MEDS: GABAPENTIN 100 MG CAP PO SCH ×2 (16:39→22:25)
[2020-07-29 16:52] LABS: Glucose,Whole Blood 99 mg/dL (75-99)
[2020-07-29] MEDS ORDERED: NON FORMULARY DRUG (Prostat Awc 30 ML) PO SCH (17:00)
[2020-07-29] MEDS: HYDROcodone/APAP 5-325MG 1 EACH TAB PO PRN (19:02)
[2020-07-29 20:41] LABS: Glucose,Whole Blood 140 mg/dL (75-99)
[2020-07-29] MEDS: FUROSEMIDE 10 MG/ML 4 ML VIAL IV SCH (22:25)
[2020-07-29] MEDS: SODIUM BICARBONATE TAB 650 MG TAB PO SCH (22:25)
[2020-07-29] MEDS: METOPROLOL TARTRATE 12.5 MG TAB PO SCH (22:25)
[2020-07-29] MEDS: ZINC OXIDE 20% OINT 28.4 GM TUBE TOPICAL SCH (22:26)
[2020-07-29] MEDS: COLLAGENASE 250 UNIT/GM OINTMENT 30 GM TUBE TOPICAL SCH (22:27)
[2020-07-29] MEDS: INSULIN DETEMIR (LEVEMIR) 100 UNIT/ML SYR SQ SCH (22:27)
--- NOTE | 2020-07-29 22:37 | CONS ---
CONSULTATION DATE OF SERVICE: 07/29/2020 REASON FOR CONSULTATION: Sacral wound. 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 The patient also has a history of congestive heart failure with recent multiple admissions to the hospital for CHF exacerbation. The patient recently completed her antibiotic therapy at the retirement with IV Zosyn. Midline to the left arm is still intact and not removed. The patient was brought to [facility] ER early this morning for evaluation of increasing shortness of breath, though patient herself denies having any difficulty breathing and denies having any chest pain. The patient has no complaints at this time. The patient was saturating 92% on 2 L nasal cannula. No cough. No nausea, no vomiting, no abdominal pain or diarrhea. No worsening pain to the sacral wound area. With these symptoms, the patient was evaluated by the ER physician on arrival in the ER. The patient has been afebrile. The patient was saturating 94% oxygen saturation. She did have a normal white count, D-dimer of 0.78, creatinine 1.57. She had elevated troponin as well as NT proBNP of 58,000. The patient had a chest x-ray suggestive of cardiomegaly with diffuse interstitial opacity and patchy bilateral airspace opacity; correlate for CHF with patchy pulmonary edema. The patient has been admitted to the cardiac floor for management of her underlying CHF. Infectious Disease was consulted for management of her sacral wound and need for antibiotic therapy. REVIEW OF SYSTEMS: Positive points have been mentioned in the HPI. Rest of the systems are negative. 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 PAST SURGICAL HISTORY: Bowel resection, diverting colostomy, debridement of sacral wound. SOCIAL HISTORY: Remote history of smoking. No drinking or drug use. FAMILY HISTORY: No pertinent findings were noticed. ALLERGIES: NO KNOWN DRUG ALLERGIES. MEDICATIONS: The patient is currently on Tylenol, [place], Maalox, DuoNeb, aspirin, bismuth subsalicylate, vitamin D3, iron sulfate, Prozac, Lasix, heparin per weight-based protocol, Levemir, Imdur, Synthroid, Lopressor. PHYSICAL EXAMINATION: Her blood pressure is 121/68 with a pulse of 102, temperature 98.3. She is 96% on 3 L nasal cannula. General description is an elderly female lying in bed in no distress. No tachypnea or accessory muscle of respiration use. HEENT examination shows slight pallor. No scleral icterus. Oral mucous membrane is dry. NECK: Trachea is central. No thyromegaly. LUNGS: Unlabored breathing. Decreased breath sounds at bases. No wheeze. HEART: S1, S2. Regular rate and rhythm. ABDOMEN: Soft. No tenderness. EXTREMITIES: Some trace edema of the feet. Examination of sacral wound shows stage IV pressure ulcer with no significant slough tissue, some surrounding deep tissue injury. No surrounding redness or any foul- smelling drainage. Neurologically the patient is awake, alert, oriented x3. Mood and affect normal. LABS: Hemoglobin is 10, white count 8.8. D-dimer was 0.78. BUN of 79, creatinine 1.57. Liver enzymes are mildly elevated. Troponins are elevated. Chest x-ray report mentioned above. 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 Clinically no definite evidence of any cellulitis that was noticed today. Will recommend local wound care only. PLAN: 1. Local wound care to the sacral wound with a wound V.A.C. continuous pressure of 125 mmHg to . 2. Will hold on any systemic antibiotic therapy at this point. 3. Will follow clinical condition and further adjust medication if needed. Thank you for this consultation. Will follow this patient along with you. MMODL / IJN: [id number] /
[2020-07-30] MEDS: BISMUTH SUBSALICYLATE 4,192 MG/240 ML BOTTLE PO SCH ×3 (00:27→21:06)
[2020-07-30 06:12] LABS: Glucose,Whole Blood 47 mg/dL (75-99)
[2020-07-30] MEDS ORDERED: DEXTROSE 50% SYRINGE 50 ML IVP ONE (06:16)
[2020-07-30 06:17] LABS: Anisocytosis Slight; Basophils # (A) 0.1 k/uL (0-0.2); Basophils % (A) 1 %; Eosinophils # (A) 0.2 k/uL (0-0.7); Eosinophils % (A) 3 %; HCT 28.9 % (34.0-46.0); HGB 9.3 gm/dL (11.4-16.0); Lymphocytes # (A) 2.2 k/uL (1.0-4.8); Lymphocytes % (A) 26 %; MCH 27.7 pg (25.0-35.0); MCHC 32.2 g/dL (31.0-37.0); MCV 86.1 fL (80.0-100.0); Mean Platelet Volume 8.2; Monocytes # (A) 0.3 k/uL (0-1.0); Monocytes % (A) 3 %; Neutrophils # (A) 5.7 k/uL (1.3-7.7); Neutrophils % (A) 67 %; Platelet Count 399 k/uL (150-450); RBC 3.35 m/uL (3.80-5.40); RDW 17.9 % (11.5-15.5); WBC 8.5 k/uL (3.8-10.6)
[2020-07-30] MEDS: DEXTROSE 50% SYRINGE 50 ML IVP ONE (06:18)
[2020-07-30] MEDS: PIPERACILLIN-TAZOBACTAM 3.375 GM in SODIUM CHLORIDE 0.9% 100 ML IVPB SCH ×3 (06:33→17:01)
[2020-07-30] MEDS: LEVOTHYROXINE 137 MCG TAB PO SCH (06:33)
[2020-07-30 06:38] LABS: Glucose,Whole Blood 154 mg/dL (75-99)
[2020-07-30 06:39] LABS: Albumin 2.4 g/dL (3.5-5.0); Calcium 7.7 mg/dL (8.4-10.2); Potassium 4.6 mmol/L (3.5-5.1); Total Bilirubin 0.6 mg/dL (0.2-1.3); Total Protein 5.6 g/dL (6.3-8.2)
--- NOTE | 2020-07-30 08:59 | HP ---
HISTORY AND PHYSICAL This 79-year-old white female came in with shortness of breath, hypoxemia, history of sacral ulcer, diverting colostomy, and recent CHF exacerbation as well as COVID pneumonia. IV Zosyn has been given with a PICC line over at the residential. The patient apparently dropped into the 80s on 4 L. Currently, she is 92 on 3 L. She was evaluated by Dr. Pabon for sacral ulcer. White count is normal. D-dimer 0.78. Creatinine 1.57. BNP of 58,000. Chest x-ray, cardiomegaly, bilateral interstitial airspace disease correlate for CHF and pulmonary edema. 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 SURGICAL HISTORY: Bowel surgery, diverting colostomy, debridement of sacral wound. SOCIAL HISTORY: Remote history of smoking. No alcohol or drugs. ALLERGIES: No known drug allergies. MEDICINES: Medicines include: 1. Tylenol. 2. [place]. 3. Maalox. 4. DuoNeb. 5. Aspirin. 6. Vitamin D3. 7. Iron. 8. Prozac. 9. Lasix. 10.Levemir. 11.Imdur. 12.Synthroid. 13.Lopressor. PHYSICAL EXAMINATION: Blood pressure 121/68, pulse is 102, temperature 98.3, O2 of 96% on 3 L. Lying in bed. No tachypnea or accessory muscle use. HEENT: Normocephalic, atraumatic. NECK: Supple. No thyromegaly. LUNGS: Unlabored breathing. HEART: S1, S2. ABDOMEN: Soft, nontender. EXTREMITIES: Some trace edema of the feet. She has stage IV pressure ulcer of the sacrum. NEUROLOGIC: Alert and oriented x3. Hemoglobin is 10. White count 8.8. D-dimer 0.78. ASSESSMENT: 1. Chronic nonhealing sacral ulcer. 2. Systolic congestive heart failure. 3. COVID pneumonia. 4. Hypertension. Prognosis guarded. Condition stable. Follow up as an outpatient. Get Cardiology to see the patient. Continue on heparin due to elevated D-dimer. Follow up in next 24 to 48 hours. MMODL / IJN: [id number] /
[2020-07-30] MEDS: METOPROLOL TARTRATE 12.5 MG TAB PO SCH ×2 (09:03→21:06)
[2020-07-30] MEDS: NITROGLYCERIN OINT 1 INCH/GM PACKET TOPICAL SCH (09:03)
[2020-07-30] MEDS: ASPIRIN 325 MG TAB PO SCH ×2 (09:03→09:05)
[2020-07-30] MEDS: GABAPENTIN 100 MG CAP PO SCH ×3 (09:03→21:06)
[2020-07-30] MEDS: FUROSEMIDE 10 MG/ML 4 ML VIAL IV SCH (09:04)
[2020-07-30] MEDS: ISOSORBIDE MONONITRATE ER 30 MG TAB.ER.24H PO SCH (09:04)
[2020-07-30] MEDS: SODIUM BICARBONATE TAB 650 MG TAB PO SCH ×2 (09:04→21:07)
[2020-07-30] MEDS: FERROUS SULFATE 325 MG TAB PO SCH (09:04)
[2020-07-30] MEDS: CHOLECALCIFEROL 25 MCG (1000 IU) TABLET PO SCH (09:04)
[2020-07-30] MEDS: FLUoxetine HCL 10 MG CAP PO SCH (09:05)
[2020-07-30] MEDS: POTASSIUM CITRATE 10 MEQ TABLET.ER PO SCH (09:05)
[2020-07-30] MEDS: ZINC OXIDE 20% OINT 28.4 GM TUBE TOPICAL SCH ×2 (09:06→21:08)
--- NOTE | 2020-07-30 10:57 | ECHOF ---
Referral Reason:nstemi MEASUREMENTS -------- HEIGHT: 152.4 cm WEIGHT: 69.4 kg BP: RVIDd: 3.3 cm (< 3.3) IVSd: 1.6 cm (0.6 - 1.1) LVIDd: 4.2 cm (3.9 - 5.3) LVPWd: 1.5 cm (0.6 - 1.1) IVSs: 2.4 cm LVIDs: 3.0 cm LVPWs: 1.8 cm RAP: 5.00 mmHg RVSP: 44.82 mmHg FINDINGS -------- This was a technically difficult study with suboptimal views. Limited study for LV function. Overall left ventricular systolic function is mild-moderately impaired with, an EF between 40 - 45 %. Basal lateral LV wall motion is hypokinetic. Basal inferior LV wall motion is hypokinetic. B chrissy inferoseptal LV wall motion is hypokinetic. Lumason used Moderate tricuspid regurgitation present. There is no pericardial effusion. CONCLUSIONS -------- 1. This was a technically difficult study with suboptimal views. 2. Limited study for LV function. 3. Basal lateral LV wall motion is hypokinetic. 4. Basal inferior LV wall motion is hypokinetic. 5. Basal inferoseptal LV wall motion is hypokinetic. 6. Lumason used 7. Moderate tricuspid regurgitation present. 8. There is no pericardial effusion. SLUBBER OPERATOR: Allison Devi RDCS
[2020-07-30 12:05] LABS: Glucose,Whole Blood 115 mg/dL (75-99)
[2020-07-30] MEDS: APIXABAN 2.5 MG TABLET PO SCH ×2 (12:09→21:07)
--- NOTE | 2020-07-30 12:14 | P.CRDCN ---
History of Present Illness History of present illness: HISTORY OF PRESENTING ILLNESS This is a pleasant 79-year-old female past medical history significant for hypertension, dyslipidemia, diabetes mellitus, recent Covid 19 infection, c ardiomyopathy, systolic heart failure, chronic kidney disease and anemia. She denies prior history of coronary artery disease and does not follow in the office with a staff cytotechnologist We have been asked to see in consultation for elevated troponin. Seen and examined sitting up in the chair in no acute distress. She states that she was transferred from her [facility]CF because they told her she looked like she was in fluid overload. The patient denies symptoms of chest pain, shortness of breath, dizziness or palpitations. She feels no different than when she came in because she was asymptomatic at that time as well. She has been initiated on IV diuretics. EKG obtained on arrival revealed atrial fibrillation controlled ventricular rate heart rate of 87 with underlying right bundle branch block and left anterior fascicular block. The patient denies any prior history of atrial fibrillation. Chest x-ray reveals cardiomegaly with diffuse interstitial opacity and patchy bilateral airspace disease that are similar with mild improvement to previous study of July 11. Laboratory data reviewed, WBC 8.5, hemoglobin 9.3, platelets 399, d-dimer 0.78, sodium 130, potassium 4.6, creatinine 1.85, magnesium 2.3, troponin 0.529, 0.419, 0.370 and BNP 59,600. Current daily cardiac medications include Imdur 30 mg daily, Lasix 40 mg twice a day and Lopressor 12.5 mg twice a day. Echocardiogram obtained in June 2020 revealed impaired LV systolic function with ejection fraction 40%, global hypokinesia, grade 2 diastolic dysfunction, mild aortic stenosis with a mean gradient of 4 mmHg, moderate tricuspid regurgitation and moderate pulmonary hypertension with an RVSP of 57 mmHg. Repeat limited echo today revealed ejection fraction 40-45%, nasal lateral, basal inferior and basal inferior septal wall motion hypokinesia. REVIEW OF SYSTEMS At the time of my exam: CONSTITUTIONAL: Denies fever or chills. CARDIOVASCULAR: Denies chest pain, shortness of breath, orthopnea, PND or palpitations. RESPIRATORY: Denies cough. GASTROINTESTINAL: Denies abdominal pain, diarrhea, constipation, nausea or vomiting. MUSCULOSKELETAL: Denies myalgias. NEUROLOGIC: Denies numbness, tingling, headacbe or weakness. ENDOCRINE: Denies fatigue, weight change, polydipsia or polyurina. GENITOURINARY: Denies burning, hematuria or urgency with micturation. HEMATOLOGIC: Denies history of anemia or bleeding. PHYSICAL EXAMINATION Blood pressure 114/59 heart rate 81 afebrile and maintaining oxygen saturation on he still cannula. CONSTITUTIONAL: No apparent distress. Multiple areas of ecchymosis in different stages of healing. HEENT: Head is normocephalic. Pupils are equal, round. Sclerae anicteric. Mucous membranes of the mouth are moist. No JVD. No carotid bruit. CHEST EXAMINATION: Scattered rhonchi. No chest wall tenderness is noted on palpation or with deep breathing. Diminished bilaterally. HEART EXAMINATION: Irregular rate and rhythm. S1, S2 heard. Systolic ejection murmur at the base, no gallops or rub. ABDOMEN: Soft, nontender. Positive bowel sounds. EXTREMITIES: 2+ peripheral pulses, trace non-pitting lower extremity edema and no calf tenderness. NEUROLOGIC EXAMINATION: Patient is awake, alert and oriented x3. ASSESSMENT New paroxysmal atrial fibrillation, continues to be in A. fib with controlled rates Chronic systolic and diastolic heart failure, clinically euvolemic Elevated troponin of unclear etiology Recent Covid 19 infection Cardiomyopathy, unknown type suspect ischemic with segmental wall motion abnormalities noted Chronic kidney disease Hypertension Dyslipidemia Diabetes mellitus Valvular heart disease, aortic stenosis and tricuspid regurgitation Pulmonary hypertension PLAN Troponin elevation of unclear etiology, may be related to some A. fib with RVR not documented here at the hospital. The patient has no symptoms of chest pain or shortness of breath suggestive of myocardial infarction. Recommend maximum medical therapy. Initiate atorvastatin 20 mg at bedtime and continue Imdur as previously ordered. No VERNON or ARB secondary to renal function. In terms of the atrial fibrillation we will initiate Eliquis 2.5 mg twice a day for thromboembolic protection continue Lopressor as previously ordered. Transition to Lasix 40 mg by mouth twice a day. Thank you kindly for this consultation. Nurse Practitioner note has been reviewed, I agree with a documented findings and plan of care. Patient was seen and examined. Past Medical History Past Medical History: Blood Disorder, Coronary Artery Disease (CAD), Cancer, H eart Failure, Diabetes Mellitus, Hyperlipidemia, Myocardial Infarction ([place]), Osteoarthritis (OA), Pneumonia, Renal Disease, Respiratory Disorder, Skin Disorder, Thyroid Disorder Additional Past Medical History / Comment(s): 06/09/[address] [facility] and treated for covid 19-expert medical writer contacted [facility] to get date pt found + but they were unable to find it. 07/03/20 [address] to [facility] with covid pneumonia/hypoxic respiratory failure and chf. Other hx: 2007 rectal cancer with surgery (ileostomy), chemo/radiation, cervical cancer with hysterectomy, IDDM type II, CKD stage III, anemia, UTI, indwelling catheter, stage IV decubitus ulcer with wound vac (machine not with pt), pt wears oxygen ATC at 4L/NC, osteomylitis of vertebrae, moderate protein calorie malnutrition, hypothyroid. Last Myocardial Infarction Date:: 2007 History of Any Multi-Drug Resistant Organisms: None Reported Past Surgical History: Bowel Resection, Heart Catheterization, Hysterectomy, Tonsillectomy Additional Past Surgical History / Comment(s): 2007 cardiac cath-treated medically, bowel resection/ileostomy, colonoscopies, port a cath, wound vac, midline IV Past Anesthesia/Blood Transfusion Reactions: No Reported Reaction Smoking Status: Former smoker - Past Family History Father Family Medical History: Coronary Artery Disease (CAD) Mother Family Medical History: Coronary Artery Disease (CAD) Medications and Allergies Home Medications Medication Instructions Recorded Confirmed Type Acetaminophen Tab [Tylenol] 650 mg PO Q4H PRN 06/09/20 07/29/20 History Dimethic/Zinc Ox/Vits A,D/Aloe [A 1 applic TOPICAL Q12H 06/09/20 07/29/20 History and D Diaper Rash Cream] FLUoxetine HCL [PROzac] 10 mg PO DAILY@0900 06/09/20 07/29/20 History Ferrous Sulfate [Iron] 325 mg PO DAILY@0906/09/20 07/29/20 History HYDROcodone/APAP 5-325MG [Exira 1 tab PO Q8H PRN 06/09/20 07/29/20 History 5-325] Kaopectate 262mg/15ml 524 mg PO BID@899,209906/09/20 07/29/20 History Levothyroxine Sodium 137 mcg PO HS@209906/09/20 07/29/20 History Mag Hydrox/Al Hydrox/Simeth 30 ml PO Q4H PRN 06/09/20 07/29/20 History [Maalox] Metoprolol Tartrate [Lopressor] 12.5 mg PO BID@0900,2100 06/09/20 07/29/20 History Potassium Chloride ER [K-Dur 10] 20 meq PO DAILY@0900 06/09/20 07/29/20 History Prostat Awc 30 ml PO BID@0900,1700 06/09/20 07/29/20 History Simethicone 80 mg PO Q4H PRN 06/09/20 07/29/20 History Sodium Bicarbonate Tab 650 mg PO BID@0900,2100 06/09/20 07/29/20 History Collagenase [Santyl] 1 applic TOPICAL HS 07/03/20 07/29/20 History Ipratropium-Albuterol Nebulize 3 ml INHALATION RT-Q4H PRN 07/03/20 07/29/20 History [Duoneb 0.5 mg-3 mg/3 ml Soln] Kaopectate Suspension 262mg/15ml 524 mg PO TID PRN 07/03/20 07/29/20 History Piperacillin-Tazobactam [Zosyn] 3.375 gm IVPB TID@0600,1400,2200 07/08/20 07/29/20 Rx #[id number] vial Enoxaparin [Lovenox] 40 mg SQ DAILY syringe 07/14/20 07/29/20 Rx Insulin Detemir (Levemir) [Levemir] 10 unit SQ HS syr 07/14/20 07/29/20 Rx Cholecalciferol [Vitamin D3 (25 50 mcg PO DAILY 07/29/20 07/29/20 History Mcg = 1000 Iu)] Furosemide [Lasix] 40 mg PO BID@0600,1300 07/29/20 07/29/20 History Gabapentin [Neurontin] 100 mg PO TID 07/29/20 07/29/20 History Insulin Lispro [humaLOG Kwikpen] See Protocol SQ ACHS 07/29/20 07/29/20 History Isosorbide Mononitrate ER [Imdur] 30 mg PO DAILY 07/29/20 07/29/20 History Sodium Chloride Irrig Solution 10 ml IV TID 07/29/20 07/29/20 History [Saline 0.9% Irrigation] Allergies Allergy/AdvReac Type Severity Reaction Status Date / Time No Known Allergies Allergy Verified 07/29/20 08:21 Physical Exam Vitals: Vital Signs Temp Pulse Resp BP Pulse Ox 07/30/20 03:53 97.8 F 81 20 105/51 95 07/30/20 00:00 98.4 F 90 20 102/53 94 L 07/29/20 20:00 98.3 F 92 22 131/61 93 L 07/29/20 17:02 20 07/29/20 16:22 98.3 F 102 H 20 121/68 96 07/29/20 12:04 96.7 F L 84 20 116/56 100 07/29/20 10:10 96.8 F L 86 20 92/47 98 Intake and Output 07/29/20 07/30/20 07/30/20 22:59 06:59 14:59 Intake Total 420 189.618 Output Total 500 500 Balance -80 -500 189.618 Intake: Intake, IV Titration 189.618 Amount Heparin Sod,Pork in 0.45% 189.618 NaCl 25,000 unit In 0.45 % NaCl 1 250ml.bag @ 12 UNITS/KG/HR 8.58 mls/hr IV .Q24H [facility] Rx#: [id number] Oral 420 Output: Urine 350 500 Stool 150 Other: Voiding Method Indwelling Catheter Indwelling Catheter Weight 69.5 kg Results 07/30/20 05:57 07/30/20 05:57 Cardiac Enzymes 07/29/20 07/29/20 07/30/20 Range/Units 10:26 13:43 05:57 AST 35 (14-36) U/L Troponin I 0.419 H* 0.370 H* (0.000-0.034) ng/mL Coagulation 07/29/20 07/30/20 Range/Units 13:43 05:57 APTT 49.5 H 30.4 H (22.0-30.0) sec CBC 07/30/20 Range/Units 05:57 WBC 8.5 (3.8-10.6) k/uL RBC 3.35 L (3.80-5.40) m/uL Hgb 9.3 L (11.4-16.0) gm/dL Hct 28.9 L (34.0-46.0) % Plt Count 399 (150-450) k/uL Comprehensive Metabolic Panel 07/30/20 Range/Units 05:57 Sodium 130 L (137-145) mmol/L Potassium 4.6 (3.5-5.1) mmol/L Chloride 91 L (98-107) mmol/L Carbon Dioxide 28 (22-30) mmol/L BUN 77 H (7-17) mg/dL Creatinine 1.85 H (0.52-1.04) mg/dL Glucose 39 L* (74-99) mg/dL Calcium 7.7 L (8.4-10.2) mg/dL AST 35 (14-36) U/L ALT 34 (4-34) U/L Alkaline Phosphatase 368 H (38-126) U/L Total Protein 5.6 L (6.3-8.2) g/dL Albumin 2.4 L (3.5-5.0) g/dL Current Medications Generic Name Dose Route Start Last Admin Trade Name Freq PRN Reason Stop Dose Admin Acetaminophen 650 mg 07/29/20 13:17 Acetaminophen Tab 325 Mg Tab PO Q4H PRN Fever and/ or Pain Hydrocodone Bitart/Acetaminophen 1 each 07/29/20 13:17 07/29/20 19:02 Hydrocodone/Apap 5-325mg 1 Each Tab PO 1 each Q8H PRN Administration Pain Al Hydroxide/Mg Hydroxide 30 ml 07/29/20 13:17 Mag Hydrox/Al Hydrox/Simeth 30 Ml Cup PO Q4H PRN GERD Albuterol/Ipratropium 3 ml 07/29/20 13:17 Ipratropium-Albuterol 3 Ml Neb INHALATION RT-Q4H PRN Shortness Of Breath Or Wheezing Aspirin 325 mg 07/30/20 08:43 Aspirin 325 Mg Tab PO DAILY [facility] Bismuth Subsalicylate 524 mg 07/29/20 13:17 Bismuth Subsalicylate 4,192 Mg/240 Ml Bottle PO TID PRN Diarrhea Bismuth Subsalicylate 524 mg 07/29/20 21:00 07/30/20 08:58 Bismuth Subsalicylate 4,192 Mg/240 Ml Bottle PO Not Given BID@0900,2100 [facility] Cholecalciferol 50 mcg 07/30/20 09:00 Cholecalciferol 25 Mcg (1000 Iu) Tablet PO DAILY [facility] Ferrous Sulfate 325 mg 07/30/20 09:00 Ferrous Sulfate 325 Mg Tab PO DAILY@0900 [facility] Fluoxetine HCl 10 mg 07/30/20 09:00 Fluoxetine Hcl 10 Mg Cap PO DAILY@0900 [facility] Furosemide 40 mg 07/29/20 21:00 07/29/20 22:25 Furosemide 10 Mg/Ml 4 Ml Vial IV 40 mg Q12HR [facility] Administration Gabapentin 100 mg 07/29/20 16:00 07/29/20 22:25 Gabapentin 100 Mg Cap PO 100 mg TID [facility] Administration Heparin Sodium/Sodium Chloride 250 mls @ 8.58 mls/hr 07/29/20 08:45 07/30/20 07:11 25,000 unit/ Sodium Chloride IV 15 units/kg/hr .Q24H [facility]ICA 10.725 mls/hr Titration Protocol 12 UNITS/KG/HR Piperacillin Sod/Tazobactam 100 mls @ 25 mls/hr 07/29/20 14:00 07/30/20 06:33 Sod 3.375 gm/ Sodium Chloride IVPB 25 mls/hr Q8H [facility] Administration Insulin Detemir 10 unit 07/29/20 21:00 07/29/20 22:27 Insulin Detemir (Levemir) 100 Unit/Ml Syr SQ 10 unit HS [facility] Administration Isosorbide Mononitrate 30 mg 07/30/20 09:00 Isosorbide Mononitrate Er 30 Mg Tab.Er.24h PO DAILY [facility] Levothyroxine Sodium 137 mcg 07/30/20 06:30 07/30/20 06:33 Levothyroxine 137 Mcg Tab PO 137 mcg DAILY@0630 [facility] Administration Metoprolol Tartrate 12.5 mg 07/29/20 21:00 07/29/20 22:25 Metoprolol Tartrate 12.5 Mg Tab PO 12.5 mg BID@0900,2100 [facility] Administration Multi-Ingredient Ointment 1 applic 07/29/20 21:00 07/29/20 22:26 Zinc Oxide 20% Oint 28.4 Gm Tube TOPICAL 1 applic Q12HR [facility] Administration Nitroglycerin 1 inch 07/29/20 09:00 07/29/20 22:26 Nitroglycerin Oint 1 Inch/Gm Packet TOPICAL 1 inch QID [facility] Administration Collagenase 250 Unit 1 each 07/29/20 21:00 07/29/20 22:27 /Gm Ointment 30 Gm TOPICAL Not Given Tube [facility] Potassium Citrate 20 meq 07/30/20 09:00 Potassium Citrate 10 Meq Tablet.Er PO DAILY@0900 [facility] Simethicone 80 mg 07/29/20 13:17 Simethicone 80 Mg Chewable PO Q4H PRN GAS/BLOATING Sodium Bicarbonate 650 mg 07/29/20 21:00 07/29/20 22:25 Sodium Bicarbonate Tab 650 Mg Tab PO 650 mg BID@0900,2100 [facility] Administration Intake and Output 07/29/20 07/30/20 07/30/20 22:59 06:59 14:59 Intake Total 420 189.618 Output Total 500 500 Balance -80 -500 189.618 Intake: Intake, IV Titration 189.618 Amount Heparin Sod,Pork in 0.45% 189.618 NaCl 25,000 unit In 0.45 % NaCl 1 250ml.bag @ 12 UNITS/KG/HR 8.58 mls/hr IV .Q24H [facility] Rx#: [id number] Oral 420 Output: Urine 350 500 Stool 150 Other: Voiding Method Indwelling Catheter Indwelling Catheter Weight 69.5 kg 07/30/20 05:57 07/30/20 05:57
[2020-07-30] MEDS: HYDROcodone/APAP 5-325MG 1 EACH TAB PO PRN ×2 (14:28→22:00)
[2020-07-30] MEDS: FUROSEMIDE 40 MG TAB PO SCH (17:01)
[2020-07-30 17:17] LABS: Glucose,Whole Blood 155 mg/dL (75-99)
--- NOTE | 2020-07-30 20:00 | PN ---
PROGRESS NOTE DATE OF SERVICE: 07/30/2020 REASON FOR FOLLOWUP: Sacral pressure ulcer, stage IV. INTERVAL HISTORY: The patient is currently afebrile. The patient is breathing comfortably. Denies having any chest pain, shortness of breath. No significant cough. No abdominal pain or pain to the sacral wound area. PHYSICAL EXAMINATION: Blood pressure 109/56 with a pulse of 88, temperature 97.4. She is 94% on 3 L nasal cannula. General description is an elderly female lying in bed in no distress. RESPIRATORY SYSTEM: Unlabored breathing with decreased breath sounds at the base. No wheeze. HEART: S1, S2. Regular rate and rhythm. ABDOMEN: Soft. No tenderness. LABS: Hemoglobin 9.3, white count 8.5, BUN of 77, creatinine 1.85. DIAGNOSTIC IMPRESSION AND PLAN: Patient with stage IV sacral pressure ulcer in this patient admitted to hospital with shortness of breath, more likely secondary to condition. Clinically doubt pneumonia. Local care with wound V.A.C. No need for systemic antibiotic therapy. Will continue supportive care. MMODL / IJN: [id number] /
[2020-07-30] MEDS: HEPARIN SOD,PORK IN 0.45% NACL 25,000 UNIT in 0.45% NACL 1 250ML.BAG IV SCH (20:22)
[2020-07-30] MEDS: ATORVASTATIN 20 MG TAB PO SCH (21:06)
[2020-07-30] MEDS: INSULIN DETEMIR (LEVEMIR) 100 UNIT/ML SYR SQ SCH (21:07)
[2020-07-30 21:17] LABS: Glucose,Whole Blood 293 mg/dL (75-99)
[2020-07-30] MEDS: COLLAGENASE 250 UNIT/GM OINTMENT 30 GM TUBE TOPICAL SCH (21:21)
--- NOTE | 2020-07-30 22:48 | PN ---
PROGRESS NOTE Ejection fraction on echo was 40-45. Mildly impaired. Moderate tricuspid regurgitation on echo. Remains on a wound VAC. Cardiovascular S1-S2. Lungs transmitted upper airway sounds. Hematology: Negative Homans. She is 94 on 3 L. Temperature 97.4, pulse 88, blood pressure 109/56. Lungs are nonlabored breathing. Heart S1, S2. Abdomen is soft. Hemoglobin is 9.3, white count 8.5, BUN is 77, creatinine 1.85. IMPRESSION: 1. Stage IV sacral ulcer. 2. Shortness of breath. 3. Acute on chronic diastolic heart failure. Put on the wound VAC and possibly go home once cleared from current treatments. MMODL / IJN: [id number] /
[2020-07-31 06:18] LABS: Glucose,Whole Blood 150 mg/dL (75-99)
[2020-07-31] MEDS: LEVOTHYROXINE 137 MCG TAB PO SCH (06:35)
[2020-07-31] MEDS: PIPERACILLIN-TAZOBACTAM 3.375 GM in SODIUM CHLORIDE 0.9% 100 ML IVPB SCH ×2 (06:35→16:43)
[2020-07-31 07:46] LABS: Calcium 7.8 mg/dL (8.4-10.2); Potassium 4.6 mmol/L (3.5-5.1)
[2020-07-31] MEDS: FLUoxetine HCL 10 MG CAP PO SCH (08:35)
[2020-07-31] MEDS: FERROUS SULFATE 325 MG TAB PO SCH (08:35)
[2020-07-31] MEDS: POTASSIUM CITRATE 10 MEQ TABLET.ER PO SCH (08:35)
[2020-07-31] MEDS: APIXABAN 2.5 MG TABLET PO SCH ×2 (08:35→20:50)
[2020-07-31] MEDS: METOPROLOL TARTRATE 12.5 MG TAB PO SCH ×2 (08:35→20:50)
[2020-07-31] MEDS: ISOSORBIDE MONONITRATE ER 30 MG TAB.ER.24H PO SCH (08:35)
[2020-07-31] MEDS: SODIUM BICARBONATE TAB 650 MG TAB PO SCH ×2 (08:35→20:50)
[2020-07-31] MEDS: FUROSEMIDE 40 MG TAB PO SCH (08:35)
[2020-07-31] MEDS: GABAPENTIN 100 MG CAP PO SCH ×3 (08:35→20:50)
[2020-07-31] MEDS: CHOLECALCIFEROL 25 MCG (1000 IU) TABLET PO SCH (08:35)
[2020-07-31] MEDS: BISMUTH SUBSALICYLATE 4,192 MG/240 ML BOTTLE PO SCH ×2 (08:36→20:51)
[2020-07-31] MEDS: ZINC OXIDE 20% OINT 28.4 GM TUBE TOPICAL SCH ×2 (08:36→20:51)
[2020-07-31] MEDS ORDERED: FUROSEMIDE 40 MG TAB PO SCH (09:00)
[2020-07-31] MEDS: HYDROcodone/APAP 5-325MG 1 EACH TAB PO PRN (09:49)
--- NOTE | 2020-07-31 10:21 | P.PN ---
Subjective Progress Note Date: 07/31/20 This is a pleasant 79-year-old female past medical history significant for hypertension, dyslipidemia, diabetes mellitus, recent Covid 19 infection, cardiomyopathy, systolic heart failure, chronic kidney disease and anemia. She denies prior history of coronary artery disease and does not follow in the office with a search engine optimization specialist cardiology was initially requested to see the patient because of abnormality in troponin, not consistent with acute coronary syndrome. Echocardiogram with Doppler study was performed which revealed an ejection fraction of 40-45%. Patient was seen and examined this morning, denies any chest discomfort, breathing is stable, no dizziness or palpitations. Let pres sure 122/80 with a heart rate in the 70s, 98% on 3 L of oxygen. Sodium 1:30, potassium 4.6, BUN 73 and creatinine 1.9. Objective - Vital Signs Vital signs: Vital Signs Temp 98.1 F 07/31/20 08:24 Pulse 77 07/31/20 08:24 Resp 18 07/31/20 08:24 BP 123/84 07/31/20 08:24 Pulse Ox 98 07/31/20 08:25 Intake & Output 07/30/20 07/31/20 07/31/20 18:59 06:59 18:59 Intake Total 1109.618 Output Total 700 1000 Balance 409.618 -1000 Weight 67.5 kg Intake: Intake, IV Titration 389.618 Amount Heparin Sod,Pork in 0.45% 189.618 NaCl 25,000 unit In 0.45 % NaCl 1 250ml.bag @ 12 UNITS/KG/HR 8.58 mls/hr IV .Q24H [facility] Rx#: [id number] Piperacillin-Tazobactam 3 200 .375 gm In Sodium Chloride 0.9% 100 ml @ 25 mls/hr IVPB Q12H [facility] Rx# :[id number] Oral 720 Output: Urine 700 700 Stool 300 Other: Voiding Method Indwelling Catheter Indwelling Catheter # Bowel Movements 1 1 - Exam Physical examination CONSTITUTIONAL: No apparent distress. Multiple areas of ecchymosis in different stages of healing. HEENT: Head is normocephalic. Pupils are equal, round. Sclerae anicteric. Mucous membranes of the mouth are moist. No JVD. No carotid bruit. CHEST EXAMINATION: Scattered rhonchi. No chest wall tenderness is noted on palpation or with deep breathing. Diminished bilaterally. HEART EXAMINATION: Irregular rate and rhythm. S1, S2 heard. Systolic ejection murmur at the base, no gallops or rub. ABDOMEN: Soft, nontender. Positive bowel sounds. EXTREMITIES: 2+ peripheral pulses, trace non-pitting lower extremity edema and no calf tenderness. NEUROLOGIC EXAMINATION: Patient is awake, alert and oriented x3. - Labs CBC & Chem 7: 07/30/20 05:57 07/31/20 06:48 Labs: Abnormal Lab Results - Last 24 Hours (Table) 07/30/20 07/30/20 07/30/20 Range/Units 11:57 12:03 17:16 APTT 32.0 H (22.0-30.0) sec Sodium (137-145) mmol/L Chloride (98-107) mmol/L BUN (7-17) mg/dL Creatinine (0.52-1.04) mg/dL Glucose (74-99) mg/dL POC Glucose (mg/dL) 115 H 155 H (75-99) mg/dL Calcium (8.4-10.2) mg/dL 07/30/20 07/31/20 07/31/20 Range/Units 21:04 06:06 06:48 APTT (22.0-30.0) sec Sodium 130 L (137-145) mmol/L Chloride 92 L (98-107) mmol/L BUN 73 H (7-17) mg/dL Creatinine 1.91 H (0.52-1.04) mg/dL Glucose 120 H (74-99) mg/dL POC Glucose (mg/dL) 293 H 150 H (75-99) mg/dL Calcium 7.8 L (8.4-10.2) mg/dL Assessment and Plan Plan: ASSESSMENT and plan: #1 New paroxysmal atrial fibrillation, continues to be in A. fib with controlled rates #2 Chronic systolic and diastolic heart failure, clinically euvolemic #3 Elevated troponin , not consistent with acute coronary syndrome with us no significant rise and fall pattern #4 Recent Covid 19 infection #5 Cardiomyopathy, unknown type #6 Chronic kidney disease #7 Hypertension #8 Dyslipidemia #9 Diabetes mellitus #10 Valvular heart disease, aortic stenosis and tricuspid regurgitation #11 Pulmonary hypertension #12 sacral pressure ulcer, stage IV Plan Because of the worsening renal function, we'll decrease Lasix to 40 mg daily. Continue Eliquis 2-1/2 mg one tablet by mouth twice a day. Continue metoprolol 12-1/2 mg one tablet by mouth twice a day. DNP note has been reviewed, I agree with a documented findings and plan of care. Patient was seen and examined.
--- NOTE | 2020-07-31 14:52 | PN ---
PROGRESS NOTE She has a large sacral ulcer for which a wound VAC is in place. Dr. Pabon apparently says no more antibiotics, so she is going to probably be sent home with wound VAC and home nurse. She does not want to go back to the assisted. History of hypertension, dyslipidemia, diabetes, recent Covid 19 infection, cardiomyopathy, systolic heart failure, chronic renal disease and anemia. Prior history of coronary artery disease. Her ejection fraction on heart is 40-45 percent. Breathing is better. She is not dizzy. No palpitations. Blood pressure 122/80, heart rate is 70s, she is 98% on 3 L. is 13, potassium 4.6, BUN is 73, creatinine 1.9. Temperature 98, pulse 70s, respiratory 16-20, blood pressure 123/84, O2 98. Lungs scattered rhonchi, diminished breathing. Heart S1, S2. Abdomen is soft. Extremities 2+ edema. She has a wound VAC on her large sacral ulcer, which I saw yesterday, had no significant exudate or drainage from it. White count is 8.5, hemoglobin is 9.3. BUN 73, creatinine 1.91, sodium 130. IMPRESSION: 1. She has new paroxysmal atrial fibrillation. 2. She has atrial fibrillation with controlled rate. 3. Chronic systolic diastolic heart failure. 4. Recent COVID-19 pneumonia. 5. Elevated troponin, not consistent with coronary syndrome. 6. Cardiomyopathy. 7. Chronic kidney disease. 8. Hypertension. 9. Dyslipidemia. 10.Diabetes mellitus. 11.Valvular heart disease. 12.Aortic stenosis. 13.Tricuspid regurgitation. Her renal function is worsening. We are going to cut her Lasix down to 40 once a day. Continue Eliquis 2.5 mg b.i.d. Continue metoprolol 12.[address] Pabon about the wound VAC and possibly discharge home in next few days. MMODL / IJN: [id number] /
[2020-07-31 16:40] LABS: Glucose,Whole Blood 202 mg/dL (75-99)
--- NOTE | 2020-07-31 18:07 | PN ---
PROGRESS NOTE DATE OF SERVICE: 07/31/2020 REASON FOR FOLLOWUP: Sacral pressure ulcer, stage IV. INTERVAL HISTORY: The patient is currently afebrile. The patient is breathing comfortably. The patient denies having any chest pain or cough. No abdominal pain or any worsening pain to the sacral wound area. PHYSICAL EXAMINATION: Blood pressure 118/70 with a pulse of 76, temperature 98.1. She is 98% on 3 L nasal cannula. General description is an elderly female lying in bed in no distress. Respiratory system: Unlabored breathing, clear to auscultation anteriorly. Heart S1, S2. Regular rate and rhythm. Abdomen soft, no tenderness. LABS: BUN of 73, creatinine is 1.91. DIAGNOSTIC IMPRESSION AND PLAN: Patient with stage IV sacral pressure ulcer. This patient has received more than 12 weeks of IV antibiotic therapy. Recommend no antibiotic on discharge. Local care to continue with wound VAC and close [facility]up [facility]. Discussed with the admitting physician. SAHRA / CHLEON: [id number] /
[2020-07-31] MEDS: COLLAGENASE 250 UNIT/GM OINTMENT 30 GM TUBE TOPICAL SCH (20:50)
[2020-07-31] MEDS: ATORVASTATIN 20 MG TAB PO SCH (20:50)
[2020-08-01 06:35] LABS: Glucose,Whole Blood 226 mg/dL (75-99)
[2020-08-01] MEDS: PIPERACILLIN-TAZOBACTAM 3.375 GM in SODIUM CHLORIDE 0.9% 100 ML IVPB SCH ×2 (06:39→17:43)
[2020-08-01] MEDS: LEVOTHYROXINE 137 MCG TAB PO SCH (06:39)
[2020-08-01] MEDS: GABAPENTIN 100 MG CAP PO SCH ×3 (08:32→21:00)
[2020-08-01] MEDS: CHOLECALCIFEROL 25 MCG (1000 IU) TABLET PO SCH (08:32)
[2020-08-01] MEDS: APIXABAN 2.5 MG TABLET PO SCH ×2 (08:32→21:00)
[2020-08-01] MEDS: POTASSIUM CITRATE 10 MEQ TABLET.ER PO SCH ×2 (08:32→10:54)
[2020-08-01] MEDS: FLUoxetine HCL 10 MG CAP PO SCH (08:32)
[2020-08-01] MEDS: METOPROLOL TARTRATE 12.5 MG TAB PO SCH ×2 (08:32→21:00)
[2020-08-01] MEDS: SODIUM BICARBONATE TAB 650 MG TAB PO SCH ×2 (08:32→21:00)
[2020-08-01] MEDS: ISOSORBIDE MONONITRATE ER 30 MG TAB.ER.24H PO SCH (08:33)
[2020-08-01] MEDS: FERROUS SULFATE 325 MG TAB PO SCH (08:33)
[2020-08-01] MEDS: BISMUTH SUBSALICYLATE 4,192 MG/240 ML BOTTLE PO SCH ×2 (08:34→21:01)
[2020-08-01] MEDS: ZINC OXIDE 20% OINT 28.4 GM TUBE TOPICAL SCH ×2 (08:34→21:02)
--- NOTE | 2020-08-01 09:58 | XR ---
EXAMINATION TYPE: XR chest 1V portable DATE OF EXAM: 08/01/2020 COMPARISON: Chest x-ray 07/29/2020 HISTORY: Congestive heart failure, Covid pneumonia TECHNIQUE: Single frontal view of the chest is obtained. FINDINGS: Airspace disease is somewhat less confluent in the right upper lobe as compared to prior e xam. Port is present with the distal tip overlying superior vena cava. No evident pneumothorax or siz able pleural effusion. Lung volumes are low. Heart is enlarged. Aorta is dense. Bone mineralization i s reduced. Interstitium remains prominent. There is blunting the costophrenic angles. IMPRESSION: There is some slight improved aeration. Correlate for pneumonia, interstitial edema.
--- NOTE | 2020-08-01 10:42 | P.PN ---
Subjective Progress Note Date: 08/01/20 This is a pleasant 79-year-old female past medical history significant for hypertension, dyslipidemia, diabetes mellitus, recent Covid 19 infection, cardiomyopathy, systolic heart failure, chronic kidney disease and anemia. She denies prior history of coronary artery disease and does not follow in the office with a administrator social welfare cardiology was initially requested to see the patient because of abnormality in troponin, not consistent with acute coronary syndrome. Echocardiogram with Doppler study was performed which revealed an ejection fraction of 40-45%. Patient was seen and examined this morning, denies any chest discomfort, breathing is stable, no dizziness or palpitations. Let pres sure 122/80 with a heart rate in the 70s, 98% on 3 L of oxygen. Sodium 1:30, potassium 4.6, BUN 73 and creatinine 1.9. 08/01/2020 patient seen and examined this morning, breathing is stable, denies any dizziness or lightheadedness, no chest discomfort. Blood pressure 104/58, 92% on 2 L of oxygen, heart rate 84. Lab data from this morning is pending. Objective - Vital Signs Vital signs: Vital Signs Temp 98.1 F 08/01/20 08:00 Pulse 84 08/01/20 08:00 Resp 18 08/01/20 08:00 BP 103/58 08/01/20 08:00 Pulse Ox 97 08/01/20 08:00 Intake & Output 07/31/20 08/01/20 08/01/20 18:59 06:59 18:59 Intake Total 776 Output Total 725 225 Balance 51 -225 Weight 70.5 kg Intake: Intake, IV Titration 100 Amount Piperacillin-Tazobactam 3 100 .375 gm In Sodium Chloride 0.9% 100 ml @ 25 mls/hr IVPB Q12H [facility] Rx# :[id number] Oral 676 Output: Urine 700 Stool 25 225 Other: Voiding Method Indwelling Catheter Indwelling Catheter - Exam Physical examination CONSTITUTIONAL: No apparent distress. Multiple areas of ecchymosis in different stages of healing. HEENT: Head is normocephalic. Pupils are equal, round. Sclerae anicteric. Mucous membranes of the mouth are moist. No JVD. No carotid bruit. CHEST EXAMINATION: Scattered rhonchi. No chest wall tenderness is noted on palpa tion or with deep breathing. Diminished bilaterally. HEART EXAMINATION: Irregular rate and rhythm. S1, S2 heard. Systolic ejection murmur at the base, no gallops or rub. ABDOMEN: Soft, nontender. Positive bowel sounds. EXTREMITIES: 2+ peripheral pulses, trace non-pitting lower extremity edema and n o calf tenderness. NEUROLOGIC EXAMINATION: Patient is awake, alert and oriented x3. - Labs CBC & Chem 7: 07/30/20 05:57 07/31/20 06:48 Labs: Abnormal Lab Results - Last 24 Hours (Table) 07/31/20 07/31/20 08/01/20 Range/Units 06:40 16:39 06:25 POC Glucose (mg/dL) 202 H 226 H (75-99) mg/dL Magnesium 2.5 H (1.6-2.3) mg/dL Assessment and Plan Plan: ASSESSMENT and plan: #1 New paroxysmal atrial fibrillation, continues to be in A. fib with controlled rates #2 Chronic systolic and diastolic heart failure, clinically euvolemic #3 Elevated troponin , not consistent with acute coronary syndrome with us no significant rise and fall pattern #4 Recent Covid 19 infection #5 Cardiomyopathy, unknown type #6 Chronic kidney disease #7 Hypertension #8 Dyslipidemia #9 Diabetes mellitus #10 Valvular heart disease, aortic stenosis and tricuspid regurgitation #11 Pulmonary hypertension #12 sacral pressure ulcer, stage IV Plan The patient's lytes BUN and creatinine are pending from this morning, adjustments will be made according to her creatinine today. DNP note has been reviewed, I agree with a documented findings and plan of care. Patient was seen and examined.
[2020-08-01 10:49] LABS: Calcium 7.7 mg/dL (8.4-10.2); Potassium 4.4 mmol/L (3.5-5.1)
[2020-08-01] MEDS: HYDROcodone/APAP 5-325MG 1 EACH TAB PO PRN ×2 (11:45→21:00)
[2020-08-01 12:32] LABS: Glucose,Whole Blood 240 mg/dL (75-99)
[2020-08-01] MEDS: INSULIN ASPART (NovoLOG) 100 UNIT/ML VIAL SQ SCH ×3 (12:42→21:01)
--- NOTE | 2020-08-01 14:45 | PN ---
PROGRESS NOTE 79-year-old white female with history of hypertension, dyslipidemia, diabetes mellitus, COVID-19 infection, cardiomyopathy, systolic heart failure with ejection fraction 40- 45%. Currently she is 98 on 3 L, heart rate in the 70s, blood pressure 120/82. Sodium 130, potassium 4.6, BUN 17, creatinine 1.9. She is down to 2 L, she is at 92. She will need to be set up for home oxygen at home. Possibly send her home this week. Temperature 98.1, pulse 80-84, respiratory 16-18, blood pressure 103/58, O2 saturation 97. ASSESSMENT: 1. New paroxysmal atrial fibrillation, atrial fibrillation, controlled rate. 2. Chronic systolic diastolic heart failure. 3. Elevated troponin. No coronary syndrome: 4. Recent COVID-19. 5. Cardiomyopathy. 6. Chronic renal disease. 7. Hypertension. 8. Dyslipidemia. 9. Diabetes mellitus. 10.Valvular heart disease. 11.Aortic stenosis. 12.Tricuspid regurg. 13.Sacral ulcer pressure stage IV for which wound VAC is going to be placed. She will possibly go home with the wound VAC this week. Continue medications pending on her electrolytes and her elevated BUN and creatinine with diuresis. Apparently today, her BUN went down from 73 to 70, creatinine went from 1.91-1.84, calcium is 7.7, sodium still 131. She will remain on low-dose [place], Neurontin, Accu-Chek protocol. She had low sugars yesterday at which time Lantus 5 units was discontinued. She remains on metoprolol, Zosyn, sodium bicarb, Eliquis, Lipitor. If increased swelling or shortness of breath we can start her back on low-dose Lasix in next day or two. She will probably need to go home actually on a low-dose Lasix as she has had this before with congestive heart failure. Please see further orders. MMODL / IJN: [id number] /
[2020-08-01 17:14] LABS: Glucose,Whole Blood 205 mg/dL (75-99)
[2020-08-01 20:28] LABS: Glucose,Whole Blood 239 mg/dL (75-99)
[2020-08-01] MEDS: ATORVASTATIN 20 MG TAB PO SCH (21:00)
[2020-08-01] MEDS: COLLAGENASE 250 UNIT/GM OINTMENT 30 GM TUBE TOPICAL SCH (21:01)
--- NOTE | 2020-08-01 23:29 | PN ---
PROGRESS NOTE DATE OF SERVICE: 08/01/2020 REASON FOR FOLLOWUP: Stage IV sacral pressure ulcer. INTERVAL HISTORY: The patient is currently afebrile. The patient is breathing comfortably. The patient denies having any chest pain or shortness of breath, cough, no abdominal pain. Pain to the sacral wound area. PHYSICAL EXAMINATION: Blood pressure 120/63 with a pulse of 80, temperature 97. She is 98% on 2 L nasal cannula. General description: The patient is an elderly female lying in bed in no distress. Respiratory system: Unlabored breathing. Clear to auscultation anteriorly. Heart S1, S2. Regular rate and rhythm. Abdomen soft, no tenderness. LABS: BUN of 7, creatinine is 1.84. DIAGNOSTIC IMPRESSION AND PLAN: Patient with stage IV sacral pressure ulcer. The patient local care to continue with wound VAC to be changed Sunday, Sunday, Sunday on Zosyn which can be discontinued. The patient has had more than enough antibiotic therapy for underlying infection. Continue supportive care. MMODL / IJN: [id number] /
[2020-08-02 06:25] LABS: Glucose,Whole Blood 155 mg/dL (75-99)
[2020-08-02] MEDS: INSULIN ASPART (NovoLOG) 100 UNIT/ML VIAL SQ SCH ×4 (06:31→21:15)
[2020-08-02] MEDS: PIPERACILLIN-TAZOBACTAM 3.375 GM in SODIUM CHLORIDE 0.9% 100 ML IVPB SCH ×2 (06:37→17:35)
[2020-08-02] MEDS: LEVOTHYROXINE 137 MCG TAB PO SCH (06:38)
[2020-08-02] MEDS: HYDROcodone/APAP 5-325MG 1 EACH TAB PO PRN ×3 (06:38→21:14)
[2020-08-02 09:20] LABS: Calcium 7.7 mg/dL (8.4-10.2); Magnesium 2.3 mg/dL (1.6-2.3)
[2020-08-02] MEDS ORDERED: FUROSEMIDE 10 MG/ML 4 ML VIAL IV STA (09:31)
[2020-08-02] MEDS: BISMUTH SUBSALICYLATE 4,192 MG/240 ML BOTTLE PO SCH ×2 (09:33→21:16)
[2020-08-02] MEDS: GABAPENTIN 100 MG CAP PO SCH ×3 (09:34→21:14)
[2020-08-02] MEDS: FLUoxetine HCL 10 MG CAP PO SCH (09:34)
[2020-08-02] MEDS: POTASSIUM CITRATE 10 MEQ TABLET.ER PO SCH (09:34)
[2020-08-02] MEDS: CHOLECALCIFEROL 25 MCG (1000 IU) TABLET PO SCH (09:34)
[2020-08-02] MEDS: METOPROLOL TARTRATE 12.5 MG TAB PO SCH ×2 (09:34→21:13)
[2020-08-02] MEDS: ISOSORBIDE MONONITRATE ER 30 MG TAB.ER.24H PO SCH (09:35)
[2020-08-02] MEDS: ZINC OXIDE 20% OINT 28.4 GM TUBE TOPICAL SCH ×2 (09:35→21:17)
[2020-08-02] MEDS: FERROUS SULFATE 325 MG TAB PO SCH (09:35)
[2020-08-02] MEDS: APIXABAN 2.5 MG TABLET PO SCH ×2 (09:35→21:14)
--- NOTE | 2020-08-02 09:36 | P.NPCON ---
History of Present Illness - Reason for Consult acute renal failure - History of Present Illness Reason for consultation: Acute kidney injury History of present illness: Patient is a 79-year-old female seen in consultation for acute kidney injury. Patient baseline creatinine is near 1 from July 2020. It was elevated at 1.57 this admission and is up to 2.01 today. Patient presents from an extended care facility with shortness of breath. Patient is not a very reliable historian. She is currently on 2 L nasal cannula. She denies any active chest pain or shortness of breath. Blood pressure is stable. She has a Leslie catheter and is nonoliguric. She does have edema in her lower extremities. She's also positive for COVID-19. She did receive Lasix on admission but was subsequently discontinued due to her renal function. Echocardiogram revealed ejection fraction of 40-45% with moderate tricuspid regurgitation. She does have long-standing history of diabetes. Patient denies regular use of nonsteroidals. Vital signs are stable. General: The patient appeared well nourished and normally developed. HEENT: Head exam is unremarkable. Neck is without jugular venous distension. LUNGS: Breath sounds decreased. HEART: Rate and Rhythm are regular. ABDOMEN: Soft, nontender. EXTREMITITES: 2+ edema. Past Medical History Past Medical History: Blood Disorder, Coronary Artery Disease (CAD), Cancer, Heart Failure, Diabetes Mellitus, Hyperlipidemia, Myocardial Infarction (PR), Osteoarthritis (OA), Pneumonia, Renal Disease, Respiratory Disorder, Skin Disorder, Thyroid Disorder Additional Past Medical History / Comment(s): 06/09/20 Pt admitted to [facility] and treated for covid 19-advertising copy writer contacted [facility] to get date pt found + but they were unable to find it. 07/03/20 pt admitted to [facility] with covid pneumonia/hypoxic respiratory failure and chf. Other hx: 2008 rectal cancer with surgery (ileostomy), chemo/radiation, cervical cancer with hysterectomy, IDDM type II, CKD stage III, anemia, UTI, indwelling catheter, stage IV decubitus ulcer with wound vac (machine not with pt), pt wears oxygen ATC at 4L/NC, osteomylitis of vertebrae, moderate protein calorie malnutrition, hypothyroid. Last Myocardial Infarction Date:: 2007 History of Any Multi-Drug Resistant Organisms: None Reported Past Surgical History: Bowel Resection, Heart Catheterization, Hysterectomy, Tonsillectomy Additional Past Surgical History / Comment(s): 2008 cardiac cath-treated medically, bowel resection/ileostomy, colonoscopies, port a cath, wound vac, midline IV Past Anesthesia/Blood Transfusion Reactions: No Reported Reaction Smoking Status: Former smoker - Past Family History Father Family Medical History: Coronary Artery Disease (CAD) Mother Family Medical History: Coronary Artery Disease (CAD) Medications and Allergies Home Medications Medication Instructions Recorded Confirmed Type Acetaminophen Tab [Tylenol] 650 mg PO Q4H PRN 06/09/20 07/29/20 History Dimethic/Zinc Ox/Vits A,D/Aloe [A 1 applic TOPICAL Q12H 06/09/20 07/29/20 History and D Diaper Rash Cream] FLUoxetine HCL [PROzac] 10 mg PO DAILY@0900 06/09/20 07/29/20 History Ferrous Sulfate [Iron] 325 mg PO DAILY@0900 06/09/20 07/29/20 History HYDROcodone/APAP 5-325MG [[place] 1 tab PO Q8H PRN 06/09/20 07/29/20 History 5-325] Kaopectate 262mg/15ml 524 mg PO BID@0900,2100 06/09/20 07/29/20 History Levothyroxine Sodium 137 mcg PO HS@209906/09/20 07/29/20 History Mag Hydrox/Al Hydrox/Simeth 30 ml PO Q4H PRN 06/09/20 07/29/20 History [Maalox] Metoprolol Tartrate [Lopressor] 12.5 mg PO BID@0900,2100 06/09/20 07/29/20 History Potassium Chloride ER [K-Dur 10] 20 meq PO DAILY@0900 06/09/20 07/29/20 History Prostat Awc 30 ml PO BID@0900,1700 06/09/20 07/29/20 History Simethicone 80 mg PO Q4H PRN 06/09/20 07/29/20 History Sodium Bicarbonate Tab 650 mg PO BID@0900,2100 06/09/20 07/29/20 History Collagenase [Santyl] 1 applic TOPICAL HS 07/03/20 07/29/20 History Ipratropium-Albuterol Nebulize 3 ml INHALATION RT-Q4H PRN 07/03/20 07/29/20 History [Duoneb 0.5 mg-3 mg/3 ml Soln] Kaopectate Suspension 262mg/15ml 524 mg PO TID PRN 07/03/20 07/29/20 History Piperacillin-Tazobactam [Zosyn] 3.375 gm IVPB TID@0600,1400,2200 07/08/20 07/29/20 Rx #42 vial Enoxaparin [Lovenox] 40 mg SQ DAILY syringe 07/14/20 07/29/20 Rx Insulin Detemir (Levemir) [Levemir] 10 unit SQ HS syr 07/14/20 07/29/20 Rx Cholecalciferol [Vitamin D3 (25 50 mcg PO DAILY 07/29/20 07/29/20 History Mcg = 1000 Iu)] Furosemide [Lasix] 40 mg PO BID@0600,1300 07/29/20 07/29/20 History Gabapentin [Neurontin] 100 mg PO TID 07/29/20 07/29/20 History Insulin Lispro [humaLOG Kwikpen] See Protocol SQ ACHS 07/29/20 07/29/20 History Isosorbide Mononitrate ER [Imdur] 30 mg PO DAILY 07/29/20 07/29/20 History Sodium Chloride Irrig Solution 10 ml IV TID 07/29/20 07/29/20 History [Saline 0.9% Irrigation] Allergies Allergy/AdvReac Type Severity Reaction Status Date / Time No Known Allergies Allergy Verified 07/29/20 08:21 Physical Exam Vitals: Vital Signs Temp Pulse Resp BP Pulse Ox 08/02/20 04:00 98.1 F 91 19 130/92 97 08/02/20 02:00 78 18 08/01/20 23:15 98.1 F 78 18 118/72 99 08/01/20 20:00 97.8 F 82 18 129/76 91 L 08/01/20 15:35 97 F L 80 18 120/63 98 08/01/20 13:54 77 18 08/01/20 11:47 77 18 110/58 97 Intake and Output 08/01/20 08/02/20 08/02/20 22:59 06:59 14:59 Intake Total 590 Output Total 700 250 Balance -110 -250 Intake: Intake, IV Titration 100 Amount Piperacillin-Tazobactam 3 100 .375 gm In Sodium Chloride 0.9% 100 ml @ 25 mls/hr IVPB Q12H [facility] Rx# :[id number] Oral 490 Output: Urine 500 250 Stool 200 Other: Voiding Method Indwelling Catheter Indwelling Catheter Weight 68 kg Results - Lab Results Most recent lab results Calcium 7.7 mg/dL (8.4-10.2) L 08/02/20 08:35 Magnesium 2.3 mg/dL (1.6-2.3) 08/02/20 08:35 07/30/20 05:57 08/02/20 08:35 Assessment and Plan Plan: Assessment: 1. Acute kidney injury secondary to ATN secondary to cardiorenal syndrome as well as infection. Baseline creatinine near 1 and is up to 2.01 today. Nonoliguric. 2. Hypervolemic hyponatremia. 3. Acute on chronic systolic CHF with ejection fraction of 40-45% with moderate tricuspid regurgitation. 4. Volume overload. 5. Covid 19 infection. 6. Diabetes mellitus. Plan: Lasix 40 mg IV once today. Low-salt diet and 1500 mL fluid restriction. Check urinalysis. Check renal ultrasound. Continue to monitor renal function and urine output. Decrease bicarb to once daily. Thank you for the consultation. I will continue to follow the patient with you during her hospital stay.
--- NOTE | 2020-08-02 10:52 | US ---
EXAMINATION TYPE: US kidneys/renal and bladder DATE OF EXAM: 08/02/2020 COMPARISON: NONE CLINICAL HISTORY: mike. EXAM MEASUREMENTS: Right Kidney: 9.9 x 3.9 4.3 cm Left Kidney: 9.3 x 4.2 x 4.1 cm Gallstones noted. Right Kidney: small cyst measuring 0.8 x 0.9 x 0.9cm Left Kidney: cyst measuring 3.9 x 3.3 x 4.5cm Bladder: not visualized There is no evidence for hydronephrosis at this point in time. No nephrolithiasis is seen. No solid masses are identified. The urinary bladder is anechoic. Bilateral ureteral jets are seen. IMPRESSION: 1. Incidental note is made of soft gallstones. 2. Left renal cyst.
[2020-08-02 11:44] LABS: Glucose,Whole Blood 211 mg/dL (75-99)
--- NOTE | 2020-08-02 14:09 | CDI ---
Documentation Clarification Form Date: 08/02/2020 01:27:54 PM From: Cheli Loo RN CCDS Admit Date: 07/29/2020 08:40:00 AM Patient Name: Olga Babin Visit Number: [id number] Discharge Date: ATTENTION: The Clinical Documentation Specialists (CDI) and [facility] Coding Staff appreciate your assistance in clarifying documentation. Please respond to the clarification below the line at the bottom and electronically sign. The CDI & [facility] Coding staff will review the response and follow-up if needed. Please note: Queries are made part of the Legal Health Record. If you have any questions, please contact the author of this message via ITS. Dr. Cristi López Conflicting documentation has been found in the medical record: Acute on chronic systolic CHF with ejection fraction of 40-45% with moderate tricuspid regurgitation. Documented in the Nephrology consult 08/02 Chronic systolic diastolic heart failure. Documented in your progress note 08/01 History/Risk Factors: 79-year-old female presents to the ED from ECF for difficulty breathing. Medical history: Recent COIVD 19; HTN; CHF and Cardiomyopathy. Clinical Indicators: Admitting diagnosis: Atrial Fibrillation, Chronic nonhealing sacral ulcer and Systolic CHF LABS: 07/29 ProBNP 93862 and 07/29 ProBNP 32579 ECHO 06/11/20: Left ventricular function is moderately reduced with ef 40% with global hypokinesis. Moderate to severe mitral regurgitation. Moderate tricuspid regurgitation present. Moderate pulmonary HTN. Treatment: 07/29 Lasix 40mg IV x1; Lasix 40mg IV Q12HR d/c 07/30; 07/30 Lasix 40mg PO BID changed 07/31 40mg PO Daily d/c 07/31; 08/02 Lasix 40mg IV x1; 07/29 Imdur 30mg PO Daily; 07/29 Lopressor 12.5mg PO BID. In your opinion, what is the most clinically appropriate diagnosis for this patient? Acute on Chronic Systolic Diastolic Heart Failure Chronic Systolic Diastolic Heart Failure Acute on Chronic Systolic Heart Failure Chronic Systolic Heart Failure Other explanation of clinical findings Unable to determine (no explanation for clinical findings) (Last Revision: September 2017) [facility]
[2020-08-02 16:47] LABS: Glucose,Whole Blood 192 mg/dL (75-99)
--- NOTE | 2020-08-02 18:04 | PN ---
PROGRESS NOTE DATE OF SERVICE: 08/02/2020 REASON FOR FOLLOWUP: Sacral pressure ulcer. INTERVAL HISTORY: The patient is currently afebrile. Patient is breathing comfortably. Patient denies having any chest pain or any cough. No abdominal pain. sacral wound area. PHYSICAL EXAMINATION: Blood pressure 119/60 with a pulse of 82, temperature 98, she is 96% on 2 L nasal cannula. General description is an elderly female lying in bed in no distress. Respiratory system: Unlabored breathing clear to auscultation anteriorly. Heart S1, S2. Regular rate and rhythm. Abdomen is soft, no tenderness. LABS: BUN of 7, creatinine 2.01. DIAGNOSTIC IMPRESSION AND PLAN: Patient with stage IV sacral pressure ulcer. Local care with wound VAC. No need for systemic antibiotic therapy on discharge and monitor clinical course closely. Continue supportive care. MMODL / IJN: [id number] /
--- NOTE | 2020-08-02 18:05 | PN ---
PROGRESS NOTE Acute on chronic diastolic and systolic heart failure. MMODL / IJN: [id number] /
--- NOTE | 2020-08-02 18:09 | PN ---
PROGRESS NOTE Trying to figure out if she can do her home wound VAC with her caregivers at home. She is doing better from a medical standpoint. Baseline creatinine is near 1. She was up to 2.1. She is on 2 L oxygen. Echocardiogram shows 40-45% with mitral, moderate tricuspid regurgitation. Lungs are clear. Cardiovascular S1, S2. GI soft. Hematology negative Homans. Psych fair mood and affect. ASSESSMENT: 1. Acute kidney injury secondary acute tubular necrosis. 2. Cardiorenal syndrome. 3. Chronic sacroiliitis for which antibiotics have been discontinued. 4. Hypovolemic hyponatremia. 5. Acute non-systolic heart failure. 6. COVID-19 infection. 7. Diabetes mellitus. Continue on Lasix. Possible discharge home to her house in the next few days if wound care can be handled from home and we can get her electrolytes stabilized prior to discharge. MMALESHAL / CHELON: [id number] /
[2020-08-02 20:36] LABS: Glucose,Whole Blood 194 mg/dL (75-99)
[2020-08-02] MEDS: ATORVASTATIN 20 MG TAB PO SCH (21:14)
[2020-08-02] MEDS: COLLAGENASE 250 UNIT/GM OINTMENT 30 GM TUBE TOPICAL SCH (21:17)
[2020-08-03 06:05] LABS: Glucose,Whole Blood 140 mg/dL (75-99)
[2020-08-03] MEDS: INSULIN ASPART (NovoLOG) 100 UNIT/ML VIAL SQ SCH ×4 (06:20→21:36)
[2020-08-03] MEDS: LEVOTHYROXINE 137 MCG TAB PO SCH (06:36)
[2020-08-03] MEDS: PIPERACILLIN-TAZOBACTAM 3.375 GM in SODIUM CHLORIDE 0.9% 100 ML IVPB SCH ×2 (06:36→18:41)
[2020-08-03] MEDS: METOPROLOL TARTRATE 12.5 MG TAB PO SCH ×2 (08:22→21:35)
[2020-08-03] MEDS: ISOSORBIDE MONONITRATE ER 30 MG TAB.ER.24H PO SCH (08:22)
[2020-08-03] MEDS: HYDROcodone/APAP 5-325MG 1 EACH TAB PO PRN ×2 (08:22→18:41)
[2020-08-03] MEDS: APIXABAN 2.5 MG TABLET PO SCH ×2 (08:22→21:35)
[2020-08-03] MEDS: CHOLECALCIFEROL 25 MCG (1000 IU) TABLET PO SCH (08:23)
[2020-08-03] MEDS: FLUoxetine HCL 10 MG CAP PO SCH (08:23)
[2020-08-03] MEDS: POTASSIUM CITRATE 10 MEQ TABLET.ER PO SCH (08:23)
[2020-08-03] MEDS: BISMUTH SUBSALICYLATE 4,192 MG/240 ML BOTTLE PO SCH ×2 (08:24→21:38)
[2020-08-03] MEDS: FERROUS SULFATE 325 MG TAB PO SCH (08:24)
[2020-08-03] MEDS: GABAPENTIN 100 MG CAP PO SCH ×3 (08:24→21:35)
[2020-08-03] MEDS: ZINC OXIDE 20% OINT 28.4 GM TUBE TOPICAL SCH ×2 (08:24→21:37)
[2020-08-03 08:43] LABS: Appearance,Urine Cloudy (Clear); Bacteria,Urine Occasional /hpf; Bilirubin,Urine Negative (Negative); Blood,Urine Moderate (Negative); Budding Yeast,Urine Many /hpf; Color,Urine Yellow; Glucose,Urine (UA) Negative (Negative); Hyphae Yeast, Urine Rare /hpf; Ketones,Urine Negative (Negative); Leukocyte Esterase,Urine Small (Negative); Mucus,Urine Rare /hpf; Nitrite,Urine Negative (Negative); PH, Urine 5.5 (5.0-8.0); Protein,Urine 1+ (Negative); RBC,Urine 69 /hpf (0-5); Specific Gravity,Urine 1.015 (1.001-1.035); Squamous Epithelial Cell,Urine <1 /hpf (0-4); Urobilinogen,Urine <2.0 mg/dL (<2.0); WBC,Urine 21 /hpf (0-5)
[2020-08-03] MEDS ORDERED: SODIUM BICARBONATE TAB 650 MG TAB PO SCH (09:00)
[2020-08-03] MEDS ORDERED: FUROSEMIDE 10 MG/ML 4 ML VIAL IV STA (10:23)
--- NOTE | 2020-08-03 10:23 | P.PN ---
Subjective Patient is seen in follow-up for acute kidney injury. Creatinine 2 as of yesterday. Denies any complaints. Currently on 2 L nasal cannula. Blood pressure stable. Has a Leslie catheter. Nonoliguric. Vital signs are stable. General: The patient appeared well nourished and normally developed. HEENT: Head exam is unremarkable. Neck is without jugular venous distension. LUNGS: Breath sounds decreased. HEART: Rate and Rhythm are regular. ABDOMEN: Soft, nontender. EXTREMITITES: 1+ edema. Objective - Vital Signs Vital signs: Vital Signs Temp 97.8 F 08/03/20 04:00 Pulse 77 08/03/20 04:00 Resp 20 08/03/20 04:00 BP 116/66 08/03/20 04:00 Pulse Ox 100 08/03/20 04:00 Intake & Output 08/02/20 08/03/20 08/03/20 18:59 06:59 18:59 Intake Total 1080 Output Total 600 550 Balance 480 -550 Weight 68 kg Intake: Oral 1080 Output: Urine 500 350 Stool 100 200 Other: Voiding Method Indwelling Catheter Indwelling Catheter - Labs CBC & Chem 7: 07/30/20 05:57 08/02/20 08:35 Labs: Abnormal Lab Results - Last 24 Hours (Table) 08/02/20 08/02/20 08/02/20 Range/Units 11:43 16:45 20:34 POC Glucose (mg/dL) 211 H 192 H 194 H (75-99) mg/dL Urine Appearance (Clear) Urine Protein (Negative) Urine Blood (Negative) Ur Leukocyte Esterase (Negative) Urine RBC (0-5) /hpf Urine WBC (0-5) /hpf Urine WBC Clumps (None) /hpf Urine Bacteria (None) /hpf Urine Mucus (None) /hpf Urine Yeast (Budding) (None) /hpf 08/03/20 08/03/20 Range/Units 06:03 06:51 POC Glucose (mg/dL) 140 H (75-99) mg/dL Urine Appearance Cloudy H (Clear) Urine Protein 1+ H (Negative) Urine Blood Moderate H (Negative) Ur Leukocyte Esterase Small H (Negative) Urine RBC 69 H (0-5) /hpf Urine WBC 21 H (0-5) /hpf Urine WBC Clumps Rare H (None) /hpf Urine Bacteria Occasional H (None) /hpf Urine Mucus Rare H (None) /hpf Urine Yeast (Budding) Many H (None) /hpf Assessment and Plan Plan: Assessment: 1. Acute kidney injury secondary to ATN secondary to cardiorenal syndrome as well as infection. Baseline creatinine near 1 and is up to 2.01 as of yesterday. Nonoliguric. No hydronephrosis noted on kidney ultrasound. 2. Hypervolemic hyponatremia. 3. Acute on chronic systolic CHF with ejection fraction of 40-45% with moderate tricuspid regurgitation. 4. Volume overload. 5. Covid 19 infection. Currently on 2 L nasal cannula. 6. Diabetes mellitus. Plan: Repeat Lasix 40 mg IV once today. Low-salt diet and 1500 mL fluid restriction. Avoid nephrotoxins. Continue to monitor renal function and urine output. Morning labs pending.
[2020-08-03 10:42] LABS: Albumin 2.6 g/dL (3.5-5.0); Calcium 7.9 mg/dL (8.4-10.2); Magnesium 2.2 mg/dL (1.6-2.3); Potassium 4.8 mmol/L (3.5-5.1); Total Bilirubin 0.6 mg/dL (0.2-1.3); Total Protein 6.2 g/dL (6.3-8.2)
[2020-08-03 11:12] LABS: Anisocytosis Slight; Basophils # (A) 0.1 k/uL (0-0.2); Basophils % (A) 1 %; Eosinophils # (A) 0.2 k/uL (0-0.7); Eosinophils % (A) 3 %; HCT 30.1 % (34.0-46.0); HGB 9.3 gm/dL (11.4-16.0); Hypochromasia Slight; Lymphocytes # (A) 2.1 k/uL (1.0-4.8); Lymphocytes % (A) 22 %; MCH 27.2 pg (25.0-35.0); MCHC 30.9 g/dL (31.0-37.0); MCV 88.1 fL (80.0-100.0); Mean Platelet Volume 8.1; Monocytes # (A) 0.3 k/uL (0-1.0); Monocytes % (A) 4 %; Neutrophils # (A) 6.3 k/uL (1.3-7.7); Neutrophils % (A) 69 %; Platelet Count 449 k/uL (150-450); RBC 3.42 m/uL (3.80-5.40); RDW 18.3 % (11.5-15.5); WBC 9.2 k/uL (3.8-10.6)
[2020-08-03 11:58] LABS: Glucose,Whole Blood 205 mg/dL (75-99)
--- NOTE | 2020-08-03 12:08 | CDI ---
Documentation Clarification Form Date: 08/04/2020 11:01:17 AM From: Cheli Loo RN CCDS Admit Date: 07/29/2020 08:40:00 AM Patient Name: Olga Babin Visit Number: [id number] Discharge Date: ATTENTION: The Clinical Documentation Specialists (CDI) and [facility] Coding Staff appreciate your assistance in clarifying documentation. Please respond to the clarification below the line at the bottom and electronically sign. The CDI & [facility] Coding staff will review the response and follow-up if needed. Please note: Queries are made part of the Legal Health Record. If you have any questions, please contact the author of this message via ITS. Dr. Cristi López The COVID-19 test obtained on 07/25 was reported as Negative on 07/25. The COVID-19 test obtained on 07/31 was reported as Negative on 07/31. Per Nephrology consult 08/02 She is also positive for COVID-19. Patient history/risk factors:79-year-old female presents to the ED with shortness of breath. The patient had admission to [facility] 06/21/20 with Heart failure, Hypoxic Respiratory Failure and COVID 19 06/21/20. Medical history: DM, Stage IV pressure ulcer of the sacrum, CHF and HTN. Clinical Indicators Patient sent in for difficulty breathing from C[facility]. CXR 07/29: Diffuse interstitial opacity, and patchy bilateral airspace opacity. Improved from 07/11/20 VS in ED Triage 07/24: Temp 98.2 F Oral; B/P 147/77; HR 78; RR 18; SpO2 96% room air WBC 07/24: 10.0 Treatment: 07/25 Lasix 40mg IV x1; 07/25 Lasix 40mg Q12HR d/c 07/30; 07/31 Lasix 40mg PO BID. 07/25 Zosyn Ivpb Q8H In order to capture the severity of condition, please clarify the COVID-19 status: COVID-19 ruled out False negative, treating for COVID-19 infection Treating COVID 19 Pneumonia Other, please specify (Last Form Revision: August 2019) MTDD
--- NOTE | 2020-08-03 13:31 | PN ---
PROGRESS NOTE DATE OF SERVICE: 08/03/2020 REASON FOR FOLLOWUP: Sacral pressure ulcer. INTERVAL HISTORY: The patient is currently afebrile. Patient is breathing comfortably. Patient denies having any chest pain, shortness of breath or cough. No abdominal pain or pain to the sacral wound area. PHYSICAL EXAMINATION: Blood pressure 120/62 with a pulse of 77, temperature 98.6. She is 97% on 2 L nasal cannula. General description is an elderly female lying in bed in no distress. RESPIRATORY SYSTEM: Unlabored breathing, clear to auscultation anteriorly. HEART: S1, S2. Regular rate and rhythm. ABDOMEN: Soft, no tenderness. LABS: Hemoglobin 9.3, white count 9.2, creatinine 1.75. DIAGNOSTIC IMPRESSION AND PLAN: Patient with stage IV sacral pressure ulcer. Local care to continue with wound VAC. [facility]. No need for any systemic antibiotic therapy on discharge. MMODL / IJN: [id number] /
[2020-08-03 16:53] LABS: Glucose,Whole Blood 229 mg/dL (75-99)
--- NOTE | 2020-08-03 19:01 | PN ---
PROGRESS NOTE This patient is getting close to discharge. We are waiting on her renal doctor to finalize her dose of Lasix to go home with. They have seen her today. They said she has ATN with cardiorenal syndrome, infection, hypervolemic hyponatremia, acute on chronic systolic CHF, ejection fraction 40% to 45%, volume overload, COVID-19 infection, diabetes mellitus. They are going to give her a low-salt diet 1500 mL fluid restriction. Avoid nephrotoxins. Monitor renal function. Check labs in the morning. Give another dose of Lasix. She will have to be set up for home oxygen, as she has no oxygen at home. CARDIOVASCULAR: S1, S2. LUNGS: Clear. PSYCH: Fair mood and affect. NEUROLOGIC: Alert and oriented x3. OPHTHALMOLOGIC: Pupils equal, round and reactive. Wait for further labs in the morning. Set up home oxygen for at home, which she does not have set up yet, and adjust dose of Lasix per renal physician in the morning prior to her going home. Will continue with the salt restriction, fluid restriction, see how she does with the labs. MMODL / IJN: [id number] /
[2020-08-03 20:13] LABS: Glucose,Whole Blood 193 mg/dL (75-99)
[2020-08-03] MEDS: ATORVASTATIN 20 MG TAB PO SCH (21:35)
[2020-08-03] MEDS: COLLAGENASE 250 UNIT/GM OINTMENT 30 GM TUBE TOPICAL SCH (21:38)
[2020-08-04 06:15] LABS: Glucose,Whole Blood 144 mg/dL (75-99)
[2020-08-04] MEDS: PIPERACILLIN-TAZOBACTAM 3.375 GM in SODIUM CHLORIDE 0.9% 100 ML IVPB SCH ×2 (06:19→17:01)
[2020-08-04] MEDS: LEVOTHYROXINE 137 MCG TAB PO SCH (06:19)
[2020-08-04] MEDS: INSULIN ASPART (NovoLOG) 100 UNIT/ML VIAL SQ SCH ×3 (06:30→17:06)
[2020-08-04 08:13] LABS: Anisocytosis Slight; Basophils % (A) 1 %; Eosinophils # (A) 0.2 k/uL (0-0.7); Eosinophils % (A) 2 %; HCT 29.4 % (34.0-46.0); HGB 9.1 gm/dL (11.4-16.0); Hypochromasia Moderate; Lymphocytes # (A) 1.9 k/uL (1.0-4.8); Lymphocytes % (A) 25 %; MCH 27.4 pg (25.0-35.0); MCHC 30.7 g/dL (31.0-37.0); MCV 89.2 fL (80.0-100.0); Mean Platelet Volume 8.1; Monocytes # (A) 0.3 k/uL (0-1.0); Monocytes % (A) 4 %; Neutrophils # (A) 5.1 k/uL (1.3-7.7); Neutrophils % (A) 68 %; Platelet Count 391 k/uL (150-450); Poikilocytosis Slight; WBC 7.6 k/uL (3.8-10.6)
[2020-08-04 08:33] LABS: Albumin 2.6 g/dL (3.5-5.0); Calcium 7.8 mg/dL (8.4-10.2); Magnesium 2.2 mg/dL (1.6-2.3); Potassium 4.2 mmol/L (3.5-5.1); Total Bilirubin 0.6 mg/dL (0.2-1.3)
--- NOTE | 2020-08-04 08:50 | P.PN ---
Subjective Patient is seen in follow-up for acute kidney injury. Renal function fairly stable. She did receive a dose of IV Lasix yesterday. Edema is improved. Denies any complaints. Currently on 2 L nasal cannula. Blood pressure stable. Has a Leslie catheter. Nonoliguric. Vital signs are stable. General: The patient appeared well nourished and normally developed. HEENT: Head exam is unremarkable. Neck is without jugular venous distension. LUNGS: Breath sounds decreased. HEART: Rate and Rhythm are regular. ABDOMEN: Soft, nontender. EXTREMITITES: 1+ edema. Chronic changes noted. Objective - Vital Signs Vital signs: Vital Signs Temp 97.7 F 08/04/20 03:36 Pulse 73 08/04/20 03:36 Resp 18 08/04/20 03:36 BP 114/61 08/04/20 03:36 Pulse Ox 97 08/04/20 03:36 Intake & Output 08/03/20 08/04/20 08/04/20 18:59 06:59 18:59 Intake Total 2000 Output Total 1000 400 Balance 1000 -400 Weight 77.5 kg Intake: Oral 2000 Output: Urine 700 400 Stool 300 Other: Voiding Method Indwelling Catheter Indwelling Catheter # Bowel Movements 1 - Labs CBC & Chem 7: 08/04/20 07:32 08/04/20 07:32 Labs: Abnormal Lab Results - Last 24 Hours (Table) 08/03/20 08/03/20 08/03/20 Range/Units 08:31 10:32 11:56 RBC 3.42 L (3.80-5.40) m/uL Hgb 9.3 L (11.4-16.0) gm/dL Hct 30.1 L (34.0-46.0) % MCHC 30.9 L (31.0-37.0) g/dL RDW 18.3 H (11.5-15.5) % Sodium 133 L (137-145) mmol/L Chloride 94 L (98-107) mmol/L BUN 70 H (7-17) mg/dL Creatinine 1.75 H (0.52-1.04) mg/dL Glucose 138 H (74-99) mg/dL POC Glucose (mg/dL) 205 H (75-99) mg/dL Calcium 7.9 L (8.4-10.2) mg/dL Alkaline Phosphatase 414 H (38-126) U/L Total Protein 6.2 L (6.3-8.2) g/dL Albumin 2.6 L (3.5-5.0) g/dL 08/03/20 08/03/20 08/04/20 Range/Units 16:52 20:11 06:14 RBC (3.80-5.40) m/uL Hgb (11.4-16.0) gm/dL Hct (34.0-46.0) % MCHC (31.0-37.0) g/dL RDW (11.5-15.5) % Sodium (137-145) mmol/L Chloride (98-107) mmol/L BUN (7-17) mg/dL Creatinine (0.52-1.04) mg/dL Glucose (74-99) mg/dL POC Glucose (mg/dL) 229 H 193 H 144 H (75-99) mg/dL Calcium (8.4-10.2) mg/dL Alkaline Phosphatase (38-126) U/L Total Protein (6.3-8.2) g/dL Albumin (3.5-5.0) g/dL 08/04/20 08/04/20 Range/Units 07:32 07:32 RBC 3.30 L (3.80-5.40) m/uL Hgb 9.1 L (11.4-16.0) gm/dL Hct 29.4 L (34.0-46.0) % MCHC 30.7 L (31.0-37.0) g/dL RDW 19.0 H (11.5-15.5) % Sodium 133 L (137-145) mmol/L Chloride 94 L (98-107) mmol/L BUN 64 H (7-17) mg/dL Creatinine 1.92 H (0.52-1.04) mg/dL Glucose 118 H (74-99) mg/dL POC Glucose (mg/dL) (75-99) mg/dL Calcium 7.8 L (8.4-10.2) mg/dL Alkaline Phosphatase 486 H (38-126) U/L Total Protein 6.0 L (6.3-8.2) g/dL Albumin 2.6 L (3.5-5.0) g/dL Assessment and Plan Plan: Assessment: 1. Acute kidney injury secondary to ATN secondary to cardiorenal syndrome as well as infection. Baseline creatinine near 1. Renal function fairly stable - creatinine 1.92 today. Nonoliguric. No hydronephrosis noted on kidney ul trasound. 2. Hypervolemic hyponatremia. Stable. 3. Acute on chronic systolic CHF with ejection fraction of 40-45% with moderate tricuspid regurgitation. 4. Volume overload. Improved with diuresis. 5. Covid 19 infection. Currently on 2 L nasal cannula. 6. Diabetes mellitus. Plan: Hold diuretics today. Low-salt diet and 1500 mL fluid restriction. Avoid nephrotoxins. Continue to monitor renal function and urine output. Repeat electrolytes in the morning. Stop oral bicarbonate.
[2020-08-04] MEDS: CHOLECALCIFEROL 25 MCG (1000 IU) TABLET PO SCH (08:54)
[2020-08-04] MEDS: APIXABAN 2.5 MG TABLET PO SCH (08:54)
[2020-08-04] MEDS: BISMUTH SUBSALICYLATE 4,192 MG/240 ML BOTTLE PO SCH (08:54)
[2020-08-04] MEDS: METOPROLOL TARTRATE 12.5 MG TAB PO SCH (08:55)
[2020-08-04] MEDS: ZINC OXIDE 20% OINT 28.4 GM TUBE TOPICAL SCH (08:55)
[2020-08-04] MEDS: ISOSORBIDE MONONITRATE ER 30 MG TAB.ER.24H PO SCH (08:55)
[2020-08-04] MEDS: FERROUS SULFATE 325 MG TAB PO SCH (08:55)
[2020-08-04] MEDS: FLUoxetine HCL 10 MG CAP PO SCH (08:55)
[2020-08-04] MEDS: GABAPENTIN 100 MG CAP PO SCH ×2 (08:55→14:49)
[2020-08-04] MEDS: POTASSIUM CITRATE 10 MEQ TABLET.ER PO SCH (08:55)
[2020-08-04] MEDS: SODIUM BICARBONATE TAB 650 MG TAB PO SCH (09:42)
[2020-08-04 11:46] VITALS: RESP 16
[2020-08-04 11:50] LABS: Glucose,Whole Blood 283 mg/dL (75-99)
--- NOTE | 2020-08-04 14:24 | CDI ---
Documentation Clarification Form Date: 08/04/2020 02:03 PM From: Cheli Loo RN CCDS Admit Date: 07/29/2020 08:40:00 AM Patient Name: Olga Babin Visit Number: [id number] Discharge Date: ATTENTION: The Clinical Documentation Specialists (CDI) and [facility] Coding Staff appreciate your assistance in clarifying documentation. Please respond to the clarification below the line at the bottom and electronically sign. The CDI & [facility] Coding staff will review the response and follow-up if needed. Please note: Queries are made part of the Legal Health Record. If you have any questions, please contact the author of this message via ITS. Dr. Cristi López Per Nephrology consult 08/02 She is also positive for COVID-19. Patient history/risk factors:79-year-old female presents to the ED with shortness of breath. The patient had admission to [facility] 06/21/20 with Heart failure, Hypoxic Respiratory Failure and COVID 19 06/21/20. Medical history: DM, Stage IV pressure ulcer of the sacrum, CHF and HTN. Clinical Indicators Labs Scanned report from 07/03/20 COVID 19 detected. CXR 07/29: Diffuse interstitial opacity, and patchy bilateral airspace opacity. Improved from 07/11/20 VS in ED Triage 07/24: Temp 98.2 F Oral; B/P 147/77; HR 78; RR 18; SpO2 96% room air WBC 07/24: 10.0 Treatment: 07/25 Lasix 40mg IV x1; 07/25 Lasix 40mg Q12HR d/c 07/30; 07/31 Lasix 40mg PO BID. 07/25 Zosyn Ivpb Q8H In order to capture the severity of condition, please clarify the COVID-19 status: Active COVID -19 Personal history of COVID 19 with not active treatment. Other, please specify (Last Form Revision: August 2019) MTDD
[2020-08-04 14:28] VITALS: BMI 33.3
[2020-08-04 14:32] VITALS: BP 104/53; PULSE 74; TEMP 97.8
[2020-08-04] MEDS: HYDROcodone/APAP 5-325MG 1 EACH TAB PO PRN (14:49)
[2020-08-04 16:42] LABS: Glucose,Whole Blood 228 mg/dL (75-99)
--- NOTE | 2020-08-04 17:23 | PN ---
PROGRESS NOTE DATE OF SERVICE: 08/04/2020 REASON FOR FOLLOWUP: Stage IV sacral pressure ulcer. INTERVAL HISTORY: The patient is currently afebrile. The patient is breathing comfortably. The patient denies having any chest pain or shortness of breath or cough. No abdominal pain and no diarrhea. PHYSICAL EXAMINATION: Blood pressure 104/53 with pulse of 74, temperature 97.8. She is 100% on 2 L nasal cannula. General description is an elderly female lying in bed in no distress. RESPIRATORY SYSTEM: Unlabored breathing. Clear to auscultation anteriorly. HEART: S1, S2. Regular rate and rhythm. ABDOMEN: Soft. No tenderness. LABS: Hemoglobin is 9.1, white count 7.6, BUN of 64, creatinine is 1.92. DIAGNOSTIC IMPRESSION AND PLAN: Patient with a stage IV sacral pressure ulcer. This patient has completed multiple courses of antibiotics in the outpatient setting. The patient is currently covered with local wound care with a wound V.A.C.; to continue with local wound care only. Plan to discontinue antibiotics. Continue with supportive care. MMODL / IJN: [id number] /
--- NOTE | 2020-08-05 05:51 | DS ---
DISCHARGE SUMMARY DISCHARGE DIAGNOSES: 1. Congestive heart failure. 2. Acute pulmonary edema. 3. Renal insufficiency. 4. Elevated troponins. 5. Hypoxemia secondary to chronic obstructive pulmonary disease, congestive heart failure, Covid pneumonia. 6. Depression. 7. Insulin-dependent diabetes mellitus. 8. Decubitus large sacral ulcer for which wound VAC treatment will be needed. 9. Home oxygen which she will have to go home on 2-3 L. 10.Follow up in about a week. DISCHARGE MEDICINES: Eliquis 2.5 b.i.d., Lasix 40 daily once a day, Lipitor 20 mg daily, Maalox p.r.n., simethicone p.r.n., Kaopectate p.r.n., [place] 5/325 every 8 hours p.r.n. for pain. Tylenol 650 q.4 hours p.r.n. for pain, sodium bicarb 650 b.i.d., ProStat 30 mL p.o. b.i.d., Lopressor 12.5 b.i.d., potassium chloride 20 mEq daily, levothyroxine 137 mcg q.h.s., iron 325 daily, fluoxetine 10 mg daily, Santyl topical application daily to any wounds. She will need a wound VAC on all the time on her sacral ulcer. Follow up with Dr. Pabon's wound clinic in a week or 2. Insulin Levemir 10 units at night. Accu-Chek protocol. Vitamin D 1000 units daily, Neurontin 100 t.i.d., Humalog a.c. and q.h.s., Imdur 30 mg daily. Follow up in the [facility] in about a week with Dr. López. Diet will be as tolerated, regular. Watch for signs of CHF, weight gain, fluid gain. PT/OT and wound care with wound VAC will be done as an outpatient with home nursing, which has all been set up. She is a 2 person assist to lift her. She will need 2 people to help lift her and possibly get a [place] at home for home medical care. MMODL / IJN: [id number] /
[2020-08-05] MEDS ORDERED: FUROSEMIDE 40 MG TAB PO SCH (09:00)
== END 2020-08-04 19:03 | disposition home or self-care (01) | DRG 291 ==
LOC: EC 07:07 → 3SCARD 08:40
PROVIDERS: ADMIT Family Medicine; ATTEND Family Medicine
DX: I13.0 Hypertensive heart and chronic kidney disease with heart failure and stage 1 through stage 4 chronic kidney disease, or unspecified chronic kidney disease (principal); L89.154 Pressure ulcer of sacral region, stage 4; I50.43 Acute on chronic combined systolic (congestive) and diastolic (congestive) heart failure; J12.82 Pneumonia due to coronavirus disease 2019; U07.1 COVID-19; N17.0 Acute kidney failure with tubular necrosis; J96.91 Respiratory failure, unspecified with hypoxia; E87.1 Hypo-osmolality and hyponatremia; I45.2 Bifascicular block; J44.0 Chronic obstructive pulmonary disease with (acute) lower respiratory infection; E44.0 Moderate protein-calorie malnutrition; I25.10 Atherosclerotic heart disease of native coronary artery without angina pectoris; I08.2 Rheumatic disorders of both aortic and tricuspid valves; F32.9 Major depressive disorder, single episode, unspecified; I27.20 Pulmonary hypertension, unspecified; E03.9 Hypothyroidism, unspecified; E11.22 Type 2 diabetes mellitus with diabetic chronic kidney disease; E78.5 Hyperlipidemia, unspecified; E86.1 Hypovolemia; I25.2 Old myocardial infarction; I42.9 Cardiomyopathy, unspecified; I48.0 Paroxysmal atrial fibrillation; M46.1 Sacroiliitis, not elsewhere classified; N18.30 Chronic kidney disease, stage 3 unspecified; Z87.891 Personal history of nicotine dependence; R79.89 Other specified abnormal findings of blood chemistry; R79.1 Abnormal coagulation profile; Z79.4 Long term (current) use of insulin; Z79.899 Other long term (current) drug therapy; Z79.82 Long term (current) use of aspirin; Z79.891 Long term (current) use of opiate analgesic; Z82.49 Family history of ischemic heart disease and other diseases of the circulatory system; Z85.048 Personal history of other malignant neoplasm of rectum, rectosigmoid junction, and anus; Z85.41 Personal history of malignant neoplasm of cervix uteri; Z90.710 Acquired absence of both cervix and uterus; Z99.81 Dependence on supplemental oxygen; Z92.3 Personal history of irradiation; Z92.21 Personal history of antineoplastic chemotherapy; Z87.01 Personal history of pneumonia (recurrent); Z68.33 Body mass index [BMI] 33.0-33.9, adult; Z93.3 Colostomy status
CPT/HCPCS: 36415; 71045; 71046; 76770; 80048; 80053; 81001; 83605; 83735; 83880; 84484; 85025; 85379; 85610; 85730; 93005; 93308; 94760; 96365; 96375; 96376; 99291

== ENCOUNTER 2020-09-06 10:19 | Inpatient (IN) | payer MEDICARE ==
[2020-09-06] MEDS ORDERED: SODIUM CHLORIDE 0.9% 1,000 ML IV SCH (15:30)
[2020-09-06] MEDS: PANTOPRAZOLE 40 MG/10 ML VIAL IVP SCH (16:40)
[2020-09-06 17:00] LABS: Anisocytosis Moderate; Basophils # (A) 0.1 k/uL (0-0.2); Basophils % (A) 1 %; Eosinophils # (A) 0.2 k/uL (0-0.7); Eosinophils % (A) 2 %; HCT 31.6 % (34.0-46.0); HGB 9.6 gm/dL (11.4-16.0); Hypochromasia Marked; Lymphocytes % (A) 22 %; MCHC 30.4 g/dL (31.0-37.0); Macrocytosis Slight; Mean Platelet Volume 8.3; Monocytes # (A) 0.3 k/uL (0-1.0); Monocytes % (A) 4 %; Neutrophils # (A) 6.2 k/uL (1.3-7.7); Neutrophils % (A) 70 %; Platelet Count 209 k/uL (150-450); Poikilocytosis Moderate; RBC 3.32 m/uL (3.80-5.40); RDW 20.1 % (11.5-15.5); WBC 8.9 k/uL (3.8-10.6)
[2020-09-06 17:01] LABS: MCV 95.2 fL (80.0-100.0)
[2020-09-06 17:19] LABS: Glucose,Whole Blood 69 mg/dL (75-99)
[2020-09-06] MEDS: INSULIN ASPART (NovoLOG) 100 UNIT/ML VIAL SQ SCH ×2 (17:36→20:34)
[2020-09-06 17:43] LABS: Glucose,Whole Blood 75 mg/dL (75-99)
[2020-09-06] MEDS ORDERED: HYDROcodone/APAP 5-325MG 1 EACH TAB PO PRN (18:10)
[2020-09-06] MEDS ORDERED: ACETAMINOPHEN TAB 325 MG TAB PO PRN (18:10)
[2020-09-06] MEDS ORDERED: CEFEPIME 1 GM VIAL IVPB SCH (18:15)
[2020-09-06] MEDS ORDERED: DAPTOMYCIN 350 MG IV SCH (18:15)
--- NOTE | 2020-09-06 19:24 | HP ---
HISTORY AND PHYSICAL 79-year-old white female who was admitted for severe dehydration and malnutrition, severe wound infection with sacral and decubitus ulcers. She is admitted for PEG tube placement as she is unable to get any nutrition in. Last admission, she refused Dobbhoff feeding tube but now she has agreed to get a PEG tube feeding as she is too weak to have any oral nutrition given. She wants a PEG tube feeding in order to get her nutrition up to try to heal these sacral decubitus ulcers. Discussed case with Dr. Pabon and surgeon for PEG tube placement. They are going to come in and do it. She has weeping and congestive heart failure. We will just give her IV Lasix while in the hospital 40 q.12. Continue other home medications which include: Daptomycin 400 mg IV Q 48 hours, ferrous sulfate 325 daily, Imdur 30 mg daily, Lipitor 20 mg daily, Lasix 20 mg daily, levothyroxine 137 mcg daily, potassium chloride 10 mEq daily, Vitamin B12 500 mcg daily, Eliquis 2.5 b.i.d., Maxipime 1 g every 12 hours, Neurontin 100 t.i.d., [place] 5/325 q.6, Lopressor 12.5 b.i.d., Tylenol 650 q.4. CONDITION: Stable. PROGNOSIS: Guarded. Ambulate as tolerated. Surgeries see old chart. She has a wound VAC on her buttocks. She is weak, fatigued. She does not get out of bed. She does not ambulate. REVIEW OF SYSTEMS: Otherwise fourteen-point review of systems negative except for increased dyspnea, PND, orthopnea, and confusion, altered mental status. PHYSICAL EXAMINATION: She is saturating on 4 L 99%. Blood pressure 140s over 70s, pulse is 75-80, respiratory 18-20, temp 97.9. CARDIOVASCULAR S1, S2. LUNGS: Decreased breath sounds and rales at the bases. HEMATOLOGIC: 2 to 3+ pedal edema. BUTTOCKS: She has a large sacral ulcer stage IV. She has 2 stage II decubitus buttock ulcers. PSYCH: She is sleepy, lethargic, wakes up. Gives appropriate answers and falls back to sleep. She is requesting a PEG tube as last ditch attempt to get her nutrition status up to heal these wounds. Otherwise, she is going to go into hospice care if this does not work. Discussed with the family, her and herself. Feeding tube is being placed. Surgical consult is being placed. Continue home antibiotics. Treat for CHF. Await for surgical consultation. MMODL / IJN: [id number] /
[2020-09-06 20:22] LABS: Glucose,Whole Blood 87 mg/dL (75-99)
[2020-09-06] MEDS: DEXTROSE 5%-0.45% NACL 1,000 ML IV SCH (20:47)
[2020-09-06] MEDS: FUROSEMIDE 10 MG/ML 4 ML VIAL IV SCH (20:47)
[2020-09-06] MEDS: APIXABAN 2.5 MG TABLET PO SCH (20:47)
[2020-09-06] MEDS: ATORVASTATIN 20 MG TAB PO SCH (20:47)
[2020-09-06] MEDS: GABAPENTIN 100 MG CAP PO SCH (20:47)
[2020-09-06] MEDS: METOPROLOL TARTRATE 12.5 MG TAB PO SCH (20:47)
[2020-09-06] MEDS: CEFEPIME 1 GM in SODIUM CHLORIDE 0.9% 50 ML IVPB SCH (21:02)
[2020-09-07 01:46] LABS: African American GFR (CKD) 13.1 (60.0-200.0); Albumin 2.4 g/dL (3.80-4.90); Albumin/Globulin Ratio 0.86 (1.60-3.17); Anion Gap 10.1 mmol/L (4.00-12.00); BUN/Creat Ratio 25.56 Ratio (12.00-20.00); Calcium 7.8 mg/dL (8.7-10.3); Carbon Dioxide 12.9 mmol/L (21.6-31.8); Globulin 2.8 g/dL (1.6-3.3); Non-African American GFR(CKD) 11.3 (60.0-200.0); Potassium 7.1 mmol/L (3.5-5.5); Total Bilirubin 0.2 mg/dL (0.3-1.2); Total Protein 5.2 g/dL (6.2-8.2)
[2020-09-07] MEDS: SODIUM POLYSTYRENE SULFONATE 15 GM/60 ML BOTTLE PO STA ×2 (02:13→02:29)
[2020-09-07] MEDS ORDERED: SODIUM POLYSTYRENE SULFONATE 15 GM/60 ML BOTTLE PO ONE (02:27)
[2020-09-07] MEDS: GABAPENTIN 100 MG CAP PO SCH ×3 (05:13→21:00)
[2020-09-07] MEDS: LEVOTHYROXINE 137 MCG TAB PO SCH (05:13)
--- NOTE | 2020-09-07 05:45 | CONS ---
CONSULTATION DATE OF SERVICE: 09/06/2020 REASON FOR STAY: Sacral and bilateral posterior upper thigh infected pressure ulcer. HISTORY OF PRESENT ILLNESS: The patient is an 79-year-old female with a past medical history significant for chronic nonhealing wound to the sacral area. The patient did have a diverting colostomy by Dr. Edouard. The patient subsequently did have multiple admissions to the hospital for COVID, CHF and ended up developing a pressure ulcer bilateral posterior thigh area. The patient did have significant worsening of these wounds over the last few weeks and the patient has been very weak with no oral intake. The patient was offered hospice on multiple occasions, which she has refused. The patient remains to be weak and unable to eat or drink any fluid. The patient subsequently has been admitted to the hospital for PEG tube placement for hydration and nutrition to see it that will help heal the wound she has on her sacrum as well as bilateral posterior thigh area. The patient has been admitted to the hospital. Infectious Disease was consulted for continued followup and management of antibiotic therapy. The patient at time of evaluation is afebrile. Denies having any chest pain or shortness of breath. She did have some cough. No nausea. No vomiting. No abdominal pain. Denies any worsening pain to the sacral or posterior thigh wound area. REVIEW OF SYSTEMS: Positive points have been mentioned in HPI. Rest of the systems are negative. PAST MEDICAL HISTORY: Stage IV sacral pressure ulcer, bilateral posterior thigh pressure ulcers, hypertension, hyperlipidemia, hypothyroidism, heart failure, cervical cancer. PAST SURGICAL HISTORY: Bowel resection, and diverting colostomy sacral wound. SOCIAL HISTORY: Remote history of smoking. No drinking or drug use. Currently intermediate resident. FAMILY HISTORY: No pertinent findings noticed. ALLERGIES: No known drug allergies. MEDICATIONS: Currently include the patient is on vancomycin, Pharmacy to dose. She is on Tylenol, [place], Eliquis, Lipitor, cefepime 1 g q.12 hours, iron sulfate, Lasix, Neurontin, NovoLog, Imdur, Synthroid, Lopressor, Protonix, K-Dur. PHYSICAL EXAMINATION: VITAL SIGNS: Her blood pressure is 106/67, pulse of 79, temperature 97.8. She is 100% 3 L nasal cannula. GENERAL DESCRIPTION: An elderly female lying in bed in no distress. No tachypnea or accessory muscles of respiration use. HEENT: Examination shows slight pallor. No scleral icterus. Oral mucous membrane is dry. NECK: Trachea central. No thyromegaly. LUNGS: Unlabored breathing. Coarse breath sounds bilaterally. A few upper lobe rhonchi. HEART: S1, S2. Regular rate and rhythm. ABDOMEN: Soft, no tenderness. EXTREMITIES: There is 2+ edema to the feet. SKIN: No rash or mass palpable. Examination of sacral wound did have a stage IV pressure ulcer with some slough tissue. Did have a bilateral posterior thigh pressure ulcer with some necrotic area, but no surrounding redness or any foul-smelling drainage. NEUROLOGICAL: The patient is awake, alert, oriented x3. Mood and affect normal. LABS: Hemoglobin 9.8, white count 8.9. DIAGNOSTIC IMPRESSION: Patient with chronic nonhealing wound to the sacral area which the patient has had for more than a year now and has failed conservative therapy. The patient is status post diverting colostomy. However, the patient continues to have worsening and developed multiple wounds to the bilateral posterior thigh and leg area. With poor oral intake, admission to hospital for a PEG tube placement and for nutritional support. PLAN: 1. The patient to continue with daptomycin and cefepime. 2. Local wound care as ordered, preferably with wound VAC. 3. We will repeat her blood work. 4. Will follow on clinical condition and further adjust medication if needed. Thank you for this consultation. Will follow this patient along with you. SAHRA / SHELLY: [id number] /
[2020-09-07 06:08] LABS: Anisocytosis Slight; Basophils % (A) 0 %; Eosinophils # (A) 0.2 k/uL (0-0.7); Eosinophils % (A) 2 %; HCT 32.3 % (34.0-46.0); Hypochromasia Marked; Lymphocytes # (A) 1.7 k/uL (1.0-4.8); Lymphocytes % (A) 18 %; MCHC 30.9 g/dL (31.0-37.0); Macrocytosis Slight; Mean Platelet Volume 8.2; Monocytes # (A) 0.3 k/uL (0-1.0); Monocytes % (A) 3 %; Neutrophils # (A) 7.1 k/uL (1.3-7.7); Neutrophils % (A) 75 %; Platelet Count 225 k/uL (150-450); Poikilocytosis Moderate; RBC 3.33 m/uL (3.80-5.40); RDW 19.9 % (11.5-15.5); WBC 9.4 k/uL (3.8-10.6)
[2020-09-07 06:21] LABS: ALT 20 U/L (4-34); AST 24 U/L (14-36); African American GFR (CKD) 14 (>60 ml/min/1.73 sqM); Albumin 2.2 g/dL (3.5-5.0); Albumin/Globulin Ratio 0.7; Alkaline Phosphatase 404 U/L (38-126); Anion Gap 12 mmol/L; Blood Urea Nitrogen 83 mg/dL (7-17); Calcium 8.1 mg/dL (8.4-10.2); Carbon Dioxide 11 mmol/L (22-30); Chloride 116 mmol/L (98-107); Globulin 3.3 g/dL; Glucose 86 mg/dL (74-99); Non-African American GFR(CKD) 12 (>60 ml/min/1.73 sqM); Sodium 139 mmol/L (137-145); Total Bilirubin 0.5 mg/dL (0.2-1.3); Total Protein 5.5 g/dL (6.3-8.2)
[2020-09-07 06:28] LABS: Potassium 6.2 mmol/L (3.5-5.1)
[2020-09-07 07:02] LABS: Glucose,Whole Blood 87 mg/dL (75-99)
[2020-09-07] MEDS: INSULIN ASPART (NovoLOG) 100 UNIT/ML VIAL SQ SCH ×4 (07:06→20:58)
[2020-09-07] MEDS: PANTOPRAZOLE 40 MG/10 ML VIAL IVP SCH (08:37)
[2020-09-07] MEDS: FUROSEMIDE 10 MG/ML 4 ML VIAL IV SCH (08:37)
[2020-09-07] MEDS: CEFEPIME 1 GM in SODIUM CHLORIDE 0.9% 50 ML IVPB SCH (08:37)
[2020-09-07] MEDS ORDERED: POTASSIUM CHLORIDE ER 10 MEQ TAB.ER.PRT PO SCH (09:00)
[2020-09-07 10:08] LABS: Erythrocyte Sedimentation Rate 64 mm/hr (0-20)
[2020-09-07] MEDS ORDERED: INSULIN REGULAR 100 UNIT/ML VIAL IV ONE (10:28)
[2020-09-07] MEDS: ISOSORBIDE MONONITRATE ER 30 MG TAB.ER.24H PO SCH (10:43)
[2020-09-07] MEDS: APIXABAN 2.5 MG TABLET PO SCH (10:43)
[2020-09-07] MEDS: CYANOCOBALAMIN 500 MCG TAB PO SCH (10:43)
[2020-09-07] MEDS: FERROUS SULFATE 325 MG TAB PO SCH (10:43)
[2020-09-07] MEDS: METOPROLOL TARTRATE 12.5 MG TAB PO SCH ×2 (10:44→21:00)
[2020-09-07] MEDS: DEXTROSE 50% SYRINGE 50 ML IVP STA ×2 (11:15→16:42)
[2020-09-07] MEDS: DEXTROSE 5% IN WATER 1,000 ML with SODIUM BICARB (1 MEQ/ML) 150 ML IV SCH (11:15)
[2020-09-07 11:29] LABS: Glucose,Whole Blood 222 mg/dL (75-99)
[2020-09-07 12:44] VITALS: BMI 25.4
--- NOTE | 2020-09-07 12:50 | XR ---
EXAMINATION TYPE: XR chest 1V DATE OF EXAM: 09/07/2020 CLINICAL HISTORY: Difficulty breathing and CHF progress study. TECHNIQUE: Single AP portable frontal view of the chest is obtained. COMPARISON: Chest x-ray from August 01, 2020 FINDINGS: Stable left subclavian Mediport catheter. New left sided PICC line terminates in left subc lavian vein near aortic knob. Background chronic parenchymal changes with tiny bilateral pleural effu sions. Background cardiomegaly with atherosclerotic thoracic aorta. High riding right humeral head alfonso ggests chronic rotator cuff tear. IMPRESSION: Cardiomegaly and chronic parenchymal changes with tiny bilateral pleural effusions. No ne w focal infiltrate.
--- NOTE | 2020-09-07 13:13 | P.GSCN ---
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 She's had prior hospitalization for COVID and congestive heart failure. Patient has progressively became more weak and has had poor oral intake. It apparently patient has been offered hospice on multiple occasions and she has refused. Patient was a direct admit from Dr. López's office for severe dehydration and malnutrition. And consult for surgical service for PEG tube placement. Patient denies any abdominal pain. She denies any nausea or vomiting. She is slightly confused. PAST MEDICAL HISTORY: See list. PAST SURGICAL HISTORY: See list. MEDICATIONS: See list. ALLERGIES: See list. SOCIAL HISTORY: No illicit drug use. REVIEW OF SYSTEMS: CONSTITUTIONAL: Denies fever or chills. HEENT: Denies blurred vision, vision changes, or eye pain. Denies hemoptysis CARDIOVASCULAR: Denies chest pain or pressure. RESPIRATORY: No shortness of breath. GASTROINTESTINAL: See HPI for pertinent findings HEMATOLOGIC: Denies bleeding disorders. GENITOURINARY: Denies any blood in urine or increased urinary frequency. SKIN: Denies pruitis. Denies rash. PHYSICAL EXAM: VITAL SIGNS: Reviewed GENERAL: Well-developed in no acute distress. HEENT: No sclera icterus. Extraocular movements grossly intact. Moist buccal mucosa. Head is atraumatic, normocephalic. No nasal drainage. ABDOMEN: Soft. Nondistended. Nontender NEUROLOGIC: Patient is awake but slightly confused LABORATORY DATA: WBC 9.4 Hgb 10.0 platelets 225 sodium 139 potassium 6.2 creatinine 3.36 CO2 11 Albumin 2.2 BNP 119,000 IMAGING: Chest x-ray cardiomegaly and chronic parenchymal changes with tiny bilateral pleural effusions no new focal infiltrate ASSESSMENT: 1. Severe protein calorie malnutrition 2. 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 Salcido tomorrow, 2020 -Yg currently on hold -Hyperkalemia being corrected by nephrology -Continue supportive care Thank you for this consultation Physician Aviation Medicine Specialist note has been reviewed by physician. Signing provider agrees with the documented findings, assessment, and plan of care. Past Medical History Past Medical History: Blood Disorder, Coronary Artery Disease (CAD), Cancer, Heart Failure, Diabetes Mellitus, Hyperlipidemia, Myocardial Infarction (MS), Osteoarthritis (OA), Pneumonia, Renal Disease, Respiratory Disorder, Skin Disorder, Thyroid Disorder Additional Past Medical History / Comment(s): 06/09/20 Pt admitted to [facility] and treated for covid 19-tag writer contacted [facility] to get date pt found + but they were unable to find it. 07/03/20 pt admitted to [facility] with covid pneumonia/hypoxic respiratory failure and chf. Other hx: 2008 rectal cancer with surgery (ileostomy), chemo/radiation, cervical cancer with hysterectomy, IDDM type II, CKD stage III, anemia, UTI, indwelling catheter, stage IV decubitus ulcer with wound vac (machine not with pt), pt wears oxygen ATC at 4L/NC, osteomylitis of vertebrae, moderate protein calorie malnutrition, hypothyroid. Last Myocardial Infarction Date:: 2007 History of Any Multi-Drug Resistant Organisms: None Reported Past Surgical History: Bowel Resection, Heart Catheterization, Hysterectomy, Tonsillectomy Additional Past Surgical History / Comment(s): 2007 cardiac cath-treated medically, bowel resection/ileostomy, colonoscopies, port a cath, wound vac, midline IV Past Anesthesia/Blood Transfusion Reactions: No Reported Reaction Past Psychological History: Anxiety Additional Psychological History / Comment(s): Pt resides at [facility]. Staff state she is bedridden. She has a wound vac for decubitus ulcer, IDC and wears oxygen ATC. She can feed herself. Smoking Status: Former smoker Past Alcohol Use History: None Reported Additional Past Alcohol Use History / Comment(s): Pt started smoking in 1955 and quit in 1962. Past Drug Use History: None Reported - Past Family History Father Family Medical History: Coronary Artery Disease (CAD) Mother Family Medical History: Coronary Artery Disease (CAD) Medications and Allergies Home Medications Medication Instructions Recorded Confirmed Type Acetaminophen Tab [Tylenol] 650 mg PO Q4H PRN 06/09/20 09/06/20 History Ferrous Sulfate [Iron] 325 mg PO DAILY@0900 06/09/20 09/06/20 History HYDROcodone/APAP 5-325MG [Watson 1 tab PO Q6H PRN 06/09/20 09/06/20 History 5-325] Levothyroxine Sodium 137 mcg PO HS@0600 06/09/20 09/06/20 History Metoprolol Tartrate [Lopressor] 12.5 mg PO BID@0900,2100 06/09/20 09/06/20 Hist ory Potassium Chloride ER [K-Dur 10] 10 meq PO DAILY@0900 06/09/20 09/06/20 History Gabapentin [Neurontin] 100 mg PO TID@0600,1300,2200 07/29/20 09/06/20 History Isosorbide Mononitrate ER [Imdur] 30 mg PO DAILY@89907/29/20 09/06/20 History Apixaban [Eliquis] 2.5 mg PO BID@0900,2100 09/06/20 09/06/20 History Atorvastatin [Lipitor] 20 mg PO HS@2100 09/06/20 09/06/20 History Cefepime [Maxipime] 1 gm IVPB Q12H 09/06/20 09/06/20 History Cyanocobalamin [Vitamin B-12] 500 mcg PO DAILY@0909/06/20 09/06/20 History DAPTOmycin [Daptomycin] 400 mg IV Q48H 09/06/20 09/06/20 History Furosemide [Lasix] 20 mg PO DAILY@59909/06/20 09/06/20 History Allergies Allergy/AdvReac Type Severity Reaction Status Date / Time No Known Allergies Allergy Verified 09/06/20 16:32 Surgical - Exam Vital Signs Temp Pulse Resp BP Pulse Ox 97.9 F 80 20 149/71 99 09/06/20 14:59 09/06/20 14:59 09/06/20 14:59 09/06/20 14:59 09/06/20 14:59 Results - Labs 09/07/20 05:19 09/07/20 05:19 Abnormal Lab Results - Last 24 Hours (Table) 09/06/20 09/06/20 09/06/20 Range/Units 16:26 16:26 17:17 RBC 3.32 L (3.80-5.40) m/uL Hgb 9.6 L (11.4-16.0) gm/dL Hct 31.6 L (34.0-46.0) % MCHC 30.4 L (31.0-37.0) g/dL RDW 20.1 H (11.5-15.5) % ESR (0-20) mm/hr Potassium 7.1 H* (3.5-5.5) mmol/L Chloride 117 H (96-109) mmol/L Carbon Dioxide 12.9 L (21.6-31.8) mmol/L BUN 92.0 H (9.0-27.0) mg/dL Creatinine 3.6 H (0.6-1.5) mg/dL Est GFR (CKD-EPI)AfAm 13.1 L (60.0-200.0) Est GFR (CKD-EPI)NonAf 11.3 L (60.0-200.0) BUN/Creatinine Ratio 25.56 H (12.00-20.00) Ratio Glucose 69 L (70-110) mg/dL POC Glucose (mg/dL) 69 L (75-99) mg/dL Calcium 7.8 L (8.7-10.3) mg/dL Total Bilirubin 0.2 L (0.3-1.2) mg/dL Alkaline Phosphatase 482 H (41-126) U/L C-Reactive Protein (<10.0) mg/L Total Protein 5.2 L (6.2-8.2) g/dL Albumin 2.40 L (3.80-4.90) g/dL Albumin/Globulin Ratio 0.86 L (1.60-3.17) g/dL 09/07/20 09/07/20 09/07/20 Range/Units 05:19 05:19 11:26 RBC 3.33 L (3.80-5.40) m/uL Hgb 10.0 L (11.4-16.0) gm/dL Hct 32.3 L (34.0-46.0) % MCHC 30.9 L (31.0-37.0) g/dL RDW 19.9 H (11.5-15.5) % ESR 64 H (0-20) mm/hr Potassium 6.2 H* (3.5-5.5) mmol/L Chloride 116 H (96-109) mmol/L Carbon Dioxide 11 L (21.6-31.8) mmol/L BUN 83 H (9.0-27.0) mg/dL Creatinine 3.36 H (0.6-1.5) mg/dL Est GFR (CKD-EPI)AfAm (60.0-200.0) Est GFR (CKD-EPI)NonAf (60.0-200.0) BUN/Creatinine Ratio (12.00-20.00) Ratio Glucose (70-110) mg/dL POC Glucose (mg/dL) 222 H (75-99) mg/dL Calcium 8.1 L (8.7-10.3) mg/dL Total Bilirubin (0.3-1.2) mg/dL Alkaline Phosphatase 404 H (41-126) U/L C-Reactive Protein 89.0 H (<10.0) mg/L Total Protein 5.5 L (6.2-8.2) g/dL Albumin 2.2 L (3.80-4.90) g/dL Albumin/Globulin Ratio (1.60-3.17) g/dL Microbiology - Last 24 Hours (Table) 09/06/20 16:58 Gram Stain - Preliminary Leg - Left Wound Culture - Preliminary 09/06/20 16:58 Anaerobic Culture - Preliminary Leg - Left Diabetes panel 09/06/20 09/07/20 Range/Units 16:26 05:19 Sodium 140 139 (135-145) mmol/L Potassium 7.1 H* 6.2 H* (3.5-5.5) mmol/L Chloride 117 H 116 H (96-109) mmol/L Carbon Dioxide 12.9 L 11 L (21.6-31.8) mmol/L BUN 92.0 H 83 H (9.0-27.0) mg/dL Creatinine 3.6 H 3.36 H (0.6-1.5) mg/dL Glucose 69 L 86 (70-110) mg/dL Calcium 7.8 L 8.1 L (8.7-10.3) mg/dL AST 32 24 (13-35) U/L ALT 25 20 (8-44) U/L Alkaline Phosphatase 482 H 404 H (41-126) U/L Total Protein 5.2 L 5.5 L (6.2-8.2) g/dL Albumin 2.40 L 2.2 L (3.80-4.90) g/dL Calcium panel 09/06/20 09/07/20 Range/Units 16:26 05:19 Calcium 7.8 L 8.1 L (8.7-10.3) mg/dL Albumin 2.40 L 2.2 L (3.80-4.90) g/dL Pituitary panel 09/06/20 09/07/20 Range/Units 16:26 05:19 Sodium 140 139 (135-145) mmol/L Potassium 7.1 H* 6.2 H* (3.5-5.5) mmol/L Chloride 117 H 116 H (96-109) mmol/L Carbon Dioxide 12.9 L 11 L (21.6-31.8) mmol/L BUN 92.0 H 83 H (9.0-27.0) mg/dL Creatinine 3.6 H 3.36 H (0.6-1.5) mg/dL Glucose 69 L 86 (70-110) mg/dL Calcium 7.8 L 8.1 L (8.7-10.3) mg/dL Adrenal panel 09/06/20 09/07/20 Range/Units 16:26 05:19 Sodium 140 139 (135-145) mmol/L Potassium 7.1 H* 6.2 H* (3.5-5.5) mmol/L Chloride 117 H 116 H (96-109) mmol/L Carbon Dioxide 12.9 L 11 L (21.6-31.8) mmol/L BUN 92.0 H 83 H (9.0-27.0) mg/dL Creatinine 3.6 H 3.36 H (0.6-1.5) mg/dL Glucose 69 L 86 (70-110) mg/dL Calcium 7.8 L 8.1 L (8.7-10.3) mg/dL Total Bilirubin 0.2 L 0.5 (0.3-1.2) mg/dL AST 32 24 (13-35) U/L ALT 25 20 (8-44) U/L Alkaline Phosphatase 482 H 404 H (41-126) U/L Total Protein 5.2 L 5.5 L (6.2-8.2) g/dL Albumin 2.40 L 2.2 L (3.80-4.90) g/dL
[2020-09-07] MEDS: DEXTROSE 5%-0.45% NACL 1,000 ML IV SCH (13:55)
[2020-09-07 16:33] LABS: Glucose,Whole Blood 60 mg/dL (75-99)
[2020-09-07 17:01] LABS: Glucose,Whole Blood 92 mg/dL (75-99)
--- NOTE | 2020-09-07 18:04 | PN ---
PROGRESS NOTE This patient is an 79-year-old white female who has severe sacral decubitus ulcers. She needs a PEG tube, as she is not able to eat any food, has increased encephalopathy and severe dehydration, malnutrition. PEG tube placement will be needed. She is sleepy, lethargic CARDIOVASCULAR: S1, S2. LUNGS: Decreased breath sounds. She has a wound V.A.C. on her buttocks. NEUROLOGIC: Slightly confused. ABDOMEN: Soft, non-tender. Labs were reviewed. Potassium is 6.2, sodium 139, creatinine 3.36, for which rehydration is being attempted for prerenal renal insufficiency. Chest x-ray shows no new infiltrate. ASSESSMENT: 1. Severe protein-calorie malnutrition. 2. Chronic nonhealing wounds to the sacrum, stage IV, and then decubitus buttock ulcers x2, stage II. PEG tube placement tomorrow. Eliquis on hold. Hyperkalemia being corrected by Nephrology. Continue with fluid rehydration. Please see further orders. MMODL / IJN: [id number] /
[2020-09-07 20:35] LABS: Glucose,Whole Blood 28 mg/dL (75-99)
[2020-09-07] MEDS ORDERED: DEXTROSE 50% SYRINGE 50 ML IVP STA ×2 (20:53→22:59)
[2020-09-07 20:58] LABS: Glucose,Whole Blood 152 mg/dL (75-99)
[2020-09-07] MEDS: ATORVASTATIN 20 MG TAB PO SCH (20:58)
--- NOTE | 2020-09-07 21:57 | CONS ---
CONSULTATION REASON FOR CONSULTATION: Renal failure. HISTORY OF PRESENT ILLNESS: Patient is an 79-year-old female who was admitted to the hospital with sacral decubitus ulcers. She is admitted for PEG tube placement, as she is not able to eat, and she has refused Dobbhoff feeding tube previously. The patient has not been significantly short of breath. She has significant lower extremity edema. She was noted to be quite acidotic with a CO2 of 11 and her potassium was 6.2. The patient has an indwelling Leslie catheter with good urine output. Serum creatinine was 3.36 with previous creatinine at 1.7 and 1.9 mg/dL in August of 2020. Blood pressure has been 105 to 120 mmHg systolic. PAST MEDICAL HISTORY: Significant for coronary artery disease, CHF, hyperlipidemia, history of MS, osteoarthritis, previous history of pneumonia, CKD, hypothyroidism, history of COVID pneumonia, CHF, history of rectal cancer with ileostomy, status post chemo and radiation therapy, history of cervical cancer with hysterectomy, decubitus ulcers, protein-calorie malnutrition. PAST SURGICAL HISTORY: Bowel resection, cardiac catheterization, hysterectomy, tonsillectomy, bowel resection with ileostomy, colonoscopies, midline placement, wound V.A.C.s. SOCIAL HISTORY: Patient is a former smoker. No history of drug abuse or alcohol abuse. MEDICATIONS: Medications prior to admission included iron, Tylenol, [place], Synthroid, Lopressor, potassium, Neurontin, Eliquis, Imdur, Lipitor, vitamin D, daptomycin, Lasix. ALLERGIES: NONE. REVIEW OF SYSTEMS: No evidence of diarrhea. Patient has not been eating much. No significant chest pains. No significant shortness of breath. PHYSICAL EXAMINATION: Patient is currently comfortable. She was not in acute distress. Blood pressure this morning 106/53, heart rate 79 per minute. She is afebrile. EXAMINATION OF THE HEART: S1 and S2. EXAMINATION OF LUNGS: Bilateral breath sounds are heard. ABDOMEN: Soft, non-tender. Examination of lower extremities shows edema 2+ bilaterally. Chronic skin changes noted. CLIENT CARE COORDINATOR exam is difficult to examine. However, patient has been moving all 4 extremities. LABS: Sodium 139, potassium 6.2, chloride 116, CO2 11, BUN 83, creatinine 3.36, hemoglobin 10.0 g/dL. ASSESSMENT: 1. Acute kidney injury, acute tubular necrosis, currently nonoliguric. Agree with Leslie catheter placement for now. Patient is maintained on IV Lasix for significant edema. Her chest x-ray does not show any new infiltrates. She has chronic parenchymal changes with evidence of cardiomegaly. 2. Severe hyperkalemia associated acute kidney injury and acidosis. No evidence of obstruction. Patient currently has an indwelling Leslie catheter. 3. Severe metabolic acidosis, possibly associated with GI fluid loss. 4. Sacral decubitus ulcers. 5. Protein-calorie malnutrition. Patient was admitted for PEG tube placement for hydration. PLAN: Add IV bicarb. I will decrease the Lasix to once a day. Continue with Leslie catheter. Repeat labs in a.m. May continue with the antibiotics for now. Avoid hypotension. Check ultrasound of the kidneys. Thank you for this consultation. Will continue to follow the patient with you during her hospitalization. MMALESHAL / CHELON: [id number] /
[2020-09-07] MEDS ORDERED: DEXTROSE 10% IN WATER 1,000 ML with SODIUM CHLORIDE 4MEQ/ML VIAL 153.8 MEQ IV SCH (22:00)
--- NOTE | 2020-09-07 22:27 | US ---
EXAMINATION TYPE: US kidneys/renal and bladder DATE OF EXAM: 09/07/2020 COMPARISON: US CLINICAL HISTORY: RF. RF per order. EXAM MEASUREMENTS: Right Kidney: 10.9 x 5.0 x 4.1 cm Left Kidney: 8.8 x 4.5 x 5.1 cm Limited due to large patient body habitus. Patient unable to turn on her sides. Right Kidney: No hydronephrosis or masses seen. Cortex appears thin. Left Kidney: Cortex appears thin. Anechoic area seen inferolaterally: 5.1 x 4.4 x 3.9 cm. Measurement is limited; difficult to distinguish kidney borders. Unable to compare with spleen, spleen not visu alized due to patient positioning. Bladder: Not seen. Bilateral Jets seen: No Incidental finding: There appear to be multiple echogenic foci with posterior shadowing within the ga llbladder. 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 4.5 cm cortical cyst lower pole left kidney. No fatmata dence of a solid renal mass or obstruction. Urinary bladder not visualized. Cholelithiasis.
[2020-09-07 22:56] LABS: Glucose,Whole Blood 67 mg/dL (75-99)
--- NOTE | 2020-09-07 22:58 | PN ---
PROGRESS NOTE DATE OF SERVICE: 09/07/2020 REASON FOR FOLLOWUP: Sacral bilateral gluteal pressure ulcer infection. INTERVAL HISTORY: The patient is currently afebrile. Patient is breathing comfortably. Patient denies having any chest pain. No shortness of breath or cough. No abdominal pain or worsening pain to the sacral area. PHYSICAL EXAMINATION: Blood pressure 114/62 with a pulse of 85. Temperature 96.6. She is 99% on 2 L nasal cannula. General description is an elderly female lying in bed in no distress. Respiratory system: Unlabored breathing, clear to auscultation anteriorly. Heart S1, S2. Regular rate and rhythm. Abdomen soft, no tenderness. LABS: Hemoglobin is 10.1, white count 9.4, 64, BUN of 83, creatinine 3.36. IMPRESSION/PLAN: 1. Patient with infected sacral bilateral gluteal pressure ulcer with multiple pathogen for which the patient is currently covered on daptomycin and cefepime. Local care to continue as ordered. 2. May benefit from change of her PICC line, as the PICC line left arm has been in for more than and high risk of secondary line infection. Continue supportive care. MMODL / IJN: [id number] /
[2020-09-07 23:55] LABS: Glucose,Whole Blood 167 mg/dL (75-99)
[2020-09-08 01:11] LABS: Glucose,Whole Blood 135 mg/dL (75-99)
[2020-09-08 03:26] LABS: Glucose,Whole Blood 108 mg/dL (75-99)
[2020-09-08] MEDS: LEVOTHYROXINE 137 MCG TAB PO SCH (04:50)
[2020-09-08] MEDS: GABAPENTIN 100 MG CAP PO SCH ×3 (04:50→19:38)
[2020-09-08] MEDS: DEXTROSE 10% IN WATER 1,000 ML in EMPTY BAG 1 BAG IV SCH ×2 (04:50→19:37)
[2020-09-08] MEDS: DEXTROSE 5% IN WATER 1,000 ML with SODIUM BICARB (1 MEQ/ML) 150 ML IV SCH (04:50)
[2020-09-08 05:28] LABS: Glucose,Whole Blood 115 mg/dL (75-99)
[2020-09-08 07:16] LABS: ALT 16 U/L (4-34); AST 16 U/L (14-36); African American GFR (CKD) 14 (>60 ml/min/1.73 sqM); Albumin 1.9 g/dL (3.5-5.0); Albumin/Globulin Ratio 0.7; Alkaline Phosphatase 316 U/L (38-126); Anion Gap 10 mmol/L; Blood Urea Nitrogen 82 mg/dL (7-17); Calcium 7.8 mg/dL (8.4-10.2); Carbon Dioxide 13 mmol/L (22-30); Chloride 116 mmol/L (98-107); Globulin 2.9 g/dL; Glucose 116 mg/dL (74-99); Non-African American GFR(CKD) 12 (>60 ml/min/1.73 sqM); Potassium 5.1 mmol/L (3.5-5.1); Sodium 139 mmol/L (137-145); Total Bilirubin 0.4 mg/dL (0.2-1.3); Total Protein 4.8 g/dL (6.3-8.2)
[2020-09-08 07:22] LABS: Glucose,Whole Blood 126 mg/dL (75-99)
[2020-09-08 07:36] LABS: Anisocytosis Slight; Basophils % (A) 1 %; Eosinophils # (A) 0.1 k/uL (0-0.7); Eosinophils % (A) 1 %; HCT 29.9 % (34.0-46.0); HGB 9.1 gm/dL (11.4-16.0); Hypochromasia Marked; Lymphocytes # (A) 1.4 k/uL (1.0-4.8); Lymphocytes % (A) 19 %; MCH 29.8 pg (25.0-35.0); MCHC 30.6 g/dL (31.0-37.0); MCV 97.3 fL (80.0-100.0); Macrocytosis Slight; Mean Platelet Volume 8.6; Monocytes # (A) 0.3 k/uL (0-1.0); Monocytes % (A) 4 %; Neutrophils # (A) 5.4 k/uL (1.3-7.7); Neutrophils % (A) 74 %; Platelet Count 200 k/uL (150-450); Poikilocytosis Moderate; RBC 3.07 m/uL (3.80-5.40); WBC 7.3 k/uL (3.8-10.6)
[2020-09-08] MEDS: INSULIN ASPART (NovoLOG) 100 UNIT/ML VIAL SQ SCH ×4 (07:46→20:45)
[2020-09-08] MEDS: FUROSEMIDE 10 MG/ML 4 ML VIAL IV SCH (10:30)
[2020-09-08] MEDS: CEFEPIME 1 GM in SODIUM CHLORIDE 0.9% 50 ML IVPB SCH ×2 (10:30→21:34)
[2020-09-08] MEDS: PANTOPRAZOLE 40 MG/10 ML VIAL IVP SCH (10:30)
[2020-09-08] MEDS: CYANOCOBALAMIN 500 MCG TAB PO SCH (10:40)
[2020-09-08] MEDS: FERROUS SULFATE 325 MG TAB PO SCH (10:40)
[2020-09-08] MEDS: METOPROLOL TARTRATE 12.5 MG TAB PO SCH ×2 (10:41→19:38)
[2020-09-08] MEDS: ISOSORBIDE MONONITRATE ER 30 MG TAB.ER.24H PO SCH (10:41)
[2020-09-08 11:45] LABS: Glucose,Whole Blood 81 mg/dL (75-99)
--- NOTE | 2020-09-08 14:41 | P.PN ---
Subjective Progress Note Date: 09/08/20 CHIEF COMPLAINT: Malnutrition HISTORY OF PRESENT ILLNESS: Patient was initially scheduled for PEG tube pl acement however she was hypothermic and had a temp of 94 and required a bear hugger to be initiated. Patient will be rescheduled for PEG tube placement for tomorrow. WBC 7.3 creatinine 3.36 potassium 5.1 PHYSICAL EXAM: VITAL SIGNS: Reviewed. GENERAL: Well-developed in no acute distress. HEENT: No sclera icterus. Extraocular movements grossly intact. Moist buccal mucosa. Head is atraumatic, normocephalic. ABDOMEN: Soft. Nondistended. Nontender. NEUROLOGIC: Patient is confused ASSESSMENT: 1. Severe protein calorie malnutrition PLAN: -Patient is scheduled for PEG tube placement with Dr. Salcido tomorrow, 09/09/2020 -Continue to hold Yg Physician Design Chief note has been reviewed by physician. Signing provider agrees with the documented findings, assessment, and plan of care. Objective - Vital Signs Vital signs: Vital Signs Temp 100.1 F H 09/08/20 14:00 Pulse 111 H 09/08/20 14:00 Resp 20 09/08/20 14:00 BP 103/57 09/08/20 14:00 Pulse Ox 94 L 09/08/20 14:00 Intake & Output 09/07/20 09/08/20 09/08/20 18:59 06:59 18:59 Output Total 400 200 Balance -400 -200 Weight 65.317 kg Output: Urine 400 200 Other: Voiding Method Indwelling Catheter Indwelling Catheter Indwelling Catheter - Labs CBC & Chem 7: 09/08/20 06:40 09/08/20 06:40 Labs: Abnormal Lab Results - Last 24 Hours (Table) 09/07/20 09/07/20 09/07/20 Range/Units 16:32 20:31 20:46 RBC (3.80-5.40) m/uL Hgb (11.4-16.0) gm/dL Hct (34.0-46.0) % MCHC (31.0-37.0) g/dL RDW (11.5-15.5) % Chloride (98-107) mmol/L Carbon Dioxide (22-30) mmol/L BUN (7-17) mg/dL Creatinine (0.52-1.04) mg/dL Glucose (74-99) mg/dL POC Glucose (mg/dL) 60 L 28 L 152 H (75-99) mg/dL Calcium (8.4-10.2) mg/dL Alkaline Phosphatase (38-126) U/L Total Protein (6.3-8.2) g/dL Albumin (3.5-5.0) g/dL 09/07/20 09/07/20 09/08/20 Range/Units 22:36 23:36 01:08 RBC (3.80-5.40) m/uL Hgb (11.4-16.0) gm/dL Hct (34.0-46.0) % MCHC (31.0-37.0) g/dL RDW (11.5-15.5) % Chloride (98-107) mmol/L Carbon Dioxide (22-30) mmol/L BUN (7-17) mg/dL Creatinine (0.52-1.04) mg/dL Glucose (74-99) mg/dL POC Glucose (mg/dL) 67 L 167 H 135 H (75-99) mg/dL Calcium (8.4-10.2) mg/dL Alkaline Phosphatase (38-126) U/L Total Protein (6.3-8.2) g/dL Albumin (3.5-5.0) g/dL 09/08/20 09/08/20 09/08/20 Range/Units 03:25 05:23 06:40 RBC 3.07 L (3.80-5.40) m/uL Hgb 9.1 L (11.4-16.0) gm/dL Hct 29.9 L (34.0-46.0) % MCHC 30.6 L (31.0-37.0) g/dL RDW 20.0 H (11.5-15.5) % Chloride (98-107) mmol/L Carbon Dioxide (22-30) mmol/L BUN (7-17) mg/dL Creatinine (0.52-1.04) mg/dL Glucose (74-99) mg/dL POC Glucose (mg/dL) 108 H 115 H (75-99) mg/dL Calcium (8.4-10.2) mg/dL Alkaline Phosphatase (38-126) U/L Total Protein (6.3-8.2) g/dL Albumin (3.5-5.0) g/dL 09/08/20 09/08/20 Range/Units 06:40 07:11 RBC (3.80-5.40) m/uL Hgb (11.4-16.0) gm/dL Hct (34.0-46.0) % MCHC (31.0-37.0) g/dL RDW (11.5-15.5) % Chloride 116 H (98-107) mmol/L Carbon Dioxide 13 L (22-30) mmol/L BUN 82 H (7-17) mg/dL Creatinine 3.36 H (0.52-1.04) mg/dL Glucose 116 H (74-99) mg/dL POC Glucose (mg/dL) 126 H (75-99) mg/dL Calcium 7.8 L (8.4-10.2) mg/dL Alkaline Phosphatase 316 H (38-126) U/L Total Protein 4.8 L (6.3-8.2) g/dL Albumin 1.9 L (3.5-5.0) g/dL Microbiology - Last 24 Hours (Table) 09/06/20 16:58 Gram Stain - Preliminary Leg - Left Wound Culture - Preliminary
--- NOTE | 2020-09-08 14:52 | PN ---
PROGRESS NOTE The patient is seen for followup for acute kidney injury, metabolic acidosis and hyperkalemia. She was supposed to have a PEG tube placed. However, she does not have a good IV. Patient has been hypoglycemic and therefore the bicarb drip was not running instead she is maintained on D10 at 70 mL an hour. The patient is currently awake. She denies any significant complaints. There is concern regarding her code status. She is currently DNR. However, there may be discussion regarding hospice care, especially if we are not able to obtain a good IV access and if she is not going for PEG tube placement. She has had this PICC line for long time now. Blood cultures have not been drawn. The patient has been afebrile, but this morning her temperature was low and has needed a Johnie Hugger. Urine output for 24 hours was about 600 mL. The patient has an indwelling Leslie catheter. PHYSICAL EXAMINATION: On examination today, blood pressure was 102/68, heart rate 82 per minute. She is afebrile. EXAMINATION OF THE HEART: S1, S2. EXAMINATION OF THE LUNGS: Bilateral breath sounds are heard. Decreased breath sounds at bases. Abdomen is soft, obese, nontender. Examination of lower extremities shows edema 2+ bilaterally, worse in the left upper arm. PETROLEUM ENGINEER exam shows patient is following commands. She does move all extremities. LABS: Labs show sodium of 139, potassium 5.1, chloride 116, CO2 is 13, BUN 82, serum creatinine 3.36, calcium 7.8. Hemoglobin was 9.1 g/dL. ASSESSMENT: 1. Acute kidney injury secondary to hypotension, acute tubular necrosis, nonoliguric currently with indwelling Leslie catheter. Serum creatinine is about the same as yesterday at 3.3. Previous creatinine was as low as 1.7 and 1.9 mg/dL in August of 2020. 2. Severe metabolic acidosis associated with renal failure and gastrointestinal fluid loss not improved much as patient did not receive the bicarb drip overnight. 3. Hyperkalemia associated with acute kidney injury acidosis, currently improved. 4. Severe protein calorie malnutrition. The patient was scheduled to have a PEG tube placed. 5. Hypothermia, rule out sepsis. 6. Large sacral decubes. PLAN: Code status to be discussed again with daughter. If aggressive medical treatment is required, we need to restart the bicarb drip. I will check an ultrasound of the kidneys and repeat labs in a.m. The patient is not a candidate for renal replacement therapy if her renal function continues to worsen. However, it appears to be fairly stable. I will also check blood cultures. MMODL / IJN: [id number] /
--- NOTE | 2020-09-08 15:30 | PN ---
PROGRESS NOTE DATE OF SERVICE: 09/08/2020 REASON FOR FOLLOWUP: Multiple pressure ulcer with infection. INTERVAL HISTORY: The patient was hypothermic last night and this morning and this afternoon the patient did have 100.1. The patient is slightly sleepy, lethargic, is unable to provide any history. Oral intake remains to be poor and no diarrhea has been documented or reported by the nursing staff. PHYSICAL EXAMINATION: Blood pressure 103/57, pulse 111, temperature 100.1. She is 94% on 3 L nasal cannula. General description is an elderly female lying in bed in no distress. RESPIRATORY SYSTEM: Unlabored breathing, clear to auscultation anteriorly. HEART: S1, S2. Regular rate and rhythm. ABDOMEN: Soft, no tenderness. LABS: Hemoglobin 9.1, white count 7.3, BUN of 82, creatinine 3.36. DIAGNOSTIC IMPRESSION AND PLAN: Patient with multiple pressure ulcers with concern for injury cellulitis. Patient is currently broadly covered with daptomycin and cefepime to continue. Local wound care is ordered. Overall poor prognosis and may benefit from hospice-oriented care. PICC line will be changed. Continue supportive care. MMODL / IJN: [id number] /
[2020-09-08 16:55] LABS: Glucose,Whole Blood 124 mg/dL (75-99)
--- NOTE | 2020-09-08 16:56 | PN ---
PROGRESS NOTE This is an 79-year-old white female who has had hypoglycemia for the last 48 hours. We put her on D5 normal saline. Now she is on D10 normal saline. She also had a fever of , but no rectal temperature was checked. Today it is 98.7 and 100.1. She remains on broad-spectrum antibiotics for sacral ulcers due to poly somnia and poor oral intake. Discussed with the patient. She wants to try a PEG tube for feeding until she gets stronger with her wounds. This is a reasonable expectation after discussing the case with Dr. Pabon, her and the surgeon who is going to place the PEG tube if clearance is given by Anesthesia. Once that is placed, tube feeding will be given. If the patient does not improve with this, then hospice care will be considered. Discussed this with the family in depth 2 days ago. Labs are essentially what they were a few weeks ago. White count 7.3, hemoglobin 9.1, BUN is 82, creatinine 3.36. Albumin is low at 1.9. ASSESSMENT: 1. Moderate to severe protein-calorie malnutrition. 2. Chronic renal disease. 3. Systolic congestive heart failure. 4. Chronic obstructive pulmonary disease. 5. Poly somnia. 6. Severe malnutrition. She will need a PEG tube placed. She is on broad-spectrum antibiotics for cellulitis of decubitus ulcers and wound infections. Please see further orders. MMODL / IJN: [id number] /
[2020-09-08] MEDS: ATORVASTATIN 20 MG TAB PO SCH (19:38)
[2020-09-08 20:41] LABS: Glucose,Whole Blood 148 mg/dL (75-99)
[2020-09-09] MEDS: LEVOTHYROXINE 137 MCG TAB PO SCH (02:18)
[2020-09-09] MEDS: DEXTROSE 10% IN WATER 1,000 ML in EMPTY BAG 1 BAG IV SCH (02:18)
[2020-09-09] MEDS: GABAPENTIN 100 MG CAP PO SCH ×3 (02:18→22:18)
[2020-09-09 06:52] LABS: Glucose,Whole Blood 149 mg/dL (75-99)
[2020-09-09 07:16] LABS: ALT 15 U/L (4-34); AST 20 U/L (14-36); African American GFR (CKD) 13 (>60 ml/min/1.73 sqM); Albumin/Globulin Ratio 0.6; Alkaline Phosphatase 312 U/L (38-126); Anion Gap 10 mmol/L; Blood Urea Nitrogen 83 mg/dL (7-17); Calcium 7.9 mg/dL (8.4-10.2); Carbon Dioxide 12 mmol/L (22-30); Chloride 113 mmol/L (98-107); Globulin 3.2 g/dL; Glucose 147 mg/dL (74-99); Non-African American GFR(CKD) 12 (>60 ml/min/1.73 sqM); Potassium 5.2 mmol/L (3.5-5.1); Sodium 135 mmol/L (137-145); Total Bilirubin 0.5 mg/dL (0.2-1.3); Total Protein 5.2 g/dL (6.3-8.2)
[2020-09-09] MEDS: INSULIN ASPART (NovoLOG) 100 UNIT/ML VIAL SQ SCH ×4 (07:48→22:18)
[2020-09-09 07:56] LABS: Anisocytosis Slight; Basophils # (A) 0.1 k/uL (0-0.2); Basophils % (A) 1 %; Eosinophils # (A) 0.3 k/uL (0-0.7); Eosinophils % (A) 3 %; HCT 31.1 % (34.0-46.0); HGB 9.3 gm/dL (11.4-16.0); Hypochromasia Marked; Lymphocytes # (A) 2.1 k/uL (1.0-4.8); Lymphocytes % (A) 26 %; MCV 96.8 fL (80.0-100.0); Macrocytosis Slight; Mean Platelet Volume 8.7; Monocytes # (A) 0.3 k/uL (0-1.0); Monocytes % (A) 4 %; Neutrophils # (A) 5.1 k/uL (1.3-7.7); Neutrophils % (A) 64 %; Platelet Count 225 k/uL (150-450); Poikilocytosis Slight; RBC 3.22 m/uL (3.80-5.40); RDW 19.5 % (11.5-15.5); WBC 7.9 k/uL (3.8-10.6)
[2020-09-09] MEDS: FERROUS SULFATE 325 MG TAB PO SCH (07:56)
[2020-09-09] MEDS: METOPROLOL TARTRATE 12.5 MG TAB PO SCH ×2 (07:56→22:18)
[2020-09-09] MEDS: CYANOCOBALAMIN 500 MCG TAB PO SCH (07:56)
[2020-09-09] MEDS: ISOSORBIDE MONONITRATE ER 30 MG TAB.ER.24H PO SCH (07:56)
[2020-09-09] MEDS: CEFEPIME 1 GM in SODIUM CHLORIDE 0.9% 50 ML IVPB SCH ×2 (08:43→22:18)
[2020-09-09] MEDS: FUROSEMIDE 10 MG/ML 4 ML VIAL IV SCH (08:43)
[2020-09-09] MEDS: PANTOPRAZOLE 40 MG/10 ML VIAL IVP SCH (08:43)
[2020-09-09 11:36] LABS: Glucose,Whole Blood 130 mg/dL (75-99)
--- NOTE | 2020-09-09 12:58 | P.PN ---
Subjective Progress Note Date: 09/09/20 CHIEF COMPLAINT: Malnutrition HISTORY OF PRESENT ILLNESS: Patient was initially scheduled for PEG tube pl acement today. However, patient's family has decided to proceed with hospice. Hospice consult placed earlier this morning. Surgery for PEG tube canceled. PHYSICAL EXAM: VITAL SIGNS: Reviewed. GENERAL: Well-developed in no acute distress. HEENT: No sclera icterus. Extraocular movements grossly intact. Moist buccal mucosa. Head is atraumatic, normocephalic. ABDOMEN: Soft. Nondistended. Nontender. NEUROLOGIC: Patient is confused ASSESSMENT: 1. Severe protein calorie malnutrition PLAN: -Surgery for PEG tube canceled. Patient's family wishes to proceed with hospice -Agree with hospice consult Physician Supervisor [employer] note has been reviewed by physician. Signing provider agrees with the documented findings, assessment, and plan of care. Objective - Vital Signs Vital signs: Vital Signs Temp 97.3 F L 09/09/20 07:27 Pulse 107 H 09/09/20 08:00 Resp 23 09/09/20 07:27 BP 153/76 09/09/20 07:27 Pulse Ox 94 L 09/09/20 07:27 Intake & Output 09/08/20 09/09/20 09/09/20 18:59 06:59 18:59 Intake Total 900 Output Total 500 1700 Balance 900 -500 -1700 Intake: Intake, IV Titration 900 Amount Dextrose 10% in Water 1, 900 000 ml In Empty Bag 1 bag @ 75 mls/hr IV .[id number] [facility] Rx#:[id number] Output: Urine 400 1200 Stool 100 500 Other: Voiding Method Indwelling Catheter Indwelling Catheter Indwelling Catheter - Labs CBC & Chem 7: 09/09/20 06:15 09/09/20 06:15 Labs: Abnormal Lab Results - Last 24 Hours (Table) 09/08/20 09/08/20 09/09/20 Range/Units 16:54 20:39 06:15 RBC 3.22 L (3.80-5.40) m/uL Hgb 9.3 L (11.4-16.0) gm/dL Hct 31.1 L (34.0-46.0) % MCHC 30.0 L (31.0-37.0) g/dL RDW 19.5 H (11.5-15.5) % Sodium (137-145) mmol/L Potassium (3.5-5.1) mmol/L Chloride (98-107) mmol/L Carbon Dioxide (22-30) mmol/L BUN (7-17) mg/dL Creatinine (0.52-1.04) mg/dL Glucose (74-99) mg/dL POC Glucose (mg/dL) 124 H 148 H (75-99) mg/dL Calcium (8.4-10.2) mg/dL Alkaline Phosphatase (38-126) U/L Total Protein (6.3-8.2) g/dL Albumin (3.5-5.0) g/dL 09/09/20 09/09/20 09/09/20 Range/Units 06:15 06:51 11:33 RBC (3.80-5.40) m/uL Hgb (11.4-16.0) gm/dL Hct (34.0-46.0) % MCHC (31.0-37.0) g/dL RDW (11.5-15.5) % Sodium 135 L (137-145) mmol/L Potassium 5.2 H (3.5-5.1) mmol/L Chloride 113 H (98-107) mmol/L Carbon Dioxide 12 L (22-30) mmol/L BUN 83 H (7-17) mg/dL Creatinine 3.51 H (0.52-1.04) mg/dL Glucose 147 H (74-99) mg/dL POC Glucose (mg/dL) 149 H 130 H (75-99) mg/dL Calcium 7.9 L (8.4-10.2) mg/dL Alkaline Phosphatase 312 H (38-126) U/L Total Protein 5.2 L (6.3-8.2) g/dL Albumin 2.0 L (3.5-5.0) g/dL Microbiology - Last 24 Hours (Table) 09/06/20 16:58 Anaerobic Culture - Preliminary Leg - Left 09/06/20 16:58 Gram Stain - Preliminary Leg - Left Wound Culture - Preliminary Yeast species
[2020-09-09 16:46] LABS: Glucose,Whole Blood 122 mg/dL (75-99)
--- NOTE | 2020-09-09 17:05 | PN ---
PROGRESS NOTE DATE OF SERVICE: 09/09/2020 REASON FOR FOLLOWUP: Sacral osteomyelitis, bilateral posterior thigh wounds. INTERVAL HISTORY: The patient is currently afebrile. The patient remains lethargic, sleepy, unable to provide any history. No vomiting has been reported or any diarrhea. PHYSICAL EXAMINATION: Her blood pressure is 140/84, pulse 84, temperature 97.3. She is 100% on 4 L nasal cannula. General description is an elderly female lying in bed in no distress. RESPIRATORY SYSTEM: Unlabored breathing. Clear to auscultation anteriorly. HEART: S1, S2. Regular rate and rhythm. ABDOMEN: Soft. No tenderness. LABS: Hemoglobin 9.3, white count 7.9, BUN of 83, creatinine 3.51. DIAGNOSTIC IMPRESSION AND PLAN: Patient with infected sacral pressure ulcer with bilateral posterior thigh ulcers in this patient with overall poor prognosis. Patient's family has finally agreed to comfort care, which may be appropriate for her. Cefepime discontinued at that time Continue with supportive care. MMODL / IJN: [id number] /
[2020-09-09 20:53] LABS: Glucose,Whole Blood 109 mg/dL (75-99)
[2020-09-09] MEDS: ATORVASTATIN 20 MG TAB PO SCH (22:18)
[2020-09-10] MEDS: DEXTROSE 10% IN WATER 1,000 ML in EMPTY BAG 1 BAG IV SCH ×2 (00:14→04:30)
[2020-09-10] MEDS: ATORVASTATIN 20 MG TAB PO SCH (02:52)
[2020-09-10] MEDS: GABAPENTIN 100 MG CAP PO SCH ×3 (02:52→07:29)
[2020-09-10] MEDS: METOPROLOL TARTRATE 12.5 MG TAB PO SCH ×2 (02:52→07:29)
[2020-09-10] MEDS: DEXTROSE 5% IN WATER 1,000 ML with SODIUM BICARB (1 MEQ/ML) 150 ML IV SCH (05:28)
[2020-09-10] MEDS: LEVOTHYROXINE 137 MCG TAB PO SCH (05:38)
[2020-09-10] MEDS: INSULIN ASPART (NovoLOG) 100 UNIT/ML VIAL SQ SCH ×3 (07:14→17:30)
[2020-09-10 07:22] LABS: Glucose,Whole Blood 108 mg/dL (75-99)
[2020-09-10] MEDS: FERROUS SULFATE 325 MG TAB PO SCH (07:28)
[2020-09-10] MEDS: ISOSORBIDE MONONITRATE ER 30 MG TAB.ER.24H PO SCH (07:28)
[2020-09-10] MEDS: CYANOCOBALAMIN 500 MCG TAB PO SCH (07:28)
[2020-09-10] MEDS: PANTOPRAZOLE 40 MG/10 ML VIAL IVP SCH (07:32)
[2020-09-10] MEDS: FUROSEMIDE 10 MG/ML 4 ML VIAL IV SCH (07:33)
[2020-09-10] MEDS: CEFEPIME 1 GM in SODIUM CHLORIDE 0.9% 50 ML IVPB SCH (07:33)
[2020-09-10 11:35] LABS: Glucose,Whole Blood 88 mg/dL (75-99)
[2020-09-10] MEDS ORDERED: DEXTROSE 5% IN WATER 1,000 ML with SODIUM BICARB (1 MEQ/ML) 150 ML IV SCH (12:00)
--- NOTE | 2020-09-10 12:58 | P.PN ---
Subjective Progress Note Date: 09/10/20 CHIEF COMPLAINT: Malnutrition HISTORY OF PRESENT ILLNESS: Patient was initially scheduled for PEG tube pl acement. However, patient's family has decided to proceed with comfort care. Surgery for PEG tube canceled. PHYSICAL EXAM: VITAL SIGNS: Reviewed. GENERAL: Well-developed in no acute distress. HEENT: No sclera icterus. Extraocular movements grossly intact. Moist buccal mucosa. Head is atraumatic, normocephalic. ABDOMEN: Soft. Nondistended. Nontender. NEUROLOGIC: Patient is confused ASSESSMENT: 1. Severe protein calorie malnutrition PLAN: -Continue comfort care Physician Resort Manager note has been reviewed by physician. Signing provider agrees with the documented findings, assessment, and plan of care. Objective - Vital Signs Vital signs: Vital Signs Temp 97.4 F L 09/10/20 07:39 Pulse 86 09/10/20 07:39 Resp 17 09/10/20 07:39 BP 121/74 09/10/20 07:39 Pulse Ox 100 09/10/20 07:39 Intake & Output 09/09/20 09/10/20 09/10/20 18:59 06:59 18:59 Output Total 2100 575 Balance -2100 -575 Weight 65.317 kg Output: Urine 1600 525 Stool 500 50 Other: Voiding Method Indwelling Catheter Indwelling Catheter Indwelling Catheter # Bowel Movements 1 - Labs CBC & Chem 7: 09/09/20 06:15 09/09/20 06:15 Labs: Abnormal Lab Results - Last 24 Hours (Table) 09/09/20 09/09/20 09/10/20 Range/Units 16:45 20:51 07:04 POC Glucose (mg/dL) 122 H 109 H 108 H (75-99) mg/dL Microbiology - Last 24 Hours (Table) 09/06/20 16:58 Gram Stain - Final Leg - Left Wound Culture - Final Jocelyn albicans 09/08/20 15:07 Blood Culture - Preliminary Blood No Growth after 24 hours
[2020-09-10 14:49] VITALS: BP 139/69; PULSE 105; RESP 18; TEMP 96.6
[2020-09-10 17:09] LABS: Glucose,Whole Blood 98 mg/dL (75-99)
--- NOTE | 2020-09-10 17:25 | PN ---
PROGRESS NOTE Patient is seen for followup for acute kidney injury and severe metabolic acidosis. Patient's renal function had worsened and initially she was admitted for possible PEG tube placement. However, family has decided to proceed with hospice care. Therefore patient was not seen yesterday; however, she is officially not yet changed to hospice. This morning patient is awake. She did answer questions. Her blood sugars are not that low anymore. She has an indwelling Leslie catheter with fair urine output. PHYSICAL EXAMINATION: Blood pressure was 121/74, heart rate 86 per minute. She is afebrile. EXAMINATION OF THE HEART: S1 and S2. EXAMINATION OF LUNGS: Bilateral breath sounds are heard. ABDOMEN: Soft, non-tender. Examination of lower extremities shows edema 2+ bilaterally. AUDITOR INTERNAL exam is grossly intact. Patient is quite weak, though. She does not move her extremities much. LABS: Labs show sodium 135, potassium 5.2. CO2 is 12, creatinine 3.5, BUN 83 on 09/09/2020. MMODL / IJN: [id number] /
--- NOTE | 2020-09-10 17:34 | PN ---
PROGRESS NOTE PROGRESS NOTE, CONTINUED: ASSESSMENT: 1. Acute kidney injury, acute tubular necrosis, nonoliguric. Currently with indwelling Leslie catheter. Total urine output close to 2 L. 2. Severe metabolic acidosis associated with ongoing renal failure. 3. Mild hyperkalemia. 4. Protein-calorie malnutrition. 5. Third spacing and interstitial edema. PLAN: Switch to IV bicarb at about 50 mL/hour until final decision regarding hospice is made. Agree with plans for hospice care. MMALESHAL / IJN: [id number] /
--- NOTE | 2020-09-16 09:38 | CDI ---
A pressure ulcer was documented in consult 09/06, PN 09/07 and 09/09 History/Risk Factors: Clinical Indicators: Pressure ulcer to sacrum-documented as stage IV in chart and unstageable in wound care. Wound care: stage IV L thigh, stage IV R lower buttock, sacrum unstageable. This differs from the chart documentation. PLease list the location and stage of all pressure ulcers. Location: Wound description: Treatment: Consults: Elements for accurate and compliant documentation of an ulcer: *The location/laterality of the ulcer *Etiology (decubitus/pressure, diabetic, PVD) *Stage I-IV, Unstageable, Suspected Deep Tissue Injury (To the deepest stage) *If the ulcer was present at admission (POA) or occurred after admission In your professional opinion, can you please clarify the diagnosis, location, laterality and whether present on admission (POA): Stage 1 Pressure/Decubitus Ulcer (intact skin, non-blanching redness of local area) Stage 2 Pressure/Decubitus Ulcer (Partial thickness, loss of dermis, pink wound bed) Stage 3 Pressure/Decubitus Ulcer (Full thickness tissue loss) Stage 4 Pressure/Decubitus Ulcer (Full thickness tissue loss with exposed bone, tendon, or muscle. May have slough or eschar present) Unstageable Other condition, please specify Unable to determine Please indicate etiology of pressure ulcer (if known). MTDD
--- NOTE | 2020-09-23 17:03 | CDI ---
Documentation Clarification Form Date: 09/23/2020 04:53:46 PM From: Jamie Hunt Phone: Admit Date: 09/06/2020 02:29:00 PM Patient Name: Olga Babin Visit Number: [id number] Discharge Date: 09/10/2020 05:38:00 PM ATTENTION: The Clinical Documentation Specialists (CDI) and [facility] Coding Staff appreciate your assistance in clarifying documentation. Please respond to the clarification below the line at the bottom and electronically sign. The CDI & [facility] Coding staff will review the response and follow-up if needed. Please note: Queries are made part of the Legal Health Record. If you have any questions, please contact the author of this message via ITS. Dr. Cristi López A pressure ulcer was documented in the consult of 09/06 indicating bilateral posterior thigh pressure ulcers. H+P indicates stage IV sacral decubitus. Discharge summary indicates bilateral stage II buttock decubitus. Progress note 09/08 indicates multiple pressure ulcers. Please indicate the location, stage POA status of all decubitus ulcers. . Elements for accurate and compliant documentation of an ulcer: *The location/laterality of the ulcer *Etiology (decubitus/pressure, diabetic, PVD) *Stage I-IV, Unstageable, Suspected Deep Tissue Injury (To the deepest stage) *If the ulcer was present at admission (POA) or occurred after admission In your professional opinion, can you please clarify the diagnosis, location, laterality and whether present on admission (POA): Stage 1 Pressure/Decubitus Ulcer (intact skin, non-blanching redness of local area) Stage 2 Pressure/Decubitus Ulcer (Partial thickness, loss of dermis, pink wound bed) Stage 3 Pressure/Decubitus Ulcer (Full thickness tissue loss) Stage 4 Pressure/Decubitus Ulcer (Full thickness tissue loss with exposed bone, tendon, or muscle. May have slough or eschar present) Unstageable Other condition, please specify Unable to determine MTDD
--- NOTE | 2020-09-24 14:25 | PN ---
PROGRESS NOTE Please add to the dictation: Stage IV and deep tissue injury to deepest stage on the sacral ulcer. MMODL / IJN: [id number] /
== END 2020-09-10 17:38 | disposition hospice, inpatient (51) | DRG 640 ==
LOC: 4SSUR 14:29
PROVIDERS: ADMIT Family Medicine; ATTEND Family Medicine
DX: E43 Unspecified severe protein-calorie malnutrition (principal); L89.154 Pressure ulcer of sacral region, stage 4; N17.0 Acute kidney failure with tubular necrosis; G93.40 Encephalopathy, unspecified; I13.0 Hypertensive heart and chronic kidney disease with heart failure and stage 1 through stage 4 chronic kidney disease, or unspecified chronic kidney disease; I50.20 Unspecified systolic (congestive) heart failure; M46.28 Osteomyelitis of vertebra, sacral and sacrococcygeal region; L03.90 Cellulitis, unspecified; L97.109 Non-pressure chronic ulcer of unspecified thigh with unspecified severity; E87.2 Acidosis; Z20.828 Contact with and (suspected) exposure to other viral communicable diseases; Z66 Do not resuscitate; Z51.5 Encounter for palliative care; E86.0 Dehydration; Z79.01 Long term (current) use of anticoagulants; L89.312 Pressure ulcer of right buttock, stage 2; L89.322 Pressure ulcer of left buttock, stage 2; E87.5 Hyperkalemia; E11.649 Type 2 diabetes mellitus with hypoglycemia without coma; L89.150 Pressure ulcer of sacral region, unstageable; Z86.16 Personal history of COVID-19; J44.9 Chronic obstructive pulmonary disease, unspecified; D63.1 Anemia in chronic kidney disease; E78.5 Hyperlipidemia, unspecified; R68.0 Hypothermia, not associated with low environmental temperature; E03.9 Hypothyroidism, unspecified; Z87.01 Personal history of pneumonia (recurrent); I25.10 Atherosclerotic heart disease of native coronary artery without angina pectoris; N18.30 Chronic kidney disease, stage 3 unspecified; Z87.891 Personal history of nicotine dependence; E11.622 Type 2 diabetes mellitus with other skin ulcer; Z85.41 Personal history of malignant neoplasm of cervix uteri; I25.2 Old myocardial infarction; E11.22 Type 2 diabetes mellitus with diabetic chronic kidney disease; Z85.048 Personal history of other malignant neoplasm of rectum, rectosigmoid junction, and anus; E11.69 Type 2 diabetes mellitus with other specified complication; Z92.3 Personal history of irradiation; Z74.01 Bed confinement status; Z92.21 Personal history of antineoplastic chemotherapy; Z93.3 Colostomy status; Z79.890 Hormone replacement therapy; Z82.49 Family history of ischemic heart disease and other diseases of the circulatory system; Z90.710 Acquired absence of both cervix and uterus; Z79.4 Long term (current) use of insulin; Z68.25 Body mass index [BMI] 25.0-25.9, adult; Z53.29 Procedure and treatment not carried out because of patient's decision for other reasons
CPT/HCPCS: 71045; 76770; 80053; 83880; 84132; 85025; 85652; 86140; 87040; 87070; 87075; 87205; 93005

== ENCOUNTER 2020-09-10 16:57 | Inpatient (IN) | payer MEDICAID, MEDICARE ==
[2020-09-10] MEDS ORDERED: ACETAMINOPHEN SUPPOSITORY 650 MG SUPP RECTAL PRN (17:29)
[2020-09-10] MEDS ORDERED: LORazepam 0.5 MG TAB PO PRN (17:29)
[2020-09-10] MEDS ORDERED: ATROPINE OPHTH SOLN 1% 5ML BTL SUBLINGUAL PRN (17:29)
[2020-09-10] MEDS ORDERED: MORPHINE CONC SOLN 10mg/0.5mL ORAL SYRG SL PRN (17:33)
[2020-09-10] MEDS ORDERED: ONDANSETRON ODT 4 MG TAB PO PRN (17:34)
[2020-09-10 19:54] VITALS: RESP 18
[2020-09-10 21:51] VITALS: BP 129/78; PULSE 84; TEMP 97.7
--- NOTE | 2020-09-10 21:54 | PN ---
PROGRESS NOTE This is an 79-year-old white female who remains in the hospital, is being transitioned over to hospice care. Vital signs reviewed. CARDIOVASCULAR: S1, S2. LUNGS: Clear. GI: Soft. The patient is being transferred over to hospice care. Please see further orders from hospice nurse. MMODL / IJN: [id number] /
--- NOTE | 2020-09-11 12:04 | DS ---
DISCHARGE SUMMARY She came in the hospital with acute pulmonary edema, hypoxemic respiratory failure with hypoxemia, sepsis, delirium secondary to sepsis secondary to chronic sacral wounds and decubitus wounds. She came in to get a PEG tube placed due to severe malnutrition, unable to eat or drink. Family decided to make her comfort care after had trouble keeping her glucose high in the hospital which delayed PEG tube placement for which eventually got refused. The patient is going to be made comfort measures. She is going to go home over to the long-term on hospice care under Dr. Cristi López's care. DISCHARGE MEDICINE: 1. Ativan 0.5 q.4h p.r.n. 2. Atropine solution for the eyes 2 drops sublingual q.4 hours p.r.n. for excessive secretions. 3. Roxanol 10 mg per 0.5 mL. 4. To give 5 mg of morphine q.4 hours p.r.n. for pain for comfort measures. Hospice program back to [facility]. SAHRA / SHELLY: [id number] /
== END 2020-09-11 13:29 | disposition hospice, inpatient (51) | DRG 640 ==
LOC: 4SSUR 18:13
PROVIDERS: ADMIT Family Medicine; ATTEND Family Medicine
DX: E86.0 Dehydration (principal); L89.154 Pressure ulcer of sacral region, stage 4; E43 Unspecified severe protein-calorie malnutrition; Z51.5 Encounter for palliative care; L89.302 Pressure ulcer of unspecified buttock, stage 2; I50.9 Heart failure, unspecified; Z79.01 Long term (current) use of anticoagulants; Z79.890 Hormone replacement therapy; Z79.899 Other long term (current) drug therapy; Z68.25 Body mass index [BMI] 25.0-25.9, adult